=== PATIENT | male | born 1960 | race African-American/Black ===

== ENCOUNTER 2020-05-27 12:29 | Inpatient (IN) | payer MEDICAID, SELFPAY ==
[2020-05-27] VITALS (7 sets, daily range): BP systolic 193–208; BP diastolic 89–97; PULSE 86–112; RESP 16–18; TEMP 36.3–36.6; O2SAT 93–99; BMI 16.9
[2020-05-27 13:01] LABS: Glucose, Whole Blood 286 mg/dL (60-115)
--- NOTE | 2020-05-27 13:12 | PC.NURSE ---
PT OFE, ARRIVES VIA EMS AFTER C/O ABDOMINAL PAIN IN UMBILICAL REGION WITH VOMITING SINCE THIS AM. DENIES DETOXING. EXPERIENCING CHILLS, DIARRHEA. WITNESSED DRY HEAVING. A&OX3, ABLE TO SPEAK IN CLEAR FULL SENTENCES. SKIN COLOUR APPROPRIATE FOR ETHNICITY, WARM & DRY. PA TO BEDSIDE.
[2020-05-27] MEDS: Morphine Sulfate 4 MG/ML CARTRIDGE IM (13:40)
[2020-05-27] MEDS: 0.9 % Sodium Chloride 1,000 ML 999 ML IVCONT (13:40)
[2020-05-27] MEDS: ondansetron HCL 4 MG/2 ML VIAL IVPUSH (13:41)
[2020-05-27] MEDS: diphenhydrAMINE HCL 50 MG/ML VIAL 25 MG IVPUSH (13:41)
--- NOTE | 2020-05-27 14:18 | CT_ITS ---
EXAMINATION: CT ABDOMEN AND PELVIS WITH CONTRAST CLINICAL INFORMATION: Abdominal pain. Bilious emesis. COMPARISON: 11/17/2018 TECHNIQUE: Multidetector volumetric images were obtained from the superior aspect of the liver through the pubic symphysis following administration 85 mL of Omnipaque 350 intravenous contrast. Sagittal and coronal reformatted images were obtained on the technologist's workstation. Oral contrast: No This CT examination was performed using dose optimization techniques as appropriate, variously including the following: *Automated exposure control *Adjustment of mA and/or kV according to patient size (this includes techniques or standardized protocols for targeted exams where dose is matched to indication/reason for exam; i.e. extremities or head) *Use of iterative reconstruction technique DLP: 339 mGy-cm FINDINGS: LUNG BASES: The visualized lung bases are unremarkable. LIVER, GALLBLADDER, AND BILIARY TREE: The liver is normal in size, shape, and attenuation. No focal hepatic lesion or biliary ductal dilatation is present. The gallbladder appears to be absent. PANCREAS: Atrophic pancreas with calcifications along the course of the pancreas, suggestive of sequela of chronic pancreatitis. This is similar to prior. SPLEEN: Unremarkable. ADRENAL GLANDS: Unremarkable. KIDNEYS AND URETERS: The kidneys are normal in size, shape, and attenuation. Duplicated right collecting system with rotated appearance. No hydronephrosis, hydroureter, or calculi seen. No perinephric stranding. BLADDER: Unremarkable. GASTROINTESTINAL TRACT: The stomach is unremarkable. Normal caliber small bowel. There is no obstruction. No colonic wall thickening or inflammatory changes. The appendix is not definitively seen, but there are no inflammatory changes in the region of the cecum to suggest acute appendicitis. No free air or free fluid. ABDOMINAL WALL: No significant hernia is appreciated. LYMPH NODES: Normal. VASCULAR: Normal caliber aorta with mild atherosclerotic calcification. PELVIC VISCERA: The prostate and seminal vesicles are unremarkable. OSSEOUS STRUCTURES: No acute or suspicious osseous abnormality. Mild degenerative changes of the hips. CT/CT abdomen pelvis w con IMPRESSION: No acute findings in the abdomen or pelvis. Changes of chronic pancreatitis. No acute inflammation noted. No bowel obstruction.
--- NOTE | 2020-05-27 14:20 | ED.ABDPAIN ---
HPI - Abdominal Pain General Chief Complaint: Abdominal Pain Stated Complaint: ABD PAIN Time Seen by Provider: 05/27/20 13:03 Source: patient Mode of arrival: ambulatory Limitations: no limitations History of Present Illness HPI narrative: 59yoM c PMHx of diabetes and pancreatitis presenting to the ED with complaints of nausea/vomiting and stabbing umbilical abdominal pain that is now diffuse without any other associated symptoms. Denies fevers, chills, blood in his emesis, chest pain, shortness of breaths, pain radiating to the back or the chest, diarrhea or constipation. Denies any alcohol or drug usage. Denies recent travel or sick contacts. Denies bad food exposure. Denies exposure to COVID that he is aware about. Denies any additional complaints or concerns at this time. Related Data Allergies Allergy/AdvReac Type Severity Reaction Status Date / Time No Known Allergies Allergy Verified 05/27/20 12:49 [No Known Allergies*] Review of Systems Review of Systems Constitutional : No Fever, No Chills ENT/Mouth: No ear pain, No sore throat, No Difficulty swallowing Cardiovascular : No Chest Pain, No SOB Respiratory : No Cough, No Sputum Gastrointestinal : + Nausea, + Vomiting, + abdominal Pain, No Hematochezia, No Melena, No Diarrhea, No constipation Genitourinary : No irregular bleeding, No Dysuria, No Urinary Frequency, No Hematuria,No Urinary Incontinence, No Urgency, No Flank Pain Musculoskeletal : No joint pain, No Myalgias, No Joint Swelling Skin : No Skin Lesions, No rash Neuro : No Weakness, No Paresthesias, No Dizziness, No Headache Psych : No Social Issues, Heme/Lymph: No Bruising, No Bleeding,No Lymphadenopathy Endocrine : No Polyuria, No Polydipsia, No Temperature Intolerance Yes all other systems are reviewed and are negative Physical Exam Vital Signs: Vital Signs: Last Vital Signs Temp 97.3 F 05/27/20 12:49 Pulse 86 05/27/20 12:49 Resp 16 05/27/20 13:40 BP 208/96 H 05/27/20 12:49 Pulse Ox 93 05/27/20 12:49 Body Mass Index 16.9 vital signs have been reviewed as normal and appeared to be correct. Blood pressure normal. Heart rate normal. Respiration rate normal. Temperature normal. Oxygen saturation normal. Appearance: Alert. Oriented X3. Actively vomiting yellow/greenish colored emesis reporting that he is in pain otherwise no other acute distress. Head: Normal external exam. Normocephalic. Eyes: PERRLA. EOMI. Conjunctiva and sclera normal. Eyelids normal. ENT: EAC normal. Pharynx normal. Uvula midline. Moist mucous membranes. Neck: Normal inspection. Neck supple. FROM. No adenopathy. No meningeal signs. CVS: Normal heart rate and rhythm. Heart sound normal. No murmurs noted. Pulses normal throughout. Respiratory: No respiratory distress. Painless inspiration. Breath sounds normal. No wheezes/rales/rhonchi noted. Chest nontender. No accessory muscle usage noted or decreased air movement noted. Abdomen: Soft and TTP diffusely. Bowel sounds normal in all 4 quadrants. No distention noted. No organomegaly noted. No visible injury noted. Back: No CVA tenderness. Full range of motion noted. Skin: Skin warm and dry. Normal skin color. Normal skin turgor. No rashes/lesions/lacerations noted. Extremities: No lower extremity edema. Extremities exhibit normal range of motion. Extremities nontender. Neuro: Oriented X 3. No motor deficit. No sensory deficit. Reflexes normal. Course Course Course Narrative: 13PM - 59yoM c PMHx of diabetes and pancreatitis presenting to the ED with complaints of nausea/vomiting and stabbing umbilical abdominal pain that is now diffuse without any other associated symptoms. - Concern for appendicitis vs cholecystitis versus viral syndrome versus pancreatitis - Plan: Labs, CT scan of abd/pelvis c IV contrast. Provide symptomatic treatment with a L of IV fluids, 4 mg of Zofran, and 4 mg of morphine along with 25 mg of Benadryl then re-evaluate. Reevaluation(s) Reevaluation #1: [place] [address]. Blood glucose 286. AST and ALT at 64/132. Otherwise all other labs are within normal limits. Awaiting CT scan of abdomen and pelvis with IV contrast. Will re-evaluate. Time: 15:55 Reevaluation #2: CT scan of abdomen and pelvis revealed chronic pancreatitis otherwise no acute inflammation and no other acute processes. I went to the bedside and offered the patient some cynthia piecre he took 2 sips and reported that he felt nauseous and he still does not feel better therefore will give him Phenergan this will be his 3rd nausea medication and will re-attempt p.o. fluids and if he feels he would need to be admitted for intractable nausea/vomiting. Patient understands agrees with this plan. Will sign out to VICTOR HUGO Tomlinson Time: 16:52 MDM - Abdominal Pain Medical Records Attestation: I reviewed the patient's medical records. Lab Data Attestation: I reviewed the patient's lab results. Result diagrams: 05/27/20 14:31 05/27/20 14:31 Labs: Lab Results 05/27/20 05/27/20 05/27/20 Range/Units 12:45 14:31 14:31 WBC 21.9 H (4.8-10.8) X10*3/uL RBC 5.27 (4.60-5.80) X10*6/uL Hgb 15.0 (14.0-18.0) g/dl Hct 47.3 (42-52) % MCV 89.8 (80-98) fL MCH 28.5 (27.0-33.0) pg MCHC 31.7 (31.0-36.0) g/dl RDW 10.9 L (11.0-16.0) % Plt Count 210 (160-400) X10*3/uL MPV 10.8 (9.4-12.4) fL Immature Gran % (Auto) 0.4 (0.0-0.4) % Neut % (Auto) 90.2 H (45-73) % Lymph % (Auto) 4.9 L (20-40) % [place] % (Auto) 4.3 (2-11) % Eos % (Auto) 0.0 (0-4) % Baso % (Auto) 0.2 (0-2) % Lymph # (Auto) 1.1 L (1.2-4.9) X10*3/uL [place] # (Auto) 1.0 (0.1-1.2) X10*3/uL Eos # (Auto) 0.0 (0.0-0.4) X10*3/uL Baso # (Auto) 0.1 (0.0-0.2) X10*3/uL Abs Immat Gran (auto) 0.08 H (0.00-0.03) X10*3/uL Absolute Neuts (auto) 19.7 H (2.0-8.3) X10*3/uL Absolute Nucleated RBC 0.000 (0.0-0.012) X10*3/uL Nucleated RBC % (auto) 0.0 (0.0-0.2) /100WBC Smear Tech's Comments VERIFIED Hold Purple Top PT (10.8-13.0) SEC INR (0.9-1.1) Sodium 137 (135-145) mmol/L Potassium 4.5 (3.3-5.1) mmol/l Chloride 102 (96-108) mmol/L Carbon Dioxide 19 L (22-29) mmol/L Anion Gap 21 H (12-20) BUN 13 (9-16) mg/dL Creatinine 1.07 (0.5-1.4) mg/dL Estim Creat Clear Calc 50.6 Estimated GFR > 60 POC Glucose 286 H (60-115) mg/dL Random Glucose 298 H (60-115) mg/dL Calcium 9.0 (8.4-10.2) mg/dL Magnesium 1.8 (1.6-2.6) mg/dL Total Bilirubin 1.0 (0.0-1.0) mg/dL Direct Bilirubin 0.3 (0.0-0.5) mg/dL AST 64 H (5-37) U/L ALT 132 H (0-40) U/L Alkaline Phosphatase 99 (39-117) U/L Total Protein 7.6 (6.5-8.0) g/dL Albumin 4.8 (3.5-5.0) g/dL Lipase 6 L (8-78) U/L 05/27/20 05/27/20 Range/Units 15:06 15:06 WBC (4.8-10.8) X10*3/uL RBC (4.60-5.80) X10*6/uL Hgb (14.0-18.0) g/dl Hct (42-52) % MCV (80-98) fL MCH (27.0-33.0) pg MCHC (31.0-36.0) g/dl RDW (11.0-16.0) % Plt Count (160-400) X10*3/uL MPV (9.4-12.4) fL Immature Gran % (Auto) (0.0-0.4) % Neut % (Auto) (45-73) % Lymph % (Auto) (20-40) % [place] % (Auto) (2-11) % Eos % (Auto) (0-4) % Baso % (Auto) (0-2) % Lymph # (Auto) (1.2-4.9) X10*3/uL [place] # (Auto) (0.1-1.2) X10*3/uL Eos # (Auto) (0.0-0.4) X10*3/uL Baso # (Auto) (0.0-0.2) X10*3/uL Abs Immat Gran (auto) (0.00-0.03) X10*3/uL Absolute Neuts (auto) (2.0-8.3) X10*3/uL Absolute Nucleated RBC (0.0-0.012) X10*3/uL Nucleated RBC % (auto) (0.0-0.2) /100WBC Smear Tech's Comments Hold Purple Top SEE NOTE PT 12.3 (10.8-13.0) SEC INR 1.0 (0.9-1.1) Sodium (135-145) mmol/L Potassium (3.3-5.1) mmol/l Chloride (96-108) mmol/L Carbon Dioxide (22-29) mmol/L Anion Gap (12-20) BUN (9-16) mg/dL Creatinine (0.5-1.4) mg/dL Estim Creat Clear Calc Estimated GFR POC Glucose (60-115) mg/dL Random Glucose (60-115) mg/dL Calcium (8.4-10.2) mg/dL Magnesium (1.6-2.6) mg/dL Total Bilirubin (0.0-1.0) mg/dL Direct Bilirubin (0.0-0.5) mg/dL AST (5-37) U/L ALT (0-40) U/L Alkaline Phosphatase (39-117) U/L Total Protein (6.5-8.0) g/dL Albumin (3.5-5.0) g/dL Lipase (8-78) U/L Imaging Data CT scan - abdomen: Attestation: I personally reviewed and interpreted this imaging study as follows: Radiologist's impression: FINDINGS: LUNG BASES: The visualized lung bases are unremarkable. LIVER, GALLBLADDER, AND BILIARY TREE: The liver is normal in size, shape, and attenuation. No focal hepatic lesion or biliary ductal dilatation is present. The gallbladder appears to be absent. PANCREAS: Atrophic pancreas with calcifications along the course of the pancreas, suggestive of sequela of chronic pancreatitis. This is similar to prior. SPLEEN: Unremarkable. ADRENAL GLANDS: Unremarkable. KIDNEYS AND URETERS: The kidneys are normal in size, shape, and attenuation. Duplicated right collecting system with rotated appearance. No hydronephrosis, hydroureter, or calculi seen. No perinephric stranding. BLADDER: Unremarkable. GASTROINTESTINAL TRACT: The stomach is unremarkable. Normal caliber small bowel. There is no obstruction. No colonic wall thickening or inflammatory changes. The appendix is not definitively seen, but there are no inflammatory changes in the region of the cecum to suggest acute appendicitis. No free air or free fluid. ABDOMINAL WALL: No significant hernia is appreciated. LYMPH NODES: Normal. VASCULAR: Normal caliber aorta with mild atherosclerotic calcification. PELVIC VISCERA: The prostate and seminal vesicles are unremarkable. OSSEOUS STRUCTURES: No acute or suspicious osseous abnormality. Mild degenerative changes of the hips. CT/CT abdomen pelvis w con IMPRESSION: No acute findings in the abdomen or pelvis. Changes of chronic pancreatitis. No acute inflammation noted. No bowel obstruction. Critical Care Time Critical Care Time Critical Care Time: Yes Total Critical Care Time: 60 Attestation: I personally attest to this time spent taking care of the patient [facility]LY [facility] Past Medical History Attestation statement: The following information was validated with the patient. Medical History Diabetes History of pancreatitis Social History Social History Advance Directives: Yes Advance Directives Information Provided: Yes Advance Directives on File: No
--- NOTE | 2020-05-27 14:32 | PC.NURSE ---
PT DIFFICULT STICK. SEVERAL ATTEMPTS FOR IV PLACEMENT, UNABLE TO DRAW LABS. CALL MADE OUT TO PHLEBOTOMY FOR ASSISTANCE.
[2020-05-27 14:43] LABS: Basophils Absolute Auto 0.1 X10*3/uL (0.0-0.2); Basophils Percent Auto 0.2 % (0-2); Hematocrit 47.3 % (42-52); Imm Gran Abs Auto 0.08 X10*3/uL (0.00-0.03); Imm Gran Pct Auto 0.4 % (0.0-0.4); Lymphocytes Absolute Auto 1.1 X10*3/uL (1.2-4.9); Lymphocytes Percent Auto 4.9 % (20-40); MANUAL DIFF FLAG SCAN; Mean Corpuscular HGB Conc 31.7 g/dl (31.0-36.0); Mean Corpuscular Hemoglobin 28.5 pg (27.0-33.0); Mean Corpuscular Volume 89.8 fL (80-98); Mean Platelet Volume 10.8 fL (9.4-12.4); Monocytes Percent Auto 4.3 % (2-11); Neutrophils Absolute Auto 19.7 X10*3/uL (2.0-8.3); Neutrophils Percent Auto 90.2 % (45-73); Platelet Count 210 X10*3/uL (160-400); Red Blood Count 5.27 X10*6/uL (4.60-5.80); Red Cell Distribution Width 10.9 % (11.0-16.0); SCAN SMEAR FLAG 1; White Blood Count 21.9 X10*3/uL (4.8-10.8)
--- NOTE | 2020-05-27 14:58 | PC.NURSE ---
PHLEBOTOMY AT BEDSIDE, UNABLE TO OBTAIN MORE SPECIMENS
[2020-05-27 15:04] LABS: SLIDE REVIEW VERIFIED
[2020-05-27 15:09] LABS: Alanine Aminotransferase 132 U/L (0-40); Albumin Level 4.8 g/dL (3.5-5.0); Alkaline Phosphatase 99 U/L (39-117); Aspartate Amino Transferase 64 U/L (5-37); Bilirubin Direct 0.3 mg/dL (0.0-0.5); Blood Urea Nitrogen 13 mg/dL (9-16); Creatinine Clr Calc Pharmacy 50.6; Estimated Glomerular Filt Rate > 60; Glucose Random 298 mg/dL (60-115); Magnesium 1.8 mg/dL (1.6-2.6); Total Protein 7.6 g/dL (6.5-8.0)
[2020-05-27 15:20] LABS: Anion Gap 21 (12-20); Carbon Dioxide 19 mmol/L (22-29); Chloride 102 mmol/L (96-108); Potassium 4.5 mmol/l (3.3-5.1); Sodium 137 mmol/L (135-145)
[2020-05-27 15:21] LABS: Prothrombin Time 12.3 SEC (10.8-13.0)
[2020-05-27] MEDS: Morphine Sulfate 4 MG/ML CARTRIDGE IVPUSH ×2 (15:59→19:26)
[2020-05-27] MEDS: Metoclopramide HCl 10 MG/2 ML VIAL IVPUSH (16:00)
[2020-05-27] MEDS: iohexoL 350 MG/ML 100 ML INFUS..BTL IV (16:12)
[2020-05-27 16:21] LABS: Lipase 6 U/L (8-78)
--- NOTE | 2020-05-27 18:08 | PC.NURSE ---
pt asleep upon numerous entries into his room. upon awakening, pt continues to c/o abd pain. nausea resolved. pt continuously requesting more pain medication.
[2020-05-27 19:23] LABS: Glucose Urine UA >=1000 MG/DL (NEG); Leukocyte Esterase Urine NEG (NEG); Nitrite Urine NEG (NEG); Urine Blood TRACE (NEG); Urine Ketones 15 MG/DL (NEG); Urine Protein NEG (NEG-TRACE)
[2020-05-27 19:25] LABS: Appearance Urine CLEAR; Color Urine YELLOW
[2020-05-27 19:36] LABS: RBC Urine 0-2 /HPF (0); WBC Urine 0 /HPF (0-4)
--- NOTE | 2020-05-27 19:48 | PC.NURSE ---
LAB TO DRAW ACETONE OFF PREVIOUS BLOOD DRAW
[2020-05-27 19:52] LABS: Acetone, serum QL Negative (Negative)
[2020-05-27 20:50] LABS: Pt Ventilation O2% ROOM AIR
[2020-05-27 20:52] LABS: ABG PCO2 35 mmhg (32-45)
[2020-05-27 20:53] LABS: Base Excess ABG -2.9; HCO3 ABG 21 mmol/l (22-26); Oxygen Saturation ABG 97.7 %; PO2 ABG 94 mmhg (83-108)
[2020-05-27 22:09] LABS: Glucose, Whole Blood 340 mg/dL (60-115)
--- NOTE | 2020-05-27 22:27 | PC.NURSE ---
pt has no recollection of meds taken at home. meds from pharmacy unobtainable at this time. pt's POC to be covered, awaiting bed assignment.
[2020-05-27 22:40] LABS: COVID-19 Test Negative (Negative)
[2020-05-27] MEDS: Insulin Regular, Human 100 UNIT/ML 3 ML VIAL 10 UNIT SUBCUT (22:42)
[2020-05-27] MEDS: Magnesium Hydrox/Alum Hydrox 30 ML ORAL.SUSP PO (23:24)
[2020-05-27 23:48] LABS: Glucose, Whole Blood 382 mg/dL (60-115)
[2020-05-27] MEDS: HYDROmorphone HCl 1 MG/ML SYRINGE IVPUSH (23:55)
[2020-05-28] VITALS: BP 157/78; PULSE 101; RESP 19; TEMP 36.4; O2SAT 98
[2020-05-28] MEDS: 0.9 % Sodium Chloride 1,000 ML 999 ML IVCONT (00:05)
[2020-05-28] MEDS: QUEtiapine Fumarate 25 MG TABLET PO (01:00)
[2020-05-28] MEDS: Enoxaparin Sodium 40 MG/0.4 ML SYRINGE SUBCUT (01:00)
[2020-05-28 01:22] LABS: Alanine Aminotransferase 118 U/L (0-40); Alkaline Phosphatase 99 U/L (39-117); Aspartate Amino Transferase 37 U/L (5-37); Bilirubin Direct 0.4 mg/dL (0.0-0.5); Bilirubin Total 0.8 mg/dL (0.0-1.0); Total Protein 7.6 g/dL (6.5-8.0)
[2020-05-28 01:22] LABS: Glucose, Whole Blood 306 mg/dL (60-115)
[2020-05-28 03:26] VITALS: BP 133/58; PULSE 102; RESP 19; TEMP 36.8; O2SAT 99
--- NOTE | 2020-05-28 03:32 | PM.IMHP ---
History of Present Illness Date of Service: 05/27/20 Chief Complaint: abdominal pain this is a 59-year-old male with past medical history of chronic pancreatitis , diabetes, hypertension who presents to the hospital with epigastric abdominal pain nausea vomiting Patient reports symptoms started earlier in the day, 04/23, localized to the epigastric area with non radiation, ripping in sensation, associated with nausea and vomiting and low appetite. He denies any fever or chills, denies any diarrhea. No constipation. No urinary symptoms and no lower extremity edema. on arrival to the ED hemodynamically stable with no significant abnormal vitals except for BP of 2 in room 96 on arrival, and slightly elevated heart rate Lab significant for WBC count 20.9, AST of 64, and ALT of 132, S stone negative, COVID-[address] showing changes of chronic pancreatitis, with no acute inflammation noted. No other acute findings on the CT past medical history: Diabetes, hyperlipidemia, hypertension, pancreatitis Surgical history: Appendectomy, cholecystectomy Family history: Significant for diabetes Social history: Denies tobacco alcohol or illicit drugs Review of Systems Review of Systems: Yes all other systems are reviewed and are negative [facility] Medical History (Updated 05/28/20 @ 03:41 by Po Paul MD) Diabetes History of pancreatitis Hypertension Social History Household Members: Friend(s) Housing: Apartment Do you presently have visiting nurse or other home services: No Smoking Status: Never smoker Use of substances other than those prescribed or required for medical reasons: Yes Substance Use Type: Marijuana Substance Use Frequency: Daily Last Used Substance: Days (ago) Currently Displaying Signs/Symptoms of Drug Intoxication Withdrawal: No Any prior treatment program specific to substance use: No Have you been hit, kicked, punched, or otherwise hurt by someone within the past year? If so, by whom?: No Do you feel safe in your current relationship?: No Is there a partner from a previous relationship who is making you feel unsafe now?: No Are you made to feel afraid or neglected: No Advance Directives: Yes Advance Directives Information Provided: Yes Advance Directives on File: No Advance Directives Date on File: 05/28/20 Do you have thoughts of harming others: None Do you have a plan to hurt others: No Plan Recently lost weight without trying: Yes Meds Allergies Allergy/AdvReac Type Severity Reaction Status Date / Time No Known Allergies Allergy Verified 05/27/20 12:49 [No Known Allergies*] Home Medications Medication Instructions Recorded Confirmed Type Unobtainable 05/27/20 05/27/20 History Physical Exam Vital Signs and Narrative: Vital Signs: Last Vital Signs Temp 98.2 F 05/28/20 03:26 Pulse 102 H 05/28/20 03:26 Resp 19 05/28/20 03:26 BP 133/58 L 05/28/20 03:26 Pulse Ox 99 05/28/20 03:26 Body Mass Index 16.9 Const: General: cooperative and no acute distress Orientation/consciousness: patient oriented x3 Eyes: General: appearance normal, both eyes and all related structures Pupils: Equal, round and reactive pupils present Resp: Effort & Inspection: normal respiratory effort and able to speak in complete sentences Auscultation: clear to auscultation bilaterally Cardio: Rate: regular rate Rhythm: regular rhythm GI: Other: tenderness on deep palpation of the epigastric region, no rebound, no guarding Palpation (GI): Soft to palpation Auscultation: normal bowel sounds Skin: General skin exam: no rashes or lesions noted Neuro: General: patient oriented x3 Cranial nerves: Yes Equal, round and reactive pupils present Cognition (Neuro): normal cognition Extrem: General: Yes normal to inspection and Yes no pedal edema Results Labs CBC and Chem 7: 05/27/20 14:31 05/27/20 14:31 Labs: Laboratory Results - last 24 hr 05/27/20 05/27/20 05/27/20 12:45 14:31 14:31 MCV 89.8 MCH 28.5 MCHC 31.7 RDW 10.9 L Plt Count 210 MPV 10.8 Immature Gran % (Auto) 0.4 Neut % (Auto) 90.2 H Lymph % (Auto) 4.9 L [place] % (Auto) 4.3 Eos % (Auto) 0.0 Baso % (Auto) 0.2 Lymph # (Auto) 1.1 L [place] # (Auto) 1.0 Eos # (Auto) 0.0 Baso # (Auto) 0.1 Abs Immat Gran (auto) 0.08 H Absolute Neuts (auto) 19.7 H Absolute Nucleated RBC 0.000 Nucleated RBC % (auto) 0.0 Smear Tech's Comments VERIFIED Hold Purple Top PT INR ABG pH ABG pCO2 ABG pO2 ABG HCO3 ABG O2 Saturation ABG Base Excess Oxygen Given Anion Gap 21 H Estim Creat Clear Calc 50.6 Estimated GFR > 60 POC Glucose 286 H Random Glucose 298 H Calcium 9.0 Magnesium 1.8 Total Bilirubin 1.0 Direct Bilirubin 0.3 AST 64 H ALT 132 H Alkaline Phosphatase 99 Total Protein 7.6 Albumin 4.8 Lipase 6 L Urine Color Urine Appearance Urine pH Ur Specific [place] Urine Protein Urine Glucose (UA) Urine Ketones Urine Blood Urine Nitrite Ur Leukocyte Esterase Urine RBC Urine WBC Ur Squamous Epith Cells Urine Bacteria Acetone, Qual COVID-19 (NEPTALI) [employer] 05/27/20 05/27/20 05/27/20 14:31 15:06 15:06 MCV MCH MCHC RDW Plt Count MPV Immature Gran % (Auto) Neut % (Auto) Lymph % (Auto) [place] % (Auto) Eos % (Auto) Baso % (Auto) Lymph # (Auto) [place] # (Auto) Eos # (Auto) Baso # (Auto) Abs Immat Gran (auto) Absolute Neuts (auto) Absolute Nucleated RBC Nucleated RBC % (auto) Smear Tech's Comments Hold Purple Top SEE NOTE PT 12.3 INR 1.0 ABG pH ABG pCO2 ABG pO2 ABG HCO3 ABG O2 Saturation ABG Base Excess Oxygen Given Anion Gap Estim Creat Clear Calc Estimated GFR POC Glucose Random Glucose Calcium Magnesium Total Bilirubin Direct Bilirubin AST ALT Alkaline Phosphatase Total Protein Albumin Lipase Urine Color Urine Appearance Urine pH Ur Specific [place] Urine Protein Urine Glucose (UA) Urine Ketones Urine Blood Urine Nitrite Ur Leukocyte Esterase Urine RBC Urine WBC Ur Squamous Epith Cells Urine Bacteria Acetone, Qual Negative COVID-19 (NEPTALI) [employer] 05/27/20 05/27/20 05/27/20 19:11 20:40 22:05 MCV MCH MCHC RDW Plt Count MPV Immature Gran % (Auto) Neut % (Auto) Lymph % (Auto) [place] % (Auto) Eos % (Auto) Baso % (Auto) Lymph # (Auto) [place] # (Auto) Eos # (Auto) Baso # (Auto) Abs Immat Gran (auto) Absolute Neuts (auto) Absolute Nucleated RBC Nucleated RBC % (auto) Smear Tech's Comments Hold Purple Top PT INR ABG pH 7.40 ABG pCO2 35 ABG pO2 94 ABG HCO3 21 L ABG O2 Saturation 97.7 ABG Base Excess -2.9 Oxygen Given ROOM AIR Anion Gap Estim Creat Clear Calc Estimated GFR POC Glucose 340 H Random Glucose Calcium Magnesium Total Bilirubin Direct Bilirubin AST ALT Alkaline Phosphatase Total Protein Albumin Lipase Urine Color YELLOW Urine Appearance CLEAR Urine pH 6.0 Ur Specific [place] 1.010 Urine Protein NEG Urine Glucose (UA) >=1000 H Urine Ketones 15 Urine Blood TRACE Urine Nitrite NEG Ur Leukocyte Esterase NEG Urine RBC 0-2 Urine WBC 0 Ur Squamous Epith Cells NONE Urine Bacteria NONE Acetone, Qual COVID-19 (NEPTALI) COVID-19 [employer] 05/27/20 05/27/20 05/28/20 22:13 23:45 00:47 MCV MCH MCHC RDW Plt Count MPV Immature Gran % (Auto) Neut % (Auto) Lymph % (Auto) [place] % (Auto) Eos % (Auto) Baso % (Auto) Lymph # (Auto) [place] # (Auto) Eos # (Auto) Baso # (Auto) Abs Immat Gran (auto) Absolute Neuts (auto) Absolute Nucleated RBC Nucleated RBC % (auto) Smear Tech's Comments Hold Purple Top PT INR ABG pH ABG pCO2 ABG pO2 ABG HCO3 ABG O2 Saturation ABG Base Excess Oxygen Given Anion Gap Estim Creat Clear Calc Estimated GFR POC Glucose 382 H* Random Glucose Calcium Magnesium Total Bilirubin 0.8 Direct Bilirubin 0.4 AST 37 D ALT 118 H Alkaline Phosphatase 99 Total Protein 7.6 Albumin 5.0 Lipase Urine Color Urine Appearance Urine pH Ur Specific [place] Urine Protein Urine Glucose (UA) Urine Ketones Urine Blood Urine Nitrite Ur Leukocyte Esterase Urine RBC Urine WBC Ur Squamous Epith Cells Urine Bacteria Acetone, Qual COVID-19 (NEPTALI) Negative COVID-[employer] See Note 05/28/20 01:18 MCV MCH MCHC RDW Plt Count MPV Immature Gran % (Auto) Neut % (Auto) Lymph % (Auto) [place] % (Auto) Eos % (Auto) Baso % (Auto) Lymph # (Auto) [place] # (Auto) Eos # (Auto) Baso # (Auto) Abs Immat Gran (auto) Absolute Neuts (auto) Absolute Nucleated RBC Nucleated RBC % (auto) Smear Tech's Comments Hold Purple Top PT INR ABG pH ABG pCO2 ABG pO2 ABG HCO3 ABG O2 Saturation ABG Base Excess Oxygen Given Anion Gap Estim Creat Clear Calc Estimated GFR POC Glucose 306 H Random Glucose Calcium Magnesium Total Bilirubin Direct Bilirubin AST ALT Alkaline Phosphatase Total Protein Albumin Lipase Urine Color Urine Appearance Urine pH Ur Specific [place] Urine Protein Urine Glucose (UA) Urine Ketones Urine Blood Urine Nitrite Ur Leukocyte Esterase Urine RBC Urine WBC Ur Squamous Epith Cells Urine Bacteria Acetone, Qual COVID-19 (NEPTALI) COVID-19 Clin Com Imaging Radiologist's Impressions: Impressions Abdomen/Pelvis CT 05/27/20 14:18 IMPRESSION: No acute findings in the abdomen or pelvis. Changes of chronic pancreatitis. No acute inflammation noted. No bowel obstruction. Assessment and Plan (1) Nausea & vomiting: Qualifiers: Vomiting type: bilious vomiting Qualified Code(s): R11.14 - Bilious vomiting Status: Acute (2) Abdominal pain: Qualifiers: Abdominal location: generalized Qualified Code(s): R10.84 - Generalized abdominal pain Status: Acute (3) History of pancreatitis: Status: Acute (4) Diabetes: Status: Acute (5) Hypertension: Status: Acute (6) Leukocytosis: Status: Acute this is a 59-year-old male with past medical history of diabetes as well as pancreatitis who presents to the hospital with complaints of epigastric abdominal pain. # Abdominal pain, nausea vomiting - Possibly secondary to chronic pancreatitis versus gastritis versus gastroparesis in the setting of diabetes - lipase is negative, CT showing chronic pancreatitis with no evidence of acute pancreatitis Plan: - Supportive measures, antiemetics, pain medication - PPI 40 mg daily # leukocytosis - unclear etiology, patient afebrile, no evidence of infection - CT abdomen negative Plan: - Follow CBC # diabetes - will start on low-dose sliding scale insulin - diabetic diet # hypertension - stable - patient does not know his home meds, will confirm with pharmacy in a.m. - at this time continue to monitor and if necessary will administer p.r.n. antihypertensive DVT prophylaxis: Lovenox
[2020-05-28 05:31] LABS: MANUAL DIFF FLAG NO
[2020-05-28 05:36] LABS: Basophils Percent Auto 0.2 % (0-2); Hematocrit 38.5 % (42-52); Hemoglobin 12.6 g/dl (14.0-18.0); Imm Gran Abs Auto 0.05 X10*3/uL (0.00-0.03); Imm Gran Pct Auto 0.3 % (0.0-0.4); Lymphocytes Absolute Auto 1.8 X10*3/uL (1.2-4.9); Lymphocytes Percent Auto 11.7 % (20-40); Mean Corpuscular HGB Conc 32.7 g/dl (31.0-36.0); Mean Corpuscular Hemoglobin 28.6 pg (27.0-33.0); Mean Corpuscular Volume 87.3 fL (80-98); Mean Platelet Volume 11.1 fL (9.4-12.4); Monocytes Percent Auto 6.5 % (2-11); Neutrophils Absolute Auto 12.9 X10*3/uL (2.0-8.3); Neutrophils Percent Auto 81.3 % (45-73); Platelet Count 257 X10*3/uL (160-400); Red Blood Count 4.41 X10*6/uL (4.60-5.80); Red Cell Distribution Width 10.9 % (11.0-16.0); White Blood Count 15.8 X10*3/uL (4.8-10.8)
[2020-05-28 05:56] LABS: Anion Gap 14 (12-20); Blood Urea Nitrogen 15 mg/dL (9-16); Calcium 8.7 mg/dL (8.4-10.2); Carbon Dioxide 28 mmol/L (22-29); Chloride 100 mmol/L (96-108); Creatinine Clr Calc Pharmacy 52.1; Estimated Glomerular Filt Rate > 60; Glucose Random 218 mg/dL (60-115); Potassium 4.8 mmol/l (3.3-5.1); Sodium 137 mmol/L (135-145)
[2020-05-28] MEDS: Omeprazole 40 MG CAPSULE.DR PO (06:26)
[2020-05-28 07:20] VITALS: BP 140/66; PULSE 96; RESP 18; TEMP 36.4; O2SAT 99
[2020-05-28 07:42] LABS: Glucose, Whole Blood 358 mg/dL (60-115)
[2020-05-28] MEDS: Insulin Lispro 100 UNIT/ML 3 ML VIAL SUBCUT (08:29)
[2020-05-28] MEDS: 0.9 % Sodium Chloride Flush 3 ML SYRINGE IVFLUSH (08:30)
[2020-05-28] MEDS: Lipase/Prot/Amylase 24/76/120K 1 CAP CAPSULE.DR 3 CAP PO (08:30)
--- NOTE | 2020-05-28 09:07 | MHC.CM.PN ---
PATIENT LIVES ALONE. HE IS FULLY INDEPENDENT NO DME OR VNA SERVICES. PATIENT REPORTS THAT HIS PCP IS THROUGH [facility] (DR NICHOLAS) HE REPORTS HAVING ENOUGH DIABETIC SUPPLIES IN THE HOME CASE MANAGEMENT FOLLOWING FOR ANY DISCHARGE PLANS.
--- NOTE | 2020-05-28 09:44 | P.DS_ITS ---
DS: Providers Provider Date of admission: 05/27/20 22:15 Primary care physician: Unknown Physician DS: Diagnosis Discharge Diagnosis (1) Nausea & vomiting: Status: Acute (2) Abdominal pain: Status: Acute (3) History of pancreatitis: Status: Acute (4) Diabetes: Status: Acute (5) Hypertension: Status: Acute (6) Leukocytosis: Status: Acute DS: Medications Discharge Medications Home Medications: Previous Rx's Medication Instructions Recorded hmxrmq-iidehfbt-wdnewzu [Creon] 1 cap PO TIDWM #90 cap 05/28/20 DS: Summary Hospital Course Hospital Course: Patient was admitted for abdominal pain, nausea, vomiting due to his chronic pancreatitis. The next morning however patient's symptoms completely resolved and he is able to tolerate breakfast with no issues. Therefore, he will be discharged home, he will be encouraged to continue his Creon. Time Spent with Patient Time attestation: Total time spent providing and/or coordinating discharge services: Physical Exam Vital Signs: Vital Signs: Last Vital Signs Temp 97.6 F 05/28/20 07:20 Pulse 96 05/28/20 07:20 Resp 18 05/28/20 07:20 BP 140/66 H 05/28/20 07:20 Pulse Ox 99 05/28/20 07:20 Body Mass Index 16.9 General: AO X 3, no acute distress Resp: CTA bilateral CVS: S1,S2,RRR GI: soft, non tender, non distended Neuro: motor grossly intact Psych: appropriate affect DS: Data Data Completed and Pending Labs on day of discharge: 05/27/20 12:45 Glucose, Whole Blood Routine 05/27/20 13:03 0.9 % Sodium Chloride [Ns] 1,000 ml IVCONT 999 mls/hr 05/27/20 13:13 Morphine Sulfate 4 mg IM ONCE ONE diphenhydrAMINE HCL [Benadryl] 25 mg IVPUSH ONCE ONE ondansetron HCL [Zofran] 4 mg IVPUSH ONCE ONE 05/27/20 14:18 CT abdomen pelvis w con Stat 05/27/20 14:31 Acetone, serum QL Stat Basic Metabolic Panel Stat Complete Blood Count Auto Diff Stat Lipase Stat Liver Panel Stat Magnesium Stat SLIDE REVIEW Stat 05/27/20 15:06 Hold Lav - Possible Hematology Stat Prothrombin Time INR Stat 05/27/20 15:26 Metoclopramide HCl [Reglan] 10 mg IVPUSH ONCE ONE Morphine Sulfate 4 mg IVPUSH ONCE ONE 05/27/20 16:08 Add Laboratory Test Stat 05/27/20 16:12 iohexoL 350 MG/ML [Omnipaque 350 MG/ML] 100 ml IV ONCE ONE 05/27/20 16:49 Promethazine HCL [Phenergan] 12.5 mg 0.9 % Sodium Chloride [Ns] 50 ml IV ONCE 05/27/20 17:29 Promethazine HCL [Phenergan] 25 mg IV .STK-MED ONE 05/27/20 19:13 Morphine Sulfate 4 mg IVPUSH ONCE ONE 05/27/20 20:40 Arterial Blood Gas Stat 05/27/20 22:05 Glucose, Whole Blood Routine 05/27/20 22:11 Transfer Order Routine 05/27/20 22:13 COVID-19 ID NOW (K[place]patrick) Stat 05/27/20 22:17 Insulin Regular, Human [Humulin R] 10 unit SUBCUT ONCE ONE 05/27/20 23:18 Magnesium Hydrox/Alum Hydrox [Maalox] 30 ml PO ONCE ONE 05/27/20 23:45 Glucose, Whole Blood Routine 05/27/20 23:46 HYDROmorphone HCl [Dilaudid] 1 mg IVPUSH ONCE ONE 05/28/20 00:15 0.9 % Sodium Chloride [Ns] 1,000 ml IVCONT 999 mls/hr 05/28/20 00:30 0.9 % Sodium Chloride [Ns] 1,000 ml IVCONT 999 mls/hr Omeprazole [PriLOSEC] 20 mg PO BID@0630,1630 05/28/20 00:47 Liver Panel Routine 05/28/20 01:18 Glucose, Whole Blood Routine 05/28/20 04:41 Basic Metabolic Panel Routine Complete Blood Count Auto Diff Routine 05/28/20 06:30 Omeprazole [PriLOSEC] 20 mg PO BID@0630,1630 05/28/20 07:20 Glucose, Whole Blood Routine Laboratory Last Values WBC 15.8 X10*3/uL (4.8-10.8) H 05/28/20 04:41 RBC 4.41 X10*6/uL (4.60-5.80) L 05/28/20 04:41 Hgb 12.6 g/dl (14.0-18.0) L 05/28/20 04:41 Hct 38.5 % (42-52) L 05/28/20 04:41 MCV 87.3 fL (80-98) 05/28/20 04:41 MCH 28.6 pg (27.0-33.0) 05/28/20 04:41 MCHC 32.7 g/dl (31.0-36.0) 05/28/20 04:41 RDW 10.9 % (11.0-16.0) L 05/28/20 04:41 Plt Count 257 X10*3/uL (160-400) 05/28/20 04:41 MPV 11.1 fL (9.4-12.4) 05/28/20 04:41 Immature Gran % (Auto) 0.3 % (0.0-0.4) 05/28/20 04:41 Neut % (Auto) 81.3 % (45-73) H 05/28/20 04:41 Lymph % (Auto) 11.7 % (20-40) L 05/28/20 04:41 [place] % (Auto) 6.5 % (2-11) 05/28/20 04:41 Eos % (Auto) 0.0 % (0-4) 05/28/20 04:41 Baso % (Auto) 0.2 % (0-2) 05/28/20 04:41 Lymph # (Auto) 1.8 X10*3/uL (1.2-4.9) 05/28/20 04:41 [place] # (Auto) 1.0 X10*3/uL (0.1-1.2) 05/28/20 04:41 Eos # (Auto) 0.0 X10*3/uL (0.0-0.4) 05/28/20 04:41 Baso # (Auto) 0.0 X10*3/uL (0.0-0.2) 05/28/20 04:41 Abs Immat Gran (auto) 0.05 X10*3/uL (0.00-0.03) H 05/28/20 04:41 Absolute Neuts (auto) 12.9 X10*3/uL (2.0-8.3) H 05/28/20 04:41 Absolute Nucleated RBC 0.000 X10*3/uL (0.0-0.012) 05/28/20 04:41 Nucleated RBC % (auto) 0.0 /100WBC (0.0-0.2) 05/28/20 04:41 Smear Tech's Comments VERIFIED 05/27/20 14:31 Hold Purple Top SEE NOTE 05/27/20 15:06 PT 12.3 SEC (10.8-13.0) 05/27/20 15:06 INR 1.0 (0.9-1.1) 05/27/20 15:06 ABG pH 7.40 (7.35-7.45) 05/27/20 20:40 ABG pCO2 35 mmhg (32-45) 05/27/20 20:40 ABG pO2 94 mmhg (83-108) 05/27/20 20:40 ABG HCO3 21 mmol/l (22-26) L 05/27/20 20:40 ABG O2 Saturation 97.7 % 05/27/20 20:40 ABG Base Excess -2.9 05/27/20 20:40 Oxygen Given ROOM AIR 05/27/20 20:40 Sodium 137 mmol/L (135-145) 05/28/20 04:41 Potassium 4.8 mmol/l (3.3-5.1) 05/28/20 04:41 Chloride 100 mmol/L (96-108) 05/28/20 04:41 Carbon Dioxide 28 mmol/L (22-29) 05/28/20 04:41 Anion Gap 14 (12-20) 05/28/20 04:41 BUN 15 mg/dL (9-16) 05/28/20 04:41 Creatinine 1.04 mg/dL (0.5-1.4) 05/28/20 04:41 Estim Creat Clear Calc 52.1 05/28/20 04:41 Estimated GFR > 60 05/28/20 04:41 POC Glucose 358 mg/dL (60-115) H* 05/28/20 07:20 Random Glucose 218 mg/dL (60-115) H 05/28/20 04:41 Calcium 8.7 mg/dL (8.4-10.2) 05/28/20 04:41 Magnesium 1.8 mg/dL (1.6-2.6) 05/27/20 14:31 Total Bilirubin 0.8 mg/dL (0.0-1.0) 05/28/20 00:47 Direct Bilirubin 0.4 mg/dL (0.0-0.5) 05/28/20 00:47 AST 37 U/L (5-37) D 05/28/20 00:47 ALT 118 U/L (0-40) H 05/28/20 00:47 Alkaline Phosphatase 99 U/L (39-117) 05/28/20 00:47 Total Protein 7.6 g/dL (6.5-8.0) 05/28/20 00:47 Albumin 5.0 g/dL (3.5-5.0) 05/28/20 00:47 Lipase 6 U/L (8-78) L 05/27/20 14:31 Urine Color YELLOW 05/27/20 19:11 Urine Appearance CLEAR 05/27/20 19:11 Urine pH 6.0 (5.0-8.0) 05/27/20 19:11 Ur Specific [place] 1.010 (1.005-1.025) 05/27/20 19:11 Urine Protein NEG MG/DL (NEG-TRACE) 05/27/20 19:11 Urine Glucose (UA) >=1000 MG/DL (NEG) H 05/27/20 19:11 Urine Ketones 15 MG/DL (NEG) 05/27/20 19:11 Urine Blood TRACE (NEG) 05/27/20 19:11 Urine Nitrite NEG (NEG) 05/27/20 19:11 Ur Leukocyte Esterase NEG (NEG) 05/27/20 19:11 Urine RBC 0-2 /HPF (0) 05/27/20 19:11 Urine WBC 0 /HPF (0-4) 05/27/20 19:11 Ur Squamous Epith Cells NONE /LPF 05/27/20 19:11 Urine Bacteria NONE /LPF 05/27/20 19:11 Acetone, Qual Negative (Negative) 05/27/20 14:31 COVID-19 (NEPTALI) Negative (Negative) 05/27/20 22:13 COVID-19 Clin Com See Note 05/27/20 22:13 Discharge Plan Discharge Patient Disposition: Home, Self-Care Referrals: Physician,Unknown [Primary Care Provider] - Discharge Medications: New Creon 24,000-76,000 -120,000 unit Capsule,Delayed Release(Dr/Ec) 1 cap PO TIDWM Qty: 90 RF: 0 Discharge Orders: Discharge Order (Routine); Ordered 05/28/20 Ordered By: Sloan Dewey Activity on Discharge: As tolerated Visit Report Forms: Patient Portal Discharge page Care Plan Goals: recovery Health Concerns: chronic pancreatitis Plan of Treatment: letty
--- NOTE | 2020-05-28 10:50 | MHC.CM.PN ---
PATIENT IS DISCHARGED HOME TODAY - SELF CARE. RN AWARE OF PLAN.
[2020-05-28 11:29] VITALS: BP 132/65; PULSE 93; RESP 18; TEMP 36.7; O2SAT 99
[2020-05-28 12:37] LABS: Glucose, Whole Blood 253 mg/dL (60-115)
--- NOTE | 2020-05-28 14:04 | PC.NURSE ---
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 ADMITTED DURING NIGHT FROM ED, PER SHIFT REPORT PATIENT REPORTED MISSING PHONE EARLY IN THE MORNING AROUND 0500. THIS RN LEARNED FROM CONVERSATION WITH THE PATIENT THAT HE PUT HIS PHONE UNDER SHITS IN ED IN HIS BED, THAN HE WAS MEDICATED FOR PAIN FELL ASLEEP AND DOES NOT REMEMBER USING THE PHONE UNTIL HE WAS LOOKING FOR IT THIS MORNING AT 0500.ED CALLED,LOST AND FOUND,SECURITY LOOKING IN LAUNDRY ROOM USING METAL DETECTOR. PHONE NOT FOUND,PATIENT DISCHARGED HOME AT 12:21.
== END 2020-05-28 12:21 | disposition home or self-care (01) | DRG 282 ==
LOC: HO.ED 13:09 → HO.S3 23:18
PROVIDERS: Nurse Practitioner Family; Physician Assistant Medical; Admitting Provider Internal Medicine; Emergency Provider Emergency Medicine; Visit Provider Internal Medicine
DX: K86.1 Other chronic pancreatitis (principal); D72.829 Elevated white blood cell count, unspecified; E11.9 Type 2 diabetes mellitus without complications; Z20.828 Contact with and (suspected) exposure to other viral communicable diseases; Z79.899 Other long term (current) drug therapy
CPT/HCPCS: 36415; 74177; 80048; 80076; 81001; 82009; 82803; 82947; 83690; 83735; 85025; 85610; 87635; 96361; 96372; 96374; 96375; 96376; 99218; 99285; 99291; J1170; J1200; J1650; J2270; J2405; J2765; Q9967

== ENCOUNTER 2020-05-30 12:33 | Emergency (ER) | payer MEDICAID, SELFPAY ==
[2020-05-30] VITALS (7 sets, daily range): BP systolic 155–225; BP diastolic 75–116; PULSE 81–104; RESP 12–18; TEMP 36.6; O2SAT 96–100; BMI 20.1
--- NOTE | 2020-05-30 13:38 | ECG_ITS ---
Test Reason : HTN Blood Pressure : / mmHG Vent. Rate : 098 BPM Atrial Rate : 098 BPM P-R Int : 158 ms QRS Dur : 090 ms QT Int : 354 ms P-R-T Axes : 077 077 070 degrees QTc Int : 451 ms Normal sinus rhythm Possible Left atrial enlargement Borderline ECG When compared with ECG of 15-NOV-2018 09:09, No significant change was found Referred By: Dioni Warner Electronically Signed By:SHAR ESCALERA MD
--- NOTE | 2020-05-30 13:53 | ED.ABDPAIN ---
HPI - Abdominal Pain General Chief Complaint: Abdominal Pain Stated Complaint: ABD PAIN,VOMITING Time Seen by Provider: 05/30/20 13:35 Source: patient Mode of arrival: ambulatory Limitations: no limitations History of Present Illness HPI narrative: Patient presents to ED for epigastric abdominal pain. Patient states having epigastric pain on and off since Saturday. Patient states history of pancreatitis. patient was seen here and discharged with A CT scan reading of chronic pancreatitis. Patient denies any recent alcohol drinking or trauma to the abdomen. Patient states no chest pain or shortness of breath Related Data Previous Rx's Medication Instructions Recorded llunfk-jhociqgl-ozkknfe [Creon] 1 cap PO TIDWM #90 cap 05/28/20 oxycodone-acetaminophen [Percocet] 1 tab PO Q8H PRN #12 tab 05/30/20 Allergies Allergy/AdvReac Type Severity Reaction Status Date / Time No Known Allergies Allergy Verified 05/30/20 13:41 [No Known Allergies*] Review of Systems Review of Systems Yes all other systems are reviewed and are negative Constitutional: Reports as per HPI and Reports no additional constitutional complaints Eyes: Reports as per HPI and Reports no additional eye complaints Reports system reviewed and no additional complaints, except as documented, Reports as per HPI and Denies odynophagia Cardiovascular: Reports as per HPI and Reports no additional cardiovascular complaints Respiratory: Reports as per HPI and Reports no additional respiratory complaints Gastrointestinal: Reports as per HPI, Reports no additional gastrointestinal complaints, Reports abdominal pain, Denies belching, Denies melena, Denies bloating, Denies change in bowel habits, Denies tenesmus, Denies change in stool character, Denies coffee ground emesis, Denies constipation, Denies excessive flatus, Denies early satiety, Denies dyspepsia, Denies heartburn, Denies fecal incontinence, Denies diarrhea, Denies loose stools, Denies odynophagia and Denies hematemesis Genitourinary: Reports no additional male genitourinary complaints, Reports as per HPI, Denies hematuria, Denies oliguria, Denies erectile dysfunction, Denies genital lesions, Denies genital pain, Denies dysuria, Denies scrotal swelling, Denies testicular mass, Denies testicular pain, Denies urinary frequency and Denies urinary urgency Musculoskeletal: Reports no additional musculoskeletal complaints and Reports as per HPI Reports system reviewed and no additional complaints, except as documented and Reports as per HPI Psychiatric: Reports no additional psychiatric complaints and Reports as per HPI Physical Exam Vital Signs: Vital Signs: Last Vital Signs Temp 98 F 05/30/20 13:37 Pulse 103 H 05/30/20 18:27 Resp 15 05/30/20 16:06 BP 155/76 H 05/30/20 18:27 Pulse Ox 96 05/30/20 15:49 Body Mass Index 20.1 Const: General: cooperative, healthy appearing, comfortable, no acute distress, well developed, alert and awake Orientation/consciousness: patient oriented x3 HENMT: Head: Yes normal to inspection and Yes No palpable skull fracture present Eyes: General: appearance normal, both eyes and all related structures Neck: Neck: Yes normal visual inspection, Yes full ROM, Yes no lymphadenopathy, Yes no meningeal signs, Yes trachea midline and No tender Chest: Chest palpation & inspection: normal inspection of the chest and normal palpation of entire chest wall Resp: Effort & Inspection: normal respiratory effort and able to speak in complete sentences Cardio: Jugular venous distension: no JVD Heart sounds: S1 normal heart sound present and S2 normal heart sound present GI: Inspection: Yes normal to inspection, No Abdominal wall edema and No distended Palpation (GI): Soft to palpation, not firm, Tenderness to palpation present (GI) in the epigastrum, no guarding and not rigid : General: No CVA tenderness and Yes no CVA tenderness Back/Spine/Pelvis: Back: no CVA tenderness, No CVA tenderness and No back tenderness Skin: General skin exam: no rashes or lesions noted Neuro: General: patient oriented x3, gait normal, no meningeal signs and CN's II-XI intact bilaterally Cranial nerves: Yes CN's II-XII intact bilaterally Extrem: General: Yes normal to inspection and Yes full ROM Psych: Appearance: grossly normal, well kempt and not disheveled Course Course Course Narrative: history and physical exam indicates pancreatic exacerbation. Patient will have blood work done including EKG and troponin due to age and history of diabetes. Reevaluation(s) Reevaluation #1: patient blood pressure improved from 09/03 systolic to 175 after receiving morphine 8. Patient then states abdominal pain return severely and now blood pressure back to over 200. due to patient having severe abdominal pain and hypertensive. Patient will be sent to CT scan with the results of creatinine. Patient was presently here on the 27 of May with normal creatinine. Patient given IV fluid in the meantime. Time: 16:04 Reevaluation #2: CT scan came back negative for any abdominal CT scan acute emergency. patient states feels better after receiving many meds. Admission was discussed with patient due to improvement of pain only after mutliplel rounds of pain meds, but patient refused and will rather be discharged with oral pain medications. Will do second troponin to rule out ND and a UA. Case signed out to BENIGNO De La Vega. Blood pressure now on monitor 138/56. Time: 18:03 MDM - Abdominal Pain MDM Narrative Medical decision making narrative: CHronic Pancreatitis. Lab Data Result diagrams: 05/30/20 13:52 05/30/20 16:18 Labs: Lab Results 05/30/20 05/30/20 05/30/20 Range/Units 13:52 13:52 13:52 WBC 13.1 H (4.8-10.8) X10*3/uL RBC 5.18 (4.60-5.80) X10*6/uL Hgb 14.8 (14.0-18.0) g/dl Hct 44.4 (42-52) % MCV 85.7 (80-98) fL MCH 28.6 (27.0-33.0) pg MCHC 33.3 (31.0-36.0) g/dl RDW 10.9 L (11.0-16.0) % Plt Count 250 (160-400) X10*3/uL MPV 10.5 (9.4-12.4) fL Immature Gran % (Auto) 0.3 (0.0-0.4) % Neut % (Auto) 87.6 H (45-73) % Lymph % (Auto) 8.7 L (20-40) % [place] % (Auto) 3.0 (2-11) % Eos % (Auto) 0.2 (0-4) % Baso % (Auto) 0.2 (0-2) % Lymph # (Auto) 1.1 L (1.2-4.9) X10*3/uL [place] # (Auto) 0.4 (0.1-1.2) X10*3/uL Eos # (Auto) 0.0 (0.0-0.4) X10*3/uL Baso # (Auto) 0.0 (0.0-0.2) X10*3/uL Abs Immat Gran (auto) 0.04 H (0.00-0.03) X10*3/uL Absolute Neuts (auto) 11.4 H (2.0-8.3) X10*3/uL Absolute Nucleated RBC 0.000 (0.0-0.012) X10*3/uL Nucleated RBC % (auto) 0.0 (0.0-0.2) /100WBC PT 11.0 (10.8-13.0) SEC INR 0.9 (0.9-1.1) APTT 29.9 (24.1-38.0) SEC Sodium (135-145) mmol/L Potassium (3.3-5.1) mmol/l Chloride (96-108) mmol/L Carbon Dioxide (22-29) mmol/L Anion Gap (12-20) BUN (9-16) mg/dL Creatinine (0.5-1.4) mg/dL Estim Creat Clear Calc Estimated GFR Random Glucose (60-115) mg/dL Calcium (8.4-10.2) mg/dL Total Bilirubin Cancelled Direct Bilirubin Cancelled AST Cancelled ALT Cancelled Alkaline Phosphatase Cancelled Troponin I High Sens (<3.5-35.0) ng/L Total Protein Cancelled Albumin Cancelled Lipase Cancelled 05/30/20 05/30/20 Range/Units 13:52 16:18 WBC (4.8-10.8) X10*3/uL RBC (4.60-5.80) X10*6/uL Hgb (14.0-18.0) g/dl Hct (42-52) % MCV (80-98) fL MCH (27.0-33.0) pg MCHC (31.0-36.0) g/dl RDW (11.0-16.0) % Plt Count (160-400) X10*3/uL MPV (9.4-12.4) fL Immature Gran % (Auto) (0.0-0.4) % Neut % (Auto) (45-73) % Lymph % (Auto) (20-40) % [place] % (Auto) (2-11) % Eos % (Auto) (0-4) % Baso % (Auto) (0-2) % Lymph # (Auto) (1.2-4.9) X10*3/uL [place] # (Auto) (0.1-1.2) X10*3/uL Eos # (Auto) (0.0-0.4) X10*3/uL Baso # (Auto) (0.0-0.2) X10*3/uL Abs Immat Gran (auto) (0.00-0.03) X10*3/uL Absolute Neuts (auto) (2.0-8.3) X10*3/uL Absolute Nucleated RBC (0.0-0.012) X10*3/uL Nucleated RBC % (auto) (0.0-0.2) /100WBC PT (10.8-13.0) SEC INR (0.9-1.1) APTT (24.1-38.0) SEC Sodium 140 (135-145) mmol/L Potassium 4.2 (3.3-5.1) mmol/l Chloride 101 (96-108) mmol/L Carbon Dioxide 23 (22-29) mmol/L Anion Gap 20 (12-20) BUN 17 H (9-16) mg/dL Creatinine 1.09 (0.5-1.4) mg/dL Estim Creat Clear Calc 59.2 Estimated GFR > 60 Random Glucose 288 H (60-115) mg/dL Calcium 9.4 D (8.4-10.2) mg/dL Total Bilirubin 0.7 Direct Bilirubin 0.3 AST 49 H ALT 107 H Alkaline Phosphatase 94 Troponin I High Sens 4.1 (<3.5-35.0) ng/L Total Protein 8.2 H Albumin 5.0 Lipase 5 L ECG Data Interpretation: Normal sinus rhythm, Borderline ECG, Ventricular Rate 98, MI 158, QRS 90 Discharge Plan Discharge Clinical Impression: Chronic pancreatitis Patient Disposition: Home, Self-Care Instructions: Pancreatitis (ED) Additional Instructions: Return to the ED immediately for worsening abdominal pain, inability to tolerate Solids foods/liquid, dysuria, hematuria, nausea, vomitting, fever, chills, dysuria, chest pain, shortness of breath or any other concerning symptoms. Prescriptions: New oxycodone-acetaminophen [Percocet] 5-325 mg tablet 1 tab PO Q8H PRN (Reason: pain) Qty: 12 RF: 0 No Action Creon 24,000-76,000 -120,000 unit Capsule,Delayed Release(Dr/Ec) 1 cap PO TIDWM Qty: 90 RF: 0 Referrals: Ernesto Clayton [Physician] - 2 days (Chronic pancreatitis.) Stand Alone Forms: Work/School Release Print Language: Japanese [facility] Past Medical History Medical History (Updated 05/30/20 @ 18:25 by BENIGNO Morales) Diabetes History of pancreatitis Hypertension Social History Social History Household Members: Friend(s) Housing: Apartment Alcohol intake: never Smoking Status: Never smoker Use of substances other than those prescribed or required for medical reasons: Yes Substance Use Type: Marijuana Advance Directives: Yes Advance Directives on File: Yes Advance Directives Date on File: 05/28/20 service: No Current occupational status: employed
[2020-05-30] MEDS: ondansetron HCL 4 MG/2 ML VIAL IVPUSH (13:56)
[2020-05-30] MEDS: Morphine Sulfate 4 MG/ML CARTRIDGE IVPUSH ×2 (13:56→14:48)
[2020-05-30 13:58] LABS: MANUAL DIFF FLAG NO
[2020-05-30 14:03] LABS: Basophils Percent Auto 0.2 % (0-2); Eosinophils Percent Auto 0.2 % (0-4); Hematocrit 44.4 % (42-52); Hemoglobin 14.8 g/dl (14.0-18.0); Imm Gran Abs Auto 0.04 X10*3/uL (0.00-0.03); Imm Gran Pct Auto 0.3 % (0.0-0.4); Lymphocytes Absolute Auto 1.1 X10*3/uL (1.2-4.9); Lymphocytes Percent Auto 8.7 % (20-40); Mean Corpuscular HGB Conc 33.3 g/dl (31.0-36.0); Mean Corpuscular Hemoglobin 28.6 pg (27.0-33.0); Mean Corpuscular Volume 85.7 fL (80-98); Mean Platelet Volume 10.5 fL (9.4-12.4); Monocytes Absolute Auto 0.4 X10*3/uL (0.1-1.2); Neutrophils Absolute Auto 11.4 X10*3/uL (2.0-8.3); Neutrophils Percent Auto 87.6 % (45-73); Platelet Count 250 X10*3/uL (160-400); Red Blood Count 5.18 X10*6/uL (4.60-5.80); Red Cell Distribution Width 10.9 % (11.0-16.0); White Blood Count 13.1 X10*3/uL (4.8-10.8)
[2020-05-30 14:06] LABS: INTERNATIONAL NORM RATIO 0.9 (0.9-1.1)
[2020-05-30 14:09] LABS: Partial Thromboplastin Time 29.9 SEC (24.1-38.0)
[2020-05-30 14:41] LABS: Troponin-I High Sensitivity 4.1 ng/L (<3.5-35.0)
[2020-05-30] MEDS: PHENobarb/Hyoscy/Atropine/Scop 10 ML ELIXIR PO (14:48)
[2020-05-30] MEDS: Lidocaine HCl Viscous 2 % 15 ML SOLUTION MUCOUS MEM (14:48)
[2020-05-30] MEDS: Famotidine/PF 20 MG/2 ML VIAL IVPUSH (14:49)
--- NOTE | 2020-05-30 14:53 | PC.NURSE ---
Provider aware of elevated blood pressures. medicated w/ 2nd dose of morphine for 10/10 abdominal pain.
--- NOTE | 2020-05-30 16:02 | CT_ITS ---
EXAMINATION: CT ABDOMEN AND PELVIS WITH CONTRAST CLINICAL INFORMATION: Epigastric pain. COMPARISON: CT scan abdomen pelvis 05/27/2020 TECHNIQUE: Multidetector volumetric images were obtained from the superior aspect of the liver through the pubic symphysis following administration 85 mL of Omnipaque 350 intravenous contrast. Sagittal and coronal reformatted images were obtained on the technologist's workstation. Oral contrast: No This CT examination was performed using dose optimization techniques as appropriate, variously including the following: *Automated exposure control *Adjustment of mA and/or kV according to patient size (this includes techniques or standardized protocols for targeted exams where dose is matched to indication/reason for exam; i.e. extremities or head) *Use of iterative reconstruction technique DLP: 326 mGy-cm FINDINGS: LUNG BASES: The visualized lung bases are unremarkable. LIVER, GALLBLADDER, AND BILIARY TREE: The liver is normal in size, shape, and attenuation. No focal hepatic lesion or biliary ductal dilatation is present. The gallbladder is unremarkable with no evidence of radiopaque gallstones, gallbladder wall thickening, or obvious pericholecystic inflammatory changes. PANCREAS: The pancreas is atrophic. There are calcifications in the pancreas consistent with prior chronic pancreatitis. There is no inflammation the pancreas. No pseudocyst. No pancreatic duct dilatation. SPLEEN: Unremarkable. ADRENAL GLANDS: Unremarkable. 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 The kidneys are normal in size and attenuation. Normal enhancement of the cortex. No hydronephrosis, hydroureter, or calculi seen. No perinephric stranding. BLADDER: Unremarkable. GASTROINTESTINAL TRACT: The small and large bowel are unremarkable. The appendix is nonvisualized. ABDOMINAL WALL: No significant hernia is appreciated. LYMPH NODES: Normal. VASCULAR: Scattered vascular calcifications of the abdominal aorta. There is no aneurysm. PELVIC VISCERA: Prostate enlarged measuring 5.5 cm transverse. OSSEOUS STRUCTURES: Unremarkable. CT/CT abdomen pelvis w con IMPRESSION: No acute abnormality CT scan abdomen pelvis.
[2020-05-30] MEDS: HYDROmorphone HCl 0.5 MG/0.5 ML SYRINGE IVPUSH (16:06)
[2020-05-30] MEDS: 0.9 % Sodium Chloride 1,000 ML 999 ML IVCONT (16:07)
[2020-05-30 16:59] LABS: Alanine Aminotransferase 107 U/L (0-40); Alkaline Phosphatase 94 U/L (39-117); Anion Gap 20 (12-20); Aspartate Amino Transferase 49 U/L (5-37); Bilirubin Direct 0.3 mg/dL (0.0-0.5); Bilirubin Total 0.7 mg/dL (0.0-1.0); Blood Urea Nitrogen 17 mg/dL (9-16); Calcium 9.4 mg/dL (8.4-10.2); Carbon Dioxide 23 mmol/L (22-29); Chloride 101 mmol/L (96-108); Creatinine Clr Calc Pharmacy 59.2; Estimated Glomerular Filt Rate > 60; Glucose Random 288 mg/dL (60-115); Lipase 5 U/L (8-78); Potassium 4.2 mmol/l (3.3-5.1); Sodium 140 mmol/L (135-145); Total Protein 8.2 g/dL (6.5-8.0)
[2020-05-30] MEDS: iohexoL 350 MG/ML 100 ML INFUS..BTL 85 ML IV (17:40)
--- NOTE | 2020-05-30 19:42 | PC.NURSE ---
PT RESTING IN STRETCHER, PT EATING AND DRINKING PER PO CHALLANGE PER PA AND TOLERATING WELL. PT RATING ABD PAIN 5/10. UNABLE TO GET LABS AT THIS TIME. PT IS A DIFFICULT STICK PCT WILL ATTEMPT LABS. PT AWAKE AND ALERT, RESPIRATIONS EASY, N/L. SKIN W/D.
[2020-05-30 20:55] LABS: Troponin-I High Sensitivity 21.4 ng/L (<3.5-35.0)
--- NOTE | 2020-05-30 21:15 | PC.NURSE ---
UA obtained and sent. Pt requesting apple juice and gingerale. VSS.
[2020-05-30 21:27] LABS: Glucose Urine UA >=1000 MG/DL (NEG); Leukocyte Esterase Urine NEG (NEG); Nitrite Urine NEG (NEG); Urine Blood TRACE (NEG); Urine Ketones 5 MG/DL (NEG); Urine Protein TRACE MG/DL (NEG-TRACE)
[2020-05-30 21:29] LABS: Appearance Urine CLEAR; Color Urine YELLOW
[2020-05-30 21:45] LABS: Hyaline Casts Urine 0-2 /LPF; RBC Urine 0-2 /HPF (0); Squamous Epithelial Cell Urine TRACE /LPF; Uric Acid Crystals Urine TRACE /LPF; WBC Urine 0 /HPF (0-4)
== END 2020-05-30 23:54 | disposition home or self-care (01) ==
PROVIDERS: Physician Assistant; Emergency Provider Emergency Medicine
DX: K85.90 Acute pancreatitis without necrosis or infection, unspecified (principal); I10 Essential (primary) hypertension; R10.13 Epigastric pain; Z79.899 Other long term (current) drug therapy
CPT/HCPCS: 36415; 74177; 80053; 80076; 81001; 83690; 84484; 85025; 85610; 85730; 93005; 96361; 96374; 96375; 96376; 99284; J1170; J2270; J2405; Q9967

== ENCOUNTER 2021-10-12 09:53 | Outpatient (REF) | payer MEDICAID, SELFPAY ==
--- NOTE | ~2021-10-12 | US_ITS ---
EXAMINATION: US ABDOMEN LIMITED WITH LIVER ELASTOGRAPHY CLINICAL INFORMATION: Abnormal liver function tests. COMPARISON: CT abdomen and pelvis dated 05/30/2020. TECHNIQUE: Real-time imaging of the abdominal viscera. Noninvasive ultrasound liver fibrosis assessment is performed using Callie ElastPQ point quantification shear wave elastography (2D-SWE) with a C5-2 MHz transducer. Multiple elastography samples are obtained. FINDINGS: PANCREAS: Largely obscured by overlapping bowel gas. LIVER: The liver demonstrates normal size, contour and generally increased echogenicity. No focal lesion or intrahepatic biliary duct dilatation. The right lobe measures 10.3 cm in length. The left lobe measures 10.5 cm in length. Portal flow is towards the liver (hepatopetal). Shear wave liver elastography median stiffness is 1.38 m/s (reference: normal median stiffness is 1.3 m/s or less). IQR/median stiffness to assess sampling precision is 0.05 (reference: good quality data set is IQR/median stiffness of 0.15 or less). GALLBLADDER: Surgically absent. COMMON BILE DUCT: Normal in caliber measuring 0.5 cm in diameter. 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 No hydronephrosis. No renal calculi or focal parenchymal lesions. The kidney measures 11.4 cm in maximum dimension. FREE FLUID: None. US/US abdomen mireles w elastography IMPRESSION: 1. There is generalized increase in hepatic echotexture, consistent with fatty infiltration or hepatocellular disease. Please correlate clinically. No focal hepatic mass or intrahepatic biliary dilatation is seen. 2. Liver elastography: In the absence of other known clinical signs, measurements rule out compensated advanced chronic liver disease. If there are known clinical signs, further testing may be needed for confirmation. 3. The gallbladder surgically absent. 4. Technically limited ultrasound of the pancreas. REFERENCE: Society of Radiologists in Ultrasound Liver Stiffness Thresholds (2020): LIVER STIFFNESS THRESHOLDS: *Liver Stiffness equal or less than 1.3 m/s: High probability of being normal. *Liver Stiffness less than 1.7 m/s: In the absence of other known clinical signs, rules out compensated advanced chronic liver disease. *Liver Stiffness 1.7-2.1 m/s: Suggestive of compensated advanced chronic liver disease but need further test for confirmation. *Liver Stiffness over 2.1 m/s: Rules in compensated advanced chronic liver disease. *Liver Stiffness over 2.4 m/s: Suggestive of clinically significant portal hypertension. QUALITY OF DATA SET: *IQR/Median value equal or less than 0.15 implies a quality data set. *IQR/Median value over 0.15 implies a poor quality data set. SIGNIFICANT CHANGE FROM PRIOR EXAM: Significant change if liver stiffness measurement is 10% or greater from prior exam. OTHER CONSIDERATIONS: The stage of liver fibrosis may be overestimated in the setting of acute hepatitis, liver inflammation, elevated liver function tests, hepatic vascular congestion, obstructive cholestasis, non-fasting state, and infiltrative diseases such as amyloidosis and lymphoma. In some patients with NAFLD, the liver stiffness thresholds for compensated advanced chronic liver disease may be lower. In causes other than viral hepatitis and NAFLD, liver stiffness thresholds are not well established.
== END 2021-10-12 09:54 | disposition home or self-care (01) ==
LOC: HO.US 09:53
PROVIDERS: Visit Provider Internal Medicine
DX: R74.8 Abnormal levels of other serum enzymes (principal)
CPT/HCPCS: 76705; 76981

== ENCOUNTER → 2021-10-13 14:01 | Outpatient (BNVA) | payer MEDICAID, SELFPAY | PROVIDERS: PCP Internal Medicine; Visit Provider Nurse Practitioner Gerontology | DX: E13.42 Other specified diabetes mellitus with diabetic polyneuropathy (principal); S36.209D Unspecified injury of unspecified part of pancreas, subsequent encounter; I10 Essential (primary) hypertension; Z79.4 Long term (current) use of insulin | CPT/HCPCS: 82947; 96372; 99212; J1815 ==

== ENCOUNTER → 2021-11-17 09:58 | Outpatient (BNVA) | payer MEDICAID, SELFPAY | PROVIDERS: PCP Internal Medicine; Visit Provider Registered Nurse Diabetes Educator | DX: E13.9 Other specified diabetes mellitus without complications (principal); S36.209S Unspecified injury of unspecified part of pancreas, sequela | CPT/HCPCS: 99211 ==

== ENCOUNTER → 2021-12-22 09:26 | Outpatient (BNVA) | payer MEDICAID, SELFPAY | PROVIDERS: PCP Internal Medicine; Visit Provider Registered Nurse Diabetes Educator | DX: E13.9 Other specified diabetes mellitus without complications (principal); S36.209S Unspecified injury of unspecified part of pancreas, sequela | CPT/HCPCS: 99211 ==

== ENCOUNTER → 2021-12-28 11:10 | Outpatient (BNVA) | payer MEDICAID, SELFPAY | PROVIDERS: PCP Internal Medicine; Visit Provider Registered Nurse Diabetes Educator | DX: E13.9 Other specified diabetes mellitus without complications (principal); S36.209S Unspecified injury of unspecified part of pancreas, sequela | CPT/HCPCS: 99211 ==

== ENCOUNTER → 2022-01-08 09:40 | Outpatient (BNVA) | payer MEDICAID, SELFPAY | PROVIDERS: PCP Internal Medicine; Visit Provider Registered Nurse Diabetes Educator | DX: E13.9 Other specified diabetes mellitus without complications (principal); S36.209S Unspecified injury of unspecified part of pancreas, sequela | CPT/HCPCS: 99211 ==

== ENCOUNTER 2022-12-02 10:19 | Emergency (ER) | payer MEDICAID, SELFPAY ==
--- NOTE | ~2022-12-02 | CT_ITS ---
EXAMINATION: CT ABDOMEN AND PELVIS WITH CONTRAST CLINICAL INFORMATION: 62-year-old with left upper quadrant pain, history of pancreatitis COMPARISON: 05/30/2020 TECHNIQUE: Multidetector volumetric images were obtained from the superior aspect of the liver through the pubic symphysis following administration 85 mL of Omnipaque 350 intravenous contrast. Sagittal and coronal reformatted images were obtained on the technologist's workstation. Oral contrast: No This CT examination was performed using dose optimization techniques as appropriate, variously including the following: *Automated exposure control *Adjustment of mA and/or kV according to patient size (this includes techniques or standardized protocols for targeted exams where dose is matched to indication/reason for exam; i.e. extremities or head) *Use of iterative reconstruction technique DLP: 276 mGy-cm FINDINGS: LUNG BASES: The visualized lung bases are unremarkable. LIVER, GALLBLADDER, AND BILIARY TREE: The liver is normal in size, shape, and attenuation. No focal hepatic lesion or biliary ductal dilatation is present. Gallbladder is absent. CBD is nondilated. PANCREAS: Pancreas is atrophic, not visualized. Calcifications seen in the pancreatic tail consistent with chronic pancreatitis. SPLEEN: Unremarkable. ADRENAL GLANDS: Unremarkable. KIDNEYS AND URETERS: The kidneys are normal in size, shape, and attenuation. No hydronephrosis, hydroureter, or calculi seen. No perinephric stranding. BLADDER: Unremarkable. GASTROINTESTINAL TRACT: The small and large bowel are unremarkable. The appendix is not seen. ABDOMINAL WALL: There is status post inguinal hernia repair with residual fluid containing right inguinal hernia. There is status post left inguinal hernias. LYMPH NODES: Normal. VASCULAR: Unremarkable. PELVIC VISCERA: There is prostate hypertrophy. OSSEOUS STRUCTURES: Unremarkable. CT/CT abdomen pelvis w IV con IMPRESSION: 1. No explanation for left upper quadrant pain. 2. Status post cholecystectomy and appendectomy. 3. Chronic pancreatitis. 4. Status post inguinal hernia repair with residual fluid containing right inguinal hernia. Fleischner guidelines were followed.
[2022-12-02 10:23] VITALS: BP 190/92; PULSE 111; RESP 18; TEMP 36.8; O2SAT 100; BMI 24.2
--- NOTE | 2022-12-02 10:48 | ED_ITS ---
HPI - Abdominal Pain General Chief Complaint: Abdominal Pain Stated Complaint: Abd pain Time Seen by Provider: 12/02/22 10:36 Source: patient and family Mode of arrival: wheelchair Limitations: no limitations History of Present Illness HPI narrative: 62-year-old male with a history of insulin-dependent diabetes, pancreatitis, formal alcohol use, hypertension, anxiety, depression, high cholesterol who presents the ER with complaints of left upper abdominal pain since 01:00 with nausea and vomiting. No fevers, chills, constipation, diarrhea, urinary symptoms. Patient has history of pancreatitis and feels this is similar Related Data Home Medications Medication Instructions Recorded Confirmed alcohol swabs (BD Alcohol Swabs) 1 pad topical TID-QID 10/13/21 10/13/21 atorvastatin 40 mg tablet 40 mg PO DAILY 10/13/21 10/13/21 blood sugar diagnostic (FreeStyle 10/13/21 10/13/21 Lite Strips) blood-glucose meter (FreeStyle 10/13/21 10/13/21 Lite Meter kit) gabapentin 300 mg capsule 300 mg PO BEDTIME 10/13/21 10/13/21 lancets 33 gauge (TRUEplus Lancets) 10/13/21 10/13/21 quetiapine 200 mg tablet (Seroquel) See Rx Instructions PO BEDTIME 10/13/21 10/13/21 sertraline 50 mg tablet 50 mg PO DAILY 10/13/21 10/13/21 Previous Rx's Medication Instructions Recorded [id number] 1 cap PO TIDWM #90 caps 05/28/20 24,000-76,000-120,000 unit capsule,delayed rel (Creon) oxycodone-acetaminophen 5 mg-325 1 tab PO Q8H PRN pain #12 tabs 16/20 mg tablet (Percocet) glucose 4 gram chewable tablet 12 g PO Q15M PRN hypoglycemia #60 10/13/21 (Dex4 Glucose) tabs insulin glargine 100 unit/mL (3 13 unit (0.13 mL) subcut DAILY #15 10/13/21 mL) subcutaneous pen (Lantus mL Solostar U-100 Insulin) Humalog KwikPen Insulin 100 See Rx Instructions subcut TID #15 04/20/22 unit/mL subcutaneous (insulin mL lispro) ondansetron 4 mg disintegrating 4 mg PO Q6H PRN nausea and 12/02/22 tablet vomiting #10 tabs oxycodone 5 mg tablet 5 mg PO Q6H PRN pain #5 tabs 12/02/22 Allergies Allergy/AdvReac Type Severity Reaction Status Date / Time No Known Allergies Allergy Verified 12/02/22 10:22 [No Known Allergies*] Review of Systems Review of Systems Yes all other systems are reviewed and are negative Constitutional: Reports no additional constitutional complaints, Denies body ache(s), Denies chills, Denies fever(s), Denies headache(s) and Denies weakness Eyes: Reports no additional eye complaints and Denies change in vision Reports system reviewed and no additional complaints, except as documented, Denies dizziness, Denies headache(s), Denies nasal congestion, Denies nasal discharge and Denies neck pain Cardiovascular: Reports no additional cardiovascular complaints, Denies chest pain, Denies leg edema and Denies dyspnea Respiratory: Reports no additional respiratory complaints, Denies cough and Denies dyspnea Gastrointestinal: Reports no additional gastrointestinal complaints, Reports abdominal pain, Denies diarrhea, Reports nausea and Reports vomiting Genitourinary: Denies urinary incontinence Musculoskeletal: Reports no additional musculoskeletal complaints, Denies back pain, Denies arthralgias, Denies joint swelling, Denies neck pain, Denies numbness and Denies tingling Skin/Breast: Reports system reviewed and no additional complaints, except as docu and Denies rash Reports system reviewed and no additional complaints, except as documented, Denies dizziness, Denies headache(s), Denies numbness, Denies tingling and Denies weakness PMF Past Medical History Attestation statement: The following information was validated with the patient. Source: old records reviewed and nursing notes reviewed Medical History Diabetes Diabetes mellitus with polyneuropathy History of pancreatitis Hypertension Surgical History Hx of cataract extraction Family History Family History Mother Diabetes Father Medical history unknown Social History Social History Household Members: Friend(s) Housing: Apartment Do you presently have visiting nurse or other home services: No Alcohol intake: never Substance Use Type: Marijuana Advance Directives: No Advance Directives Information Provided: No Advance Directives Date on File: 05/28/20 service: No Current occupational status: employed Physical Exam ED Vital Signs: Vital Signs - 24 hr 12/02/22 10:23 12/02/22 12:00 12/02/22 13:56 Temperature 98.2 F 99.0 F Pulse Rate 111 H 101 H 115 H Respiratory Rate 18 16 20 Blood Pressure 190/92 H 154/64 H 114/77 Pulse Oximetry 100 99 97 Oxygen Delivery Method Room Air Room Air Room Air BMI result Body Mass Index 24.2 Const General: cooperative, healthy appearing and no acute distress Orientation/consciousness: patient oriented x3 Limitations: no limitations HENMT Head: Yes normal to inspection Ears: hearing grossly normal bilaterally Eyes Other: IOP right eye 8 IOP left eye 11 To the left eye there is a raised wedge-shaped growth of the medial aspect of the conjunctiva which extends to the cornea General: appearance normal, both eyes and all related structures Alignment and Position: alignment normal Periorbital: periorbital findings normal Eyelids: Yes eyelids normal Conjunctivae: conjunctival abnormal (To the left eye there is a raised wedge- shaped growth of the medial aspect ) Sclerae: sclerae normal Corneas: corneas normal and fluorescein used (NO CORNEAL FOREIGN BODY OR ABRASION) Pupils: Equal, round and reactive pupils present Neck Neck: Yes normal visual inspection and Yes full ROM Chest Chest palpation & inspection: normal inspection of the chest Resp Effort & Inspection: normal respiratory effort Auscultation: clear to auscultation bilaterally Cardio Rate: regular rate Rhythm: regular rhythm Peripheral pulses: Peripheral pulses 2+ throughout GI Inspection: Yes normal to inspection Palpation (GI): Soft to palpation, Tenderness to palpation present (GI) (LUQ) and Guarding due to palpation present (GI) Auscultation: normal bowel sounds General: Yes no CVA tenderness Back/Spine/Pelvis Back: no CVA tenderness Skin General skin exam: no rashes or lesions noted Neuro General: patient oriented x3 and moves all extremities Cranial nerves: Yes Equal, round and reactive pupils present Cognition (Neuro): normal cognition Gait exam (Neuro): Normal gait present Extrem General: Yes normal to inspection, Yes no pedal edema and Yes no calf tenderness Course Course Course Narrative: 1445-CT shows chronic pancreatitis. Labs are unremarkable. Pain is well controlled. Nausea is well controlled. Plan for discharge home with pain control and antiemetic. I do not feel the patient warrants admission. Patient called me into the room because he tells me that in the left eye he feels that there is a film over the eye that is partially obstructing his vision. He reports several years ago he had cataract surgery in the left eye and since then he has had visual loss in which she can only see shadows. He tells me there is no pain in the eye, no drainage, no itching, no irritation, no fevers. No pain with eye movement. On exam the patient has what appears to be a pterygium. He has normal pressures. No evidence of corneal abrasion or foreign body. Recommend he follow-up with Ophthalmology outpatient. Reviewed worrisome signs and symptoms of when to return to the emergency room. Comfortable plan for dis charge home. Medical Decision Making Medical Decision Making [facility] [place] Narrative: 62-year-old male with a history of pancreatitis who presents to the ER with left upper quadrant abdominal pain since 01:00 with vomiting. On exam patient tenderness to the left upper quadrant with guarding Will obtain labs, UA, CT Patient will be given analgesia, antiemetic, IV fluid Differential Diagnosis Differential Diagnoses: The differential diagnosis associated with the presentation includes Pancreatitis, gastritis, GERD, gastric ulcer, renal colic, pyelonephritis Lab Data 12/02/22 11:13 12/02/22 11:13 Labs: Lab Results 12/02/22 12/02/22 12/02/22 Range/Units 11:13 11:13 11:20 WBC 11.9 H (4.8-10.8) X10*3/uL RBC 4.79 (4.60-5.80) X10*6/uL Hgb 13.5 L (14.0-18.0) g/dl Hct 41.1 L (42.0-52.0) % MCV 85.8 (80.0-98.0) fL MCH 28.2 (27.0-33.0) pg MCHC 32.8 (31.0-36.0) g/dl RDW 10.9 L (11.0-16.0) % Plt Count 183 (160-400) X10*3/uL MPV 10.6 (9.4-12.4) fL Immature Gran % (Auto) 0.3 (0.0-0.4) % Neut % (Auto) 90.8 H (45-73) % Lymph % (Auto) 6.6 L (20-40) % [place]as[place] % (Auto) 1.7 L (2-11) % Eos % (Auto) 0.4 (0-4) % Baso % (Auto) 0.2 (0-2) % Lymph # (Auto) 0.8 L (1.2-4.9) X10*3/uL [place] # (Auto) 0.2 (0.1-1.2) X10*3/uL Eos # (Auto) 0.1 (0.0-0.4) X10*3/uL Baso # (Auto) 0.0 (0.0-0.2) X10*3/uL Abs Immat Gran (auto) 0.04 H (0.00-0.03) X10*3/uL Absolute Neuts (auto) 10.8 H (2.0-8.3) x10*3/uL Absolute Nucleated RBC 0.000 (0.0-0.012) X10*3/uL Nucleated RBC % (auto) 0.0 (0.0-0.2) /100WBC Smear Tech's Comments VERIFIED Sodium 137 (135-145) mmol/L Potassium 4.2 (3.3-5.1) mmol/L Chloride 98 (96-108) mmol/L Carbon Dioxide 26 (22-29) mmol/L Anion Gap 17 (12-20) BUN 9 (9-16) mg/dL Creatinine 0.87 (0.5-1.4) mg/dL Estim Creat Clear Calc 80.4 Estimated GFR > 60 Random Glucose 252 H (60-115) mg/dL Calcium 9.6 (8.4-10.2) mg/dL Total Bilirubin 1.2 H (0.0-1.0) mg/dL Direct Bilirubin 0.4 (0.0-0.5) mg/dL AST 50 H (5-37) U/L ALT 96 H (0-40) U/L Alkaline Phosphatase 111 (39-117) U/L Total Protein 7.9 (6.5-8.0) g/dL Albumin 4.9 (3.5-5.0) g/dL Lipase 6 L (8-78) U/L Urine Color Yellow Urine Appearance Clear Urine pH 7.5 (5.0-9.0) Ur Specific Floweree 1.025 (1.005-1.025) Urine Protein 100 (2+) H (Neg-Trace) mg/dL Urine Glucose (UA) 500 H (Negative) mg/dL Urine Ketones 80 (Negative) mg/dL Urine Blood Trace H (Negative) Urine Nitrite Negative (Negative) Ur Leukocyte Esterase Negative (Negative) Urine RBC 6-10 H (0-2) /HPF Urine WBC 0-5 (0-5) /HPF Ur Squamous Epith Cells 0-2 (0-2) /HPF Urine Bacteria None Seen (None Seen) Hyaline Casts 0-2 (0-2) /LPF Independent Interpretation I performed an independent interpretation of an: CT Scan Interpretation: I independently reviewed the CT scan agree with radiologist's report Radiology Impression Discussion of test interpretation with radiology: I have reviewed the radiologist's reading. Radiologist Impression: [place] [id number] [address] Scan Report Signed Patient: Harjinder Delcid MR#: [id number] : 1960 Acct:[id number] Age/Sex: 62 / M ADM Date: 12/02/22 Loc: .ED Attending Dr: Ordering Physician: Vanessa Lu NP Date of Service: 12/02/22 Procedure(s): CT abdomen pelvis w IV con Accession Number(s): [id number] cc: Vanessa Lu NP~ EXAMINATION: CT ABDOMEN AND PELVIS WITH CONTRAST? CLINICAL INFORMATION: 62-year-old with left upper quadrant pain, history of pancreatitis? COMPARISON: 05/30/2020 TECHNIQUE: Multidetector volumetric images were obtained from the superior aspect of the liver through the pubic symphysis following administration 85 mL of Omnipaque 350 intravenous contrast. Sagittal and coronal reformatted images were obtained on the technologist's workstation.? Oral contrast: No This CT examination was performed using dose optimization techniques as appropriate, variously including the following: *Automated exposure control *Adjustment of mA and/or kV according to patient size (this includes techniques or standardized protocols for targeted exams where dose is matched to indication/reason for exam; i.e. extremities or head) *Use of iterative reconstruction technique DLP: 276 mGy-cm FINDINGS: LUNG BASES: The visualized lung bases are unremarkable.? LIVER, GALLBLADDER, AND BILIARY TREE: The liver is normal in size, shape, and attenuation. No focal hepatic lesion or biliary ductal dilatation is present. Gallbladder is absent. CBD is nondilated.? PANCREAS: Pancreas is atrophic, not visualized. Calcifications seen in the pancreatic tail consistent with chronic pancreatitis.? SPLEEN: Unremarkable.? ADRENAL GLANDS: Unremarkable.? KIDNEYS AND URETERS: The kidneys are normal in size, shape, and attenuation. No hydronephrosis, hydroureter, or calculi seen. No perinephric stranding. ? BLADDER: Unremarkable.? GASTROINTESTINAL TRACT: The small and large bowel are unremarkable. The appendix is not seen. ABDOMINAL WALL: There is status post inguinal hernia repair with residual fluid containing right inguinal hernia. There is status post left inguinal hernias. LYMPH NODES: Normal. VASCULAR: Unremarkable. PELVIC VISCERA: There is prostate hypertrophy.? OSSEOUS STRUCTURES: Unremarkable.? CT/CT abdomen pelvis w IV con IMPRESSION: 1.? No explanation for left upper quadrant pain. 2.? Status post cholecystectomy and appendectomy. 3.? Chronic pancreatitis. 4.? Status post inguinal hernia repair with residual fluid containing right inguinal hernia. ? Fleischner guidelines were followed. Medications Administered Discontinued Medications Generic Name Dose Route Start Last Admin Trade Name Freq PRN Reason Stop Dose Admin Fluorescein Sodium 1 strip 12/02/22 14:19 12/02/22 14:30 Fluorescein Sodium Strip EYE-LEFT 12/02/22 14:20 1 strip ONCE ONE Administration Sodium Chloride 1,000 mls @ 999 mls/hr 12/02/22 10:45 12/02/22 12:24 Ns IV 12/02/22 11:45 Infused .Q1H1M STA Infusion Iohexol 100 ml 12/02/22 12:42 12/02/22 12:43 Iohexol 350 Mg/Ml 100 Ml Infus..Btl IV 12/02/22 12:43 85 ml ONCE ONE Administration Morphine Sulfate 4 mg 12/02/22 10:44 12/02/22 11:09 Morphine Sulfate 4 Mg/Ml Cartridge IVPUSH 12/02/22 10:45 4 mg ONCE ONE Administration Protocol Morphine Sulfate 4 mg 12/02/22 13:09 12/02/22 13:15 Morphine Sulfate 4 Mg/Ml Cartridge IVPUSH 12/02/22 13:10 4 mg ONCE ONE Administration Protocol Ondansetron HCl 4 mg 12/02/22 10:44 12/02/22 11:09 Ondansetron Hcl 4 Mg/2 Ml Vial IVPUSH 12/02/22 10:45 4 mg ONCE ONE Administration Tetracaine HCl 1 drop 12/02/22 14:19 12/02/22 14:30 Tetracaine Hcl/Pf 0.5% Oph Kalani 4 Ml Drops EYE-LEFT 12/02/22 14:20 1 drop ONCE ONE Administration Discharge Plan Discharge Clinical Impression: Pancreatitis, Vision changes Patient Disposition: Home, Self-Care Instructions: Pancreatitis (ED), Blurred Vision (ED) Additional Instructions: Your CT shows chronic pancreatitis Take the medications as prescribed You have a cataract in your left eye. Please follow-up with the eye doctor outpatient Prescriptions: New oxycodone 5 mg tablet 5 mg PO Q6H PRN (Reason: pain) Qty: 5 0RF Rx Instructions: Partial Fill upon patient request. ondansetron 4 mg tablet,disintegrating 4 mg PO Q6H PRN (Reason: nausea and vomiting) Qty: 10 0RF No Action insulin lispro [Humalog KwikPen Insulin] 100 unit/mL insulin pen See Rx Instructions subcut TID Qty: 15 4RF Rx Instructions: 2 u breakfast, 4 u lunch & dinner subcut 3 times a day; Creon 24,000-76,000 -120,000 unit Capsule,Delayed Release(Dr/Ec) 1 cap PO TIDWM Qty: 90 0RF oxycodone-acetaminophen [Percocet] 5-325 mg tablet 1 tab PO Q8H PRN (Reason: pain) Qty: 12 0RF atorvastatin 40 mg tablet 40 mg PO DAILY sertraline 50 mg tablet 50 mg PO DAILY quetiapine [Seroquel] 200 mg tablet See Rx Instructions PO BEDTIME Rx Instructions: 1/2 tab in the morning, 2 tabs at bedtime PO bedtime; gabapentin 300 mg capsule 300 mg PO BEDTIME (DME) FreeStyle Lite Strips Strip See Rx Instructions .Route Rx Instructions: As directed 3 times daily (DME) blood-glucose meter [FreeStyle Lite Meter] Kit See Rx Instructions .Route Rx Instructions: As directed 3 times a day (DME) lancets [TRUEplus Lancets] 33 gauge misc See Rx Instructions .Route Rx Instructions: As directed 3 times daily alcohol swabs [BD Alcohol Swabs] Pads, Medicated 1 pad topical TID-QID Lantus Solostar U-100 Insulin 100 unit/mL (3 mL) insulin pen 13 unit subcut DAILY Qty: 15 3RF glucose [Dex4 Glucose] 4 gram tablet,chewable 12 g PO Q15M PRN (Reason: hypoglycemia) Qty: 60 2RF Rx Instructions: until symptoms of low blood sugar are controlled Referrals: Edwardo Holguin [Physician] - 1 week Shanta Lopez MD [Primary Care Provider] - 1 week Interventions: ED Discharge Assessment Last Done: 12/02/22 14:49 Discharge Date/Time: 12/02/22 14:53
--- NOTE | 2022-12-02 11:00 | PC.NURSE ---
22g iv inserted r forearm, meds and fluids administered per order.
[2022-12-02] MEDS: Morphine Sulfate 4 MG/ML CARTRIDGE IVPUSH ×2 (11:09→13:15)
[2022-12-02] MEDS: ondansetron HCL 4 MG/2 ML VIAL IVPUSH (11:09)
[2022-12-02] MEDS: 0.9 % Sodium Chloride 1,000 ML 999 ML IV (11:10)
[2022-12-02 11:30] LABS: Basophils Percent Auto 0.2 % (0-2); Eosinophils Absolute Auto 0.1 X10*3/uL (0.0-0.4); Eosinophils Percent Auto 0.4 % (0-4); Hematocrit 41.1 % (42.0-52.0); Hemoglobin 13.5 g/dl (14.0-18.0); Imm Gran Abs Auto 0.04 X10*3/uL (0.00-0.03); Imm Gran Pct Auto 0.3 % (0.0-0.4); Lymphocytes Absolute Auto 0.8 X10*3/uL (1.2-4.9); Lymphocytes Percent Auto 6.6 % (20-40); MANUAL DIFF FLAG SCAN; Mean Corpuscular HGB Conc 32.8 g/dl (31.0-36.0); Mean Corpuscular Hemoglobin 28.2 pg (27.0-33.0); Mean Corpuscular Volume 85.8 fL (80.0-98.0); Mean Platelet Volume 10.6 fL (9.4-12.4); Monocytes Absolute Auto 0.2 X10*3/uL (0.1-1.2); Monocytes Percent Auto 1.7 % (2-11); Neutrophils Absolute Auto 10.8 x10*3/uL (2.0-8.3); Neutrophils Percent Auto 90.8 % (45-73); Platelet Count 183 X10*3/uL (160-400); Red Blood Count 4.79 X10*6/uL (4.60-5.80); Red Cell Distribution Width 10.9 % (11.0-16.0); SCAN SMEAR FLAG 1; White Blood Count 11.9 X10*3/uL (4.8-10.8)
[2022-12-02 11:38] LABS: Appearance Urine Clear; Color Urine Yellow; Glucose Urine UA 500 mg/dL (Negative); Leukocyte Esterase Urine Negative (Negative); Nitrite Urine Negative (Negative); PH 7.5 (5.0-9.0); Specific Gravity - Urine 1.025 (1.005-1.025); UMIC TRIGGER UACC YES; Urine Blood Trace (Negative); Urine Ketones 80 mg/dL (Negative); Urine Protein 100 (2+) mg/dL (Neg-Trace)
[2022-12-02 11:43] LABS: Bacteria Urine None Seen (None Seen); Hyaline Casts Urine 0-2 /LPF (0-2); Squamous Epithelial Cell Urine 0-2 /HPF (0-2); WBC Urine 0-5 /HPF (0-5)
[2022-12-02 11:49] LABS: SLIDE REVIEW VERIFIED
[2022-12-02 11:52] LABS: Alanine Aminotransferase 96 U/L (0-40); Albumin Level 4.9 g/dL (3.5-5.0); Alkaline Phosphatase 111 U/L (39-117); Anion Gap 17 (12-20); Aspartate Amino Transferase 50 U/L (5-37); Bilirubin Direct 0.4 mg/dL (0.0-0.5); Bilirubin Total 1.2 mg/dL (0.0-1.0); Blood Urea Nitrogen 9 mg/dL (9-16); Calcium 9.6 mg/dL (8.4-10.2); Carbon Dioxide 26 mmol/L (22-29); Chloride 98 mmol/L (96-108); Creatinine Clr Calc Pharmacy 80.4; Estimated Glomerular Filt Rate > 60; Glucose Random 252 mg/dL (60-115); Lipase 6 U/L (8-78); Potassium 4.2 mmol/L (3.3-5.1); Sodium 137 mmol/L (135-145); Total Protein 7.9 g/dL (6.5-8.0)
[2022-12-02 12:00] VITALS: BP 154/64; PULSE 101; RESP 16; TEMP 37.2; O2SAT 99
[2022-12-02] MEDS: iohexoL 350 MG/ML 100 ML INFUS..BTL IV (12:43)
[2022-12-02 13:56] VITALS: BP 114/77; PULSE 115; RESP 20; O2SAT 97
[2022-12-02] MEDS: Tetracaine HCl/PF 0.5% Oph Sol 4 ML DROPS 1 DROP EYE-LEFT (14:30)
[2022-12-02] MEDS: Fluorescein Sodium STRIP 1 STRIP EYE-LEFT (14:30)
== END 2022-12-02 14:53 | disposition home or self-care (01) ==
PROVIDERS: Nurse Practitioner Family; Emergency Provider Emergency Medicine Emergency Medical Services; PCP Internal Medicine
DX: K85.90 Acute pancreatitis without necrosis or infection, unspecified (principal); H54.3 Unqualified visual loss, both eyes; R10.2 Pelvic and perineal pain; Z79.899 Other long term (current) drug therapy
CPT/HCPCS: 36415; 74177; 80048; 80076; 81001; 83690; 85025; 96361; 96374; 96375; 96376; 99284; J2270; J2405; Q9967

== ENCOUNTER 2023-03-20 08:38 | Outpatient (REF) | payer MEDICAID, SELFPAY ==
[2023-03-20 11:34] LABS: MANUAL DIFF FLAG NO
[2023-03-20 11:42] LABS: Basophils Percent Auto 0.3 % (0-2); Eosinophils Absolute Auto 0.1 X10*3/uL (0.0-0.4); Eosinophils Percent Auto 1.8 % (0-4); Hematocrit 41.8 % (42.0-52.0); Hemoglobin 13.2 g/dl (14.0-18.0); Imm Gran Abs Auto 0.01 X10*3/uL (0.00-0.03); Imm Gran Pct Auto 0.2 % (0.0-0.4); Lymphocytes Absolute Auto 1.9 X10*3/uL (1.2-4.9); Lymphocytes Percent Auto 29.5 % (20-40); Mean Corpuscular HGB Conc 31.6 g/dl (31.0-36.0); Mean Corpuscular Hemoglobin 28.6 pg (27.0-33.0); Mean Corpuscular Volume 90.7 fL (80.0-98.0); Mean Platelet Volume 12.7 fL (9.4-12.4); Monocytes Absolute Auto 0.4 X10*3/uL (0.1-1.2); Monocytes Percent Auto 5.9 % (2-11); Neutrophils Absolute Auto 4.1 x10*3/uL (2.0-8.3); Neutrophils Percent Auto 62.3 % (45-73); Platelet Count 143 X10*3/uL (160-400); Red Blood Count 4.61 X10*6/uL (4.60-5.80); Red Cell Distribution Width 10.8 % (11.0-16.0); White Blood Count 6.6 X10*3/uL (4.8-10.8)
[2023-03-20 12:12] LABS: Estimated Average Glucose 154 mg/dL
[2023-03-20 12:34] LABS: Prostate Specific Antigen 0.48 ng/mL (<0.05-4.0)
[2023-03-20 12:35] LABS: Creatinine Urine 83.54 mg/dL; Microalbum/Creatinine Ratio Ur 7.1 ug/mg cr (<30)
[2023-03-20 12:50] LABS: Folate 16.4 ng/mL (> or = 4.0); Vitamin B12 1649 pg/mL (200-900)
[2023-03-20 13:07] LABS: Alanine Aminotransferase 147 U/L (0-40); Albumin Level 4.2 g/dL (3.5-5.0); Alkaline Phosphatase 94 U/L (39-117); Anion Gap 11 (12-20); Aspartate Amino Transferase 83 U/L (5-37); Bilirubin Total 0.7 mg/dL (0.0-1.0); Blood Urea Nitrogen 10 mg/dL (9-16); Calcium 9.2 mg/dL (8.4-10.2); Carbon Dioxide 28 mmol/L (22-29); Chloride 106 mmol/L (96-108); Cholesterol 136 mg/dL (<200); Estimated Glomerular Filt Rate > 60; Ferritin 114 ng/mL (20-250); Glucose Random 271 mg/dL (60-115); HDL Cholesterol 41 mg/dL (>40); Iron 106 mcg/dL (45-160); LDL Cholesterol Calculated 67 mg/dL (<100); Lipase 5 U/L (8-78); Percent Iron Saturation 37 % (15-50); Potassium 4.2 mmol/L (3.3-5.1); Sodium 141 mmol/L (135-145); TSH reflex Free T4 2.23 uIU/mL (0.32-4.0); Total Iron Binding Capacity 283 mcg/dL (228-428); Total Protein 6.9 g/dL (6.5-8.0); Triglycerides 141 mg/dL (<150); Unsaturated Iron Binding 177 ug/dL; Vitamin D 25-OH Total 35.3 ng/mL (>30)
[2023-03-20 13:08] LABS: CT PCR NOT DETECTED (Not Detect.); NG PCR NOT DETECTED (Not Detect.)
[2023-03-21 08:56] LABS: HBS Num1 0.16 mIU/mL (0-7.99); HBc Num1 0.12 S/CO (0.00-0.79); HBsAGNum1 0.49 S/CO (0.00-0.99); HIV AB/AG Nonreactive (Nonreactive); HIV Num 1 0.05 S/CO (0.00-0.99); Hepatitis B Core Antibody Nonreactive (Nonreactive); Hepatitis B Surface Antigen Negative (Negative); ~HepC Num1 0.07 S/CO (0.00-0.79); ~Hepatitis B Surface Antibody NONREACTIVE (Nonreactive); ~Hepatitis C Antibody Nonreactive (Nonreactive)
[2023-03-22 04:36] LABS: Syphilis Screen Nonreactive (Nonreactive)
== END 2023-03-20 08:39 | disposition home or self-care (01) ==
LOC: HO.HHCL 08:38
PROVIDERS: Visit Provider Student in an Organized Health Care Education/Training Program
DX: Z00.00 Encounter for general adult medical examination without abnormal findings (principal); Z11.4 Encounter for screening for human immunodeficiency virus [HIV]; Z12.5 Encounter for screening for malignant neoplasm of prostate; Z11.3 Encounter for screening for infections with a predominantly sexual mode of transmission; J02.9 Acute pharyngitis, unspecified
CPT/HCPCS: 0353U; 80053; 80061; 82043; 82274; 82306; 82570; 82607; 82728; 82746; 83036; 83540; 83690; 84153; 84443; 85025; 86704; 86706; 86780; 86803; 87340; 87389

== ENCOUNTER 2023-03-22 12:50 | Outpatient (REF) | payer MEDICAID, SELFPAY ==
[2023-03-22 16:24] LABS: Platelet Count 174 X10*3/uL (160-400)
[2023-03-22 16:28] LABS: INTERNATIONAL NORM RATIO 0.9 (0.9-1.1); Prothrombin Time 11.5 SEC (11.1-13.3)
[2023-03-22 16:29] LABS: Alanine Aminotransferase 149 U/L (0-40); Albumin Level 4.2 g/dL (3.5-5.0); Alkaline Phosphatase 107 U/L (39-117); Anion Gap 11 (12-20); Aspartate Amino Transferase 95 U/L (5-37); Bilirubin Total 0.8 mg/dL (0.0-1.0); Blood Urea Nitrogen 8 mg/dL (9-16); Calcium 9.5 mg/dL (8.4-10.2); Carbon Dioxide 28 mmol/L (22-29); Chloride 105 mmol/L (96-108); Estimated Glomerular Filt Rate > 60; Glucose Random 172 mg/dL (60-115); Potassium 4.5 mmol/L (3.3-5.1); Sodium 139 mmol/L (135-145); Total Protein 6.8 g/dL (6.5-8.0)
[2023-03-25 11:54] LABS: Alpha 1 Anti-trypsin 137 mg/dL (83-199); Ceruloplasmin 20 mg/dL (18-36)
[2023-03-25 23:58] LABS: IgA 373 mg/dL (70-320); IgG 941 mg/dL (600-1540); IgM 75 mg/dL (50-300)
[2023-03-26 14:43] LABS: Mitochondrial Antibodies NEGATIVE (NEGATIVE)
[2023-03-26 21:39] LABS: Liver Kidney Microsomal Ab <=20.0 U (<=20.0)
[2023-03-27 11:48] LABS: Smooth Muscle Antibody <20 U (<20)
[2023-03-27 15:34] LABS: Anti Nuclear Antibody Screen NEGATIVE (NEGATIVE)
== END 2023-03-22 12:51 | disposition home or self-care (01) ==
LOC: HO.HHCL 12:50
PROVIDERS: Visit Provider Student in an Organized Health Care Education/Training Program
DX: K75.81 Nonalcoholic steatohepatitis (NASH) (principal)
CPT/HCPCS: 36415; 80053; 82103; 82390; 82784; 85049; 85610; 86015; 86038; 86376; 86381

== ENCOUNTER 2023-05-14 10:14 | Outpatient (REF) | payer MEDICAID, SELFPAY ==
--- NOTE | ~2023-05-14 | US_ITS ---
EXAMINATION: US COMPLETE ABDOMEN WITH LIVER ELASTOGRAPHY CLINICAL INFORMATION: Nonalcoholic steatohepatitis. COMPARISON: Abdominal ultrasound dated 10/12/2021. TECHNIQUE: Real-time imaging of the abdominal viscera. Noninvasive ultrasound liver fibrosis assessment is performed using Callie ElastPQ point quantification shear wave elastography (2D-SWE) with a C5-2 MHz transducer. Multiple elastography samples are obtained. FINDINGS: PANCREAS: Limited. The visualized pancreatic head and proximal body are normal in appearance. The remainder of the pancreas is obscured from visualization by the overlying bowel gas. ABDOMINAL AORTA: The proximal, middle, and distal aortic segments are normal in caliber. INFERIOR VENA CAVA: Visualized portions are normal. LIVER: Normal. The liver demonstrates normal size, contour and echogenicity. No focal lesion or intrahepatic biliary duct dilatation. The right lobe measures 14.6 cm in length. The left lobe measures 9.6 cm in length. Portal flow is towards the liver (hepatopetal). Shear wave liver elastography median stiffness is 1.57 m/s (reference: normal median stiffness is 1.3 m/s or less). IQR/median stiffness to assess sampling precision is 0.08 (reference: good quality data set is IQR/median stiffness of 0.15 or less). GALLBLADDER: Surgically absent. COMMON BILE DUCT: Normal in caliber measuring 0.5 cm in diameter. RIGHT KIDNEY: Normal. No hydronephrosis. No renal calculi or focal parenchymal lesions. There are upper pole linear atherosclerotic calcifications. The kidney measures 9.6 cm in maximum dimension. LEFT KIDNEY: Normal. No hydronephrosis. No renal calculi or focal parenchymal lesions. The kidney measures 11.1 cm in maximum dimension. SPLEEN: Normal. The spleen measures 8.5 cm in maximum dimension. FREE FLUID: None. US/US abdomen comp w elastography IMPRESSION: 1. Liver elastography: In the absence of other known clinical signs, measurements rule out compensated advanced chronic liver disease. If there are known clinical signs, further testing may be needed for confirmation. 2. The gallbladder is surgically absent. 3. Technically limited ultrasound examination of the pancreas. REFERENCE: Society of Radiologists in Ultrasound Liver Stiffness Thresholds (2020): LIVER STIFFNESS THRESHOLDS: *Liver Stiffness equal or less than 1.3 m/s: High probability of being normal. *Liver Stiffness less than 1.7 m/s: In the absence of other known clinical signs, rules out compensated advanced chronic liver disease. *Liver Stiffness 1.7-2.1 m/s: Suggestive of compensated advanced chronic liver disease but need further test for confirmation. *Liver Stiffness over 2.1 m/s: Rules in compensated advanced chronic liver disease. *Liver Stiffness over 2.4 m/s: Suggestive of clinically significant portal hypertension. QUALITY OF DATA SET: *IQR/Median value equal or less than 0.15 implies a quality data set. *IQR/Median value over 0.15 implies a poor quality data set. SIGNIFICANT CHANGE FROM PRIOR EXAM: Significant change if liver stiffness measurement is 10% or greater from prior exam. OTHER CONSIDERATIONS: The stage of liver fibrosis may be overestimated in the setting of acute hepatitis, liver inflammation, elevated liver function tests, hepatic vascular congestion, obstructive cholestasis, non-fasting state, and infiltrative diseases such as amyloidosis and lymphoma. In some patients with NAFLD, the liver stiffness thresholds for compensated advanced chronic liver disease may be lower. In causes other than viral hepatitis and NAFLD, liver stiffness thresholds are not well established.
== END 2023-05-14 10:15 | disposition home or self-care (01) ==
LOC: HO.US 10:14
PROVIDERS: PCP Student in an Organized Health Care Education/Training Program; Visit Provider Student in an Organized Health Care Education/Training Program
DX: K75.81 Nonalcoholic steatohepatitis (NASH) (principal)
CPT/HCPCS: 76705; 76981

== ENCOUNTER 2024-01-02 19:03 | Emergency (ER) | payer MEDICAID, SELFPAY ==
--- NOTE | ~2024-01-02 | CT_ITS ---
EXAMINATION: CT HEAD WITHOUT CONTRAST CLINICAL INFORMATION: Post dental extraction headache. COMPARISON: None available. TECHNIQUE: Contiguous axial imaging was performed from the skull base to vertex without intravenous administration of contrast. This CT examination was performed using dose optimization techniques as appropriate, variously including the following: *Automated exposure control *Adjustment of mA and/or kV according to patient size (this includes techniques or standardized protocols for targeted exams where dose is matched to indication/reason for exam; i.e. extremities or head) *Use of iterative reconstruction technique DLP: 687 mGy-cm FINDINGS: There is no acute intra-axial, extra-axial bleed, masses or midline shift. There is subtle hypodensity in the right postcentral gyrus on axial image 12/3 likely chronic small vessel ischemic changes. A small lacunar infarct is hard to exclude. There is normal symmetrical cortical sulci. The lateral ventricles are symmetrical but moderately enlarged and so are the cortical sulci. No abnormality seen posterior fossa. Bone windows reveal no calvarial abnormality. Bilateral paranasal sinuses and mastoid air cells are well-aerated. No scalp soft tissue abnormality seen. CT/CT head/brain wo IV con IMPRESSION: No acute intracranial process seen.
--- NOTE | 2024-01-02 19:05 | ED.HA ---
HPI - Headache General Chief Complaint: Headache Stated Complaint: severe head pain Time Seen by Provider: 01/02/24 21:15 Source: patient Mode of arrival: ambulatory Limitations: no limitations History of Present Illness ED Provider: beverly CULVER Narrative: Patient with no history of significant headaches in the past apparently had tooth number 2 extraction 2 days ago was apparently behaving normal for 24 hours today in the morning pain started shooting all the way to the top of the right no fever no chills Related Data Home Medications ?Medication ?Instructions ?Recorded ?Confirmed alcohol swabs (BD Alcohol Swabs) 1 pad topical TID-QID 10/13/21 10/13/21 atorvastatin 40 mg tablet 40 mg PO DAILY 10/13/21 10/13/21 blood sugar diagnostic (FreeStyle 10/13/21 10/13/21 Lite Strips) blood-glucose meter (FreeStyle 10/13/21 10/13/21 Lite Meter kit) gabapentin 300 mg capsule 300 mg PO BEDTIME 10/13/21 10/13/21 lancets 33 gauge (TRUEplus Lancets) 10/13/21 10/13/21 quetiapine 200 mg tablet (Seroquel) See Rx Instructions PO BEDTIME 10/13/21 10/13/21 sertraline 50 mg tablet 50 mg PO DAILY 10/13/21 10/13/21 Previous Rx's ?Medication ?Instructions ?Recorded [id number] 1 cap PO TIDWM #90 caps 05/28/20 24,000-76,000-120,000 unit capsule,delayed rel (Creon) oxycodone-acetaminophen 5 mg-325 1 tab PO Q8H PRN pain #12 tabs 16/20 mg tablet (Percocet) glucose 4 gram chewable tablet 12 g (3 x 4 gram) PO Q15M PRN 10/13/21 (Dex4 Glucose) hypoglycemia #60 tabs insulin glargine 100 unit/mL (3 13 unit (0.13 mL) subcut DAILY #15 10/13/21 mL) subcutaneous pen (Lantus mL Solostar U-100 Insulin) Humalog KwikPen Insulin 100 See Rx Instructions subcut TID #15 04/20/22 unit/mL subcutaneous (insulin mL lispro) ondansetron 4 mg disintegrating 4 mg PO Q6H PRN nausea and 12/02/22 tablet vomiting #10 tabs oxycodone 5 mg tablet 5 mg PO Q6H PRN pain #5 tabs 12/02/22 oxycodone 5 mg tablet 5 mg PO Q6H PRN pain #20 tabs 01/02/24 Allergies Allergy/AdvReac Type Severity Reaction Status Date / Time No Known Allergies Allergy Verified 01/02/24 19:11 [No Known Allergies*] Review of Systems Review of Systems: Yes all other systems are reviewed and are negative [facility] Past Medical History Medical History Diabetes mellitus with polyneuropathy Hypertension Diabetes History of pancreatitis Surgical History Hx of cataract extraction Family History Family History Mother Diabetes Father Medical history unknown Social History Social History Household Members: Friend(s) Housing: Apartment Do you presently have visiting nurse or other home services: No Alcohol intake: former Smoked in Last 30 Days: No Use of substances other than those prescribed or required for medical reasons: Yes Substance Use Type: Marijuana Advance Directives: No Advance Directives Information Provided: No Advance Directives Date on File: 05/28/20 Do you have a plan to hurt others: No Plan service: No Current occupational status: employed Physical Exam Vital Signs: Vital Signs: Last Vital Signs Temp 98.3 F 01/03/24 00:20 Pulse 69 01/03/24 00:20 Resp 16 01/03/24 00:20 BP 159/69 H 01/03/24 00:20 Pulse Ox 97 01/03/24 00:20 O2 Del Method Room Air 01/03/24 00:20 BMI result Body Mass Index 24.2 Appearance: Alert. Oriented X3. No acute distress. Eyes: PERRLA, No Nystagmus ENT: Pharynx normal. Oral Mucosa moist no sinus tenderness tympanic membrane intact bilaterally Neck: Normal inspection. Neck supple. CVS: Normal heart rate and rhythm. Pulses normal. Respiratory: No respiratory distress. Equal air entry bilateral, no wheezing/rales/rhonchi Abdomen: Soft and nontender. Bowel sounds are present, no mass palpable, no CVA tenderness Skin: Skin warm and dry. Normal skin color. Normal skin turgor. Extremities: No lower extremity edema. No calf tenderness Neuro: Oriented X 3. No motor deficit. No sensory deficit.No cerebellar signs , cranial nerves II-XII intact Course Course Course Narrative: This is a Rapid Medical Exam performed in triage by Sangeeta Pinedo PA-C. Full HPI, ROS and PE to be performed by primary ED provider. 63 year-old M w/ PMHx DM, dental extraction yesterday currently on antibiotics presenting to the ED c/o VIGIL x this morning 8AM. States sugar was high this morning 372. VIGIL not maximal at onset. denies visual changes, N/V. Denies taking anticoagulation Has been taking Tylenol w/o relief PE: ambulating steady gait, eyes closed during eval. appears uncomfortable Plan: Labs, pain control Medications Administered Discontinued Medications Generic Name Dose Route Start Last Admin Trade Name Freq PRN Reason Stop Dose Admin Acetaminophen/Butalbital/Caffeine 1 tab 01/02/24 19:07 01/02/24 20:45 Butalb/Acetamin/Caff 50/325/40 Tablet PO 01/02/24 19:08 1 tab ONCE ONE Administration Oxycodone HCl 10 mg 01/02/24 21:30 01/02/24 22:39 Oxycodone Hcl Immed Release 5 Mg Tablet PO 01/02/24 21:31 10 mg ONCE ONE Administration Medical Decision Making Medical Decision Making [facility] Narrative: Patient's scalp tenderness with shooting pain likely neuropathy no rash noticed no subcutaneous emphysema no sinus tenderness CT scan of the head is negative Differential Diagnosis Differential Diagnoses: The differential diagnosis associated with the presentation includes Sinusitis/neuralgia/tension headache/injury from drilling of the tooth Lab Data [facility] Lab Attestation statement: I reviewed the patient's lab results. 01/02/24 19:43 01/02/24 19:43 Labs: Lab Results 01/02/24 Range/Units 19:43 WBC 7.6 (4.8-10.8) X10*3/uL RBC 4.28 L (4.60-5.80) X10*6/uL Hgb 12.6 L (14.0-18.0) g/dl Hct 37.7 L (42.0-52.0) % MCV 88.1 (80.0-98.0) fL MCH 29.4 (27.0-33.0) pg MCHC 33.4 (31.0-36.0) g/dl RDW 11.0 (11.0-16.0) % Plt Count 186 (160-400) X10*3/uL MPV 10.6 (9.4-12.4) fL Immature Gran % (Auto) 0.3 (0.0-0.4) % Neut % (Auto) 55.1 (45-73) % Lymph % (Auto) 36.1 (20-40) % [place] % (Auto) 6.5 (2-11) % Eos % (Auto) 1.5 (0-4) % Baso % (Auto) 0.5 (0-2) % Lymph # (Auto) 2.7 (1.2-4.9) X10*3/uL [place] # (Auto) 0.5 (0.1-1.2) X10*3/uL Eos # (Auto) 0.1 (0.0-0.4) X10*3/uL Baso # (Auto) 0.0 (0.0-0.2) X10*3/uL Abs Immat Gran (auto) 0.02 (0.00-0.03) X10*3/uL Absolute Neuts (auto) 4.2 (2.0-8.3) x10*3/uL Absolute Nucleated RBC 0.000 (0.0-0.012) X10*3/uL Nucleated RBC % (auto) 0.0 (0.0-0.2) /100WBC Sodium 142 (135-145) mmol/L Potassium 4.0 (3.3-5.1) mmol/L Chloride 106 (96-108) mmol/L Carbon Dioxide 25 (22-29) mmol/L Anion Gap 15 (12-20) BUN 14 (9-16) mg/dL Creatinine 0.91 (0.5-1.4) mg/dL Estim Creat Clear Calc 75.9 Estimated GFR > 60 Random Glucose 120 H (60-115) mg/dL Calcium 9.4 (8.4-10.2) mg/dL Magnesium 1.9 (1.6-2.6) mg/dL Total Bilirubin 0.9 (0.0-1.0) mg/dL Direct Bilirubin 0.3 (0.0-0.5) mg/dL AST 62 H (5-37) U/L ALT 99 H (0-40) U/L Alkaline Phosphatase 90 (39-117) U/L Total Protein 7.1 (6.5-8.0) g/dL Albumin 4.4 (3.5-5.0) g/dL Beta-Hydroxybutyrate 0.44 H (0.02-0.27) mmol/L Independent Interpretation I performed an independent interpretation of an: CT Scan Radiology Impression Discussion of test interpretation with radiology: I have reviewed the radiologist's reading. Discharge Plan Discharge Clinical Impression: Muscle tension headache Patient Disposition: Home, Self-Care Instructions: Tension Headache (ED) Additional Instructions: Rest at home Oxycodone for severe pain Follow with your PCP Prescriptions: New oxycodone 5 mg tablet 5 mg PO Q6H PRN (Reason: pain) Qty: 20 0RF Rx Instructions: Partial Fill upon patient request. No Action insulin lispro [Humalog KwikPen Insulin] 100 unit/mL insulin pen See Rx Instructions subcut TID Qty: 15 4RF Rx Instructions: 2 u breakfast, 4 u lunch & dinner subcut 3 times a day; Creon 24,000-76,000 -120,000 unit Capsule,Delayed Release(Dr/Ec) 1 cap PO TIDWM Qty: 90 0RF oxycodone-acetaminophen [Percocet] 5-325 mg tablet 1 tab PO Q8H PRN (Reason: pain) Qty: 12 0RF oxycodone 5 mg tablet 5 mg PO Q6H PRN (Reason: pain) Qty: 5 0RF Rx Instructions: Partial Fill upon patient request. ondansetron 4 mg tablet,disintegrating 4 mg PO Q6H PRN (Reason: nausea and vomiting) Qty: 10 0RF atorvastatin 40 mg tablet 40 mg PO DAILY sertraline 50 mg tablet 50 mg PO DAILY quetiapine [Seroquel] 200 mg tablet See Rx Instructions PO BEDTIME Rx Instructions: 1/2 tab in the morning, 2 tabs at bedtime PO bedtime; gabapentin 300 mg capsule 300 mg PO BEDTIME (DME) FreeStyle Lite Strips Strip See Rx Instructions .Route Rx Instructions: As directed 3 times daily (DME) blood-glucose meter [FreeStyle Lite Meter] Kit See Rx Instructions .Route Rx Instructions: As directed 3 times a day (DME) lancets [TRUEplus Lancets] 33 gauge misc See Rx Instructions .Route Rx Instructions: As directed 3 times daily alcohol swabs [BD Alcohol Swabs] Pads, Medicated 1 pad topical TID-QID Lantus Solostar U-100 Insulin 100 unit/mL (3 mL) insulin pen 13 unit subcut DAILY Qty: 15 3RF glucose [Dex4 Glucose] 4 gram tablet,chewable 12 g PO Q15M PRN (Reason: hypoglycemia) Qty: 60 2RF Rx Instructions: until symptoms of low blood sugar are controlled Interventions: ED Discharge Assessment Last Done: 01/03/24 00:20 Discharge Date/Time: 01/03/24 00:21 Print Language: [place]
[2024-01-02 19:09] VITALS: BP 149/73; PULSE 98; RESP 18; TEMP 36.6; O2SAT 98; BMI 24.2
[2024-01-02 19:53] LABS: MANUAL DIFF FLAG NO
[2024-01-02 19:54] LABS: Basophils Percent Auto 0.5 % (0-2); Eosinophils Absolute Auto 0.1 X10*3/uL (0.0-0.4); Eosinophils Percent Auto 1.5 % (0-4); Hematocrit 37.7 % (42.0-52.0); Hemoglobin 12.6 g/dl (14.0-18.0); Imm Gran Abs Auto 0.02 X10*3/uL (0.00-0.03); Imm Gran Pct Auto 0.3 % (0.0-0.4); Lymphocytes Absolute Auto 2.7 X10*3/uL (1.2-4.9); Lymphocytes Percent Auto 36.1 % (20-40); Mean Corpuscular HGB Conc 33.4 g/dl (31.0-36.0); Mean Corpuscular Hemoglobin 29.4 pg (27.0-33.0); Mean Corpuscular Volume 88.1 fL (80.0-98.0); Mean Platelet Volume 10.6 fL (9.4-12.4); Monocytes Absolute Auto 0.5 X10*3/uL (0.1-1.2); Monocytes Percent Auto 6.5 % (2-11); Neutrophils Absolute Auto 4.2 x10*3/uL (2.0-8.3); Neutrophils Percent Auto 55.1 % (45-73); Platelet Count 186 X10*3/uL (160-400); Red Blood Count 4.28 X10*6/uL (4.60-5.80); White Blood Count 7.6 X10*3/uL (4.8-10.8)
[2024-01-02 20:08] LABS: Alanine Aminotransferase 99 U/L (0-40); Albumin Level 4.4 g/dL (3.5-5.0); Alkaline Phosphatase 90 U/L (39-117); Anion Gap 15 (12-20); Aspartate Amino Transferase 62 U/L (5-37); Bilirubin Direct 0.3 mg/dL (0.0-0.5); Bilirubin Total 0.9 mg/dL (0.0-1.0); Blood Urea Nitrogen 14 mg/dL (9-16); Calcium 9.4 mg/dL (8.4-10.2); Carbon Dioxide 25 mmol/L (22-29); Chloride 106 mmol/L (96-108); Creatinine Clr Calc Pharmacy 75.9; Estimated Glomerular Filt Rate > 60; Glucose Random 120 mg/dL (60-115); Magnesium 1.9 mg/dL (1.6-2.6); Sodium 142 mmol/L (135-145); Total Protein 7.1 g/dL (6.5-8.0)
[2024-01-02 20:15] LABS: Beta-Hydroxybutyrate 0.44 mmol/L (0.02-0.27)
[2024-01-02 20:37] VITALS: BP 146/75; PULSE 75; RESP 14; TEMP 36.8; O2SAT 97
[2024-01-02] MEDS: Butalb/Acetamin/Caff 50/325/40 TABLET 1 TAB PO (20:45)
[2024-01-02] MEDS: oxyCODONE HCl Immed Release 5 MG TABLET 10 MG PO (22:39)
[2024-01-02 22:46] VITALS: BP 153/78; PULSE 71; RESP 16; O2SAT 99
--- NOTE | 2024-01-02 23:39 | PC.NURSE ---
pt was medicated with oxycodone and pt states it has not relieved the pain.
--- NOTE | 2024-01-02 23:47 | PC.NURSE ---
ice pack given for head pain. provider is aware that the medication for pain has not worked per pt.
[2024-01-03 00:20] VITALS: BP 159/69; PULSE 69; RESP 16; TEMP 36.8; O2SAT 97
== END 2024-01-03 00:21 | disposition home or self-care (01) ==
PROVIDERS: Physician Assistant; Emergency Provider Internal Medicine; PCP Student in an Organized Health Care Education/Training Program
DX: G44.209 Tension-type headache, unspecified, not intractable (principal); E11.9 Type 2 diabetes mellitus without complications; I10 Essential (primary) hypertension
CPT/HCPCS: 36415; 70450; 80048; 80076; 82010; 83735; 85025; 99284

== ENCOUNTER 2024-10-19 07:22 | Emergency (ER) | payer MEDICAID, SELFPAY ==
--- NOTE | ~2024-10-19 | XR_ITS ---
EXAMINATION: XR TIBIA AND FIBULA, LEFT CLINICAL INFORMATION: Pain COMPARISON: None available. TECHNIQUE: AP and lateral views of the left tibia and fibula were obtained. FINDINGS: No fracture, dislocation, or suspicious bone lesion. There is normal alignment. Imaged joints appear normal. Soft tissues appear normal aside from diffuse vascular calcification. XR/XR tibia fibula LT 2V IMPRESSION: No acute bony abnormalities. Electronically signed by: Maikol Tovar MD 10/19/2024 08:20 AM EDT
--- NOTE | ~2024-10-19 | XR_ITS ---
EXAMINATION: XR ANKLE, LEFT CLINICAL INFORMATION: pain COMPARISON: None available. TECHNIQUE: AP, lateral, and mortise views of the left ankle. FINDINGS: No fracture, dislocation, or suspicious bone lesion. Normal bone mineralization. Normal alignment. Mortise is intact. Talar dome is normal. Joint spaces are preserved. No significant arthropathy. Subtalar joints and calcaneus appear normal. Soft tissues demonstrate diffuse vascular calcifications. XR/XR ankle LT min 3V IMPRESSION: 1. No acute findings left ankle. Electronically signed by: Maikol Tovar MD 10/19/2024 08:19 AM EDT
--- NOTE | ~2024-10-19 | US_ITS ---
EXAMINATION: COLOR-FLOW DUPLEX IMAGING OF THE BILATERAL LOWER EXTREMITY ARTERIAL SYSTEM. VELOCITY MEASUREMENTS THROUGHOUT THE FEMORAL ARTERIES. CLINICAL INFORMATION: 64-year-old male, severe pain left lower leg, cool with decreased pulses. Comparison: None. FINDINGS: Atheromatous Plaque: Extensive calcific atheromatous plaque present, limiting ability to see arterial flow. RIGHT FEMORAL RUNOFF VELOCITIES: The right common femoral artery measures 163 cm/s and biphasic. The right profunda femoral artery is 76.3 cm/s and is biphasic. The right proximal superficial femoral artery measures 121 cm/s and biphasic. The right mid superficial femoral artery is 116 cm/s and biphasic. The right distal right superficial femoral artery measures 224 cm/s and is biphasic. The right popliteal velocity measures 92 cm/s and is biphasic. LEFT FEMORAL RUNOFF VELOCITIES: The left common femoral artery measures 184 cm/s and triphasic. The left profunda femoral artery is 92 cm/s and is biphasic. The left proximal superficial femoral artery measures 89 cm/s and biphasic. The left mid superficial femoral artery is 54 cm/s and biphasic. The left distal right superficial femoral artery measures 24 cm/s and is monophasic. The left popliteal velocity measures 33 cm/s and is monophasic. The left posterior tibial artery velocity measures 40 cm/s and is monophasic. The left GROUNDSKEEPING MAINTENANCE is not well seen. The left peroneal artery velocity measures 13.8 cm/s and is monophasic. The left anterior tibial artery velocity measures 23 cm/s and is monophasic. The left dorsalis pedis artery is not well seen. US/US arterial duplex LE BI IMPRESSION: 1. Biphasic waveforms bilaterally, with monophasic waveforms in the lower left lower extremity. Significant atheromatous arterial plaque throughout. Scattered moderate to severe calcified atherosclerotic disease is present, limiting the ability to visualize flow in several regions. 2. Overall findings suggest significant peripheral vascular disease, worse in the left lower extremity. Electronically signed by: Maikol Tovar MD 10/19/2024 10:21 AM EDT
--- NOTE | ~2024-10-19 | CT_ITS ---
EXAMINATION: CT ABDOMINAL AORTA ANGIO BILATERAL RUNOFF WITH IV CONTRAST HISTORY: severe L leg pain with cool foot and decreased pulses COMPARISON: There are no prior studies for comparison. TECHNIQUE: CT angiogram of the abdomen and pelvis with bilateral lower extremity runoff was performed following administration of 100 mL Omnipaque 350 using standard departmental protocol. Coronal and sagittal reformatted images were generated and reviewed. The contrast bolus was timed to optimally opacify the vascular system. This CT exam was performed with one or more of the following dose reduction techniques: automated exposure control, adjustment of the mA and/or kV according to patient size, use of iterative reconstruction technique. DLP: 294 mGy-cm FINDINGS: LOWER CHEST: The visualized lung bases are clear. There is no pleural effusion. CARDIOVASCULATURE: The heart is normal in size. There is no pericardial effusion. LIVER: The liver is normal in size and contour. There is a 1.9 cm arterial enhancing lesion in the left lobe of the liver. This cannot be optimally characterized on this single phase examination. GALLBLADDER / BILE DUCTS: The gallbladder is surgically absent. There is no intra or extrahepatic biliary ductal dilatation. SPLEEN: The spleen is normal in size. No focal splenic lesion is identified. PANCREAS: The pancreas is unremarkable in appearance. ADRENAL GLANDS: Within normal limits. KIDNEYS/RETROPERITONEUM: No renal calculi are identified. There is no hydronephrosis. No renal masses are identified. LYMPH NODES: No abdominal or pelvic lymphadenopathy. VASCULATURE: The abdominal aorta is normal in caliber. There is diffuse moderate atherosclerotic calcification. On the right, there are mild focal stenoses of the common iliac artery. The right external iliac artery is patent. The right superficial femoral artery demonstrates diffuse atherosclerotic calcification. Evaluation for stenoses is limited by marked calcification. There is a probable severe focal stenosis of the popliteal artery above the knee joint. There is diffuse calcification of the calf vessels, limiting evaluation. On the left, there is a probable moderate stenosis of the common iliac artery. The external iliac artery is patent. There is diffuse moderate irregularity and calcification of the left superficial femoral artery. Evaluation for stenoses is limited. There is occlusion of the left popliteal artery just above the knee joint with reconstitution several centimeters distally. There is diffuse atherosclerotic calcification of the calf vessels. Evaluation for stenoses is limited. MESENTERY/PERITONEUM: No free fluid. No masses. There is no free intraperitoneal gas. STOMACH: The stomach is collapsed, limiting evaluation. SMALL BOWEL: The small bowel is normal in caliber. COLON: There is a large amount of stool throughout the colon. APPENDIX: The appendix is not seen, however no inflammatory changes are seen adjacent to the cecum. URINARY BLADDER/PELVIC ORGANS: The urinary bladder is unremarkable. The prostate is enlarged. BONES / SOFT TISSUES: No suspicious bony or soft tissue abnormalities. CT/CT angio abd aorta runoff IMPRESSION: 1. Diffuse atherosclerotic calcification and irregularity of the vascular system, limiting evaluation. There appears to be occlusion of the left popliteal artery with reconstitution several centimeters distally. Additional moderate to severe focal stenoses of the bilateral superficial femoral arteries is noted. Probable severe focal stenosis of the right popliteal artery. Evaluation of the calf vessels is limited by calcification and their small size. 2. 1.9 cm enhancing lesion in the left lobe of the liver. Further evaluation with MRI of the liver without and with contrast is recommended. This can be performed as an outpatient. Electronically signed by: Ernesto Dennison MD 10/19/2024 11:11 AM EDT
[2024-10-19 07:25] VITALS: BP 148/82; PULSE 93; RESP 16; TEMP 36.7; O2SAT 97; BMI 24.2
--- NOTE | 2024-10-19 07:56 | ECG_ITS ---
Test Reason : leg pain Blood Pressure : */* mmHG Vent. Rate : 94 BPM Atrial Rate : 94 BPM P-R Int : 168 ms QRS Dur : 82 ms QT Int : 336 ms P-R-T Axes : 70 70 65 degrees QTcB Int : 420 ms Normal sinus rhythm Normal ECG When compared with ECG of 30-May-2020 15:00, No significant change was found Referred By: Aditi Maher Electronically Signed By: Oral Membreno
--- NOTE | 2024-10-19 08:04 | ED_ITS ---
HPI - Extremity Problem General Chief complaint: Extremity Injury, Lower Stated complaint: ankle pain Time Seen by Provider: 10/19/24 07:39 Source: patient and old records reviewed Mode of arrival: ambulatory Limitations: no limitations History of Present Illness ED Provider: TARYN CULVER Narrative: 64 yo male with PMH of DM and neuropathy, pancreatitis, HTN here with c/o 2 days of severe left lower leg pain that he denies injury or trauma. 2 days ago he woke up had no pain then stepped down and noted severe pain now he has pain down posterior ankle and achilles. NO recent activity or abx use other than something he got from DR after it started hurting. He has taken OTC meds with no relief. He is not a smoker and denies recent claudication. NO IVDA and no rash/fever reported. He states he cannot take the severe pain any longer. No recent travel or procedures. MD Complaint: extremity pain Onset (ago): day(s) (2) Pain Consistency: constant Location: right and lower extremity Quality: aching Radiation: distal Relieving factors: nothing Exacerbating factors: walking and palpation Associated symptoms: denies other symptoms Context: other Related Data Home Medications ?Medication ?Instructions ?Recorded ?Confirmed alcohol swabs (BD Alcohol Swabs) 1 pad topical TID-QID 10/13/21 10/13/21 atorvastatin 40 mg tablet 40 mg PO DAILY 10/13/21 10/13/21 blood sugar diagnostic (FreeStyle 10/13/21 10/13/21 Lite Strips) blood-glucose meter (FreeStyle 10/13/21 10/13/21 Lite Meter kit) gabapentin 300 mg capsule 300 mg PO BEDTIME 10/13/21 10/13/21 lancets 33 gauge (TRUEplus Lancets) 10/13/21 10/13/21 quetiapine 200 mg tablet (Seroquel) See Rx Instructions PO BEDTIME 10/13/21 10/13/21 sertraline 50 mg tablet 50 mg PO DAILY 10/13/21 10/13/21 Previous Rx's ?Medication ?Instructions ?Recorded [id number]-foghaibt-vrbeddh 1 cap PO TIDWM #90 caps 05/28/20 24,000-76,000-120,000 unit capsule,delayed rel (Creon) oxycodone-acetaminophen 5 mg-325 1 tab PO Q8H PRN pain #12 tabs 11/16/20 mg tablet (Percocet) glucose 4 gram chewable tablet 12 g (3 x 4 gram) PO Q15M PRN 10/13/21 (Dex4 Glucose) hypoglycemia #60 tabs insulin glargine 100 unit/mL (3 13 unit (0.13 mL) subcut DAILY #15 10/13/21 mL) subcutaneous pen (Lantus mL Solostar U-100 Insulin) Humalog KwikPen Insulin 100 See Rx Instructions subcut TID #15 04/20/22 unit/mL subcutaneous (insulin mL lispro) ondansetron 4 mg disintegrating 4 mg PO Q6H PRN nausea and 12/02/22 tablet vomiting #10 tabs oxycodone 5 mg tablet 5 mg PO Q6H PRN pain #5 tabs 12/02/22 oxycodone 5 mg tablet 5 mg PO Q6H PRN pain #20 tabs 01/02/24 aspirin 81 mg tablet,delayed 81 mg PO DAILY #30 tabs 10/19/24 release clopidogrel 75 mg tablet (Plavix) 75 mg PO DAILY #30 tabs 10/19/24 morphine 15 mg immediate release 15 mg PO Q4H PRN pain #18 tabs 10/19/24 tablet Allergies Allergy/AdvReac Type Severity Reaction Status Date / Time No Known Allergies Allergy Verified 10/19/24 07:26 [No Known Allergies*] Review of Systems 2 Review of Systems: Constitutional : No Fever, No Chills ENT/Mouth : No Ear Pain, No Hoarseness, No sore throat Eyes: No Eye Pain, No Swelling, No Redness, No Foreign Body Cardiovascular : No Chest Pain, No SOB Respiratory : No Cough, No Dyspnea Gastrointestinal : No Nausea, No Vomiting, No Diarrhea, No abdominal Pain Genitourinary : No Dysuria, No Hematuria Musculoskeletal : positive joint pain, No Myalgias, No Joint Swelling Skin : No Skin lacerations, No rash Neuro : No Weakness, No Numbness, No Loss of Consciousness, No Dizziness, No Headache All other systems reviewed and are negative [facility] Past Medical History Attestation statement: The following information was validated with the patient. Source: old records reviewed Medical History Diabetes mellitus with polyneuropathy Hypertension Diabetes History of pancreatitis Surgical History Hx of cataract extraction Family History Family History Mother Diabetes Father Medical history unknown Social History Social History Household Members: Friend(s) Housing: Apartment Do you presently have visiting nurse or other home services: No Alcohol intake: former Substance Use Type: Marijuana Advance Directives: No Advance Directives Information Provided: Yes Advance Directives Date on File: 05/28/20 Do you have a plan to hurt others: No Plan service: No Current occupational status: employed Physical Exam 2 Vital Signs: Vital Signs: Last Vital Signs Temp 97.7 F 10/19/24 10:19 Pulse 105 H 10/19/24 10:19 Resp 14 10/19/24 10:19 BP 161/70 H 10/19/24 10:19 Pulse Ox 95 10/19/24 10:19 O2 Del Method Room Air 10/19/24 10:19 BMI result Body Mass Index 24.2 Appearance: Alert. Oriented X3. No acute distress. Eyes: Pupils equal, round and reactive to light. ENT: Pharynx normal. Neck: Normal inspection. Neck supple. CVS: Normal heart rate and rhythm. Pulses normal. Respiratory: No respiratory distress. Breath sounds normal. Abdomen: Soft and non-tender. Skin: Skin warm and dry. Normal skin color. Normal skin turgor. Extremities: R ankle posterior pain but no effusion, redness, or warmth it is slightly cooler to the touch he has decreased pulses on both feet which are symmetric but L foot is cooler than R. No open wounds. He has pain when touching his achilles but there is no obvious defect to the achilles. able to doppler pulses Neuro: Oriented X 3. No motor deficit. No sensory deficit. CN2-12 intact Course Course Course Narrative: CPK up and severe pain at this time IV dilaudid and aorta runoff ordered Medications Administered Discontinued Medications Generic Name Dose Route Start Last Admin Trade Name Freq PRN Reason Stop Dose Admin Hydromorphone HCl 1 mg 10/19/24 09:32 10/19/24 09:45 Hydromorphone Hcl 1 Mg/Ml Syringe IVPUSH 10/19/24 09:33 1 mg ONCE ONE Administration Protocol Iohexol 100 ml 10/19/24 09:57 10/19/24 09:58 Iohexol 350 Mg/Ml 100 Ml Infus..Btl IV 10/19/24 09:58 100 ml ONCE ONE Administration Oxycodone HCl 10 mg 10/19/24 07:56 10/19/24 08:14 Oxycodone Hcl Immed Release 5 Mg Tablet PO 10/19/24 07:57 10 mg ONCE ONE Administration Medical Decision Making Medical Decision Making MDM Narrative: 64 yo male with PMH of DM and neuropathy, pancreatitis, HTN here with c/o atraumatic uninfected appearing L ankle area at this time xrays, arterial duplex, PO pain control, labs ordered. His thompsons test is intact but most of his pain is on the achilles - he denies trauma, risk factors, levofloxacin use. He has no upper calf pain there is no crepitus and no signs of infection. At this time labs, PO pain control and duplex study Differential Diagnosis Differential Diagnoses: The differential diagnosis associated with the presentation includes PAD, arthralgia, chronic neuropathy doubt infection given lack of findings achilles injury is also possible but not a full tear clinically Admission/Observation Consideration of admission/observation: Escalation of care including admission/observation considered discussed case with vascular appears chronic will DC on aspirin/plavix and pain control he is to follow up in office tomorrow mild bump in CPK compartments are soft and compressible Consult Healthcare Provider Management of the patient was discussed with: Customer Support Assistant Lab Data [facility] Lab Attestation statement: I reviewed the patient's lab results. 10/19/24 08:22 10/19/24 08:22 Labs: Lab Results 10/19/24 Range/Units 08:22 WBC 10.4 (4.8-10.8) X10*3/uL RBC 4.47 L (4.60-5.80) X10*6/uL Hgb 12.8 L (14.0-18.0) g/dl Hct 39.0 L (42.0-52.0) % MCV 87.2 (80.0-98.0) fL MCH 28.6 (27.0-33.0) pg MCHC 32.8 (31.0-36.0) g/dl RDW 11.0 (11.0-16.0) % Plt Count 178 (160-400) X10*3/uL MPV 10.9 (9.4-12.4) fL Immature Gran % (Auto) 0.3 (0.0-0.4) % Neut % (Auto) 77.0 H (45-73) % Lymph % (Auto) 14.9 L (20-40) % [place] % (Auto) 6.9 (2-11) % Eos % (Auto) 0.6 (0-4) % Baso % (Auto) 0.3 (0-2) % Lymph # (Auto) 1.6 (1.2-4.9) X10*3/uL [place] # (Auto) 0.7 (0.1-1.2) X10*3/uL Eos # (Auto) 0.1 (0.0-0.4) X10*3/uL Baso # (Auto) 0.0 (0.0-0.2) X10*3/uL Abs Immat Gran (auto) 0.03 (0.00-0.03) X10*3/uL Absolute Neuts (auto) 8.0 (2.0-8.3) x10*3/uL Absolute Nucleated RBC 0.000 (0.0-0.012) X10*3/uL Nucleated RBC % (auto) 0.0 (0.0-0.2) /100WBC PT 11.3 (10.9-12.4) SEC INR 1.0 (0.9-1.1) APTT 28.5 (26.0-36.8) SEC Hold Blue Top SEE NOTE Sodium 139 (135-145) mmol/L Potassium 3.9 (3.3-5.1) mmol/L Chloride 107 (96-108) mmol/L Carbon Dioxide 24 (22-29) mmol/L Anion Gap 12 (12-20) BUN 12 (9-16) mg/dL Creatinine 1.05 (0.5-1.4) mg/dL Estim Creat Clear Calc 64.9 Estimated GFR > 60 Random Glucose 221 H (60-115) mg/dL Calcium 9.0 (8.4-10.2) mg/dL Magnesium 2.0 (1.6-2.6) mg/dL Total Bilirubin 0.8 (0.0-1.0) mg/dL Direct Bilirubin 0.2 (0.0-0.5) mg/dL AST 45 H (5-37) U/L ALT 53 H (0-40) U/L Alkaline Phosphatase 94 (39-117) U/L Total Creatine Kinase 615 H (38-174) U/L Total Protein 7.1 (6.5-8.0) g/dL Albumin 4.3 (3.5-5.0) g/dL Independent Interpretation I performed an independent interpretation of an: EKG, Ultrasound (PAD) and CT Scan (PAD) Interpretation: Rate: 94 Rhythm: NSR [place]: normal Normal P waves. Normal [place]. Normal QRS complex. ST T wave : t waves are peaked, no ANCA, flat t wave aVL qTC: 420 prior studies: no acute ischemia The study has been interpreted contemporaneously by me. . Radiology Impression Discussion of test interpretation with radiology: I have reviewed the radiologist's reading. External Record Review External record reviewed: Outpatient record Prescription Management I considered prescription management with: Pain Medication and Other Critical Care Time Critical Care Time Critical Care Time: Yes Total Critical Care Time: 45 Attestation: Time is exclusive of separately billable procedures. Time includes: direct patient care, patient reassessment, coordination of patient care, interpretation of data (laboratory data, pulse oximetry and radiology imaging), review of patient's medical records, medical consultation and documentation of patient care. Procedures excluded from critical care time: central intravenous line placement and electrocardiography. repeat IV pain medications with improvement in pain. Discharge Plan Discharge Clinical Impression: Peripheral arterial disease Patient Disposition: Home, Self-Care Instructions: Peripheral Artery Disease (ED) Additional Instructions: suspect arterial disease in leg return for worsening pain, cold blue foot, increased pain or any other concerns follow up with Dr. Logan tomorrow please call office today to schedule you have incidental finding of liver lesion this needs an outpatient MRI - please ask your doctor to order it DO NOT TAKE MOTRIN, IBUPROFEN, NAPROSYN, ALEVE WHILE ON PLAVIX AND ASPIRIN Prescriptions: New clopidogrel [Plavix] 75 mg tablet 75 mg PO DAILY Qty: 30 1RF aspirin 81 mg tablet,delayed release (DR/EC) 81 mg PO DAILY Qty: 30 1RF morphine 15 mg tablet 15 mg PO Q4H PRN (Reason: pain) Qty: 18 0RF Rx Instructions: partial fill okay; Partial Fill upon patient request. No Action insulin lispro [Humalog KwikPen Insulin] 100 unit/mL insulin pen See Rx Instructions subcut TID Qty: 15 4RF Rx Instructions: 2 u breakfast, 4 u lunch & dinner subcut 3 times a day; Creon 24,000-76,000 -120,000 unit Capsule,Delayed Release(Dr/Ec) 1 cap PO TIDWM Qty: 90 0RF oxycodone-acetaminophen [Percocet] 5-325 mg tablet 1 tab PO Q8H PRN (Reason: pain) Qty: 12 0RF oxycodone 5 mg tablet 5 mg PO Q6H PRN (Reason: pain) Qty: 20 0RF Rx Instructions: Partial Fill upon patient request. oxycodone 5 mg tablet 5 mg PO Q6H PRN (Reason: pain) Qty: 5 0RF Rx Instructions: Partial Fill upon patient request. ondansetron 4 mg tablet,disintegrating 4 mg PO Q6H PRN (Reason: nausea and vomiting) Qty: 10 0RF atorvastatin 40 mg tablet 40 mg PO DAILY sertraline 50 mg tablet 50 mg PO DAILY quetiapine [Seroquel] 200 mg tablet See Rx Instructions PO BEDTIME Rx Instructions: 1/2 tab in the morning, 2 tabs at bedtime PO bedtime; gabapentin 300 mg capsule 300 mg PO BEDTIME (DME) FreeStyle Lite Strips Strip See Rx Instructions .Route Rx Instructions: As directed 3 times daily (DME) blood-glucose meter [FreeStyle Lite Meter] Kit See Rx Instructions .Route Rx Instructions: As directed 3 times a day (DME) lancets [TRUEplus Lancets] [facility] See Rx Instructions .Route Rx Instructions: As directed 3 times daily alcohol swabs [BD Alcohol Swabs] Pads, Medicated 1 pad topical TID-QID Lantus Solostar U-100 Insulin 100 unit/mL (3 mL) insulin pen 13 unit subcut DAILY Qty: 15 3RF glucose [Dex4 Glucose] 4 gram tablet,chewable 12 g PO Q15M PRN (Reason: hypoglycemia) Qty: 60 2RF Rx Instructions: until symptoms of low blood sugar are controlled Referrals: [facility] [place] [facility] [Provider Group] (call today to schedule tomorrow notify seen in ED and Dr. Logan aware) Print Language: Unable To Collect
[2024-10-19] MEDS: oxyCODONE HCl Immed Release 5 MG TABLET 10 MG PO (08:14)
[2024-10-19 08:26] LABS: MANUAL DIFF FLAG NO
--- NOTE | 2024-10-19 08:28 | PC.NURSE ---
IV established, labs obtained and sent. bilateral pedal pulses obtained via doppler. patient reports swelling and intermittent pain worse in left foot. medicated per the MAR for pain, pending US. call liu within reach
--- OUTSIDE RECORDS SUMMARY | 2024-10-19 08:32 | XMS_ITS | Encounter Summary ---
Author Organization [employer] Address [address] [place] [address] Care Team Providers Care Aeroplane Pilot Name Role Phone Ashley Nugent MD Primary Care Pro vider Encounter Details Date Type Department Care Team ([facility] st Contact Info) Description 10/19/2024 Orders Only [facility] External Provider, [facility] Social History Tobacco Use Types Packs/Day Years Used Date Smoking Tobacco: Never Passive Smoke Exposure: Never Smokeless Tobacco: Never Alcohol Use Standard Drinks/Week Comments Not Currently 0 (1 standard drink = 0.6 oz pure alcohol) hx of heavy alcohol use 20 y ago Depression Answer Date Recorded Patient Health Questionnaire-9 Score 5 11/14/2023 Patient Health Questionnaire-9 Score 5 11/14/2023 Last PHQ-9: Questionnaire Data Not on file 0 11/14/2023 Housing Stability Answer Date Recorded What is your housing situation today? I have ravi hale 04/24/[address] you li ve. Do you have problems with any of the following? None of the above 04/24/2024 Food Insecurity Answer Date Recorded Within the past 12 months, y ou worried that your food would run out before you got money to buy more: Often true 04/24/2024 Within the past 12 months,th e food you bought just didn't last and you didn't have enough money to get more: Often true 05/2024 Transportation Answer Date Recorded In the past 12 months, has l ack of transportation kept you from medical appts, meetings, work or from getting things needed for daily living? No 04/24/2024 Utilities Answer Date Recorded In the past 12 months, has t he electric, gas, oil or water company threatened to shut off services in your home? No 04/24/2024 Depression Answer Date Recorded Patient Health Questionnaire-2 Score 2 11/14/2023 Internet Access Answer Date Recorded Internet Access Q1 Yes 04/24/2024 Internet Access Q2 Not on file 04/24/2024 Sex and Gender Information Value Date Recorded Sex Assigned at Male 05/14/2022 10:36 AM EDT Legal Sex Male 10:36 AM EDT Gender Identity Male 05/14/2022 10:36 AM EDT Sexual Orientation Don't know 02/14/2023 3: 04 PM EDT documented as of this encounter Plan of Treatment Not on file documented as of this encounter Procedures Procedure Name Priority Date/Time Associated Diagnosis Comments HOLD LT BLUE - POSSIBLE COAG Routine 10/19/2024 8:22 AM EDT XR ANKLE 3+ VIEWS LEFT Routine 10/19/2024 7:50 AM EDT XR TIBIA FIBULA 2 VIEWS LEFT Routine 10/19/2024 7:50 AM EDT documented in this encounter Results * HOLD LT BLUE - POSSIBLE COAG (10/19/2024 8:22 AM EDT) Hold Lt Blue - Possible Coag SEE NOTE [facility] Comment:Specimen will be hel d untested for 4 hours. Call Hematologyif testing is desired. 10/19/2024 8:22 AM EDT 10/19/2024 8:29 AM EDT us Generic External Data Provider LAB BLOOD ORDERAB LES Final Result [facility] [address] [place] [phone] * XR Tibia Fibula 2 Views Left (10/19/2024 7:50 AM EDT) Anatomical Region Laterality Modality Lower Extremities, Lower Leg Left Rad iographic Imaging 10/19/2024 7:50 AM EDT Narrative 10/19/2024 8:23 AM EDT ? [facility] ?[address] ?[place] [address] ?XRay Report ? Signed ? Patient: Browne Stuart,Larry ?MR#: M ?? [id number] ? : 1960 ?Acct:[id number] ? Age/Sex: 64 / M ?ADM Date: 10/19/24 ? Loc: HO.ED ? Attending Dr: ? Ordering Physician: Aditi Maher DO ?? Date of Service: 10/19/24 ?? Procedure(s): XR tibia fibula LT 2V ?? Accession Number(s): [id number] ? cc: Aditi Maher DO; Ashley Nugent MD ? EXAMINATION: ?? XR TIBIA AND FIBULA, LEFT ? CLINICAL INFORMATION: ?? Pain ? COMPARISON: ?? None available. ? TECHNIQUE: ?? AP and lateral views of the left tibia and fibula were obtained. ? FINDINGS: ?? No fracture, dislocation, or suspicious bone lesion. There is normal ?? alignment. ?? Imaged joints appear normal. ? Soft tissues appear normal aside from diffuse vascular calcification. ? XR/XR tibia fibula LT 2V ?? IMPRESSION: ?? No acute bony abnormalities. ? Electronically signed by: ??Maikol Tovar MD ??10/19/2024 08:20 AM EDT RP ? Dictated By: ?Maikol Tovar MD ? Signed By: ?<Electronically signed by Maikol Tovar MD in OV> ?10/19/24 0820 ? DD/ 0750 ? TD/TT: 10/19/24 0810 ? Garment Sewer Hand: ? Procedure Note Concepcion, Sharad - 10/19/[address] [address] XRay Report Signed Patient: Harjinder Delcid FMR#: M [id number] : 2Acct:[id number] Age/Sex: 64 / MADM Date: 10/19/24 Loc: HO.ED Attending Dr: Ordering Physician: Aditi Maher DO Date of Service: 10/19/24 Procedure(s): XR tibia fibula LT 2V Accession Number(s): [id number] cc: Aditi Maher DO; Ashley Nugent MD EXAMINATION: XR TIBIA AND FIBULA, LEFT CLINICAL INFORMATION: Pain COMPARISON: None available. TECHNIQUE: AP and lateral views of the left tibia and fibula were obtained. FINDINGS: No fracture, dislocation, or suspicious bone lesion. There is normal alignment. Imaged joints appear normal. Soft tissues appear normal aside from diffuse vascular calcification. XR/XR tibia fibula LT 2V IMPRESSION: No acute bony abnormalities. Electronically signed by: Maikol Tovar MD 10/19/2024 08:20 AM EDT Dictated By: Maikol Tovar MD Signed By: <Electronically signed by Maikol Tovar MD in OV> 10/19/24 0820 DD/ 0750 TD/TT: 10/19/24 0810 Garment Sewer Hand: [facility] External Provider IMG XR PROCEDURES Final Result * XR Ankle 3+ Views Left (10/19/2024 7:50 AM EDT) Anatomical Region Laterality Modality Lower Extremities, Ankle Left Radiogr aphic Imaging 10/19/2024 7:50 AM EDT Narrative 10/19/2024 8:22 AM EDT ? [facility] ?[address] ?[place] [address] ?XRay Report ? Signed ? Patient: Harjinder Delcid F ?MR#: M ?? [id number] ? : 1960 ?Acct:[id number] ? Age/Sex: 64 / M ?ADM Date: 10/19/ ? Loc: HO.ED ? Attending Dr: ? Ordering Physician: Aditi Maher DO ?? Date of Service: 10/19/24 ?? Procedure(s): XR ankle LT min 3V ?? Accession Number(s): [id number] ? cc: Aditi Maher DO; Ashley Nugent MD ? EXAMINATION: ?? XR ANKLE, LEFT ? CLINICAL INFORMATION: ?? pain ? COMPARISON: ?? None available. ? TECHNIQUE: ?? AP, lateral, and mortise views of the left ankle. ? FINDINGS: ?? No fracture, dislocation, or suspicious bone lesion. Normal bone ?? mineralization. ?? Normal alignment. Mortise is intact. Talar dome is normal. ?? Joint spaces are preserved. No significant arthropathy. ?? Subtalar joints and calcaneus appear normal. ? Soft tissues demonstrate diffuse vascular calcifications. ? XR/XR ankle LT min 3V ?? IMPRESSION: ?? 1. No acute findings left ankle. ? Electronically signed by: ??Maikol Tovar MD ??10/19/2024 08:19 AM EDT RP ? Dictated By: ?Maikol Tovar MD ? Signed By: ?<Electronically signed by Maikol Tovar MD in OV> ?10/19/24 0819 ? DD/ 0750 ? TD/TT: 10/19/24 0810 ? Garment Sewer Hand: ? Procedure Note Donambrosioter, Image - 10/19/2024 [place] [address] XRay Report Signed Patient: Harjinder Delcid FMR#: M [id number] : 1960cct:[id number] Age/Sex: 64 / MADM Date: 10/19/24 Loc: HO.ED Attending Dr: Ordering Physician: Aditi Maher DO Date of Service: 10/19/24 Procedure(s): XR ankle LT min 3V Accession Number(s): [id number] cc: Aditi Maher DO; Ashley Nugent MD EXAMINATION: XR ANKLE, LEFT CLINICAL INFORMATION: pain COMPARISON: None available. TECHNIQUE: AP, lateral, and mortise views of the left ankle. FINDINGS: No fracture, dislocation, or suspicious bone lesion. Normal bone mineralization. Normal alignment. Mortise is intact. Talar dome is normal. Joint spaces are preserved. No significant arthropathy. Subtalar joints and calcaneus appear normal. Soft tissues demonstrate diffuse vascular calcifications. XR/XR ankle LT min 3V IMPRESSION: 1. No acute findings left ankle. Electronically signed by: Maikol Tovar MD 10/19/2024 08:19 AM EDT RP Dictated By: Maikol Tovar MD Signed By: <Electronically signed by Maikol Tovar MD in OV> 10/19/24818 DD/ TD/TT: 10/19/24 0810 Garment Sewer Hand: [facility] External Provider IMG XR PROCEDURES Final Result documented in this encounter Visit Diagnoses Not on filedocumented in this encounter Additional Health Concerns Assessment Noted Time PHQ-9 Depression Total Score: 5 11/14/19 24 1:58 PM EDT documented as of this encounter Care Teams Aeroplane Pilot Relationship Specialty Start Date End Date Ashley Nugent MD [address] [place] [phone] PCP - General Internal Medicine 12/31/22 documented as of this encounter
--- OUTSIDE RECORDS SUMMARY | 2024-10-19 08:32 | XMS_ITS | Encounter Summary ---
Author Organization [employer] Address [address] [place] [address] Care Team Providers Care Sales Lead Name Role Phone Ashley Nugent MD Primary Care Pro vider Reason for Visit * Reason Comments Med Refill Encounter Details Date Type Department Care Team ([facility] st Contact Info) Description 02/07/2024 Refill [facility] [address] [place] [address] Zhen Hammer DDS [address] [place] [address] Social History Tobacco Use Types Packs/Day Years [...] housing situation today? I have ravi hale 05/06/[address] you li ve. Do you have problems with any of the following? None of the above 05/06/2023 Food Insecurity Answer Date Recorded Within the past 12 months, y ou worried that your food would run out before you got money to buy more: Never True 05/06/2023 Within the past 12 months,th e food you bought just didn't last and you didn't have enough money to get more: Never True Transportation Answer Date Recorded In the past 12 months, has l ack of transportation kept you from medical appts, meetings, work or from getting things needed for daily living? No 05/06/2023 Utilities Answer Date Recorded In the past 12 months, has t he electric, gas, oil or water company threatened to shut off services in your home? No 05/06/2023 Depression Answer Date Recorded Patient Health Questionnaire-2 Score 2 11/14/2023 Sex and Gender Information Value Date Recorded Sex Assigned at Male 05/14/2022 10:36 AM EDT Legal Sex Male 10:36 AM EDT Gender Identity Male 05/14/2022 10:36 AM EDT Sexual Orientation Don't know 02/14/2023 3: 04 PM EDT documented as of this encounter Miscellaneous Notes * Telephone Encounter - Zhen Hammer DDS - 02/07/2024 11:37 AM EDT Approving, but needs appt for additional refills. documented in this encounter Plan of Treatment Not on file documented as of this encounter Visit Diagnoses Not on filedocumented in this encounter Additional Health Concerns Assessment Noted Time PHQ-9 Depression Total Score: 5 11/14/19 24 1:58 PM EDT documented as of this encounter Care Teams Sales Lead Relationship Specialty Start Date End Date Ashley Nugent MD [address] [place] [phone] PCP - General Internal Medicine 12/31/22 documented as of this encounter
--- OUTSIDE RECORDS SUMMARY | 2024-10-19 08:32 | XMS_ITS | Encounter Summary ---
Author Organization [employer] Address [address] [place] [address] Care Team Providers Care Retail Supervisor Name Role Phone Sally Fagan Primary Care Provider [phone] Ashley Nugent MD Primary Care Pro vider Encounter Details Date Type Department Care Team (Late st Contact Info) Description 12/03/2022 Abstract [facility] [address] [place] [address] Sally Fagan FNP [address] [place] [address] Social History Tobacco Use Types Packs/Day Years Used Date Smoking Tobacco: Never Assessed Sex and Gender Information Value Date Recorded [...] Assessment Noted Time PHQ-9 Depression Total Score: 4 10/24/19 23 1:12 PM EDT documented as of this encounter Care Teams Retail Supervisor Relationship Specialty Start Date End Date Sally Fagan FNP [address] [place] [address] PCP - General Family Medicine 09/12/22 12/30/22 Ashley Nugent MD [address] [place] [phone] PCP - General Internal Medicine 12/31/22 documented as of this encounter
--- OUTSIDE RECORDS SUMMARY | 2024-10-19 08:32 | XMS_ITS | Encounter Summary ---
Author Organization [employer] Address [address] [place] [address] Care Team Providers Care Picture Booker Name Role Phone Ashley Nugent MD Primary Care Pro vider Reason for Visit * Reason Comments Med Refill Encounter Details Date Type Department Care Team ([facility] st Contact Info) Description 10/19/2024 Refill [facility] [address] [place], [place] [phone] Latosha Lott MD [address] [place] [address] Posttraumatic stress disorder Social History Tobacco Use Types Packs/Day Years [...] documented as of this encounter Visit Diagnoses Diagnosis Posttraumatic stress disorder documented in this encounter Additional Health Concerns Assessment Noted Time PHQ-9 Depression Total Score: 5 11/14/19 24 1:58 PM EDT documented as of this encounter Care Teams Picture Booker Relationship Specialty Start Date End Date Ashley Nugent MD [address] [place] [phone] PCP - General Internal Medicine 12/31/22 documented as of this encounter
--- OUTSIDE RECORDS SUMMARY | 2024-10-19 08:32 | XMS_ITS | Clinical Summary ---
Author Organization [facility] Address [address] [facility] [address] [place] [address] Care Team Providers Care Custom Leather Products Maker Name Role Phone Ashley Nugent MD Primary Care Pro vider Allergies No known active allergies Medications * This document contains information received from the source organization and may not represent a complete record from that organization. Dextrose, Diabetic Use, (glucose) 1 g chewable tablet Chew 1 g. In case of low blood sugars 021 Active insulin lispro (HumaLOG KWIKPEN) 100 UNIT/ML injection 3 times a day 022 Active Continuous Blood Gluc Sensor (FreeStyle Diamante 2 Sensor) misc 2 Units every 14 (fourteen) days. Per pt has device at home -please prior giving sensors check w pt if device match with this sensor thanks 2 each 023 Active ondansetron ODT (Zofran-ODT) 4 MG disintegrating tablet DISSOLVE 1 TABLET ON TONGUE EVERY 6 HOURS NEEDED FOR NAUSEA AND VOMITING 023 Active glucose blood (FREESTYLE LITE) test strip TEST BLOOD SUGAR 3 TIMES A DAY 100 each 024 Active Pentips 32G X 4 MM misc USE FOUR TIMES DAILY DIRECTED 100 each 024 Active acetaminophen (Tylenol) 500 MG tablet Take 1 tablet (500 mg) by mouth every 6 (six) hours if needed for mild pain for up to 20 doses. 20 tablet 024 Active chlorhexidine (Peridex) 0.12 % solution Swish 15 mL morning and night for 1 minute. Spit, do not swallow. Do not eat or drink for 30 minutes following use. 473 mL 024 Active lidocaine (Lidoderm) 5 % patchIndications: Rib pain on left side APPLY 1 PATCH TOPICALLY TO SKIN, LEAVE ON FOR 12 HOURS AND OFF FOR 12 HOURS DIRECTED 30 patch 024 Active vitamin E 180 MG (400 UNIT) capsule TAKE 1 CAPSULE BY MOUTH EVERY MORNING 90 capsule 1 024 Active Lantus SoloStar 100 UNIT/ML pen INJECT 17 UNITS SUBCUTANEOUSLY EVERY MORNING AND INJECT 15 UNITS SUBCUTANEOUSLY EVERY EVENING 15 mL 5 024 Active gabapentin (Neurontin) 300 MG capsuleIndication s:Neuropathic pain TAKE 1 CAPSULE BY MOUTH AT BEDTIME 30 capsule 2 025 Active QUEtiapine (SEROquel) 300 MG tablet TAKE 2 TABLETS BY MOUTH EVERY DAY AT BEDTIME WITH 100mg 180 tablet 025 Active QUEtiapine (SEROquel) 100 MG tabletIndications :Posttraumatic stress disorder TAKE 1 TABLET BY MOUTH TWICE DAILY IN THE MORNING AND AT BEDTIME 180 tablet 025 Active Multiple Vitamins-Minerals (CertaVite Senior/Antioxidan t) tabletIndications :Routine health maintenance TAKE 1 TABLET BY MOUTH TWICE DAILY IN THE MORNING AND IN THE EVENING 180 tablet 1 025 Active sertraline (Zoloft) 100 MG tabletIndications :Posttraumatic stress disorder TAKE 1 TABLET BY MOUTH EVERY MORNING 90 tablet 1 025 Active atorvastatin (Lipitor) 40 MG tablet Take 1 tablet (40 mg) by mouth at bedtime. 90 tablet 1 025 Active Alcohol Swabs (Alcohol Prep) 70 % pads USE ONCE DAILY DIRECTED 100 each 2 025 Active TRUEplus Lancets 33G miscIndications:T ype 2 diabetes mellitus treated with insulin ([facility]) TEST BLOOD SUGAR THREE TIMES DAILY 100 each 11 025 Active TRUEplus Lancets 33G miscIndications:T ype 2 diabetes mellitus treated with insulin ([facility]) TEST BLOOD SUGAR THREE TIMES DAILY 100 each 11 024 2024 Discontinued Active Problems Problem Noted Date Diagnosed Date Pre-op evaluation 04/13/2024 Assessment & Plan (04/13/2024 7:55 PM EDT): Risks and benefits were discussed with pt who wishes to proceed as scheduled, EKG wnl, dm well controlled. No contraindications to procedure History of tooth extraction 02/07/2024 Severe dental caries 12/30/2023 Dental abscess 12/30/2023 Retinopathy 04/09/2023 Vitreous hemorrhage 04/09/2023 Health care maintenance 04/09/2023 Marijuana use 02/13/2023 Assessment & Plan (02/13/2023 9:19 AM EDT): uses marijuana 5-6 a day PÉREZ (nonalcoholic steatohepatitis) 02/13/2023 Acquired deformity of toe 02/13/2023 History of pancreatitis 12/14/2022 Hypertension 12/14/2022 Assessment & Plan (04/13/2024 7:54 PM EDT): At goal , no meds currently Type 2 diabetes mellitus wit h complication, with long-term current use of insulin 10/09/2019 Assessment & Plan (04/13/2024 7:55 PM EDT): At goal, continue current regimen Posttraumatic stress disorder 10/09/2019 Assessment & Plan (11/14/2023 2:41 PM EDT): Plus hx traumatic brain injury. Presented with nightmares, hallucinations vs. Flashbacks. Did not do well with Prazosin which caused SI. Sleep is adequate, auditory hallucinations improved and not bothersome (although not totally eradicated). Will continue Seroquel 700 mg at bedtime, Seroquel 100 mg in am. Watch for worsened DM. Continue Sertraline 100 mg daily. Prefers to wait on counseling at this time. On 07/18/2023 provider informed the patient that I would be retiring. We will have one final appointment in approx 6 weeks, and will discuss plan for continuity of care. He agrees with the plan. Assessment & Plan (09/12/2023 2:15 PM EST): Plus hx traumatic brain injury. Presented with nightmares, hallucinations vs. Flashbacks. Did not do well with Prazosin which cause SI. Sleeping better and nighttime auditory hallucinations improved and not bothersome (although not totally eradicated). Will continue Seroquel 700 mg at bedtime, Seroquel 100 mg in am. Watch for worsened DM. Continue Sertraline 100 mg daily. Has been referred for counseling, and we will give him the agency phone number so he can call to check status. On 07/18/2023 provider informed the patient that I would be retiring but we would plan for continuity of care. F/u with me in 2 months. He agrees with the plan. Assessment & Plan (07/18/2023 3:10 PM EST): Plus hx traumatic brain injury. Presented with nightmares, hallucinations vs. Flashbacks. Did not do well with Prazosin which cause SI. Sleeping is still not optimal, and auditory hallucinations persist particularly at night. Will increase to Seroquel 700 mg at bedtime. Continue Seroquel 100 mg in am. Watch for worsened DM. Continue Sertraline 100 mg daily. Referring for counseling. Today 07/18/2023 provider informed the patient that I would be retiring but we would plan for continuity of care. F/u with me in 6-8 weeks He agrees with the plan. F/U 2 months. He agrees with the plan. Assessment & Plan (05/14/2023 10:01 AM EDT): Plus hx traumatic brain injury. Presented with nightmares, hallucinations vs. Flashbacks. Mild cognitive impairment. Did not do well with Prazosin which cause SI. Sleeping better, but auditory hallucinations persist. Prefer not to increase Seroquel r/t metabolic effects in pt with poorly controlled DM. Will increase to Sertraline 100 mg daily. Continue Seroquel (Quetiapine) 100 mg in am, Quetiapine 600 mg at bedtime. Continue with therapist. F/U 2 months. He agrees with the plan. Assessment & Plan (02/26/2023 2:34 PM EDT): Plus hx traumatic brain injury. Presented with nightmares, hallucinations vs. Flashbacks. Mild cognitive impairment. Did not do well with Prazosin which cause SI. Sleeping better, but auditory hallucinations persist. He does not wish to make med changes at this time. Will continue Seroquel (Quetiapine) 100 mg in am, Quetiapine 600 mg at bedtime. Will continue Sertraline 50 mg daily. Continue with therapist. F/U 2 months. He agrees with the plan. Assessment & Plan (12/27/2022 10:47 AM EDT): Plus hx traumatic brain injury. Presented with nightmares, hallucinations vs. Flashbacks. Mild cognitive impairment. Did not do well with Prazosin which cause SI. Although significantly improved from baseline, he is again troubled by auditory hallucinations especially at night. Will continue Seroquel (Quetiapine) 100 mg in am, but increase to Quetiapine 600 mg at bedtime. Will continue Sertraline 50 mg daily. Continue with therapist. F/U 2 months. He agrees with the plan. Assessment & Plan (10/23/2022 1:44 PM EDT): Plus hx traumatic brain injury. Presented with nightmares, hallucinations vs. Flashbacks. Mild cognitive impairment. Did not do well with Prazosin which cause SI. He is significantly improved from baseline and satisfied with current regimen (although auditory hallucinations are not completely eradicated). Will continue Sertraline 50 mg daily, Seroquel (Quetiapine) 100 mg in am and 400 mg at bedtime. Continue with therapist. F/U 2 months. He agrees with the plan. Assessment & Plan (08/20/2022 2:18 PM EST): Plus hx traumatic brain injury. Presented with nightmares, hallucinations vs. Flashbacks. Mild cognitive impairment. Did not do well with Prazosin which cause SI. He is significantly improved from baseline and satisfied with current regimen. Will continue Sertraline 50 mg daily, Seroquel (Quetiapine) 100 mg in am and 400 mg at bedtime. Continue with therapist. F/U 2 months. He agrees with the plan. Assessment & Plan (06/14/2022 10:25 AM EST): Plus hx traumatic brain injury. Presented with nightmares, hallucinations vs. Flashbacks. Mild cognitive impairment. Did not do well with Prazosin which cause SI. He is significantly improved from baseline and satisfied with current regimen. Will continue Sertraline 50 mg daily, Seroquel (Quetiapine) 100 mg in am and 400 mg at bedtime. Continue with therapist. F/U 2 months. He agrees with the plan. Resolved Problems Problem Noted Date Diagnosed Date Resolved Date Left eye pain 02/13/2023 04/09/2023 Encounters Date Type Department Care Team Description 10/19/2024 Orders Only [facility] External Provider, [facility] 10/19/2024 Refill [facility] [address] [place] [address] Latosha Lott MD Posttraumatic stress disorder 09/25/2024 Population Health Risk Score Community [facility] () Department [address] [phone] Provider, Population Health Generic 09/19/2024 Refill [facility] [address] [place] [address] Ashley Nugent MD Type 2 diabetes mellitus treated with insulin ([facility]) 09/17/2024 Refill [facility] [address] [place] [address] Ashley Nugent MD Routine health maintenance; Posttraumatic stress disorder 08/27/2024 Refill [facility] [address] [place] [address] Ashley Nugent MD 08/24/2024 Refill [facility] [address] [place] [address] Ashley Nugent MD Routine health maintenance; Posttraumatic stress disorder 08/18/2024 Telephone [facility] [address] [place] [address] Ashley Nugent MD Faxed referral 07/27/2024 Refill [facility] [address] [place] [address] Ashley Nugent MD Posttraumatic stress disorder from Last 3 Months Immunizations Name Administration Dates Next Due Hep B, adult 04/08/2023 Pneumococcal Conjugate PCV 20 02/13/2023 Tdap 02/13/2023 Family History Medical History Relation Name Comments DM2 Brother DM2,HTN Mother Relation Name Status Comments Brother Mother Social History Tobacco Use Types Packs/Day Years Used Date Smoking Tobacco: Never Passive Smoke Exposure: Never Smokeless Tobacco: Never Tobacco Cessation:Counseling Given: Not Answered Alcohol Use Standard Drinks/Week Comments Not Currently 0 (1 standard drink = 0.6 oz pure alcohol) hx of heavy alcohol use 20 y ago Depression Answer Date Recorded Patient Health Questionnaire-9 Score 5 11/14/2023 Patient Health Questionnaire-9 Score 5 11/14/2023 Last PHQ-9: Questionnaire Data Not on file 0 11/14/2023 Housing Stability Answer Date Recorded What is your housing situation today? I have raiv hale 04/24/[address] you [...] Don't know 02/14/2023 3: 04 PM EDT Last Filed Vital Signs Vital Sign Reading Time Taken Comments Blood Pressure 123/73 04/13/2024 1:07 PM EDT Pulse 81 04/13/2024 1:07 PM EDT Temperature 36.2 ??C (97.1 ??F) 04/13/2024 1:07 PM ED T Respiratory Rate 20 04/13/2024 1:07 PM EDT Oxygen Saturation 99% 04/13/2024 1:07 PM EDT Inhaled Oxygen Concentration - - Weight 62 kg (136 lb 9.6 oz) 04/13/2024 1:07 PM EDT Height 167.6 cm (5' 6 ) 04/13/2024 1:07 PM EDT Body Mass Index 22.05 04/13/2024 1:07 PM EDT Plan of Treatment Health Maintenance Due Date Last Done Comments CT Colonography 1960 Colonoscopy 1961 Dental Oral Exam 1961 Dental Prophylaxis 1961 Dental X-Ray: Bitewings 1961 FIT DNA/Cologuard 1961 Sigmoidoscopy 1961 Diabetes: Foot Exam 09/25/1971 Alcohol/Substance Use Screening 1973 Hepatitis A Vaccines (1 of 2 - Risk 2-dose series) 1980 Zoster Vaccines (1 of 2) 09/25/2011 RSV Patients and Patients Aged 60 years or older (1 - Risk 60-74 years 1-dose series) 2021 Hepatitis B Vaccines (2 of 3 - Risk 3-dose series) 05/06/2023 04/08/2023 Eye Exam 02/15/2024 02/14/2023, 08/0 09/2022, 02/14/2023, Additional history exists COVID-19 Vaccine () 03/15/2024 Influenza Vaccine (#1) 2024 Colorectal Cancer Screening 03/20/2024 Diabetes: Urine Protein Screening 03/20/2024 03/20/2023, 09/11/2021, 05/30/2020 FIT 03/20/2024 03/20/2023 FOBT 03/20/2024 03/20/2023 Lipid Panel 03/20/2024 03/20/2023, 08/16, 05/30/2020 Diabetes: Hemoglobin A1C 07/13/2024 024, 03/20/2023, 12/14/2022, Additional history exists Depression Screening 11/13/2024 11/14/2023, 11/14/19 24 Tobacco Screening 04/13/2025 04/13/2024 SDOH Screening 04/24/2025 04/24/2024 Dental X-Ray: Full Mouth 12/30/2026 12/30/2023 DTaP/Tdap/Td Vaccines (2 - Td or Tdap) 02/13/2033 02/13/2023 Pneumococcal Vaccine: 50+ Years Completed 02/13/2023 HIV Screening Completed 03/20/2023, 05/30/2020 Hepatitis C Screening Completed 03/20/2023, 020 HIB Vaccines Aged Out No longer eligi ble based on patient's age to complete this topic HPV Vaccines Aged Out No longer eligi ble based on patient's age to complete this topic IPV Vaccines Aged Out No longer eligi ble based on patient's age to complete this topic Meningococcal Vaccine Aged Out No kandy willard eligible based on patient's age to complete this topic RSV under 20 months Aged Out No longe r eligible based on patient's age to complete this topic Rotavirus Vaccines Aged Out No longer eligible based on patient's age to complete this topic Procedures Procedure Name Priority Date/Time Associated Diagnosis Comments HOLD LT BLUE - POSSIBLE COAG Routine 10/19/2024 8:22 AM EDT XR TIBIA FIBULA 2 VIEWS LEFT Routine 10/19/2024 7:50 AM EDT XR ANKLE 3+ VIEWS LEFT Routine 7:50 AM EDT POCT GLYCATED HEMOGLOBIN, TOTAL Routine 04/13/2024 2:03 PM EDT Type 2 diabetes mellitus with complication, with long-term current use of insulin ([facility]) PANORAMIC RADIOGRAPHIC IMAGE Routine 12/30/2023 10:00 AM EDT ALBUMIN, RANDOM URINE W/CREATININE Routine 03/20/2023 9:05 AM EDT Health care maintenance HEPATITIS C AB W/REFL TO HCV RNA, QN, PCR Routine 03/20/2023 8:46 AM EDT Health care maintenance HIV ANTIBODY/ANTIGEN ([place] [facility]) Routine 03/20/2023 8:46 AM EDT Retinal detachment, left LIPID PANEL, STANDARD Routine 03/20/2023 8:46 AM EDT Health care maintenance FECAL GLOBIN BY IMMUNOCHEMISTRY Routine 03/20/2023 12:00 AM EDT Health care maintenance from Last 3 Months or Most Recently Relevant to Health Maintenance Results * HOLD LT BLUE - POSSIBLE COAG (10/19/2024 8:22 AM EDT) Hold Lt Blue - Possible Coag SEE NOTE [facility] Comment:Specimen will be hel d untested for 4 hours. Call Hematologyif testing is desired. 10/19/2024 8:22 AM EDT 10/19/2024 8:29 AM EDT us Generic External Data Provider LAB BLOOD ORDERAB LES Final Result [facility] [address] [place] [address] [phone] * XR Ankle 3+ Views Left (10/19/2024 7:50 AM EDT) Anatomical Region Laterality Modality Lower Extremities, Ankle Left Radiogr aphic Imaging 10/19/2024 7:50 AM EDT Narrative 10/19/2024 8:22 AM EDT ? [facility] ?[address] ?[place] [address] ?XRay Report ? Signed ? Patient: Harjinder Delcid ?MR#: M ?? [id number] ? : 1960 ?Acct:[id number] ? Age/Sex: 64 / M ?ADM Date: 04/07/25 ? Loc: HO.ED ? Attending Dr: ? Ordering Physician: Aditi Maher DO ?? Date of Service: 10/19/24 ?? Procedure(s): XR ankle LT min 3V ?? Accession Number(s): [id number] ? cc: Aditi Maher DO; Ashley Nugent [...] DD/ 0750 ? TD/TT: 10/19/24 0810 ? Gold Burnisher: ? Procedure Note Concepcion, Image - 10/19/2024 [place] [address] XRay Report Signed Patient: Harjinder Delcid FMR#: M [id number] : 2Acct:[id number] Age/Sex: 64 / MADM Date: 10/19/24 Loc: HO.ED Attending Dr: Ordering Physician: Aditi Maher DO Date of Service: 10/19/24 Procedure(s): XR ankle LT min 3V Accession Number(s): [id number] cc: Aditi Maher DO; Ashley Nugent MD [...] Maikol Tovar MD 10/19/2024 08:19 AM EDT Dictated By: Maikol Tovar MD Signed By: <Electronically signed by Maikol Tovar MD in OV> 10/19/24 0819 DD/ 9 TD/TT: 10/19/24 0810 Gold Burnisher: us [facility] External Provider IMG XR PROCEDURES Final Result * XR Tibia Fibula 2 Views Left (10/19/2024 7:50 AM EDT) Anatomical Region Laterality Modality Lower Extremities, Lower Leg Left Rad iographic Imaging 10/19/2024 7:50 AM EDT Narrative 10/19/2024 8:23 AM EDT ? [facility] ?[address] ?[place] [address] ?XRay Report ? Signed ? Patient: BrowneHarjinder Rose ?MR#: M ?? [id number] ? : 1960 ?Acct:[id number] ? Age/Sex: 64 / M ?ADM Date: 10/19/24 ? Loc: HO.ED ? Attending Dr: ? Ordering Physician: Aditi Maher DO ?? Date of Service: 10/19/24 ?? Procedure(s): XR tibia fibula LT 2V ?? Accession Number(s): [id number] ? cc: Aditi Maher DO; Ashley Nugent [...] DD/ 0750 ? TD/TT: 10/19/24 0810 ? Gold Burnisher: ? Procedure Note Concepcion, Sharad - 10/19/[address] [address] XRay Report Signed Patient: Harjinder Delcid FMR#: M [id number] : 1960cct:[id number] Age/Sex: 64 / MADM Date: 10/19/24 Loc: .ED Attending Dr: Ordering Physician: Aditi Maher DO Date of Service: 10/19/24 Procedure(s): XR tibia fibula LT 2V Accession Number(s): [id number] cc: Aditi Maher DO; Ashley Nugent MD [...] 10/19/24 0820 DD/ 0750 TD/TT: 10/19/24 0810 Gold Burnisher: [facility] External Provider IMG XR PROCEDURES Final Result * (ABNORMAL) POCT HGB A1C (04/13/2024 2:03 PM EDT) Hemoglobin A1C 7.4(A) 4.0 - 6.0 % QC Media Lot # [id number] Lot# Expiration Date [id number] Blood 04/13/2024 2:03 PM EDT us Tonie Aragon NP POINT OF CARE TEST ENTER/EDIT OR DERABLES Final Result * Albumin, Random Urine W/Creatinine (03/20/2023 9:05 AM EDT) Creatinine, Urine 83.54 mg/dL [facility] Microalbumin Urine 6.0 mg/L [facility] Microalbum Creatinine Ratio Ur 7.1 <30 ug/mg cr [facility] Comment:Albumin/Creatinine R atio Reference Ranges: Normal: < 30 ug/mg creatinine Microalbuminuria: 30 - 300 ug/mg creatinineClinical Albuminuria: > 300 ug/mg creatinine Urine 03/20/2023 9:05 AM EDT 03/20/2023 11:20 AM EDT us Ashley Holder MD LAB URINE ORDERAB LES Final Result [facility] [address] [place] [phone] * HIV Ab/Ag ([facility]) (03/20/2023 8:46 AM EDT) HIV AB/AG Nonreactive Nonreactive [facility] Comment:HIV-1 p24 Ag and/or HIV-1/HIV-2 Ab not detected.A test result that is nonreactive does not exclude thepossibility of exposure to or infection with HIV-1 and/orHIV-2. Nonreactive results in this assay for individualswith prior exposure to HIV-1 and/or HIV-2 may be due toantigen and antibody levels that are below the limit ofdetection of this assay.The Melon HIV Ag/Ab Combo assay result andsupplemental assay results should be interpreted inconjunction with the patient's clinical presentation,history and other laboratory results. If the results areinconsistent with clinical evidence, additional testing issuggested to confirm the result. 03/20/2023 8:46 AM EDT 03/20/2023 11:16 AM EDT us Ashley Holder MD LAB BLOOD ORDERAB LES Final Result [facility] [address] [place] [address] [phone] * Hepatitis C Antibody with Reflex to HCV, RNA, Quantitative, Real-Time PCR (03/20/2023 8:46 AM EDT) Hepatitis C Antibody Nonreactive Nonreactive [facility] Comment:Antibodies to HCV no t detected; does not exclude early acuteHCV infection. Blood Venous blood specimen / Unknown 03/20/2023 8:46 AM EDT 03/20/2023 11:16 AM EDT us Ashley Holder MD LAB BLOOD ORDERAB LES Final Result Performing Organization Address City/[facility]/ZIP Co de Phone Number [facility] [address] [place] [phone] * Lipid Panel, Standard (03/20/2023 8:46 AM EDT) Triglycerides 141 <150 mg/dL [facility] Comment:Desirable Triglyceri de: less than 150 mg/dLBorderline High Triglyceride 150-199 mg/dLHigh Triglyceride: 200-499 mg/dLVery High Triglyceride: greater than or equal to 5OO mg/dL Cholesterol 136 <200 mg/dL [facility] Comment:Desirable Cholestero l: less than 200 mg/dLBorderline High Cholesterol: 200-239 mg/dLHigh Cholesterol: greater than 239 mg/dL LDL Cholesterol Calculated 67 <100 mg/dL [facility] Comment:Desirable LDL: less than 100 mg/dLNear Optimal/Above Optimal LDL: 110- 129 mg/dLBorderline High LDL: 130-159 mg/dLHigh LDL: 160-189 mg/dLVery High LDL: greater than or equal to 190 mg/dL HDL Cholesterol 41 >40 mg/dL [facility] Comment:Desirable HDL: great er than 40 mg/dL Note: This HDL assay may give artificially low results in patients with liver disease. Blood Venous blood specimen / Unknown 03/20/2023 8:46 AM EDT 03/20/2023 11:16 AM EDT us Ashley Holder MD LAB BLOOD ORDERAB LES Final Result Performing Organization Address [facility] Co de Phone Number [facility] [address] [place] [address] [phone] * Fecal Globin by Immunochemistry (03/20/2023 12:00 AM EDT) Fecal Globin By Immunochemistry SEE NOTE [facility] Comment:FECAL GLOBIN BY IMMU NOCHEMISTRY Micro Number: [id number] Test Status: Final Specimen Source: Insure (tm) fobt test card Specimen Quality: Adequate Fecal Globin: Not DetectedTHIS TEST WAS PERFORMED AT:[facility] [address] [phone] GOVEA MD Stool Rectal contents / Unknown 03/20/2023 03/20/2023 us Ashley Holder MD LAB BODY FLUIDS A ND STOOLS ORDERABLES Final Result Performing Organization Address [facility] Co de Phone Number [facility] [address] [place] [phone] from Last 3 Months or Most Recently Relevant to Health Maintenance Insurance [facility] ADULT Care Teams Custom Leather Products Maker Relationship Specialty Start Date End Date Ashley Nugent MD [address] [place] [phone] PCP - General Internal Medicine 12/31/22
--- OUTSIDE RECORDS SUMMARY | 2024-10-19 08:32 | XMS_ITS | Encounter Summary ---
Author Organization [employer] Address [address] [facility] [place] [address] [place] [address] Care Team Providers Care Hose Turner Name Role Phone Sally Fagan Primary Care Provider [phone] Ashley Nugent MD Primary Care Pro vider Encounter Details Date Type Department Care Team (Late st Contact Info) Description 12/03/2022 Abstract [facility] [address] [place] [address] Sally Fagan FNP [address] [place] [address] Social History Tobacco Use Types Packs/Day Years [...] documented as of this encounter Care Teams Hose Turner Relationship Specialty Start Date End Date Sally Fagan FNP [address] [place] [address] PCP - General Family Medicine 09/12/22 12/30/22 Ashley Nugent MD [address] [place] [phone] PCP - General Internal Medicine 12/31/22 documented as of this encounter
[2024-10-19 08:35] LABS: Basophils Percent Auto 0.3 % (0-2); Eosinophils Absolute Auto 0.1 X10*3/uL (0.0-0.4); Eosinophils Percent Auto 0.6 % (0-4); Hemoglobin 12.8 g/dl (14.0-18.0); Imm Gran Abs Auto 0.03 X10*3/uL (0.00-0.03); Imm Gran Pct Auto 0.3 % (0.0-0.4); Lymphocytes Absolute Auto 1.6 X10*3/uL (1.2-4.9); Lymphocytes Percent Auto 14.9 % (20-40); Mean Corpuscular HGB Conc 32.8 g/dl (31.0-36.0); Mean Corpuscular Hemoglobin 28.6 pg (27.0-33.0); Mean Corpuscular Volume 87.2 fL (80.0-98.0); Mean Platelet Volume 10.9 fL (9.4-12.4); Monocytes Absolute Auto 0.7 X10*3/uL (0.1-1.2); Monocytes Percent Auto 6.9 % (2-11); Platelet Count 178 X10*3/uL (160-400); Red Blood Count 4.47 X10*6/uL (4.60-5.80); White Blood Count 10.4 X10*3/uL (4.8-10.8)
[2024-10-19 08:53] LABS: Alanine Aminotransferase 53 U/L (0-40); Albumin Level 4.3 g/dL (3.5-5.0); Alkaline Phosphatase 94 U/L (39-117); Anion Gap 12 (12-20); Aspartate Amino Transferase 45 U/L (5-37); Bilirubin Direct 0.2 mg/dL (0.0-0.5); Bilirubin Total 0.8 mg/dL (0.0-1.0); Blood Urea Nitrogen 12 mg/dL (9-16); Carbon Dioxide 24 mmol/L (22-29); Chloride 107 mmol/L (96-108); Creatinine Clr Calc Pharmacy 64.9; Estimated Glomerular Filt Rate > 60; Glucose Random 221 mg/dL (60-115); Potassium 3.9 mmol/L (3.3-5.1); Sodium 139 mmol/L (135-145); Total Protein 7.1 g/dL (6.5-8.0)
[2024-10-19] MEDS: HYDROmorphone HCl 1 MG/ML SYRINGE IVPUSH (09:45)
[2024-10-19] MEDS: iohexoL 350 MG/ML 100 ML INFUS..BTL IV (09:58)
[2024-10-19 10:19] VITALS: BP 161/70; PULSE 105; RESP 14; TEMP 36.5; O2SAT 95
[2024-10-19 10:46] LABS: Prothrombin Time 11.3 SEC (10.9-12.4)
[2024-10-19 10:48] LABS: Partial Thromboplastin Time 28.5 SEC (26.0-36.8)
[2024-10-19 17:34] VITALS: BP 161/70; PULSE 105; RESP 14; TEMP 36.5; O2SAT 95
== END 2024-10-19 11:45 | disposition home or self-care (01) ==
PROVIDERS: Emergency Provider Emergency Medicine; PCP Student in an Organized Health Care Education/Training Program
DX: I73.9 Peripheral vascular disease, unspecified (principal); M79.662 Pain in left lower leg; M79.605 Pain in left leg; R60.0 Localized edema; M25.572 Pain in left ankle and joints of left foot; Z79.899 Other long term (current) drug therapy
CPT/HCPCS: 36415; 73590; 73610; 75635; 80048; 80076; 82550; 83735; 85025; 85610; 85730; 93005; 93925; 96374; 99284; 99285; J1171; Q9967

== ENCOUNTER → 2024-10-19 07:50 | Outpatient (BNV) | payer MEDICAID, SELFPAY | PROVIDERS: Emergency Provider Emergency Medicine; PCP Student in an Organized Health Care Education/Training Program; Visit Provider Radiology Diagnostic Radiology | DX: I25.84 Coronary atherosclerosis due to calcified coronary lesion (principal); I70.203 Unspecified atherosclerosis of native arteries of extremities, bilateral legs; K76.89 Other specified diseases of liver; M25.572 Pain in left ankle and joints of left foot; M79.662 Pain in left lower leg | CPT/HCPCS: 73590; 73610; 75635; 93925 ==

== ENCOUNTER → 2024-10-19 07:56 | Outpatient (BNV) | payer MEDICAID, SELFPAY | PROVIDERS: Emergency Provider Emergency Medicine; PCP Student in an Organized Health Care Education/Training Program; Visit Provider Internal Medicine Cardiovascular Disease | DX: M79.606 Pain in leg, unspecified (principal) | CPT/HCPCS: 93010 ==

== ENCOUNTER 2024-10-20 09:02 | Outpatient (AMB) | payer MEDICAID, SELFPAY ==
--- NOTE | 2024-10-20 09:20 | A.OFFVIS_ITS ---
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 Pt states it started 3 days ago and became very severe very quickly in the Left LE. 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 The issue started three days ago with swelling and severe pain described as similar to a cramp. The patient notes a significant decrease in mobility, able to manage only half a step at a time. He presented to the emergency room yesterday. He had undergone CT angiogram. He now presents for follow-up. The patient has been diagnosed with diabetes mellitus for 25 years, managed with insulin. The patient reports no trauma or injury to the affected area. The right leg remains asymptomatic. He now presents for vascular evaluation [facility] Medical History Diabetes mellitus with polyneuropathy Hypertension Diabetes History of pancreatitis Surgical History Hx of cataract extraction Family History Mother Diabetes Father Medical history unknown Social History Household Members: Friend(s) Housing: Apartment Do you presently have visiting nurse or other home services: No Alcohol intake: former Substance Use Type: Marijuana Advance Directives Date on File: 05/28/20 service: No Current occupational status: employed Review of Systems Const All systems reviewed & are unremarkable except as noted in HPI and below Reports no additional complaints ENT Reports Normal hearing present Card Denies chest pain, Denies chest pain at rest, Denies chest pain with activity and Denies pedal edema Resp Denies cough GI Denies abdominal pain Musc Denies abnormal gait, Denies muscle cramps and Denies radiating pain into limb Skin/Breast Denies skin ulcer and Denies wounds Neuro Reports Normal hearing present and Denies abnormal gait Psych Reports no additional complaints Physical Exam Vital Signs: BMI result Body Mass Index 24.2 Const General: cooperative, healthy appearing and comfortable Orientation/consciousness: oriented to person, oriented to place and oriented to time HEENT Head: Yes normal to inspection Neck Neck: Yes normal visual inspection Carotids: no bruits Chest Chest palpation & inspection: normal inspection of the chest Resp Effort & Inspection: normal respiratory effort and able to speak in complete sentences Auscultation: clear to auscultation bilaterally, no crackles, no rales, no rhonchi and no wheezes Cardio Other: Bilateral DP signals, both legs motor and sensation intact. Left leg does have pain on palpation Rate: regular rate Rhythm: regular rhythm Heart sounds: S1 normal heart sound present and S2 normal heart sound present Bruits: no carotid bruits Peripheral pulses: Peripheral pulses 2+ throughout GI Inspection: Yes normal to inspection Skin Wounds: no wounds Hair: normal Neuro General: oriented to person, oriented to place and oriented to time Cranial nerves: Yes CN's II-XII intact bilaterally and Yes Normal hearing present Cognition (Neuro): normal cognition Motor exam (neuro): 5/5 motor strength present throughout Extrem Other: venous exam: No significant superficial varicosities or spider telangiectasias, minimal edema General: No clubbing, No cyanosis and No edema Psych Appearance: grossly normal Mental Status: mental status grossly normal Speech and movement: Normal speech and movement present Results Reviewed Results Reviewed: CT angiogram dated 10/19/2024 demonstrates left SFA disease with concern of occlusion of left popliteal. Extremely calcified vessels. Assessment & Plan Assessment & Plan (1) Peripheral arterial disease: Code(s): I73.9 - Peripheral vascular disease, unspecified Category: Medical Plan: Patient notes leg pain when walking distances. I have discussed the pathophysiology of peripheral vascular disease with the patient. I have also discussed risk factor modification. I have reviewed the patient's arterial testing which reveals left SFA and popliteal. the patient would benefit from a left leg endovascular peripheral angiogram with possible angioplasty, stent, and/or atherectomy. This has been discussed in detail with the patient along with risks, benefits, and complications. This includes but is not limited to bleeding, infection, heart attack, need for emergent surgical repair, limb ischemia, blood vessel damage, bleeding, puncture, kidney injury, bruising, allergic reaction, and skin reaction. The patient demonstrates a clear understanding. We will schedule for the next appropriate time. Thank you for allowing us to assist in this patient's care. Coding Level of Care Code New Pt Level 4 (21923) Complex EM visit Add On G2211 Diagnoses Peripheral arterial disease I73.9
[2024-10-20 09:22] VITALS: BMI 24.2
--- OUTSIDE RECORDS SUMMARY | 2024-10-20 09:53 | XMS_ITS | Encounter Summary ---
Author Organization [employer] Address [address] [place] [address] Care Team Providers Care Preschool Aide Name Role Phone Ashley Nugent MD Primary Care Pro vider Reason for Visit * Reason Comments Med Refill Encounter Details Date Type Department Care Team ([facility] st Contact Info) Description 10/19/2024 Refill [facility] [address] [place], [place] [phone] Latosha Lott MD [address] [place] [address] Posttraumatic stress disorder Social History Tobacco Use [...] documented as of this encounter Care Teams Preschool Aide Relationship Specialty Start Date End Date Ashley Nugent MD [address] [place] [id number] PCP - General Internal Medicine 12/31/22 documented as of this encounter
--- OUTSIDE RECORDS SUMMARY | 2024-10-20 09:53 | XMS_ITS | Encounter Summary ---
Author Organization [employer] Address [address] [facility] [address] [place] [address] Care Team Providers Care Pot Room Supervisor Name Role Phone Ashley Nugent MD Primary Care Pro vider Encounter Details Date Type Department Care Team ([facility] st Contact Info) Description 10/19/2024 Orders Only [facility] External Provider, [facility] Social History Tobacco Use Types Packs/Day [...] as of this encounter Miscellaneous Notes * Result Encounter Note - Ashley Holder MD - 10/19/2024 8:23 AM EDT Labs done by outside provider * Result Encounter Note - Ashley Holder MD - 10/19/2024 8:23 AM EDT Image done by outside provider * Result Encounter Note - Ashley Holder MD - 10/19/2024 8:23 AM EDT Image done by outside provider * Result Encounter Note - Ashley Holder MD - 10/19/2024 8:23 AM EDT Please can you call pt and schedule an apt with me to resume care and hospital follow up -if no spot available please help w HFU apt w any available provider until can see me Thanks * Result Encounter Note - Ashley Holder MD - 10/19/2024 8:23 AM EDT As message before please help w HFU apt Thanks documented in this encounter Plan of Treatment Not on file documented as of this encounter Procedures Procedure Name Priority Date/Time Associated Diagnosis Comments CTA ABDOMEN AORTA RUNOFF Routine 10/19/2024 9:49 AM EDT VASC US LOWER EXTREMITY ARTERIAL DUPLEX BILATERAL Routine 10/19/2024 9:01 AM EDT HOLD LT BLUE - POSSIBLE COAG Routine 10/19/2024 8:22 AM EDT CBC WITH AUTO DIFFERENTIAL Routine 10/19/2024 8:22 AM EDT APTT Routine 10/19/2024 8:22 AM EDT PROTHROMBIN TIME-INR Routine 10/19/2024 8:22 AM EDT MAGNESIUM Routine 10/19/2024 8:22 AM EDT CREATINE KINASE, TOTAL Routine 10/19/2024 8:22 AM EDT HEPATIC FUNCTION PANEL Routine 10/19/2024 8:22 AM EDT BASIC METABOLIC PANEL Routine 10/19/2024 8:22 AM EDT XR ANKLE 3+ VIEWS LEFT Routine 10/19/2024 7:50 AM EDT XR TIBIA FIBULA 2 VIEWS LEFT Routine 10/19/2024 7:50 AM EDT documented in this encounter Results * CTA Abdomen aorta runoff (10/19/2024 9:49 AM EDT) Anatomical Region Laterality Modality Body, Pelvis, Abdomen Computed T omography 10/19/2024 9:49 AM EDT Narrative 10/19/2024 11:13 AM EDT ? [facility] ?[address] ?[place] [address] ? CT Scan Report ? Signed ? Patient: Pavan Stuart,Larry ?MR#: M ?? [id number] ? : 1960 ?Acct:[id number] ? Age/Sex: 64 / M ?ADM Date: 10/19/24 ? Loc: HO.ED ? Attending Dr: ? Ordering Physician: Aditi Maher DO ?? Date of Service: 10/19/24 ?? Procedure(s): CT angio abd aorta runoff ?? Accession Number(s): [id number] ? cc: Aditi Maher DO; Ashley Nugent MD ? Report Number: ?? [id number]: Total DLP = ??294.00 mGy-cm ?? EXAMINATION: ??CT ABDOMINAL AORTA ANGIO BILATERAL RUNOFF WITH IV CONTRAST ? HISTORY: severe L leg pain with cool foot and decreased pulses ? COMPARISON: There are no prior studies for comparison. ? TECHNIQUE: CT angiogram of the abdomen and pelvis with bilateral lower ?? extremity runoff was performed following administration of 100 mL ?? Omnipaque 350 using standard departmental protocol. ?? Coronal and ?? sagittal reformatted images were generated and reviewed. The contrast ?? bolus was timed to optimally opacify the vascular system. ? This CT exam was performed with one or more of the following dose ?? reduction techniques: automated exposure control, adjustment of the mA ?? and/or kV according to patient size, use of iterative reconstruction ?? technique. ? DLP: 294 mGy-cm ? FINDINGS: ? LOWER CHEST: The visualized lung bases are clear. There is no pleural ?? effusion. ? CARDIOVASCULATURE: The heart is normal in size. ??There is no ?? pericardial effusion. ? LIVER: ??The liver is normal in size and contour. ??There is a 1.9 cm ?? arterial enhancing lesion in the left lobe of the liver. This cannot be ?? optimally characterized on this single phase examination. ? GALLBLADDER / BILE DUCTS: ??The gallbladder is surgically absent. There ?? is no intra or extrahepatic biliary ductal dilatation. ? SPLEEN: The spleen is normal in size. No focal splenic lesion is ?? identified. ? PANCREAS: The pancreas is unremarkable in appearance. ? ADRENAL GLANDS: Within normal limits. ? KIDNEYS/RETROPERITONEUM: No renal calculi are identified. There is no ?? hydronephrosis. ??No renal masses are identified. ? LYMPH NODES: ??No abdominal or pelvic lymphadenopathy. ? VASCULATURE: ??The abdominal aorta is normal in caliber. There is ?? diffuse moderate atherosclerotic calcification. On the right, there are ?? mild focal stenoses of the common iliac artery. The right external ?? iliac artery is patent. The right superficial femoral artery ?? demonstrates diffuse atherosclerotic calcification. Evaluation for ?? stenoses is limited by marked calcification. There is a probable severe ?? focal stenosis of the popliteal artery above the knee joint. There is ?? diffuse calcification of the calf vessels, limiting evaluation. On the ?? left, there is a probable moderate stenosis of the common iliac artery. ?? The external iliac artery is patent. There is diffuse moderate ?? irregularity and calcification of the left superficial femoral artery. ?? Evaluation for stenoses is limited. There is occlusion of the left ?? popliteal artery just above the knee joint with reconstitution several ?? centimeters distally. There is diffuse atherosclerotic calcification of ?? the calf vessels. Evaluation for stenoses is limited. ? MESENTERY/PERITONEUM: No free fluid. No masses. ??There is no free ?? intraperitoneal gas. ? STOMACH: ??The stomach is collapsed, limiting evaluation. ? SMALL BOWEL: ?? The small bowel is normal in caliber. ? COLON: ??There is a large amount of stool throughout the colon. ? APPENDIX: ??The appendix is not seen, however no inflammatory changes ?? are seen adjacent to the cecum. ? URINARY BLADDER/PELVIC ORGANS: The urinary bladder is unremarkable. ? The prostate is enlarged. ? BONES / SOFT TISSUES: ??No suspicious bony or soft tissue abnormalities. ? CT/CT angio abd aorta runoff ?? IMPRESSION: ? 1. Diffuse atherosclerotic calcification and irregularity of the ?? vascular system, limiting evaluation. There appears to be occlusion of ?? the left popliteal artery with reconstitution several centimeters ?? distally. Additional moderate to severe focal stenoses of the bilateral ?? superficial femoral arteries is noted. Probable severe focal stenosis ?? of the right popliteal artery. Evaluation of the calf vessels is ?? limited by calcification and their small size. ? 2. 1.9 cm enhancing lesion in the left lobe of the liver. Further ?? evaluation with MRI of the liver without and with contrast is ?? recommended. This can be performed as an outpatient. ? Electronically signed by: ??Ernesto Dennison MD ??10/19/2024 11:11 AM EDT ?? RP ? Dictated By: ?Ernesto Dennison MD ? Signed By: ?<Electronically signed by Ernesto Dennison MD in OV> ?10/19/24 1111 ? DD/ 0949 ? TD/TT: 10/19/24 1007 ? Recreation Establishment Manager: ? Procedure Note Concepcion, Image - 10/19/[address] [place] [address] [address] Scan Report Signed Patient: Harjinder Delcid FMR#: M [id number] : 1960cct:[id number] Age/Sex: 64 / MADM Date: 10/19/24 Loc: HO.ED Attending Dr: Ordering Physician: Aditi Maher DO Date of Service: 10/19/24 Procedure(s): CT angio abd aorta runoff Accession Number(s): [id number] cc: Aditi Maher DO; Ashley Nugent MD Report Number: [id number]: Total DLP = 294.00 mGy-cm EXAMINATION: CT ABDOMINAL AORTA ANGIO BILATERAL RUNOFF WITH IV CONTRAST HISTORY: severe L leg pain with cool foot and decreased pulses COMPARISON: There are no prior studies for comparison. TECHNIQUE: CT angiogram of the abdomen and pelvis with bilateral lower extremity runoff was performed following administration of 100 mL Omnipaque 350 using standard departmental protocol. Coronal and sagittal reformatted images were generated and reviewed. The contrast bolus was timed to optimally opacify the vascular system. This CT exam was performed with one or more of the following dose reduction techniques: automated exposure control, adjustment of the mA and/or kV according to patient size, use of iterative reconstruction technique. DLP: 294 mGy-cm FINDINGS: LOWER CHEST: The visualized lung bases are clear. There is no pleural effusion. CARDIOVASCULATURE: The heart is normal in size. There is no pericardial effusion. LIVER: The liver is normal in size and contour. There is a 1.9 cm arterial enhancing lesion in the left lobe of the liver. This cannot be optimally characterized on this single phase examination. GALLBLADDER / BILE DUCTS: The gallbladder is surgically absent. There is no intra or extrahepatic biliary ductal dilatation. SPLEEN: The spleen is normal in size. No focal splenic lesion is identified. PANCREAS: The pancreas is unremarkable in appearance. ADRENAL GLANDS: Within normal limits. KIDNEYS/RETROPERITONEUM: No renal calculi are identified. There is no hydronephrosis. No renal masses are identified. LYMPH NODES: No abdominal or pelvic lymphadenopathy. VASCULATURE: The abdominal aorta is normal in caliber. There is diffuse moderate atherosclerotic calcification. On the right, there are mild focal stenoses of the common iliac artery. The right external iliac artery is patent. The right superficial femoral artery demonstrates diffuse atherosclerotic calcification. Evaluation for stenoses is limited by marked calcification. There is a probable severe focal stenosis of the popliteal artery above the knee joint. There is diffuse calcification of the calf vessels, limiting evaluation. On the left, there is a probable moderate stenosis of the common iliac artery. The external iliac artery is patent. There is diffuse moderate irregularity and calcification of the left superficial femoral artery. Evaluation for stenoses is limited. There is occlusion of the left popliteal artery just above the knee joint with reconstitution several centimeters distally. There is diffuse atherosclerotic calcification of the calf vessels. Evaluation for stenoses is limited. MESENTERY/PERITONEUM: No free fluid. No masses. There is no free intraperitoneal gas. STOMACH: The stomach is collapsed, limiting evaluation. SMALL BOWEL: The small bowel is normal in caliber. COLON: There is a large amount of stool throughout the colon. APPENDIX: The appendix is not seen, however no inflammatory changes are seen adjacent to the cecum. URINARY BLADDER/PELVIC ORGANS: The urinary bladder is unremarkable. The prostate is enlarged. BONES / SOFT TISSUES: No suspicious bony or soft tissue abnormalities. CT/CT angio abd aorta runoff IMPRESSION: 1. Diffuse atherosclerotic calcification and irregularity of the vascular system, limiting evaluation. There appears to be occlusion of the left popliteal artery with reconstitution several centimeters distally. Additional moderate to severe focal stenoses of the bilateral superficial femoral arteries is noted. Probable severe focal stenosis of the right popliteal artery. Evaluation of the calf vessels is limited by calcification and their small size. 2. 1.9 cm enhancing lesion in the left lobe of the liver. Further evaluation with MRI of the liver without and with contrast is recommended. This can be performed as an outpatient. Electronically signed by: Ernesto Dennison MD 10/19/2024 11:11 AM EDT RP Dictated By: Ernesto Dennison MD Signed By: <Electronically signed by Ernesto Dennison MD in OV> 10/19/24 1111 DD/ 0949 TD/TT: 10/19/24 1007 Recreation Establishment Manager: [facility] External Provider IMG CT PROCEDURES Final Result * VASC Lower Extremity Arterial Duplex Bilateral (10/19/2024 9:01 AM EDT) 10/19/2024 9:01 AM EDT Narrative [facility] - 10/19/2024 10:23 AM EDT ? [facility] ?[address] ?[place] [address] ? Ultrasound Report ? Signed ? Patient: Harjinder Delcid ?MR#: M ?? [id number] ? : 1960 ?Acct:[id number] ? Age/Sex: 64 / M ?ADM Date: 10/19/24 ? Loc: HO.ED ? Attending Dr: ? Ordering Physician: Aditi Maher DO ?? Date of Service: 10/19/24 ?? Procedure(s): US arterial duplex LE BI ?? Accession Number(s): [id number] ? cc: Aditi Maher DO; Ashley Nugent MD ? EXAMINATION: ?? COLOR-FLOW DUPLEX IMAGING OF THE BILATERAL LOWER EXTREMITY ARTERIAL ?? SYSTEM. VELOCITY MEASUREMENTS THROUGHOUT THE FEMORAL ARTERIES. ? CLINICAL INFORMATION: ?? 64-year-old male, severe pain left lower leg, cool with decreased ?? pulses. ? Comparison: None. ? FINDINGS: ?? Atheromatous Plaque: Extensive calcific atheromatous plaque present, ?? limiting ability to see arterial flow. ? RIGHT FEMORAL RUNOFF VELOCITIES: ? The right common femoral artery measures 163 cm/s and biphasic. ?? The right profunda femoral artery is 76.3 cm/s and is biphasic. ?? The right proximal superficial femoral artery measures 121 cm/s and ?? biphasic. ?? The right mid superficial femoral artery is 116 cm/s and biphasic. ?? The right distal right superficial femoral artery measures 224 cm/s and ?? is biphasic. ?? The right popliteal velocity measures 92 cm/s and is biphasic. ? LEFT FEMORAL RUNOFF VELOCITIES: ? The left common femoral artery measures 184 cm/s and triphasic. ?? The left profunda femoral artery is 92 cm/s and is biphasic. ?? The left proximal superficial femoral artery measures 89 cm/s and ?? biphasic. ?? The left mid superficial femoral artery is 54 cm/s and biphasic. ?? The left distal right superficial femoral artery measures 24 cm/s and ?? is monophasic. ?? The left popliteal velocity measures 33 cm/s and is monophasic. ?? The left posterior tibial artery velocity measures 40 cm/s and is ?? monophasic. ?? The left GEOLOGY SCIENTIST is not well seen. ?? The left peroneal artery velocity measures 13.8 cm/s and is monophasic. ?? The left anterior tibial artery velocity measures 23 cm/s and is ?? monophasic. ?? The left dorsalis pedis artery is not well seen. ? US/ arterial duplex LE BI ?? IMPRESSION: ?? 1. ??Biphasic waveforms bilaterally, with monophasic waveforms in the ?? lower left lower extremity. Significant atheromatous arterial plaque ?? throughout. Scattered moderate to severe calcified atherosclerotic ?? disease is present, limiting the ability to visualize flow in several ?? regions. ?? 2. Overall findings suggest significant peripheral vascular disease, ?? worse in the left lower extremity. ? Electronically signed by: ??Maikol Tovar MD ??10/19/2024 10:21 AM EDT RP ? Dictated By: ?Maikol Tovar MD ? Signed By: ?<Electronically signed by Maikol Tovar MD in OV> ?10/19/24 1021 ? DD/ 0901 ? TD/TT: 10/19/24 09 ? Recreation Establishment Manager: ? Procedure Note Donotuseinterpreter, Image - 10/19/2024 [place] [address] Ultrasound Report Signed Patient: Harjinder Delcid FMR#: M [id number] : 2Acct:[id number] Age/Sex: 64 / MADM Date: 10/19/24 Loc: HO.ED Attending Dr: Ordering Physician: Aditi Maher DO Date of Service: 10/19/24 Procedure(s): US arterial duplex LE BI Accession Number(s): [id number] cc: Aditi Maher DO; Ashley Nugent MD EXAMINATION: COLOR-FLOW DUPLEX IMAGING OF THE BILATERAL LOWER EXTREMITY ARTERIAL SYSTEM. VELOCITY MEASUREMENTS THROUGHOUT THE FEMORAL ARTERIES. CLINICAL INFORMATION: 64-year-old male, severe pain left lower leg, cool with decreased pulses. Comparison: None. FINDINGS: Atheromatous Plaque: Extensive calcific atheromatous plaque present, limiting ability to see arterial flow. RIGHT FEMORAL RUNOFF VELOCITIES: The right common femoral artery measures 163 cm/s and biphasic. The right profunda femoral artery is 76.3 cm/s and is biphasic. The right proximal superficial femoral artery measures 121 cm/s and biphasic. The right mid superficial femoral artery is 116 cm/s and biphasic. The right distal right superficial femoral artery measures 224 cm/s and is biphasic. The right popliteal velocity measures 92 cm/s and is biphasic. LEFT FEMORAL RUNOFF VELOCITIES: The left common femoral artery measures 184 cm/s and triphasic. The left profunda femoral artery is 92 cm/s and is biphasic. The left proximal superficial femoral artery measures 89 cm/s and biphasic. The left mid superficial femoral artery is 54 cm/s and biphasic. The left distal right superficial femoral artery measures 24 cm/s and is monophasic. The left popliteal velocity measures 33 cm/s and is monophasic. The left posterior tibial artery velocity measures 40 cm/s and is monophasic. The left GEOLOGY SCIENTIST is not well seen. The left peroneal artery velocity measures 13.8 cm/s and is monophasic. The left anterior tibial artery velocity measures 23 cm/s and is monophasic. The left dorsalis pedis artery is not well seen. US/US arterial duplex LE BI IMPRESSION: 1. Biphasic waveforms bilaterally, with monophasic waveforms in the lower left lower extremity. Significant atheromatous arterial plaque throughout. Scattered moderate to severe calcified atherosclerotic disease is present, limiting the ability to visualize flow in several regions. 2. Overall findings suggest significant peripheral vascular disease, worse in the left lower extremity. Electronically signed by: Maikol Tovar MD 10/19/2024 10:21 AM EDT RP Dictated By: Maikol Tovar MD Signed By: <Electronically signed by Maikol Tovar MD in OV> 10/19/24 1021 DD/ 0901 TD/TT: 10/19/24 0929 Recreation Establishment Manager: [facility] External Provider CV VASC ULAR PROCEDURES Final Result Performing Organization Address [facility] Co de Phone Number [facility] [address] [place] [phone] * Partial Thromboplastin Time, Activated (APTT) (10/19/2024 8:22 AM EDT) Partial Thromboplastin Time 28.5 26.0 - 36.8 SEC [facility] Comment:For information rega rding the monitoring of direct thrombininhibitors, please refer to Pharmacy. 10/19/2024 8:22 AM EDT 10/19/2024 10:41 AM EDT Generic External Data Provider LAB BLOOD ORDERAB LES Final Result Performing Organization Address [facility] Co de Phone Number [facility] [address] [place] [phone] * Prothrombin Time-INR (10/19/2024 8:22 AM EDT) Prothrombin Time 11.3 10.9 - 12.4 SEC [facility] INTERNATIONAL NORM RATIO 1.0 0.9 - 1.1 [facility] Comment:INTERNATIONAL NORMAL IZED RATIO (INR) REFERENCE RANGES Reference RangeFor patients not on anticoagulant therapy: 0.9 - 1.1INR ranges for oral anticoagulanttherapy:For prevention and treatment of venous thrombosis and pulmonary embolism: 2.0 - 3.0For acute myocardial infarction with aspirin therapy: 2.0 - 3.0For acute myocardial infarction without aspirin therapy: 3.0 - 4.0For patients with mechanical prosthetic heart valves: 2.5 - 3.5 10/19/2024 8:22 AM EDT 10/19/2024 10:41 AM EDT us Generic External Data Provider LAB BLOOD ORDERAB LES Final Result Performing Organization Address [facility] Co de Phone Number [facility] [address] [place] [phone] * (ABNORMAL) Creatine Kinase, Total (10/19/2024 8:22 AM EDT) Creatine Kinase Total 615(H) 38 - 174 U/L [facility] 10/19/2024 8:22 AM EDT 10/19/2024 8:25 AM EDT us Generic External Data Provider LAB BLOOD ORDERAB LES Final Result Performing Organization Address [facility] Co de Phone Number [facility] [address] [place] [phone] * Magnesium (10/19/2024 8:22 AM EDT) Magnesium 2.0 1.6 - 2.6 mg/dL [facility] 10/19/2024 8:22 AM EDT 10/19/2024 8:25 AM EDT us Generic External Data Provider LAB BLOOD ORDERAB LES Final Result Performing Organization Address [facility] Co de Phone Number [facility] [address] [place] [phone] * (ABNORMAL) Basic Metabolic Panel (10/19/2024 8:22 AM EDT) Sodium 139 135 - 145 mmol/L [facility] Potassium 3.9 3.3 - 5.1 mmol/L [facility] Chloride 107 96 - 108 mmol/L [facility] Carbon Dioxide 24 22 - 29 mmol/L [facility] Anion Gap 12 12 - 20 [facility] Urea Nitrogen (BUN) 12 9 - 16 mg/dL [facility] Creatinine, Serum 1.05 0.5 - 1.4 mg/dL [facility] Creatinine Clr Calc Pharmacy 64.9 [facility] Comment:eGFR (calculated fro m the MDRD study equation) and eCrCl(calculated from the Cockcroft-Gault equation) are based ondifferent parameters and may not yield comparable results.If eCrCl result is absurd, please check patient'sheight/weight. Estimated Glomerular Filt Rate >60 [facility] Comment:Chronic Kidney Disea se: Estimated GFR < 60 mL/min/[id number] Kidney Disease: Estimated GFR < 15 mL/min/1.73m2 Glucose 221(H) 60 - 115 mg/dL [facility] Calcium 9.0 8.4 - 10.2 mg/dL [facility] 10/19/2024 8:22 AM EDT 10/19/2024 8:25 AM EDT us Generic External Data Provider LAB BLOOD ORDERAB LES Final Result [facility] [address] [place] [phone] * (ABNORMAL) Hepatic Function Panel (10/19/2024 8:22 AM EDT) Bilirubin, Total 0.8 0.0 - 1.0 mg/dL [facility] Bilirubin, Direct 0.2 0.0 - 0.5 mg/dL [facility] Aspartate Amino Transferase 45(H) 5 - 37 U/L [facility] Alanine Aminotransferase 53(H) 0 - 40 U/L [facility] Total Protein 7.1 6.5 - 8.0 g/dL [facility] Albumin Level 4.3 3.5 - 5.0 g/dL [facility] Alkaline Phosphatase 94 39 - 117 U/L [facility] 10/19/2024 8:22 AM EDT 10/19/2024 8:25 AM EDT us Generic External Data Provider LAB BLOOD ORDERAB LES Final Result [facility] [address] [place] [phone] [phone] * (ABNORMAL) CBC auto differential (10/19/2024 8:22 AM EDT) White Blood Count 10.4 4.8 - 10.8 X10*3/uL [facility] Red Blood Count 4.47(L) 4.60 - 5.80 X10*6/uL [facility] Hemoglobin 12.8(L) 14.0 - 18.0 g/dl [facility] Hematocrit 39.0(L) 42.0 - 52.0 % [facility] Mean Corpuscular Volume 87.2 80.0 - 98.0 fL [facility] Mean Corpuscular Hemoglobin 28.6 27.0 - 33.0 pg [facility] Mean Corpuscular HGB Conc 32.8 31.0 - 36.0 g/dl [facility] Red Cell Distribution Width 11.0 11.0 - 16.0 % [facility] Platelet Count 178 160 - 400 X10*3/uL [facility] Mean Platelet Volume 10.9 9.4 - 12.4 fL [facility] Neutrophils Percent Auto 77.0(H) 45 - 73 % [facility] Imm Gran Pct Auto 0.3 0.0 - 0.4 % [facility] Lymphocytes Percent Auto 14.9(L) 20 - 40 % [facility] Monocytes Percent Auto 6.9 2 - 11 % [facility] Eosinophils Percent Auto 0.6 0 - 4 % [facility] Basophils Percent Auto 0.3 0 - 2 % [facility] NRBC Pct Auto 0.0 0.0 - 0.2 /100WBC [facility] Neutrophils Absolute Auto 8.0 2.0 - 8.3 x10*3/uL [facility] Imm Gran Abs Auto 0.03 0.00 - 0.03 X10*3/uL [facility] Lymphocytes Absolute Auto 1.6 1.2 - 4.9 X10*3/uL [facility] Monocytes Absolute Auto 0.7 0.1 - 1.2 X10*3/uL [facility] Eosinophils Absolute Auto 0.1 0.0 - 0.4 X10*3/uL [facility] Basophils Absolute Auto 0.0 0.0 - 0.2 X10*3/uL [facility] NRBC Abs Auto 0.000 0.0 - 0.012 X10*3/uL [facility] 10/19/2024 8:22 AM EDT 10/19/2024 8:25 AM EDT us Generic External Data Provider LAB BLOOD ORDERAB LES Final Result Performing Organization Address [facility] Co de Phone Number [facility] [address] [place] [phone] * HOLD LT BLUE - POSSIBLE COAG (10/19/2024 8:22 AM EDT) Hold Lt Blue - Possible Coag SEE NOTE [facility] Comment:Specimen will be hel d untested for 4 hours. Call Hematologyif testing is desired. 10/19/2024 8:22 AM EDT 10/19/2024 8:29 AM EDT us Generic External Data Provider LAB BLOOD ORDERAB LES Final Result Performing Organization Address [facility] Co de Phone Number [facility] [address] [address] [place] [phone] [phone] * XR Tibia Fibula 2 Views Left (10/19/2024 7:50 AM EDT) Anatomical Region Laterality Modality Lower Extremities, Lower Leg Left Rad iographic Imaging 10/19/2024 7:50 AM EDT Narrative 10/19/2024 8:23 AM EDT ? [facility] ?[address] ?[place] [address] ?XRay Report ? Signed ? Patient: Harjinder Delcid ?MR#: M ?? [id number] ? : 1960 ?Acct:[id number] ? Age/Sex: 64 / M ?ADM Date: 10/19/24 ? Loc: HO.ED ? Attending Dr: ? Ordering Physician: Aditi Maher DO ?? Date of Service: 10/19/24 ?? Procedure(s): XR tibia fibula LT 2V ?? Accession Number(s): [id number] ? cc: Aditi Maher DO; Ashley Nugent [...] DD/ 0750 ? TD/TT: 10/19/24 0810 ? Recreation Establishment Manager: ? Procedure Note Sharad Javier - 10/19/[address] [place] [address] XRay Report Signed Patient: Harjinder Delcid FMR#: M [id number] : 1960cct:[id number] Age/Sex: 64 / MADM Date: 10/19/24 Loc: .ED Attending Dr: Ordering Physician: Aditi Maher DO Date of Service: 10/19/24 Procedure(s): XR tibia fibula LT 2V Accession Number(s): [id number] cc: Aditi Maher DO; Ashley Nugent MD [...] 10/19/24 0820 DD/ 0750 TD/TT: 10/19/24 0810 Recreation Establishment Manager: [facility] External Provider IMG XR PROCEDURES Final Result * XR Ankle 3+ Views Left (10/19/2024 7:50 AM EDT) Anatomical Region Laterality Modality Lower Extremities, Ankle Left Radiogr aphic Imaging 10/19/2024 7:50 AM EDT Narrative 10/19/2024 8:22 AM EDT ? [facility] ?[address] ?[place] [address] ?XRay Report ? Signed ? Patient: Pavan Stuart,Larry ?MR#: M ?? [id number] ? : 1960 ?Acct:[id number] ? Age/Sex: 64 / M ?ADM Date: 04/07/25 ? Loc: HO.ED ? Attending Dr: ? Ordering Physician: Aditi Maher DO ?? Date of Service: 10/19/24 ?? Procedure(s): XR ankle LT min 3V ?? Accession Number(s): [id number] ? cc: Aditi Maher DO; Ashley Nugent [...] DD/ 0750 ? TD/TT: 10/19/24 0810 ? Recreation Establishment Manager: ? Procedure Note Teofiloaylatrishastacey, Image - 10/19/2024 [place] [address] XRay Report Signed Patient: Harjinder Delcid FMR#: M [id number] : 2Acct:[id number] Age/Sex: 64 / MADM Date: 10/19/24 Loc: HO.ED Attending Dr: Ordering Physician: Aditi Maher DO Date of Service: 10/19/24 Procedure(s): XR ankle LT min 3V Accession Number(s): [id number] cc: Aditi Maher DO; Ashley Nugent MD [...] Tovar MD in OV> 10/19/24 0819 DD/ 0750 TD/TT: 10/19/2410 Recreation Establishment Manager: [facility] External Provider IMG XR PROCEDURES Final Result documented in this encounter Visit Diagnoses Not on filedocumented in this encounter Additional Health Concerns Assessment Noted Time PHQ-9 Depression Total Score: 5 11/14/19 24 1:58 PM EDT documented as of this encounter Care Teams Pot Room Supervisor Relationship Specialty Start Date End Date Ashley Nugent MD [address] [place] [id number] PCP - General Internal Medicine 12/31/22 documented as of this encounter
--- OUTSIDE RECORDS SUMMARY | 2024-10-20 09:53 | XMS_ITS | Encounter Summary ---
Author Organization [facility] Address [address] [place] [address] Care Team Providers Care Fruit Packer Name Role Phone Bernarda Tinajero APRN Primary Care Provider [phone] Reason for Visit * Reason Comments Medication Refill Encounter Details Date Type Department Care Team (Late st Contact Info) Description 09/10/2018 Refill [facility] [address] [place] [address] [address] [place] [address] Azra Jaramillo APRN [address] [place] [address] Nausea and vomiting, intractability of vomiting not specified, unspecified vomiting type; Uncontrolled type 2 diabetes mellitus with hyperglycemia, with long-term current use of insulin (HCC) Social History Tobacco Use Types Packs/Day Years Used Date Smoking Tobacco: Never Smokeless Tobacco: Never Alcohol Use Standard Drinks/Week Comments Yes 0 (1 standard drink = 0.6 oz pur e alcohol) Sex and Gender Information Value Date Recorded Sex Assigned at Not on file Gender Identity Not on file Sexual Orientation Not on file documented as of this encounter Plan of Treatment Not on file documented as of this encounter Visit Diagnoses Diagnosis Nausea and vomiting, intractability of vomiting not specified, unspecified vomiting type Uncontrolled type 2 diabetes mellitus with hyperglycemia, with long-term current use of insulin (HCC) documented in this encounter Care Teams Fruit Packer Relationship Specialty Start Date End Date Bernarda Tinajero APRN PCP - General Internal Medicine 12/15/17 documented as of this encounter
--- OUTSIDE RECORDS SUMMARY | 2024-10-20 09:53 | XMS_ITS | Clinical Summary ---
Author Organization [employer] Address [address] [place] [address] Care Team Providers Care Air Quality Chemist Name Role Phone Ashley Nugent MD Primary [...] ype 2 diabetes mellitus treated with insulin ([facility]) TEST BLOOD SUGAR THREE TIMES DAILY 100 each 11 025 Active TRUEplus Lancets 33G miscIndications:T ype 2 diabetes mellitus treated with insulin ([facility]) TEST BLOOD SUGAR THREE TIMES DAILY 100 [...] Department Care Team Description 10/19/2024 Orders Only [facility] External Provider, [facility] [place] 10/19/2024 Refill [facility] [address] [place] [address] Latosha Lott MD Posttraumatic stress disorder 09/25/2024 Population Health Risk Score [facility] () Department [address] [phone] Provider, Population Health Generic 09/19/2024 Refill [facility] [address] [place] [address] Ashley Nugent MD Type 2 diabetes mellitus treated with insulin ([facility]) 09/17/2024 Refill [facility] [address] [place] [address] Ashley Nugent MD Routine health maintenance; Posttraumatic stress disorder 08/27/2024 Refill [facility] [address] [place] [address] Ashley Nugent MD 08/24/2024 Refill [facility] [address] [place] [address] Ashley Nugent MD Routine health maintenance; Posttraumatic stress disorder 08/18/2024 Telephone [facility] [address] [place] [address] Ashley Nugent MD Faxed referral 07/27/2024 Refill [facility] [address] [place] [address] Ahsley Nugent MD Posttraumatic stress disorder from Last [...] DUPLEX BILATERAL Routine 10/19/2024 9:01 AM EDT APTT Routine 10/19/2024 8:22 AM EDT PROTHROMBIN TIME-INR Routine 10/19/2024 8:22 AM EDT CREATINE KINASE, TOTAL Routine 8:22 AM EDT MAGNESIUM Routine 10/19/2024 8:22 AM EDT BASIC METABOLIC PANEL Routine 10/19/2024 8:22 AM EDT HEPATIC FUNCTION PANEL Routine 8:22 AM EDT CBC WITH AUTO DIFFERENTIAL Routine 10/19/2024 8:22 AM EDT HOLD LT BLUE - POSSIBLE COAG Routine 10/19/2024 8:22 AM EDT XR TIBIA FIBULA 2 VIEWS LEFT Routine 10/19/2024 7:50 AM EDT XR ANKLE 3+ VIEWS LEFT Routine 7:50 AM EDT POCT GLYCATED HEMOGLOBIN, TOTAL Routine 04/13/2024 2:03 PM EDT Type 2 diabetes mellitus with complication, with long-term current use of insulin (CMS/HCC) PANORAMIC RADIOGRAPHIC IMAGE Routine 12/30/2023 10:00 AM [...] Recently Relevant to Health Maintenance Results * CTA Abdomen aorta runoff (10/19/2024 9:49 AM EDT) Anatomical Region Laterality Modality Body, Pelvis, Abdomen Computed T omography 10/19/2024 9:49 AM EDT Narrative 10/19/2024 11:13 AM EDT ? [facility] [place] ?[address] ?[place] [address] ? CT Scan Report ? Signed ? Patient: Browne Stuart,Larry ?MR#: M ?? [id number] ? : 1960 ?Acct:[id number] ? Age/Sex: 64 / M ?ADM Date: 10/19/24 ? Loc: HO.ED ? Attending Dr: ? Ordering Physician: Aditi Maher DO ?? Date of Service: 10/19/24 ?? Procedure(s): CT angio abd aorta runoff ?? Accession Number(s): [id number] ? cc: Aditi Maher DO; Ashley Nugent MD ? Report Number: ?? [id number]: Total DLP = ??294.00 mGy-cm ?? EXAMINATION: [...] ??Ernesto Dennison MD ??10/19/2024 11:11 AM EDT ? Dictated By: ?Ernesto Dennison MD ? Signed By: ?<Electronically signed by Ernesto Dennison MD in OV> ?10/19/24 1111 ? DD/ 0949 ? TD/TT: 10/19/24 1007 ? Pamphlet Distributor: ? Procedure Note Concepcion, Image - 10/19/[address] [place] [address] [address] Scan Report Signed Patient: Harjinder Delcid FMR#: M [id number] : 1960cct:[id number] Age/Sex: 64 / MADM Date: 10/19/24 Loc: HO.ED Attending Dr: Ordering Physician: Aditi Maher DO Date of Service: 10/19/24 Procedure(s): CT angio abd aorta runoff Accession Number(s): [id number] cc: Aditi Maher DO; Ashley Nugent MD Report Number: [id number]: Total DLP = 294.00 mGy-cm EXAMINATION: CT [...] Ernesto Dennison MD 10/19/2024 11:11 AM EDT Dictated By: Ernesto Dennison MD Signed By: <Electronically signed by Ernesto Dennison MD in OV> 10/19/24 1111 DD/ 0949 TD/TT: 10/19/24 1007 Pamphlet Distributor: [facility] External Provider IMG CT PROCEDURES Final Result * VASC Lower Extremity Arterial Duplex Bilateral (10/19/2024 9:01 AM EDT) 10/19/2024 9:01 AM EDT [facility] IM[facility] - 10/19/2024 10:23 AM EDT ? [facility] ?[address] ?[place] [address] ? Ultrasound Report ? Signed ? Patient: Harjinder Delcid ?MR#: M ?? [id number] ? : 1960 ?Acct:[id number] ? Age/Sex: 64 / M ?ADM Date: 10/19/24 ? Loc: HO.ED ? Attending Dr: ? Ordering Physician: Aditi Maher DO ?? Date of Service: 10/19/24 ?? Procedure(s): US arterial duplex LE BI ?? Accession Number(s): [id number] ? cc: Aditi Maher DO; Ashley Nugent [...] and is ?? monophasic. ?? The left DIESEL LOCOMOTIVE FIRER/FIREMAN is not well seen. ?? The left [...] 1021 ? DD/ 0901 ? TD/TT: 10/19/24 0929 ? Pamphlet Distributor: ? Procedure Note Donotuseinterpreter, Image - 10/19/[address] [address] Ultrasound Report Signed Patient: Harjinder Delcid FMR#: M [id number] : 2Acct:[id number] Age/Sex: 64 / MADM Date: 10/19/24 Loc: HO.ED Attending Dr: Ordering Physician: Aditi Maher DO Date of Service: 10/19/24 Procedure(s): US arterial duplex LE BI Accession Number(s): [id number] cc: Aditi Maher DO; Ashley Nugent MD [...] 40 cm/s and is monophasic. The left DIESEL LOCOMOTIVE FIRER/FIREMAN is not well seen. The left peroneal [...] Maikol Tovar MD 10/19/2024 10:21 AM EDT Dictated By: Maikol Tovar MD Signed By: <Electronically signed by Maikol Tovar MD in OV> 10/19/24 1021 DD/ 0901 TD/TT: 10/19/24 0929 Pamphlet Distributor: [facility] External Provider CV VASC ULAR PROCEDURES Final Result Performing Organization Address [facility] Co de Phone Number [facility] [address] [place] [phone] * HOLD LT BLUE - POSSIBLE COAG (10/19/2024 8:22 AM EDT) Hold Lt Blue - Possible Coag SEE NOTE [facility] Comment:Specimen will be hel d untested for 4 hours. Call Hematologyif testing is desired. 10/19/2024 8:22 AM EDT 10/19/2024 8:29 AM EDT Generic External Data Provider LAB BLOOD ORDERAB LES Final Result Performing Organization Address [facility]/ZIP Co de Phone Number [facility] [address] [place] [address] [phone] * (ABNORMAL) CBC auto differential (10/19/2024 8:22 AM EDT) White Blood Count 10.4 4.8 - 10.8 X10*3/uL [facility] Red Blood Count 4.47(L) 4.60 - 5.80 X10*6/uL [facility] Hemoglobin 12.8(L) 14.0 - 18.0 g/dl [facility] Hematocrit 39.0(L) 42.0 - 52.0 % [facility] Mean Corpuscular Volume 87.2 80.0 - 98.0 fL [facility] Mean Corpuscular Hemoglobin 28.6 27.0 - 33.0 pg [facility] Mean Corpuscular HGB Conc 32.8 31.0 - 36.0 g/dl [facility] Red Cell Distribution Width 11.0 11.0 - 16.0 % [facility] Platelet Count 178 160 - 400 X10*3/uL [facility] Mean Platelet Volume 10.9 9.4 - 12.4 fL [facility] Neutrophils Percent Auto 77.0(H) 45 - 73 % [facility] Imm Gran Pct Auto 0.3 0.0 - 0.4 % [facility] Lymphocytes Percent Auto 14.9(L) 20 - 40 % [facility] Monocytes Percent Auto 6.9 2 - 11 % [facility] Eosinophils Percent Auto 0.6 0 - 4 % [facility] Basophils Percent Auto 0.3 0 - 2 % [facility] NRBC Pct Auto 0.0 0.0 - 0.2 /100WBC [facility] Neutrophils Absolute Auto 8.0 2.0 - 8.3 x10*3/uL [facility] Imm Gran Abs Auto 0.03 0.00 - 0.03 X10*3/uL [facility] Lymphocytes Absolute Auto 1.6 1.2 - 4.9 X10*3/uL [facility] Monocytes Absolute Auto 0.7 0.1 - 1.2 X10*3/uL [facility] Eosinophils Absolute Auto 0.1 0.0 - 0.4 X10*3/uL [facility] Basophils Absolute Auto 0.0 0.0 - 0.2 X10*3/uL [facility] NRBC Abs Auto 0.000 0.0 - 0.012 X10*3/uL [facility] 10/19/2024 8:22 AM EDT 10/19/2024 8:25 AM EDT Generic External Data Provider LAB BLOOD ORDERAB LES Final Result Performing Organization Address [facility] Co de Phone Number [facility] [address] [place] [phone] * Partial Thromboplastin Time, Activated (APTT) (10/19/2024 8:22 AM EDT) Partial Thromboplastin Time 28.5 26.0 - 36.8 SEC [facility] Comment:For information rega rding the monitoring of direct thrombininhibitors, please refer to Pharmacy. 10/19/2024 8:22 AM EDT 10/19/2024 10:41 AM EDT Generic External Data Provider LAB BLOOD ORDERAB LES Final Result Performing Organization Address [facility] de Phone Number [facility] [address] [place] [phone] * Prothrombin Time-INR (10/19/2024 8:22 AM EDT) Prothrombin Time 11.3 10.9 - 12.4 SEC [facility] INTERNATIONAL NORM RATIO 1.0 0.9 - 1.1 [facility] Comment:INTERNATIONAL NORMAL IZED RATIO (INR) [...] ORDERAB LES Final Result Performing Organization Address [facility] Co de Phone Number [facility] [address] [place] [phone] * Magnesium (10/19/2024 8:22 AM EDT) Magnesium 2.0 1.6 - 2.6 mg/dL [facility] 10/19/2024 8:22 AM EDT 10/19/2024 8:25 AM EDT Generic External Data Provider LAB BLOOD ORDERAB LES Final Result Performing Organization Address City/[facility] Co de Phone Number [facility] [address] [place] [phone] * (ABNORMAL) Creatine Kinase, Total (10/19/2024 8:22 AM EDT) Pathologist [facility] Creatine Kinase Total 615(H) 38 - 174 U/L [facility] 10/19/2024 8:22 AM EDT 10/19/2024 8:25 AM EDT Generic External Data Provider LAB BLOOD ORDERAB LES Final Result Performing Organization Address [facility] de Phone Number [facility] [address] [place] [phone] * (ABNORMAL) Hepatic Function Panel (10/19/2024 8:22 AM EDT) Bilirubin, Total 0.8 0.0 - 1.0 mg/dL [facility] Bilirubin, Direct 0.2 0.0 - 0.5 mg/dL [facility] Aspartate Amino Transferase 45(H) 5 - 37 U/L [facility] Alanine Aminotransferase 53(H) 0 - 40 U/L [facility] Total Protein 7.1 6.5 - 8.0 g/dL [facility] Albumin Level 4.3 3.5 - 5.0 g/dL [facility] Alkaline Phosphatase 94 39 - 117 U/L [facility] 10/19/2024 8:22 AM EDT 10/19/2024 8:25 AM EDT us Generic External Data Provider LAB BLOOD ORDERAB LES Final Result Performing Organization Address [facility]/ZIP Co de Phone Number [facility] [address] [place] [phone] [phone] * (ABNORMAL) Basic Metabolic Panel (10/19/2024 8:22 AM EDT) Sodium 139 135 - 145 mmol/L [facility] Potassium 3.9 3.3 - 5.1 mmol/L [facility] Chloride 107 96 - 108 mmol/L [facility] Carbon Dioxide 24 22 - 29 mmol/L [facility] Anion Gap 12 12 - 20 [facility] Urea Nitrogen (BUN) 12 9 - 16 mg/dL [facility] Creatinine, Serum 1.05 0.5 - 1.4 mg/dL [facility] Creatinine Clr Calc Pharmacy 64.9 [facility] Comment:eGFR (calculated fro m the MDRD study equation) and eCrCl(calculated from the Cockcroft-Gault equation) are based ondifferent parameters and may not yield comparable results.If eCrCl result is absurd, please check patient'sheight/weight. Estimated Glomerular Filt Rate >60 [facility] Comment:Chronic Kidney Disea se: Estimated GFR < 60 mL/min/1.87i9Upbwvp Kidney Disease: Estimated GFR < 15 mL/min/1.73m2 Glucose 221(H) 60 - 115 mg/dL [facility] Calcium 9.0 8.4 - 10.2 mg/dL [facility] 10/19/2024 8:22 AM EDT 10/19/2024 8:25 AM EDT us Generic External Data Provider LAB BLOOD ORDERAB LES Final Result Performing Organization Address [facility]/ZIP Co de Phone Number [facility] [address] [place] [phone] * XR Ankle 3+ Views Left (10/19/2024 7:50 AM EDT) Anatomical Region Laterality Modality Lower Extremities, Ankle Left Radiogr aphic Imaging 10/19/2024 7:50 AM EDT Narrative 10/19/2024 8:22 AM EDT ? [facility] ?[address] ?[place] [address] ?XRay Report ? Signed ? Patient: Pavan Stuart,Larry ?MR#: M ?? [id number] ? : 1960 ?Acct:[id number] ? Age/Sex: 64 / M ?ADM Date: 10/19/24 ? Loc: HO.ED ? Attending Dr: ? Ordering Physician: Aditi Maher DO ?? Date of Service: 10/19/24 ?? Procedure(s): XR ankle LT min 3V ?? Accession Number(s): [id number] ? cc: Aditi Maher DO; Ashley Nugent [...] DD/ 0750 ? TD/TT: 10/19/24 0810 ? Pamphlet Distributor: ? Procedure Note Sharad Javier - 10/19/[address] [place] [address] XRay Report Signed Patient: Harjinder Delcid FMR#: M [id number] : 2Acct:[id number] Age/Sex: 64 / MADM Date: 10/19/24 Loc: HO.ED Attending Dr: Ordering Physician: Aditi Maher DO Date of Service: 10/19/24 Procedure(s): XR ankle LT min 3V Accession Number(s): [id number] cc: Aditi Maher DO; Ashley Nugent MD [...] in OV> 10/19/24 0819 DD/ 0750 TD/TT: 10/19/24 0810 Pamphlet Distributor: [facility] External Provider IMG XR PROCEDURES Final Result * XR Tibia Fibula 2 Views Left (10/19/2024 7:50 AM EDT) Anatomical Region Laterality Modality Lower Extremities, Lower Leg Left Rad iographic Imaging 10/19/2024 7:50 AM EDT Narrative 10/19/2024 8:23 AM EDT ? [facility] [place] ?[address] ?[place] [address] ?XRay Report ? Signed ? Patient: Pavan Stuart,Larry ?MR#: M ?? [id number] ? : 1960 ?Acct:[id number] ? Age/Sex: 64 / M ?ADM Date: 10/19/ ? Loc: HO.ED ? Attending Dr: ? Ordering Physician: Aditi Maher DO ?? Date of Service: 10/19/24 ?? Procedure(s): XR tibia fibula LT 2V ?? Accession Number(s): [id number] ? cc: Aditi Maher DO; Ashley Nugent [...] DD/ 0750 ? TD/TT: 10/19/24 0810 ? Pamphlet Distributor: ? Procedure Note Sharad Javier - 10/19/2024 [place] [address] XRay Report Signed Patient: Harjinder Delcid FMR#: M [id number] : 2Acct:[id number] Age/Sex: 64 / MADM Date: 10/19/24 Loc: HO.ED Attending Dr: Ordering Physician: Aditi Maher DO Date of Service: 10/19/24 Procedure(s): XR tibia fibula LT 2V Accession Number(s): [id number] cc: Aditi Maher DO; Ashley Nugent MD [...] Maikol Tovar MD 10/19/2024 08:20 AM EDT RP Dictated By: Maikol Tovar MD Signed By: <Electronically signed by Maikol Tovar MD in OV> 10/19/24819 DD/ 9 TD/TT: 10/19/24809 Pamphlet Distributor: us [facility] External Provider IMG XR PROCEDURES Final Result * (ABNORMAL) POCT HGB A1C (04/13/2024 2:03 PM EDT) Hemoglobin A1C 7.4(A) 4.0 - 6.0 % QC Media Lot # [id number] Lot# Expiration Date Blood 04/13/2024 2:03 PM EDT Tonie Aragon NP POINT OF CARE TEST ENTER/EDIT OR DERABLES Final Result * Albumin, Random Urine W/Creatinine (03/20/2023 9:05 AM EDT) Creatinine, Urine 83.54 mg/dL [facility] Microalbumin Urine 6.0 mg/L [facility] Microalbum Creatinine Ratio Ur 7.1 <30 ug/mg cr [facility] Comment:Albumin/Creatinine R atio Reference Ranges: Normal: < 30 ug/mg creatinine Microalbuminuria: 30 - 300 ug/mg creatinineClinical Albuminuria: > 300 ug/mg creatinine Urine 03/20/2023 9:05 AM EDT 03/20/2023 11:20 AM EDT Ashley Holder MD LAB URINE ORDERAB LES Final Result [facility] [address] [place] [phone] * HIV Ab/Ag ([facility]) (03/20/2023 8:46 AM EDT) [facility] HIV AB/AG Nonreactive Nonreactive [facility] Comment:HIV-1 p24 Ag and/or HIV-1/HIV-2 Ab not detected.A test result that is nonreactive does not exclude thepossibility of exposure to or infection with HIV-1 and/orHIV-2. Nonreactive results in this assay for individualswith prior exposure to HIV-1 and/or HIV-2 may be due toantigen and antibody levels that are below the limit ofdetection of this assay.The [employer] HIV Ag/Ab Combo assay result andsupplemental assay results should be interpreted inconjunction with the patient's clinical presentation,history and other laboratory results. If the results areinconsistent with clinical evidence, additional testing issuggested to confirm the result. 03/20/2023 8:46 AM EDT 03/20/2023 11:16 AM EDT us Ashley Holder MD LAB BLOOD ORDERAB LES Final Result Performing Organization Address City/[facility]/ZIP Co de Phone Number [facility] [address] [place] [phone] * Hepatitis C Antibody with Reflex to HCV, RNA, Quantitative, Real-Time PCR (03/20/2023 8:46 AM EDT) [facility] Hepatitis C Antibody Nonreactive Nonreactive [facility] Comment:Antibodies to HCV no t detected; does not exclude early acuteHCV infection. Blood Venous blood specimen / Unknown 03/20/2023 8:46 AM EDT 03/20/2023 11:16 AM EDT us Ashley Holder MD LAB BLOOD ORDERAB LES Final Result Performing Organization Address [facility]/ZIP Co de Phone Number [facility] [address] [place] [phone] * Lipid Panel, Standard (03/20/2023 8:46 AM EDT) Triglycerides 141 <150 mg/dL [facility] Comment:Desirable Triglyceri de: less than 150 mg/dLBorderline High Triglyceride 150-199 mg/dLHigh Triglyceride: 200-499 mg/dLVery High Triglyceride: greater than or equal to 5OO mg/dL Cholesterol 136 <200 mg/dL [facility] Comment:Desirable Cholestero l: less than 200 mg/dLBorderline High Cholesterol: 200-239 mg/dLHigh Cholesterol: greater than 239 mg/dL LDL Cholesterol Calculated 67 <100 mg/dL [facility] Comment:Desirable LDL: less than 100 mg/dLNear Optimal/Above Optimal LDL: 110- 129 mg/dLBorderline High LDL: 130-159 mg/dLHigh LDL: 160-189 mg/dLVery High LDL: greater than or equal to 190 mg/dL HDL Cholesterol 41 >40 mg/dL [facility] Comment:Desirable HDL: great er than 40 mg/dL Note: This HDL assay may give artificially low results in patients with liver disease. Blood Venous blood specimen / Unknown 03/20/2023 8:46 AM EDT 03/20/2023 11:16 AM EDT us Ashley Holder MD LAB BLOOD ORDERAB LES Final Result [facility] [address] [place] [phone] * Fecal Globin by Immunochemistry (03/20/2023 12:00 AM EDT) Fecal Globin By Immunochemistry SEE NOTE [facility] Comment:FECAL GLOBIN BY IMMU NOCHEMISTRY Micro Number: [id number] Test Status: Final Specimen Source: Insure (tm) fobt test card Specimen Quality: Adequate Fecal Globin: Not DetectedTHIS TEST WAS PERFORMED AT:[facility] [address] [id number] GOVEA MD Stool Rectal contents / Unknown 03/20/2023 03/20/2023 Ashley Holder MD LAB BODY FLUIDS A ND STOOLS ORDERABLES Final Result [facility] [address] [place] [phone] from Last 3 Months or Most Recently Relevant to Health Maintenance Insurance [facility] C3 Care Teams Air Quality Chemist Relationship Specialty Start Date End Date Ashley Nugent MD [address] [place] [phone] PCP - General Internal Medicine 12/31/22
--- OUTSIDE RECORDS SUMMARY | 2024-10-20 09:53 | XMS_ITS | Clinical Summary ---
Author Organization [facility] Address [address] [place] [address] Care Team Providers Care Real Estate Appraiser Name Role Phone Lior Bernarda MCLAUGHLIN Primary Care Provider [phone] Allergies No known active allergies Medications Medication Sig Dispensed Refills Start Date End Date Status isosorbide mononitrate (IMDUR) 30 MG 24 hr tabletIndications:Nause a and vomiting, intractability of vomiting not specified, unspecified vomiting type Take 1 tablet (30 mg total) by mouth daily. 30 tablet 0 11/02/2016 Active traZODone (DESYREL) 50 MG tabletIndications:Nause a and vomiting, intractability of vomiting not specified, unspecified vomiting type Take 0.5 tablets (25 mg total) by mouth nightly as needed for sleep. 30 tablet 0 11/02/2016 Active simvastatin (ZOCOR) 5 MG tabletIndications:Nause a and vomiting, intractability of vomiting not specified, unspecified vomiting type Take 1 tablet (5 mg total) by mouth nightly. 30 tablet 0 11/02/2016 Active lisinopril (PRINIVIL,ZeSTRIL) 2.5 MG tabletIndications:Nause a and vomiting, intractability of vomiting not specified, unspecified vomiting type Take 1 tablet (2.5 mg total) by mouth daily. 30 tablet 0 11/02/2016 Active metoPROLOL SUCCINATE (TOPROL-XL) 25 MG 24 hr tabletIndications:Nause a and vomiting, intractability of vomiting not specified, unspecified vomiting type Take 1 tablet (25 mg total) by mouth daily. 30 tablet 5 11/02/2016 Active clopidogrel (PLAVIX) 75 MG tabletIndications:Nause a and vomiting, intractability of vomiting not specified, unspecified vomiting type Take 1 tablet (75 mg total) by mouth daily. 30 tablet 5 11/02/2016 Active hydrOXYzine HCl (ATARAX) 25 MG tablet Take 1 tablet (25 mg total) by mouth 3 (three) times a day as needed for anxiety. 15 tablet 04/30/2017 Active insulin degludec (TRESIBA FLEXTOUCH) 100 UNIT/ML pen injectionIndications:Un controlled type 2 diabetes mellitus with hyperglycemia, with long-term current use of insulin ([facility]) Inject 18 Units under the skin nightly. Active sertraline (ZOLOFT) 100 MG tabletIndications:Uncon trolled type 2 diabetes mellitus with hyperglycemia, with long-term current use of insulin (HCC) Take 100 mg by mouth daily. Active metFORMIN (GLUCOPHAGE) 1000 MG tabletIndications:Uncon trolled type 2 diabetes mellitus with hyperglycemia, with long-term current use of insulin ([facility]) Take 1,000 mg by mouth every morning with breakfast. Active Continuous Blood Gluc Air Compressor Engineer (FREESTYLE MARIANNA READER) DeviceIndications:Uncon trolled type 2 diabetes mellitus with hyperglycemia, with long-term current use of insulin ([facility]) 1 Device by Does not apply route daily. 1 Device 1 05/12/2018 Active Continuous Blood Gluc Sensor (FREESTYLE MARIANNA SENSOR SYSTEM) MiscIndications:Uncontr olled type 2 diabetes mellitus with hyperglycemia, with long-term current use of insulin ([facility]) 1 Device by Does not apply route every 14 days (2 weeks). 2 each 11 05/12/2018 Active HUMALOG KWIKPEN 100 UNIT/ML injectionIndications:Na usea and vomiting, intractability of vomiting not specified, unspecified vomiting type,Uncontrolled type 2 diabetes mellitus with hyperglycemia, with long-term current use of insulin ([facility]) INJECT 0.04 ML (4 UNITS TOTAL) UNDER THE SKIN EVERY DAY WITH LUNCH. 5 pen 09/11/2018 Active Active Problems Problem Noted Date Diagnosed Date Tremor 11/26/2018 PTSD (post-traumatic stress disorder) 11/26/2018 Chronic pancreatitis 10/28/2016 Uncontrolled diabetes mellitus 10/28/2016 HTN (hypertension) 10/28/2016 HLD (hyperlipidemia) 10/28/2016 CAD (coronary artery disease) 10/28/2016 GERD (gastroesophageal reflux disease) Resolved Problems Problem Noted Date Diagnosed Date Resolved Date High anion gap metabolic acidosis 10/28/2016 11/26/2018 Lactic acidosis 10/28/2016 11/26/2018 Nausea vomiting and diarrhea 10/28/2016 11/26/2018 Pancreatitis 03/27/2016 11/26/2018 Family History Medical History Relation Name Comments Diabetes Brother Diabetes Father Diabetes Mother Relation Name Status Comments Brother Father Mother Social History Tobacco Use Types Packs/Day Years Used Date Smoking Tobacco: Never Smokeless Tobacco: Never Alcohol Use Standard Drinks/Week Comments Yes 0 (1 standard drink = 0.6 oz pur e alcohol) Sex and Gender Information Value Date Recorded Sex Assigned at Not on file Gender Identity Not on file Sexual Orientation Not on file Last Filed Vital Signs Vital Sign Reading Time Taken Comments Blood Pressure 162/95 11/26/2018 2:22 PM EDT Pulse 92 11/26/2018 2:22 PM EDT Temperature 36.2 ??C (97.1 ??F) 05/12/2018 1:41 PM ED T Respiratory Rate 17 11/26/2018 2:22 PM EDT Oxygen Saturation 98% 11/22/2017 8:51 AM EDT Inhaled Oxygen Concentration - - Weight 56.4 kg (124 lb 6.4 oz) 11/26/2018 2:22 P M EDT Height 167.6 cm (5' 6 ) 11/26/2018 2:22 PM EDT Body Mass Index 20.08 11/26/2018 2:22 PM EDT Plan of Treatment Health Maintenance Due Date Last Done Comments HIV Screening 1974 DTaP/Tdap/Td Vaccines (1 - Tdap) 1980 Pneumococcal Vaccines 50+ (1 of 1 - PCV) 09/25/2011 Zoster (Shingles) Vaccine (1 of 2) 09/25/2011 COVID-19 Vaccine (1 - 2023-25 season) 2024 RSV Vaccine 60 years and older and Patients (1 - 1-dose 75+ series) 2036 Hepatitis C Virus Screening Completed 10/31/2016, 10/30/2016 Hemoglobin A1C Discontinued 02/19/2018, 11/13, 09/09/2017, Additional history exists Hepatitis B Vaccines Aged Out No long er eligible based on patient's age to complete this topic Pneumococcal Vaccine: Pediatric (0-5 Years) and At-Risk Patients (6 to 49 Years) Aged Out No longer eligible based on patient's age to complete this topic Procedures Procedure Name Priority Date/Time Associated Diagnosis Comments POCT GLYCOSYLATED HEMOGLOBIN (HGB A1C) Routine 02/19/2018 3:41 PM EDT Uncontrolled type 2 diabetes mellitus with hyperglycemia, with long-term current use of insulin (HCC) HEPATITIS PANEL, ACUTE Routine 10/31/2016 1:28 PM EDT from Last 3 Months or Most Recently Relevant to Health Maintenance Results * (ABNORMAL) POCT Glycosylated Hemoglobin (Hb A1C) (02/19/2018 3:41 PM EDT) Hemoglobin A1C 7.9(A) 4.0 - 6.0 % Lot Number [id number] Freezer Laboratory Technician [place] Blood specimen (specimen) 02/19/2018 3:41 PM EDT Azra Jaramillo APRN POINT OF CARE ALEJANDRA T ORDERABLES * Hepatitis Panel, Acute (10/31/2016 1:28 PM EDT) Hepatitis A Antibody IgM 0.16 <0.80 [facility] Comment:Nonreactive Hepatitis B Core Antibody IgM Negative Negative [facility] Hepatitis B Surface Ag Screen Negative Negative [facility] Hepatitis C Antibody 0.05 0.00 - 0.79 [facility] Comment:Nonreactive Hepatitis Interpretatio n: Results inconsistent with acute Hepatitis A, B or C Virus infection. HOSPITAL [facility] Comment:Performed at [facility] [place], [place] License 0385 CLIA [id number] Blood specimen (specimen) Blood specimen / Unknown 10/31/2016 1:28 PM EDT 10/31/2016 3:27 PM EDT Janice Smith MD LAB BLOOD ORDERABLES [facility] from Last 3 Months or Most Recently Relevant to Health Maintenance Advance Directives * Full Code (Latest Code Status on File) Date Activated Date Inactivated Comments 10/29/2016 7:47 AM 11/02/2016 5:59 PM Question Answer Comments Decision Thoroughly Discussed with: Patient * Full Code Date Activated Date Inactivated Comments 03/27/2016 2:50 PM 03/30/2016 12:38 PM Care Teams Real Estate Appraiser Relationship Specialty Start Date End Date Bernarda Tinajero APRN PCP - General Internal Medicine 06/28/17
--- OUTSIDE RECORDS SUMMARY | 2024-10-20 09:53 | XMS_ITS | Encounter Summary ---
Author Organization [employer] Address [address] [facility] 7[address] [place] [address] Care Team Providers Care Coal Cutter Name Role Phone Sally Fagan Primary Care Provider [phone] Ashley Nugent MD Primary Care Pro vider Encounter Details Date Type Department Care Team (Late st Contact Info) Description 12/03/2022 Abstract [facility] [address] [place] [address] Sally Fagan FNP [address] [place] [address] Social History Tobacco Use Types Packs/Day Years [...] documented as of this encounter Care Teams Coal Cutter Relationship Specialty Start Date End Date Sally Fagan FNP [address] [place] [address] PCP - General Family Medicine 09/12/22 12/30/22 Ashley Nugent MD [address] [place] [id number] PCP - General Internal Medicine 12/31/22 documented as of this encounter
--- OUTSIDE RECORDS SUMMARY | 2024-10-20 09:53 | XMS_ITS | Encounter Summary ---
Author Organization [employer] Address [address] [place] [address] Care Team Providers Care Survey Research Associate Name Role Phone Ashley Nugent MD Primary Care Pro vider Reason for Visit * Reason Comments Med Refill Encounter Details Date Type Department Care Team ([facility] st Contact Info) Description 02/07/2024 Refill [facility] [address] [place] [address] Zhen Hammer DDS [address] [place] [address] Social History Tobacco Use Types Packs/Day Years [...] documented as of this encounter Care Teams Survey Research Associate Relationship Specialty Start Date End Date Ashley Nugent MD [address] [place] [id number] PCP - General Internal Medicine 12/31/22 documented as of this encounter
--- OUTSIDE RECORDS SUMMARY | 2024-10-20 09:53 | XMS_ITS | Encounter Summary ---
Author Organization [employer] Address [address] [facility] [address] [place] [address] Care Team Providers Care Blender Operator Name Role Phone Sally Fagan Primary Care Provider [phone] Ashley Nugent MD Primary Care Pro vider Encounter Details Date Type Department Care Team (Late st Contact Info) Description 12/03/2022 Abstract [facility] [address] [place] [address] Sally Fagan FNP [address] [place] [address] Social History Tobacco Use Types Packs/Day Years [...] documented as of this encounter Care Teams Blender Operator Relationship Specialty Start Date End Date Sally Fagan FNP [address] [place] [address] PCP - General Family Medicine 09/12/22 12/30/22 Ashley Nugent MD [address] [place] [id number] PCP - General Internal Medicine 12/31/22 documented as of this encounter
== END 2024-10-20 09:59 | disposition home or self-care (01) ==
LOC: HO.HVS 09:02
PROVIDERS: PCP Student in an Organized Health Care Education/Training Program; Visit Provider Surgery Vascular Surgery
DX: I73.9 Peripheral vascular disease, unspecified (principal)
CPT/HCPCS: 99204

== ENCOUNTER → 2024-10-20 09:02 | Outpatient (BNVA) | payer MEDICAID, SELFPAY | PROVIDERS: PCP Student in an Organized Health Care Education/Training Program; Visit Provider Surgery Vascular Surgery | DX: I73.9 Peripheral vascular disease, unspecified (principal) | CPT/HCPCS: 99202 ==

== ENCOUNTER 2024-10-21 11:04 | Outpatient (BNV) | payer MEDICAID, SELFPAY | END 2024-10-22 04:09 | PROVIDERS: Admitting Provider Physician Assistant Surgical; PCP Student in an Organized Health Care Education/Training Program; Visit Provider Internal Medicine Cardiovascular Disease | DX: R00.0 Tachycardia, unspecified (principal) | CPT/HCPCS: 93010 ==

== ENCOUNTER 2024-10-21 11:04 | Outpatient (BNV) | payer MEDICAID, SELFPAY | END 2024-10-21 15:45 | PROVIDERS: Admitting Provider Physician Assistant Surgical; PCP Student in an Organized Health Care Education/Training Program; Visit Provider Radiology Diagnostic Radiology | DX: M25.572 Pain in left ankle and joints of left foot (principal); R22.42 Localized swelling, mass and lump, left lower limb | CPT/HCPCS: 73600; 73620 ==

== ENCOUNTER 2024-10-21 11:04 | Inpatient (IN) | payer MEDICAID, SELFPAY ==
--- OUTSIDE RECORDS SUMMARY | 2024-10-20 13:38 | XMS_ITS | Encounter Summary ---
Author Organization [facility] Address [address] [place] [address] Care Team Providers Care Neurology Physician Name Role Phone Bernarda Tinajero APRN Primary Care Provider [phone] Reason for Visit * Reason Comments Medication Refill Encounter Details Date Type Department Care Team (Late st Contact Info) Description 09/10/2018 Refill [facility] [address] [place] [address] [address] [place] [address] Azra Jaramillo APRN [address] [place] [address] Nausea and vomiting, intractability of vomiting not [...] (HCC) documented in this encounter Care Teams Neurology Physician Relationship Specialty Start Date End Date Bernarda Tinajero APRN PCP - General Internal Medicine 12/15/17 documented as of this encounter
--- OUTSIDE RECORDS SUMMARY | 2024-10-20 13:38 | XMS_ITS | Clinical Summary ---
Author Organization [facility] Address [address] [place] [address] Care Team Providers Care Drier Unloader Name Role Phone Lior Bernarda MCLUAGHLIN Primary Care Provider [phone] Allergies No known active allergies Medications Medication [...] hyperglycemia, with long-term current use of insulin ([facility]) Inject 18 Units under the skin nightly. Active sertraline (ZOLOFT) 100 MG tabletIndications:Uncon trolled type 2 diabetes mellitus with hyperglycemia, with long-term current use of insulin (HCC) Take 100 mg by mouth daily. Active metFORMIN (GLUCOPHAGE) 1000 MG tabletIndications:Uncon trolled type 2 diabetes mellitus with hyperglycemia, with long-term current use of insulin ([facility]) Take 1,000 mg by mouth every morning with breakfast. Active Continuous Blood Gluc Senior Software Qa Analyst (FREESTYLE MARIANNA READER) DeviceIndications:Uncon trolled type 2 diabetes mellitus with hyperglycemia, with long-term current use of insulin ([facility]) 1 Device by Does not apply route daily. 1 Device 1 05/12/2018 Active Continuous Blood Gluc Sensor (FREESTYLE MARIANNA SENSOR SYSTEM) MiscIndications:Uncontr olled type 2 diabetes mellitus with hyperglycemia, with long-term current use of insulin ([facility]) 1 Device by Does not apply route every 14 days (2 weeks). 2 each 11 05/12/2018 Active HUMALOG KWIKPEN 100 UNIT/ML injectionIndications:Na usea and vomiting, intractability of vomiting not specified, unspecified vomiting type,Uncontrolled type 2 diabetes mellitus with hyperglycemia, with long-term current use of insulin ([facility]) INJECT 0.04 ML (4 UNITS TOTAL) UNDER [...] 4.0 - 6.0 % Lot Number [id number] Restrike Hammer Operator Pass [place] Blood specimen (specimen) 02/19/2018 3:41 [...] C Virus infection. [facility]ITAL [facility] Comment:Performed [place] [facility] [place] License 0385 CLIA [id number] Blood specimen (specimen) Blood specimen / Unknown [...] 2:50 PM 03/30/2016 12:38 PM Care Teams Drier Unloader Relationship Specialty Start Date End Date Bernarda Tinajero APRN PCP - General Internal Medicine 06/28/17
--- OUTSIDE RECORDS SUMMARY | 2024-10-20 13:38 | XMS_ITS | Patient Health Record ---
Author Organization [facility] Address [address] [place] [address] Care Team Providers Care Manager Supply Name Role Phone Isabel Mehta Primary Care Provider [phone] Reason For Referral No Information Medications Medication SIG (Take, Route, Frequency, Duration) Notes Start Date End Date Status Colace 100 mg 1 capsule as needed Orally Once a day for 30 Not-Taking NovoLOG 100 UNIT/ML as directed Subcutaneous to fill V-go vial and to rip 56 units /24 hrs for 90 days 06/26/2018 Active Clopidogrel Bisulfate 75 MG TK 1 T PO QD Oral for 30 Not-Taking Tresiba FlexTouch 100 UNIT/ML INJECT 15 UNITS UNDER THE SKIN EVERY NIGHT AT BEDTIME for 100 Active Easy Touch HealthPro Test - as directed In Vitro bid for 30 days 12/11/2018 Active SEROquel 100 mg 1 tablet at bedtime (along with 400 mg tab for 500 mg total bedtime dose) Orally Once a day for 30 day(s) directions in haitian 06/26/2018 Active SEROquel 400 MG Take on etab at bedtime Orally Once a day for 30 days directions in haitian 09/10/2017 Active Blood Glucose Test - as directed In Vitro bid for 90 days Isidra Contour Next TovjquR34.9Lengt h of need 999 days 10/17/2018 Active hydrOXYzine Pamoate 50 MG take 1 capsules up to three times daily as needed for anxiety Orally for 30 days directions in haitian 02/04/2018 Active OneTouch Delica Lancets 33G 1 use to check BS TID for dx e11.9 intradermally tid for 30 days 11/07/2016 Active Isidra Microlet Lancets - as directed intradermally bid for 90 days Dx E11.9Length of need 999 days 10/17/2018 Active Prazosin HCl 2 MG 2 capsule at bedtime (for nightmares) Orally Once a day for 30 days directions in haitian 12/12/2017 Active BD Pen Needle Ultrafine 29G X 12.7MM U UTD QID for 50 Active Easy Touch HealthPro Test Active Mirtazapine 15 MG 1 tablet on the tongue and allow to dissolve at bedtime Orally Once a day for 30 day(s) directions in haitian 08/14/2018 Active Pen [place] 32G X 4 MM as directed subcutaneously qd for 90 days 03/16/2016 Active Metoprolol Succinate ER 25 MG 1 tablet Orally Once a day for 30 days Not-Taking Sertraline HCl 100 MG Take two tabs at bedtime Orally Once a day for 30 days directions in haitian 09/10/2017 Active NovoLOG FlexPen 100 UNIT/ML INJECT THREE TIMES A DAY. INJECT 6 UNITS IF BLOOD SUGAR >100 AND EIGHT UNITS IF > 250 Subcutaneous 8 units before each meal for 60 days Active Lisinopril 2.5 MG TAKE 1 TABLET BY MOUTH DAILY for 90 Not-Taking metFORMIN HCl 1000 mg TAKE 1/2 TABLET BY MOUTH TWICE A DAY p.o. bid for 90 Active Simvastatin 5 MG TAKE 1 TABLET BY MOUTH DAILY for 90 Not-Taking ProAir HFA 108 (90 Base) MCG/ACT 2 puffs as needed Inhalation every 6 hrs for 10 days 07/01/2017 Not-Taking V-Go 20 1 as directed SQ qday for 90 days 06/26/2018 Active Immunizations Vaccine Route Administration Date Status Comme [facility] Influenza, seasonal, injectable, preservative free, 3 yrs and above IM Intramuscular 05/21/2018 Administered tolerated injection well Social History Tobacco Use: Social History Observation Description Date Details (start date - stop date) Former Smoker NA - NA Sex Assigned At : Social History Observation Description Sex Assigned At Male * Tobacco Use/Smoking assessment Question Answer Notes Are you a former smoker How long has it been since you last smoked? 3-6 months Alcohol Screen (Audit-C) Question Answer Notes Did you have a drink containing alcohol in the p ast year? No Points 0 Interpretation Negative Sexual History Question Answer Notes Had sex in the past 12 months (vaginal, oral, or anal)? No Have you ever had a Sexually transmitted disease ? No DAST - Drug and Alcohol Question Answer Notes Total Score: 0 Interpretation: No problems reported SBIRT Question Answer Notes Patient refused/declined SBIRT screening at this time? No In the past 3 months, how of ten do you have a drink containing alcohol? Never In the past 3 months, how of ten do you have 4 or more drinks on one occasion? Females (and Males 65 and older). In the past 3 months, how often do you have 5 or more drinks on one occasion? Males (younger than 65) Never In the past 12 months, did y ou smoke pot, use another street drug, or use a prescription painkiller, stimulant, or sedative for a non-medical reason? No The cumulative score is 0 A referral is not needed PRAPARE Question Answer Notes Date Completed/Updated: 05/21/2018 What is your current housing situation? I have housing Are you worried about losing your housing? No What is the highest level of school that you have finished? Less than a high school degree What is your current work situation? Otherwise unemployed but not seeking work (ex. student, retired, disabled, unpaid primary manager intensive care unit) In the past year, have you or any family members you live with been unable to get any of the following when it was really needed? Check all that apply Food,Clothing,Utilities,Phone Has lack of transportation kept you from medical appointments, meetings, work or from getting things needed for daily living? Yes, it has kept me from medical appointments or from getting my medications,Yes, it has kept me from non-medical meetings, appointments, work, or getting things needed for daily living How often do you see or talk to people that you care about and feel close to? (For example: talking to friends on the phone, visiting friends or family, going to druze or club meetings) 1 or 2 times a week How stressed are you? Stress is when someone feels tense, nervous, anxious, or cant sleep at night because their mind is troubled Quite a bit In the past year have you spent more than 2 nights in a row in a prison, senior care, long-term center, or juvenile correctional facility? No Are you a refugee? No What country are you from? [place] Do you feel physically and emotionally safe where you currently live? Unsure In the past year, have you been afraid of your partner or ex- partner? No PRAPARE Score: 15 Section Notes: Marihuana Marihuana Marihuana Marihuana Marihuana Marihuana Marihuana Marihuana Marihuana Marihuana Marihuana Marihuana Marihuana Marihuana Marihuana Marihuana Marihuana Marihuana Marihuana Marihuana Marihuana Marihuana Marihuana Marihuana Marihuana Marihuana Problems Problem Type SNOMED Code ICD Code Onset Dates Problem Status W/U Status Risk Notes Problem 922445323657303 Type 2 diabetes mellitus with other specified complication (E11.69) Active confirmed Problem 34186565 Hyperlipidemia , unspecified (E78.5) Active confirmed Problem 34063592 PTSD (post-traumati c stress disorder) (F43.10) Active confirmed Problem 29487989 Essential hypertension (I10) Active confirmed Problem 73330877 Cannabis use disorder, mild, abuse (F12.10) Active confirmed Problem Long-term current use of insulin (343969621) retirement current use of insulin (Z79.4) Active confirmed Problem 01536120 Severe episode of recurrent major depressive disorder, 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 Agrees to PT 05/30/2018-re ferral done. ---- X-ray LS spine 05/30/2018 : 1. Evidence of chronic calcific pancreatitis involving the distal part of the body and tail of the pancreas. 2. No radiographic evidence of any degenerative spondylosis or any acute lumbosacral spine abnormality identified. Problem 606463233 Chronic pancreatitis, unspecified pancreatitis type (K86.1) Active confirmed Problem 76124870 Tremors of nervous system (R25.1) Active confirmed Problem 64795094 Homeless (Z59.0) Active confirmed refused correction Problem Mixed hyperlipidemia (135931779) Hyperlipidemia , mixed (E78.2) Active confirmed Problem 487115672 Illiterate (Z55.0) Active confirmed Problem 564595503 Diabetic retinopathy associated with controlled type 2 diabetes mellitus (E11.319) Active confirmed Problem 65992322 TOYA (generalized anxiety disorder) (F41.1) Active confirmed High Plan Of Treatment Pending Test Test Name Order Date X ray : Foot, left 3 views 02/13/2016 X ray : Foot, left 3 views 04/16/2016 X ray : Foot, left 3 views 08/08/2016 X ray : Foot, right, 3 views 08/08/2016 X ray : Foot, right, 3 views 04/16/2016 X ray : Foot, right, 3 views 02/13/2016 MICROALBUMIN, RANDOM URINE (W/CREATININE ) 06/26/2018 LIPID PANEL 04/06/2016 GAD65, IA-2, AND INSULIN AUTOANTIBODY LIPID PANEL WITH REFLEX TO DIRECT LDL COMPREHENSIVE METABOLIC PANEL 04/06/2016 HEMOGLOBIN A1c 04/06/2016 HEMOGLOBIN A1c 06/26/2018 LIPASE 04/06/2016 AMYLASE 04/06/2016 C-PEPTIDE 06/26/2018 Medical (General) History Medical History History ICD Code Diabetes Type II Hypertension pancreatitis ruptured appendix Surgical History Surgery Date(Month/Year) Apendix Apendix gallbladder gallbladder
[2024-10-21] VITALS (41 sets, daily range): BP systolic 124–223; BP diastolic 61–103; PULSE 100–110; RESP 11–22; TEMP 36.9–37.7; O2SAT 95–100; BMI 22.0; BMI 23.4
--- NOTE | ~2024-10-21 | XR_ITS ---
EXAMINATION: XR ANKLE, LEFT CLINICAL INFORMATION: pain, swelling COMPARISON: None available. TECHNIQUE: Two views of the left ankle. FINDINGS: AP view somewhat limited due to obliquity. No fracture, dislocation, or suspicious bone lesion. Grossly normal alignment. Subtalar joints and calcaneus appear normal. Soft tissues demonstrate mild diffuse soft tissue swelling most prominent laterally. No ankle joint effusion. There are diffuse vascular calcifications. XR/XR ankle LT 2V IMPRESSION: No acute bony abnormalities. Electronically signed by: Maikol Tovar MD 10/21/2024 04:02 PM EDT
--- NOTE | ~2024-10-21 | XR_ITS ---
EXAMINATION: XR FOOT, LEFT CLINICAL INFORMATION: pain, swelling COMPARISON: None available. TECHNIQUE: AP and lateral views of the left foot. FINDINGS: Only 2 views obtained due to patient pain tolerance. There are possibly postoperative changes to the fourth digit, proximal phalanx, with resorptive changes, chronic appearance. Otherwise, no fracture, dislocation, or suspicious bone lesion. Mild hallux valgus with mild degenerative changes of the first MTP joint. Normal plantar arch. Diffuse soft tissue vascular calcifications. XR/XR foot LT 2V IMPRESSION: 1. Chronic, possibly postoperative abnormality of the fourth digit proximal phalanx. No acute bony abnormality identified. 2. Mild hallux valgus with mild degenerative changes at the first MTP joint. 3. Extensive diffuse vascular calcifications. Electronically signed by: Maikol Tovar MD 10/21/2024 04:05 PM EDT
--- NOTE | ~2024-10-21 | XR_ITS ---
EXAMINATION: XR CHEST 1 VIEW HISTORY: fever COMPARISON: There are no prior studies for comparison. FINDINGS: A single AP portable view of the chest performed at 7:08 AM is submitted. The lungs are expanded and clear. There is no pleural effusion, pneumothorax, or pulmonary vascular congestion. The heart is normal in size. There is an old healed fracture of the right clavicle. XR/XR chest 1V IMPRESSION: Clear lungs. Electronically signed by: Ernesto Dennison MD 10/22/2024 07:34 AM EDT
[2024-10-21] MEDS: 0.9 % Sodium Chloride 1,000 ML 100 ML IVCONT ×2 (08:51→18:04)
[2024-10-21 08:57] LABS: Glucose, Whole Blood 339 mg/dL (60-115)
--- NOTE | 2024-10-21 09:03 | PC.NURSE ---
ms haddad aware of hyperglycemia and ?t wave elevated on ekg. asymptomatic.
[2024-10-21] MEDS: fentaNYL citrate/PF 100 MCG/2 ML VIAL 25 MCG IVPUSH ×3 (09:26→10:25)
[2024-10-21] MEDS: Midazolam HCl 2 MG/2 ML VIAL 0.5 MG IVPUSH ×3 (09:28→10:24)
[2024-10-21] MEDS: Heparin Sodium,Porcine 10,000 UNIT/10 ML VIAL 5000 UNIT IVPUSH (09:44)
[2024-10-21] MEDS: Heparin Sodium,Porcine 10,000 UNIT/10 ML VIAL 2000 UNIT IVPUSH (09:55)
[2024-10-21] MEDS: Aspirin 325 MG TABLET 650 MG PO (11:16)
[2024-10-21] MEDS: Morphine Sulfate 2 MG/ML CARTRIDGE 4 MG IVPUSH (11:24)
--- NOTE | 2024-10-21 11:46 | P.OP_ITS ---
Operative Note Operative Note Date of Service: 10/21/24 Narrative: Angiogram report from [facility] Preoperative diagnosis: Atherosclerosis of left lower extremity with rest pain equivalent Postoperative diagnosis: Same Procedure: 1. Ultrasound-guided right common femoral access 2. Aortogram with bilateral lower extremity runoff 3. Left popliteal atherectomy and plasty 4. Left peroneal plasty Surgeon:Lemuel Logan M.D., FACS, RPVI Supervisor Assembling:None Anesthesia: Local with moderate conscious sedation. Total intraservice moderate sedation time was 72 minutes. I monitored the patient's level of consciousness and physiologic status continuously throughout the procedure. Specimens:none Drains:none Estimated blood loss: Less than 10 ml Radiation Dose: 141.8 mGy Implant: [employer] Impact DCB 6 x 40 Indications: 64-year-old diabetic gentleman who presented to the emergency room this past Saturday with pain and discomfort of the left lower extremity. Upon workup he had a CT angiogram and was discovered to popliteal occlusion. He was subsequently discharged and presents for outpatient treatment of this popliteal occlusion. He is now for endovascular intervention The patient has signed the informed consent after reviewing risks, complications, benefits, and alternatives previously discussed with the patient. The patient was given the opportunity to ask any additional questions or voice any concerns. All questions were answered to the patient's satisfaction. Procedure in detail: Patient was brought to the angiography suite prior to which a time-out was called for patient identification and site verification. Bilateral groins were prepped and draped in the standard surgical fashion. Under ultrasound guidance right common femoral was punctured with micro puncture needle and wire. Subsequently a precision 4 [place] sheath was then placed. Bentson wire was advanced to the level of the aorta. 5 [place] Flush catheter was brought up and parked at the level of the renal arteries. Aortogram was then undertaken. Catheter was brought down to the level of the iliac bifurcation. Iliacs were subsequently imaged. Through the iliac bifurcation a power injection was performed and runoff study of bilateral lower extremities was then undertaken. Catheter was then brought in up and over to the left side SFA. Runoff study was then undertaken. We took multiple orthogonal views we were able to identify this popliteal lesion. We were able to easily traverse this with an 035 glidewire Advantage. The concern here was that this was more thrombotic in nature. At this time we administered 5000 units of systemic heparin an additional 2000 units had to be given. Once this was done up and over 6 [place] sheath was then placed. We then exchanged out the Glidewire advantage for a spider 5 wire. Through this we used a Hawk-1 atherectomy device. Multiple unidirectional passes were then undertaken. We did a residual luminal stenosis. At this time we brought in a [employer] drug coated balloon. This was a 6 x 40 balloon. This was brought into position in under 3 minutes and insufflated for a total of 3 minutes in duration. Completion angio demonstrated good result. We then turned our attention to the below-knee vessels. Anterior tibial did have a short segment occlusion. We were unable to traverse this. Peroneal did have some moderate stenosis throughout its length. We then advanced a 014 glidewire advantage through this lesion. We then plasty this area with a 2.5 x 80 balloon. This required 2 subsequent insufflations. Completion angiogram demonstrated good result with good flow all the way down to the level of the foot. StarClose closure device was then placed. Patient tolerated the procedure well. Returned to recovery with stable vitals. Interpretation of films: 1. Ultrasound demonstrates appropriate femoral access site. Vessel was patent with minimal stenosis. Needle entry was visualized. Image of ultrasound was saved. 2. Aortogram demonstrates appropriate caliber aorta. Minimal disease. Appropriate take-off of the renals. 3. Iliac images demonstrate no significant disease 4. Left Leg Common femoral artery: No significant disease Profundus Femoris: No significant disease Superficial femoral artery: No significant disease Popliteal artery (p1,p2,p3): Occluded P1 segment with immediate reconstitution. There was note of some collaterals. Anterior tibial artery: Present with short segment occlusion in the proximal 3rd reconstitution via collaterals and goes down to the ankle Peroneal artery: Flow down to ankle Posterior tibial artery: Occluded Dorsalis pedis/plantar arch: Incomplete 5. Right Leg Common femoral artery: No significant disease Profundus Femoris: No significant disease Superficial femoral artery: No significant disease Popliteal artery (p1,p2,p3): No significant disease Anterior tibial artery: Not visualized Peroneal artery: Not visual Posterior tibial artery: Not visualized Dorsalis pedis/plantar arch: Not visualized Conclusion: 1. Successful atherectomy and plasty of left popliteal and peroneal arteries. 2. Anticoagulation status: Concern is that this may be more embolic in nature may require formal anticoagulation. This note is constructed using voice recognition software. While every effort has been made to ensure accuracy, hereditary cancer program coordinator errors may have been included. Thank you for allowing me to participate in the care of your patient. Yours sincerely, Lemuel Logan MD, FACS, R.P.V.I.
[2024-10-21] MEDS: HYDROmorphone HCl 1 MG/ML SYRINGE IVPUSH (12:00)
[2024-10-21 12:18] LABS: Hematocrit 36.7 % (42.0-52.0); Hemoglobin 12.2 g/dl (14.0-18.0); Mean Corpuscular HGB Conc 33.2 g/dl (31.0-36.0); Mean Corpuscular Hemoglobin 28.9 pg (27.0-33.0); Platelet Count 182 X10*3/uL (160-400); Red Blood Count 4.22 X10*6/uL (4.60-5.80); Red Cell Distribution Width 10.9 % (11.0-16.0); White Blood Count 12.5 X10*3/uL (4.8-10.8)
[2024-10-21 12:25] LABS: INTERNATIONAL NORM RATIO 1.1 (0.9-1.1); Prothrombin Time 12.7 SEC (10.9-12.4)
[2024-10-21 12:46] LABS: PTT Heparin Drip 117.7 SEC (53-77.9)
--- NOTE | 2024-10-21 14:02 | P.CONHOSP_ITS ---
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 Consult placed to hospitalist service for medical management. The patient is lying in bed on arrival, uncomfortable appearing. Complaining of severe 10/10 pain LLE, primarily the left ankle and foot. He states the pain occurs both at rest and worsens with ambulation. No reported injury. No fevers, chills. No sob, lightheadedness, palpitations, chest pain. Does report calf tenderness but states radiates from ankle/foot. He has never been a smoker. No history of IVDA. Diabetes is uncontrolled with most recent A1c 12.2%. Review of Systems 2 Review of Systems: Yes all other systems are reviewed and are negative [facility] Medical History Seizure Diabetes mellitus with polyneuropathy Hypertension Diabetes History of pancreatitis Family History Mother Diabetes Father Medical history unknown Surgical History Hx of appendectomy Hx of cataract extraction Social History Household Members: Friend(s) Housing: Apartment Do you presently have visiting nurse or other home services: No Alcohol intake: former Patient Tobacco Use Status: Never used Tobacco Smoked in Last 30 Days: No Patient Interested in Nicotine Replacement: No Use of substances other than those prescribed or required for medical reasons: Yes Substance Use Type: Marijuana Substance Use Frequency: Occasionally Currently Displaying Signs/Symptoms of Drug Intoxication Withdrawal: No Any prior treatment program specific to substance use: No Have you been hit, kicked, punched, or otherwise hurt by someone within the past year? If so, by whom?: No Do you feel safe in your current relationship?: No Current Relationship Is there a partner from a previous relationship who is making you feel unsafe now?: No Are you made to feel afraid or neglected: No Advance Directives: No Advance Directives Information Provided: Yes Advance Directives Date on File: 05/28/20 Do you have a plan to hurt others: No Plan Recently lost weight without trying: Unsure Eating poorly because of decreased appetite: No Poor oral hygiene: No service: No Current occupational status: employed Meds Allergies Allergy/AdvReac Type Severity Reaction Status Date / Time No Known Allergies Allergy Verified 10/20/24 09:25 [No Known Allergies*] Active Medications: Current Medications Acetaminophen (Acetaminophen 325 Mg Tablet) 650 mg PO Q6H PRN PRN Reason: Pain, Mild (Pain Scale 1-3) Acetaminophen (Acetaminophen 325 Mg Tablet) 650 mg PO Q6H PRN PRN Reason: Pain, Mild 1-3,fever,headache Calcium Carbonate (Calcium Carbonate 750 Mg Tab.Chew) 750 mg PO Q4H PRN PRN Reason: Heartburn Dextrose (Dextrose 50 % 25 Gm/50 Ml Syringe) 25 gm IVPUSH Q15M PRN; Protocol PRN Reason: per Hypoglycemia Standing Ord. Glucose (Glucose Gel 15 Gm Gel..Gram.) 15 gm PO Q15M PRN; Protocol PRN Reason: per Hypoglycemia Standing Ord. Heparin Sodium (Porcine) (Heparin Sodium,Porcine 5,000 Unit/Ml Vial) 2,600 unit 40 unit/kg (2600 unit) IVPUSH PROTOCOL BOLUS PRN; Protocol PRN Reason: 40 unit/kg - Heparin Protocol Heparin Sodium (Porcine) (Heparin Sodium,Porcine 5,000 Unit/Ml Vial) 5,300 unit 80 unit/kg (5300 unit) IVPUSH PROTOCOL BOLUS PRN; Protocol PRN Reason: 80 unit/kg - Heparin Protocol Sodium Chloride (Ns) 1,000 mls @ 100 mls/hr IVCONT .Q10H [facility] Last Admin: 10/21/24 08:51 Dose: 100 mls/hr Heparin Sodium/Sodium Chloride (Heparin Sodium,Porcine/1/2ns) 25,000 unit in 250 mls @ 0 mls/hr IVCONT .Q0M [facility]; Protocol Insulin Human Lispro (Insulin Lispro 100 Unit/Ml 3 Ml Vial) 0 unit SUBCUT QIDACHS [facility]; Protocol Magnesium Hydroxide (Milk Of Magnesia 30 Ml Oral.Susp) 30 ml PO DAILY PRN PRN Reason: Constipation Melatonin (Melatonin 3 Mg Tablet) 6 mg PO BEDTIME PRN PRN Reason: Insomnia Morphine Sulfate (Morphine Sulfate 4 Mg/Ml Cartridge) 4 mg IVPUSH Q2H PRN; Protocol PRN Reason: Pain, Severe (Pain Scale 7-10) Oxycodone HCl (Oxycodone Hcl Immed Release 5 Mg Tablet) 5 mg PO Q4H PRN PRN Reason: Pain, Moderate(Pain Scale 4-6) Sodium Chloride (0.9 % Sodium Chloride Flush 3 Ml Syringe) 3 ml IVFLUSH QSHIFT [facility] Medications ?Medication ?Instructions ?Recorded ?Confirmed ?Last Taken ?Type alcohol swabs (BD Alcohol Swabs) 1 pad topical TID-QID 10/13/21 10/13/21 Unknown History atorvastatin 40 mg tablet 40 mg PO DAILY 10/13/21 10/13/21 Unknown History blood sugar diagnostic (FreeStyle 10/13/21 10/13/21 Unknown History Lite Strips) blood-glucose meter (FreeStyle 10/13/21 10/13/21 Unknown History Lite Meter kit) gabapentin 300 mg capsule 300 mg PO BEDTIME 10/13/21 10/13/21 Unknown History lancets 33 gauge (TRUEplus Lancets) 10/13/21 10/13/21 Unknown History quetiapine 200 mg tablet (Seroquel) See Rx Instructions PO BEDTIME 10/13/21 10/13/21 Unknown History sertraline 50 mg tablet 50 mg PO DAILY 10/13/21 10/13/21 Unknown History Physical Exam 2 Vital Signs and Narrative: Vital Signs: Last Vital Signs Temp 98.5 F 10/21/24 13:30 Pulse 103 H 10/21/24 13:30 Resp 16 10/21/24 13:30 BP 194/95 H 10/21/24 13:30 Pulse Ox 97 10/21/24 13:30 O2 Del Method Room Air 10/21/24 13:30 O2 Flow Rate 2 10/21/24 10:30 BMI result Body Mass Index 23.4 Constitutional - Awake and Alert, moderate distress Extremities - Erythema and slight warmth over the distal aspect of the left lower leg without any significant swelling. +calf tenderness. Distal aspect of L foot dusky and cool. Unable to palpate L pedal pulse. Significant ttp over the left ankle- out of proportion to other exam findings. 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 Consult placed to hospitalist service for medical management. PAD with left popliteal occlusion s/p left popliteal atherectomy and plasty and left peroneal plasty POD0 Pain management/plan per vascular surgery Continue heparin gtt Acute pain LLE suspect etiology r/t above given pain out of proportion to exam findings Doubt cellulitis but has mild leukocytosis 12.5. No sepsis (tachycardia/tachypnea r/t pain). No fevers Check pct, esr/crp (though likely to be elevated post procedure) No abx at this time given low suspicion for cellulitis XR L ankle and foot Uncontrolled htn in setting of uncontrolled pain - pain management per vascular surgery IV labetalol 10mg x1. Initiate amlodipine 5mg daily Diabetic polyneuropathy consider resuming gabapentin- defer to vascular surgery pain management as above Uncontrolled insulin dependent type 2 diabetes Lantus 25 units daily POC glucose, diabetic diet SSI Thank you for allowing me to participate in this consult. We will continue following along with you
[2024-10-21] MEDS: Morphine Sulfate 4 MG/ML CARTRIDGE IVPUSH ×3 (14:20→20:46)
[2024-10-21] MEDS: 0.9 % Sodium Chloride Flush 3 ML SYRINGE IVFLUSH (14:22)
[2024-10-21 14:28] LABS: PTT Heparin Drip 39.3 SEC (53-77.9)
[2024-10-21] MEDS: oxyCODONE HCl Immed Release 5 MG TABLET PO (14:39)
[2024-10-21] MEDS: Heparin Sodium,Porcine/1/2NS 25,000 UNIT/250 ML IV.SOLN 7.91 UNIT IVCONT (15:04)
[2024-10-21] MEDS: amLODIPine Besylate 5 MG TABLET PO ×2 (15:16→19:17)
[2024-10-21] MEDS: HYDROmorphone HCl 2 MG/ML VIAL IVPUSH (16:03)
[2024-10-21] MEDS: Labetalol HCL 100 MG/20 ML VIAL 10 MG IVPUSH (16:03)
[2024-10-21 16:20] LABS: Glucose, Whole Blood 264 mg/dL (60-115)
[2024-10-21] MEDS: Insulin Lispro 100 UNIT/ML 3 ML VIAL SUBCUT (16:52)
[2024-10-21] MEDS: Insulin Glargine,Hum.rec.anlog 100 UNIT/ML 10 ML VIAL 15 UNIT SUBCUT ×2 (16:52→21:03)
[2024-10-21] MEDS: Labetalol HCL 100 MG/20 ML VIAL 20 MG IVPUSH (17:15)
[2024-10-21 18:18] LABS: C Reactive Protein 7.37 mg/dL (< or = 0.50)
--- NOTE | 2024-10-21 18:21 | PHA.MEDREC ---
Addendum entered by [address] [facility] 10/21/24 18:39: Notified Kary Prince about patient being a poor historian and med rec was done by pharmacy claims only. Original Note: Pharmacy Consult ? Medication Reconciliation Pharmacy has completed the medication reconciliation. Spoke to patient about his home medication list. Patient was a poor historian and non-compliant. He was not able to recall name, strength or direction when probed. He knows he's supposed to take medications but kept forgetting to. When asked if there's anyone at home that helps with his medications, he said he only has a friend (that he stays with) that has a hard time with his own medications. There's a brother listed in contact but no phone number associated. Med rec was done using only pharmacy claims. He also didn't remember when he last took his medications.
[2024-10-21 18:34] LABS: Procalcitonin 0.07 ng/mL
[2024-10-21 20:36] LABS: Glucose, Whole Blood 118 mg/dL (60-115)
[2024-10-21] MEDS: QUEtiapine Fumarate 100 MG TABLET PO (20:41)
[2024-10-21] MEDS: QUEtiapine Fumarate 300 MG TABLET 600 MG PO (20:41)
[2024-10-21] MEDS: Gabapentin 100 MG CAPSULE 200 MG PO (20:41)
[2024-10-21] MEDS: Multivitamin TABLET 1 TAB PO (20:41)
[2024-10-21 22:17] LABS: PTT Heparin Drip 32.6 SEC (53-77.9)
[2024-10-21] MEDS: Heparin Sodium,Porcine 5,000 UNIT/ML VIAL 5300 UNIT IVPUSH (22:29)
[2024-10-21 22:57] LABS: Erythrocyte Sedimentation Rate 23 MM/HR (0-15)
[2024-10-22] VITALS (7 sets, daily range): BP systolic 135–164; BP diastolic 63–81; PULSE 104–139; RESP 16–20; TEMP 37.2–38.7; O2SAT 97–100
--- NOTE | 2024-10-22 | ECG_ITS ---
Test Reason : TACHYCARDIA Blood Pressure : */* mmHG Vent. Rate : 124 BPM Atrial Rate : 124 BPM P-R Int : 144 ms QRS Dur : 84 ms QT Int : 318 ms P-R-T Axes : 51 73 77 degrees QTcB Int : 456 ms Sinus tachycardia Otherwise normal ECG When compared with ECG of 19-Oct-2024 08:45, No significant change was found Referred By: Lemuel Logan Electronically Signed By: Oral Membreno
[2024-10-22] MEDS: Dextrose 50 % 25 GM/50 ML SYRINGE IVPUSH ×2 (04:00→07:53)
[2024-10-22] MEDS: 0.9 % Sodium Chloride 1,000 ML 100 ML IVCONT ×2 (04:20→17:19)
[2024-10-22] MEDS: vancomycin HCL 1,000 MG in 0.9 % Sodium Chloride 250 ML 270 MG IV (05:00)
[2024-10-22] MEDS: cefEPime HCl 1 GM in 0.9 % Sodium Chloride 50 ML IV ×3 (05:00→21:56)
[2024-10-22 05:32] LABS: Anion Gap 14 (12-20); Blood Urea Nitrogen 11 mg/dL (9-16); Calcium 8.4 mg/dL (8.4-10.2); Carbon Dioxide 23 mmol/L (22-29); Chloride 103 mmol/L (96-108); Creatinine Clr Calc Pharmacy 83.2; Estimated Glomerular Filt Rate > 60; Glucose Random 181 mg/dL (60-115); Potassium 3.4 mmol/L (3.3-5.1); Sodium 137 mmol/L (135-145)
[2024-10-22 05:33] LABS: Lactic Acid 1.6 mmol/L (0.5-2.0)
[2024-10-22 05:33] LABS: PTT Heparin Drip 74.8 SEC (53-77.9)
[2024-10-22 05:36] LABS: INTERNATIONAL NORM RATIO 1.1 (0.9-1.1); Prothrombin Time 12.9 SEC (10.9-12.4)
[2024-10-22 05:38] LABS: Hematocrit 29.8 % (42.0-52.0); Hemoglobin 9.9 g/dl (14.0-18.0); Mean Corpuscular HGB Conc 33.2 g/dl (31.0-36.0); Mean Corpuscular Hemoglobin 28.8 pg (27.0-33.0); Mean Corpuscular Volume 86.6 fL (80.0-98.0); Mean Platelet Volume 11.1 fL (9.4-12.4); Platelet Count 159 X10*3/uL (160-400); Red Blood Count 3.44 X10*6/uL (4.60-5.80); Red Cell Distribution Width 10.9 % (11.0-16.0)
--- NOTE | 2024-10-22 05:52 | PM.EVENT ---
Event Note Date of Service: 10/22/24 Event Note: Fever: Patient developed fever up to 101 F. Patient is status post vascular procedure. Unclear source Will obtain UA, chest x-ray, blood cultures Empirically started on vanc and cefepime Follow-up cultures ID consult Tachycardia: Likely in the setting of dehydration / fever. Given IV fluids. EKG showed QTC of 446. Sinus tachycardia. Drowsiness: RN reported that patient was drowsy. Patient received 700 mg of Seroquel reportedly his home dose. Patient responds to verbal commands. Follows simple commands like squeezing hands. Patient drowsy in the setting of Seroquel. Protecting airways. Supportive care. Time Spent With Patient Time: Total time managing care of this patient today ____ minutes.
[2024-10-22] MEDS: Lactated Ringers 500 ML 999 ML IV (06:02)
[2024-10-22 06:21] LABS: Glucose, Whole Blood 187 mg/dL (60-115)
[2024-10-22 06:21] LABS: Glucose, Whole Blood 65 mg/dL (60-115)
[2024-10-22 06:21] LABS: Glucose, Whole Blood 180 mg/dL (60-115)
[2024-10-22] MEDS: vancomycin HCL 750 MG in 0.9 % Sodium Chloride 250 ML 265 MG IV ×2 (06:31→19:49)
[2024-10-22 07:09] LABS: Appearance Urine Clear; Color Urine Yellow; Glucose Urine UA >=1000 mg/dL (Negative); Leukocyte Esterase Urine Negative (Negative); Nitrite Urine Negative (Negative); PH 5.5 (5.0-9.0); UMIC TRIGGER UACC YES; Urine Blood Negative (Negative); Urine Ketones 40 mg/dL (Negative); Urine Protein Trace mg/dL (Neg-Trace)
[2024-10-22 07:11] LABS: Bacteria Urine None Seen (None Seen); Hyaline Casts Urine 0-2 /LPF (0-2); RBC Urine 0-2 /HPF (0-2); Squamous Epithelial Cell Urine 0-2 /HPF (0-2); WBC Urine 0-5 /HPF (0-5)
--- NOTE | 2024-10-22 07:17 | PC.NURSE ---
Patient at beginning of shift at 1900 was alert and oriented x4, makes needs known, [place], medicated per SEP. Patient approximately at 04:00 was noted to be obtunded, tremulous and only arousable and followed simple commands to repeated noxious stimuli. Vitals taken rectal temp 101.7, HR 139, BP 138/81, and SpO2 97% on RA. POC rechecked and was 65. D50 IVP given. MD notifed of pt status and came to bedside. New orders for EKG, labs, blood cultures, lactic acid, U/A, and pCXR. LR 500 mL bolus x1, IV vanco and cefepime ordered and given per SEP. At 0600, pt now arousable to tactile stimuli. Report given to oncoming RN at 0700.
[2024-10-22 07:24] LABS: Glucose, Whole Blood 86 mg/dL (60-115)
[2024-10-22] MEDS: 0.9 % Sodium Chloride Flush 3 ML SYRINGE IVFLUSH ×3 (07:39→19:49)
--- NOTE | 2024-10-22 07:40 | PHA.PROG ---
Admission Date/Time: October 21, 2024 11:04 Indication: SKIN Weight in k.9 kg Serum Creatinine - Last 168 Hours 10/22/24 04:45 Creatinine 0.82 Estimated CrCl and GFR - Last 168 Hours 10/22/24 04:45 Estim Creat Clear Calc 83.2 Estimated GFR > 60 Vancomycin Loading Dose: 1750 Current Vancomycin Dosing Regimen: 750 Q 12H Vancomycin Monitoring using AUC goal of 400 - 600 range with trough as surrogate marker: 435 Date and Time for next Vancomycin Level to be drawn: 10/23 1800 Pharmacist Comments on Vancomycin Plan: Vancomycin dosing will take advantage of [employer] as a clinical decision support tool that uses Bayesian modeling to calculate individual patient's pharmacokinetic parameters and forecast the patient's drug concentration time course with the target goal AUC 24 range of 400 - 600 mg/L/hr.
--- NOTE | 2024-10-22 08:58 | HO.VASCPN ---
Subjective Subjective Date of Service: 10/22/24 Interval history: Harjinder is doing ok this morning. He is extremely lethargic and hard to keep awake. He continues to endorse pain in the left lower leg. He states it only feels a little better after yesterday's procedure. He was found to have a fever earlier this morning of 101 and was started on Vanco and Cefepime, with orders for UA, CXR, and BCs. Physical Exam Vital Signs: Vital Signs: Last Vital Signs Temp 99.1 F 10/22/24 07:50 Pulse 126 H 10/22/24 07:50 Resp 18 10/22/24 07:50 BP 135/74 10/22/24 07:50 Pulse Ox 97 10/22/24 07:50 O2 Del Method Room Air 10/22/24 07:50 O2 Flow Rate 2 10/21/24 10:30 BMI result Body Mass Index 23.4 Const: General: comfortable, no acute distress and lethargic Orientation/consciousness: patient oriented x3 and lethargic HEENT: Ears: hearing grossly normal bilaterally Resp: Effort & Inspection: normal respiratory effort and able to speak in complete sentences Auscultation: clear to auscultation bilaterally Cardio: Rate: regular rate Rhythm: regular rhythm Heart sounds: S1 normal heart sound present and S2 normal heart sound present Bruits: no abdominal aortic bruits, no carotid bruits, no femoral bruits and no renal bruits GI: Other: Groin incision: C/D/I. No bleeding or drainage noted. Palpation (GI): No Abdominal aortic bruit present Neuro: General: patient oriented x3 Cranial nerves: Yes CN's II-XII intact bilaterally Extrem: Other: Left lower extremity: painful to palpation. Palpable DP pulse. Foot/leg warm to the touch. Progress Note: A&P Assessment and plan (1) Left popliteal artery occlusion: Status: Acute Assessment and Plan: Harjinder is s/p left arthrectomy of the popliteal and peroneal arteries on 10/21. He had significant amounts of pain post-procedure yesterday afternoon/evening despite Oxy, Morphine, and Tylenol. He was given 2 doses of Dilaudid. Due to the ongoing and persistent pain, the hospitalist ordered a foot and ankle XR, both negative for any acute processes; on foot XR there was a chronic, possibly postop abnormality of the proximal phalanx of the 4th digit and extensive diffuse vascular calcifications. He also was given his night dose of Seroquel, 700mg. He is very lethargic this morning. He was found to have a fever of 101 this morning around 0400 including being obtunded and tremulous and with tachycardia and a POC of 65. He was given D50, LR 500mL bolus, and started on IV Vanco and Cefepime. He did respond slightly to the D50 and GA Tylenol, which decreased the fever. Repeat POCs this morning were 180 then 86. He had an EKG (QTC 456, sinus tach) , labwork (no leukocytosis, slight drop in H/H, BUN/Cr stable), UA (negative), CXR (negative), and blood cultures. He has been unable to take PO meds due to the lethargy. We added on GA Tylenol. We have discontinued the IV Morphine and added Oxy ER as well as Narcan prn. We will continue to monitor. If there are any questions or concerns, please do not hesitate to reach out to us. Time Spent With Patient Time: Total time managing care of this patient today ____ minutes. Procedures Date of Service Date of Service: 10/22/24 Quality Stroke Does the patient have a stroke diagnosis?: No VTE Prior VTE?: No VTE Risk Level:: Medical - moderate - high VTE Device Contraindication: Treatment Not Indicated VTE Drug Contraindication: N/A - Med Ordered
[2024-10-22] MEDS: oxyCODONE HCl ER 10 MG TAB.ER.12H PO ×2 (09:53→21:54)
[2024-10-22] MEDS: Acetaminophen 325 MG TABLET 650 MG PO (09:56)
[2024-10-22 11:03] LABS: PTT Heparin Drip 76.8 SEC (53-77.9)
[2024-10-22 11:28] LABS: Adenovirus PCR Not Detected (Not Detect.); Bordetella parapertussis PCR Not Detected (Not Detect.); Bordetella pertussis PCR Not Detected (Not Detect.); Chlamydia pneumoniae PCR Not Detected (Not Detect.); Coronavirus 229E PCR Not Detected (Not Detect.); Coronavirus HKU1 PCR Not Detected (Not Detect.); Coronavirus NL63 PCR Not Detected (Not Detect.); Coronavirus OC43 PCR Not Detected (Not Detect.); Human metapneumovirus PCR Not Detected (Not Detect.); Influenza A PCR Not Detected (Not Detect.); Influenza B PCR Not Detected (Not Detect.); Mycoplasma pneumoniae PCR Not Detected (Not Detect.); Parainfluenza 1 PCR Not Detected (Not Detect.); Parainfluenza 2 PCR Not Detected (Not Detect.); Parainfluenza 3 PCR Not Detected (Not Detect.); Parainfluenza 4 PCR Not Detected (Not Detect.); RSV PCR Not Detected (Not Detect.); Rhino/Enterovirus PCR Not Detected (Not Detect.); SARS-CoV-2 PCR Not Detected (Not Detect.)
[2024-10-22 11:30] LABS: Glucose, Whole Blood 169 mg/dL (60-115)
--- NOTE | 2024-10-22 11:44 | P.PNIM_ITS ---
Subjective Subjective Date of Service: 10/22/24 Interval History: RLE pain Physical Exam 2 Vital Signs: Vital Signs: Last Vital Signs Temp 99.9 F 10/22/24 11:36 Pulse 115 H 10/22/24 11:36 Resp 18 10/22/24 11:36 BP 139/63 10/22/24 11:36 Pulse Ox 99 10/22/24 11:36 O2 Del Method Room Air 10/22/24 11:36 O2 Flow Rate 2 10/21/24 10:30 BMI result Body Mass Index 23.4 poor pulses lethargic, ill appearing, oriented times 3 Objective Data Active Medications Acetaminophen (Acetaminophen 325 Mg Tablet) 650 mg PO Q6H PRN PRN Reason: Pain, Mild (Pain Scale 1-3) Last Admin: 10/22/24 09:56 Dose: 650 mg Documented By: [facility] Acetaminophen (Acetaminophen 325 Mg Tablet) 650 mg PO Q6H PRN PRN Reason: Pain, Mild 1-3,fever,headache Acetaminophen (Acetaminophen Supp 325 Mg Supp.Rect) 325 mg [place] Q6H PRN PRN Reason: Pain, Mild (Pain Scale 1-3) Amlodipine Besylate (Amlodipine Besylate 5 Mg Tablet) 5 mg PO DAILY [facility]; Protocol Last Admin: 10/22/24 07:57 Dose: Not Given Documented By: [facility] Non-Admin Reason: lethargic Apixaban (Apixaban 5 Mg Tablet) 10 mg PO BID [facility] Stop: 10/29/24 09:01 Atorvastatin Calcium (Atorvastatin Calcium 40 Mg Tablet) 40 mg PO DAILY [facility] Last Admin: 10/22/24 07:57 Dose: Not Given Documented By: [facility] Non-Admin Reason: lethargic Calcium Carbonate (Calcium Carbonate 750 Mg Tab.Chew) 750 mg PO Q4H PRN PRN Reason: Heartburn Dextrose (Dextrose 50 % 25 Gm/50 Ml Syringe) 25 gm IVPUSH Q15M PRN; Protocol PRN Reason: per Hypoglycemia Standing Ord. Last Admin: 10/22/24 07:53 Dose: 25 gm Documented By: [facility] Gabapentin (Gabapentin 100 Mg Capsule) 100 mg PO TID [facility] Glucose (Glucose Gel 15 Gm Gel..Gram.) 15 gm PO Q15M PRN; Protocol PRN Reason: per Hypoglycemia Standing Ord. Sodium Chloride (Ns) 1,000 mls @ 100 mls/hr IVCONT .Q10H [facility] Last Admin: 10/22/24 04:20 Dose: 100 mls/hr Documented By: DAMI Cefepime HCl 1 gm/ Sodium (Chloride) 50 mls @ 100 mls/hr IV Q8H [facility] Last Infusion: 10/22/24 06:08 Dose: Infused Documented By: DAMI Vancomycin HCl 750 mg/ Sodium (Chloride) 265 mls @ 265 mls/hr IV Q12H [facility] Insulin Glargine (Insulin Glargine,Hum.Rec.Anlog 100 Unit/Ml 10 Ml Vial) 15 unit SUBCUT DAILY [facility] Last Admin: 10/22/24 07:28 Dose: Not Given Documented By: [facility] Non-Admin Reason: No Insulin Coverage Insulin Glargine (Insulin Glargine,Hum.Rec.Anlog 100 Unit/Ml 10 Ml Vial) 15 unit SUBCUT BEDTIME [facility] Last Admin: 10/21/24 21:03 Dose: 15 unit Documented By: DAMI Insulin Human Lispro (Insulin Lispro 100 Unit/Ml 3 Ml Vial) 0 unit SUBCUT QIDACHS [facility]; Protocol Last Admin: 10/22/24 11:34 Dose: Not Given Documented By: [facility] Non-Admin Reason: pt continues not eating well Magnesium Hydroxide (Milk Of Magnesia 30 Ml Oral.Susp) 30 ml PO DAILY PRN PRN Reason: Constipation Melatonin (Melatonin 3 Mg Tablet) 6 mg PO BEDTIME PRN PRN Reason: Insomnia Multivitamins/Vitamin C (Multivitamin Tablet) 1 tab PO BID [facility] Last Admin: 10/22/24 07:57 Dose: Not Given Documented By: [facility] Non-Admin Reason: lethargic Naloxone HCl (Naloxone Hcl 0.4 Mg/Ml Vial) 0.04 mg IVPUSH Q5M PRN PRN Reason: Respiratory Rate < 10 Oxycodone HCl (Oxycodone Hcl Er 10 Mg Tab.Er.12h) 10 mg PO BID [facility] Last Admin: 10/22/24 09:53 Dose: 10 mg Documented By: [facility] Oxycodone HCl (Oxycodone Hcl Immed Release 5 Mg Tablet) 5 mg PO Q4H PRN PRN Reason: Pain, Moderate(Pain Scale 4-6) Pharmacy Consult (Consult Rx Vancomycin Dosing) 1 each MISCELLANE DAILY PRN PRN Reason: Consult order Quetiapine Fumarate (Quetiapine Fumarate 100 Mg Tablet) 100 mg PO BID [facility] Last Admin: 10/22/24 07:30 Dose: Not Given Documented By: [facility] Non-Admin Reason: lethargic Quetiapine Fumarate (Quetiapine Fumarate 200 Mg Tablet) 200 mg PO BEDTIME [facility] Sodium Chloride (0.9 % Sodium Chloride Flush 3 Ml Syringe) 3 ml IVFLUSH QSHIFT [facility] Last Admin: 10/22/24 07:39 Dose: 3 ml Documented By: [facility] Vitamin E (Vitamin E (Dl,Tocopheryl Acet) 180 Mg (400 Unit) Capsule) 180 mg PO DAILY [facility] Last Admin: 10/22/24 07:57 Dose: Not Given Documented By: [facility] Non-Admin Reason: lethargic Labs 10/22/24 04:50 10/22/24 04:45 Labs: Laboratory Results - last 24 hr 10/21/24 10/21/24 10/21/24 12:06 13:52 16:13 MCV 87.0 MCH 28.9 MCHC 33.2 RDW 10.9 L Plt Count 182 MPV 11.0 Absolute Nucleated RBC 0.000 Nucleated RBC % (auto) 0.0 ESR PT 12.7 H INR 1.1 aPTT Heparin Protocol 117.7 H* 39.3 L D Anion Gap Estim Creat Clear Calc Estimated GFR POC Glucose 264 H Random Glucose Lactic Acid Calcium Total Creatine Kinase C-Reactive Protein Procalcitonin Urine Color Urine Appearance Urine pH Ur Specific [place] Urine Protein Urine Glucose (UA) Urine Ketones Urine Blood Urine Nitrite Ur Leukocyte Esterase Urine RBC Urine WBC Ur Squamous Epith Cells Urine Bacteria Hyaline Casts 10/21/24 10/21/24 10/21/24 17:36 20:32 21:59 MCV MCH MCHC RDW Plt Count MPV Absolute Nucleated RBC Nucleated RBC % (auto) ESR 23 H PT INR aPTT Heparin Protocol 32.6 L Anion Gap Estim Creat Clear Calc Estimated GFR POC Glucose 118 H Random Glucose Lactic Acid Calcium Total Creatine Kinase C-Reactive Protein 7.37 H Procalcitonin 0.07 Urine Color Urine Appearance Urine pH Ur Specific [place] Urine Protein Urine Glucose (UA) Urine Ketones Urine Blood Urine Nitrite Ur Leukocyte Esterase Urine RBC Urine WBC Ur Squamous Epith Cells Urine Bacteria Hyaline Casts 10/22/24 10/22/24 10/22/24 03:40 04:28 04:36 MCV MCH MCHC RDW Plt Count MPV Absolute Nucleated RBC Nucleated RBC % (auto) ESR PT 12.9 H INR 1.1 aPTT Heparin Protocol 74.8 D Anion Gap Estim Creat Clear Calc Estimated GFR POC Glucose 65 187 H Random Glucose Lactic Acid Calcium Total Creatine Kinase C-Reactive Protein Procalcitonin Urine Color Urine Appearance Urine pH Ur Specific [place] Urine Protein Urine Glucose (UA) Urine Ketones Urine Blood Urine Nitrite Ur Leukocyte Esterase Urine RBC Urine WBC Ur Squamous Epith Cells Urine Bacteria Hyaline Casts 10/22/24 10/22/24 10/22/24 04:45 04:49 04:50 MCV 86.6 MCH 28.8 MCHC 33.2 RDW 10.9 L Plt Count 159 L MPV 11.1 Absolute Nucleated RBC 0.000 Nucleated RBC % (auto) 0.0 ESR PT INR aPTT Heparin Protocol Anion Gap 14 Estim Creat Clear Calc 83.2 Estimated GFR > 60 POC Glucose 180 H Random Glucose 181 H Lactic Acid 1.6 Calcium 8.4 D Total Creatine Kinase 478 H C-Reactive Protein Procalcitonin Urine Color Urine Appearance Urine pH Ur Specific [place] Urine Protein Urine Glucose (UA) Urine Ketones Urine Blood Urine Nitrite Ur Leukocyte Esterase Urine RBC Urine WBC Ur Squamous Epith Cells Urine Bacteria Hyaline Casts 10/22/24 10/22/24 10/22/24 06:45 07:20 10:30 MCV MCH MCHC RDW Plt Count MPV Absolute Nucleated RBC Nucleated RBC % (auto) ESR PT INR aPTT Heparin Protocol 76.8 Anion Gap Estim Creat Clear Calc Estimated GFR POC Glucose 86 Random Glucose Lactic Acid Calcium Total Creatine Kinase C-Reactive Protein Procalcitonin Urine Color Yellow Urine Appearance Clear Urine pH 5.5 Ur Specific [place] 1.020 Urine Protein Trace Urine Glucose (UA) >=1000 H Urine Ketones 40 Urine Blood Negative Urine Nitrite Negative Ur Leukocyte Esterase Negative Urine RBC 0-2 Urine WBC 0-5 Ur Squamous Epith Cells 0-2 Urine Bacteria None Seen Hyaline Casts 0-2 10/22/24 11:26 MCV MCH MCHC RDW Plt Count MPV Absolute Nucleated RBC Nucleated RBC % (auto) ESR PT INR aPTT Heparin Protocol Anion Gap Estim Creat Clear Calc Estimated GFR POC Glucose 169 H Random Glucose Lactic Acid Calcium Total Creatine Kinase C-Reactive Protein Procalcitonin Urine Color Urine Appearance Urine pH Ur Specific [place] Urine Protein Urine Glucose (UA) Urine Ketones Urine Blood Urine Nitrite Ur Leukocyte Esterase Urine RBC Urine WBC Ur Squamous Epith Cells Urine Bacteria Hyaline Casts 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
--- NOTE | 2024-10-22 12:04 | MHC.CM.PN ---
CM met with Patient and 2 Visitors (one is an Ex-)at bedside. Patient lives in an apartment with a disabled Roommate and Patient uses mostly a w/c himself to assist with mobility. Patient has no prior services and returning to home is his goal; CM has initiated and will follow for dc planning. PCP is Dr. Horan and per Patient, he will require BLS transport to home at time of dc.
[2024-10-22 12:22] LABS: Influenza A H1 PCR Not Detected (Not Detect.); Influenza A H1-2009 PCR Not Detected (Not Detect.); Influenza A H3 PCR Not Detected (Not Detect.)
--- NOTE | 2024-10-22 13:07 | HO.PM.IMPN ---
Subjective Subjective Date of Service: 10/22/24 Interval History: Seen and evaluated this morning Physical Exam Vital Signs: Vital Signs: Last Vital Signs Temp 99.9 F 10/22/24 11:36 Pulse 115 H 10/22/24 11:36 Resp 18 10/22/24 11:36 BP 139/63 10/22/24 11:36 Pulse Ox 99 10/22/24 11:36 O2 Del Method Room Air 10/22/24 11:36 O2 Flow Rate 2 10/21/24 10:30 BMI result Body Mass Index 23.4 Objective Data Active Medications Acetaminophen (Acetaminophen 325 Mg Tablet) 650 mg PO Q6H PRN PRN Reason: Pain, Mild (Pain Scale 1-3) Last Admin: 10/22/24 09:56 Dose: 650 mg Documented By: [facility]CO Acetaminophen (Acetaminophen 325 Mg Tablet) 650 mg PO Q6H PRN PRN Reason: Pain, Mild 1-3,fever,headache Acetaminophen (Acetaminophen Supp 325 Mg Supp.Rect) 325 mg [place] Q6H PRN PRN Reason: Pain, Mild (Pain Scale 1-3) Amlodipine Besylate (Amlodipine Besylate 5 Mg Tablet) 5 mg PO DAILY [facility]; Protocol Last Admin: 10/22/24 07:57 Dose: Not Given Documented By: [facility]CO Non-Admin Reason: lethargic Apixaban (Apixaban 5 Mg Tablet) 5 mg PO BID [facility] Atorvastatin Calcium (Atorvastatin Calcium 40 Mg Tablet) 40 mg PO DAILY [facility] Last Admin: 10/22/24 07:57 Dose: Not Given Documented By: [facility]CO Non-Admin Reason: lethargic Calcium Carbonate (Calcium Carbonate 750 Mg Tab.Chew) 750 mg PO Q4H PRN PRN Reason: Heartburn Dextrose (Dextrose 50 % 25 Gm/50 Ml Syringe) 25 gm IVPUSH Q15M PRN; Protocol PRN Reason: per Hypoglycemia Standing Ord. Last Admin: 10/22/24 07:53 Dose: 25 gm Documented By: [facility]CO Gabapentin (Gabapentin 100 Mg Capsule) 100 mg PO TID [facility] Glucose (Glucose Gel 15 Gm Gel..Gram.) 15 gm PO Q15M PRN; Protocol PRN Reason: per Hypoglycemia Standing Ord. Sodium Chloride (Ns) 1,000 mls @ 100 mls/hr IVCONT .Q10H [facility] Last Infusion: 10/22/24 12:16 Dose: Infused Documented By: [facility]CO Cefepime HCl 1 gm/ Sodium (Chloride) 50 mls @ 100 mls/hr IV Q8H [facility] Last Infusion: 10/22/24 06:08 Dose: Infused Documented By: DAMI Vancomycin HCl 750 mg/ Sodium (Chloride) 265 mls @ 265 mls/hr IV Q12H [facility] Insulin Glargine (Insulin Glargine,Hum.Rec.Anlog 100 Unit/Ml 10 Ml Vial) 15 unit SUBCUT DAILY [facility] Last Admin: 10/22/24 07:28 Dose: Not Given Documented By: [facility] Non-Admin Reason: No Insulin Coverage Insulin Glargine (Insulin Glargine,Hum.Rec.Anlog 100 Unit/Ml 10 Ml Vial) 15 unit SUBCUT BEDTIME [facility] Last Admin: 10/21/24 21:03 Dose: 15 unit Documented By: DAMI Insulin Human Lispro (Insulin Lispro 100 Unit/Ml 3 Ml Vial) 0 unit SUBCUT QIDACHS [facility]; Protocol Last Admin: 10/22/24 11:34 Dose: Not Given Documented By: [facility]CO Non-Admin Reason: pt continues not eating well Magnesium Hydroxide (Milk Of Magnesia 30 Ml Oral.Susp) 30 ml PO DAILY PRN PRN Reason: Constipation Melatonin (Melatonin 3 Mg Tablet) 6 mg PO BEDTIME PRN PRN Reason: Insomnia Multivitamins/Vitamin C (Multivitamin Tablet) 1 tab PO BID [facility] Last Admin: 10/22/24 07:57 Dose: Not Given Documented By: [facility]CO Non-Admin Reason: lethargic Naloxone HCl (Naloxone Hcl 0.4 Mg/Ml Vial) 0.04 mg IVPUSH Q5M PRN PRN Reason: Respiratory Rate < 10 Oxycodone HCl (Oxycodone Hcl Er 10 Mg Tab.Er.12h) 10 mg PO BID [facility] Last Admin: 10/22/24 09:53 Dose: 10 mg Documented By: [facility]CO Oxycodone HCl (Oxycodone Hcl Immed Release 5 Mg Tablet) 5 mg PO Q4H PRN PRN Reason: Pain, Moderate(Pain Scale 4-6) Pharmacy Consult (Consult Rx Vancomycin Dosing) 1 each MISCELLANE DAILY PRN PRN Reason: Consult order Quetiapine Fumarate (Quetiapine Fumarate 100 Mg Tablet) 100 mg PO BID [facility] Last Admin: 10/22/24 07:30 Dose: Not Given Documented By: [facility]CO Non-Admin Reason: lethargic Quetiapine Fumarate (Quetiapine Fumarate 200 Mg Tablet) 200 mg PO BEDTIME [facility] Sodium Chloride (0.9 % Sodium Chloride Flush 3 Ml Syringe) 3 ml IVFLUSH QSHIFT [facility] Last Admin: 10/22/24 07:39 Dose: 3 ml Documented By: [facility]CO Vitamin E (Vitamin E (Dl,Tocopheryl Acet) 180 Mg (400 Unit) Capsule) 180 mg PO DAILY [facility] Last Admin: 10/22/24 07:57 Dose: Not Given Documented By: [facility]CO Non-Admin Reason: lethargic Labs 10/22/24 04:50 10/22/24 04:45 Labs: Laboratory Results - last 24 hr 10/21/24 10/21/24 10/21/24 13:52 16:13 17:36 MCV MCH MCHC RDW Plt Count MPV Absolute Nucleated RBC Nucleated RBC % (auto) ESR PT INR aPTT Heparin Protocol 39.3 L D Anion Gap Estim Creat Clear Calc Estimated GFR POC Glucose 264 H Random Glucose Lactic Acid Calcium Total Creatine Kinase C-Reactive Protein 7.37 H Procalcitonin 0.07 Urine Color Urine Appearance Urine pH Ur Specific [place] Urine Protein Urine Glucose (UA) Urine Ketones Urine Blood Urine Nitrite Ur Leukocyte Esterase Urine RBC Urine WBC Ur Squamous Epith Cells Urine Bacteria Hyaline Casts Respiratory Panel [place] Adenovirus (Rapid PCR) B.pert (TEM-PCR) B.parapertussis DNA PCR C. pneumoniae DNA (PCR) Coronavirus OC43 (PCR) Coronavirus HKU1 (PCR) Coronavirus 229E (PCR) Coronavirus NL63 (PCR) Human Metapneumovir PCR Influenza A (RT-PCR) Influenza A (H1) PCR Influ A () PCR Influenza A (H3) PCR Influenza B (RT-PCR) M. pneumoniae (PCR) Parainfluenza 1 (PCR) Parainfluenza 2 (PCR) Parainfluenza 3 (PCR) Parainfluenza 4 (PCR) RSV (PCR) Entero/Rhino (PCR) SARS-CoV-2 RNA (RT-PCR) 10/21/24 10/21/24 10/22/24 20:32 21:59 03:40 MCV MCH MCHC RDW Plt Count MPV Absolute Nucleated RBC Nucleated RBC % (auto) ESR 23 H PT INR aPTT Heparin Protocol 32.6 L Anion Gap Estim Creat Clear Calc Estimated GFR POC Glucose 118 H 65 Random Glucose Lactic Acid Calcium Total Creatine Kinase C-Reactive Protein Procalcitonin Urine Color Urine Appearance Urine pH Ur Specific [place] Urine Protein Urine Glucose (UA) Urine Ketones Urine Blood Urine Nitrite Ur Leukocyte Esterase Urine RBC Urine WBC Ur Squamous Epith Cells Urine Bacteria Hyaline Casts Respiratory Panel [place] Adenovirus (Rapid PCR) B.pert (TEM-PCR) B.parapertussis DNA PCR C. pneumoniae DNA (PCR) Coronavirus OC43 (PCR) Coronavirus HKU1 (PCR) Coronavirus 229E (PCR) Coronavirus NL63 (PCR) Human Metapneumovir PCR Influenza A (RT-PCR) Influenza A (H1) PCR Influ A (H1/09) PCR Influenza A (H3) PCR Influenza B (RT-PCR) M. pneumoniae (PCR) Parainfluenza 1 (PCR) Parainfluenza 2 (PCR) Parainfluenza 3 (PCR) Parainfluenza 4 (PCR) RSV (PCR) Entero/Rhino (PCR) SARS-CoV-2 RNA (RT-PCR) 10/22/24 10/22/24 10/22/24 04:28 04:36 04:45 MCV MCH MCHC RDW Plt Count MPV Absolute Nucleated RBC Nucleated RBC % (auto) ESR PT 12.9 H INR 1.1 aPTT Heparin Protocol 74.8 D Anion Gap 14 Estim Creat Clear Calc 83.2 Estimated GFR > 60 POC Glucose 187 H Random Glucose 181 H Lactic Acid 1.6 Calcium 8.4 D Total Creatine Kinase 478 H C-Reactive Protein Procalcitonin Urine Color Urine Appearance Urine pH Ur Specific [place] Urine Protein Urine Glucose (UA) Urine Ketones Urine Blood Urine Nitrite Ur Leukocyte Esterase Urine RBC Urine WBC Ur Squamous Epith Cells Urine Bacteria Hyaline Casts Respiratory Panel [place] Adenovirus (Rapid PCR) B.pert (TEM-PCR) B.parapertussis DNA PCR C. pneumoniae DNA (PCR) Coronavirus OC43 (PCR) Coronavirus HKU1 (PCR) Coronavirus 229E (PCR) Coronavirus NL63 (PCR) Human Metapneumovir PCR Influenza A (RT-PCR) Influenza A (H1) PCR Influ A (H1/) PCR Influenza A (H3) PCR Influenza B (RT-PCR) M. pneumoniae (PCR) Parainfluenza 1 (PCR) Parainfluenza 2 (PCR) Parainfluenza 3 (PCR) Parainfluenza 4 (PCR) RSV (PCR) Entero/Rhino (PCR) SARS-CoV-2 RNA (RT-PCR) 10/22/24 10/22/24 10/22/24 04:49 04:50 06:45 MCV 86.6 MCH 28.8 MCHC 33.2 RDW 10.9 L Plt Count 159 L MPV 11.1 Absolute Nucleated RBC 0.000 Nucleated RBC % (auto) 0.0 ESR PT INR aPTT Heparin Protocol Anion Gap Estim Creat Clear Calc Estimated GFR POC Glucose 180 H Random Glucose Lactic Acid Calcium Total Creatine Kinase C-Reactive Protein Procalcitonin Urine Color Yellow Urine Appearance Clear Urine pH 5.5 Ur Specific [place] 1.020 Urine Protein Trace Urine Glucose (UA) >=1000 H Urine Ketones 40 Urine Blood Negative Urine Nitrite Negative Ur Leukocyte Esterase Negative Urine RBC 0-2 Urine WBC 0-5 Ur Squamous Epith Cells 0-2 Urine Bacteria None Seen Hyaline Casts 0-2 Respiratory Panel [place] Adenovirus (Rapid PCR) B.pert (TEM-PCR) B.parapertussis DNA PCR C. pneumoniae DNA (PCR) Coronavirus OC43 (PCR) Coronavirus HKU1 (PCR) Coronavirus 229E (PCR) Coronavirus NL63 (PCR) Human Metapneumovir PCR Influenza A (RT-PCR) Influenza A (H1) PCR Influ A (H1/) PCR Influenza A (H3) PCR Influenza B (RT-PCR) M. pneumoniae (PCR) Parainfluenza 1 (PCR) Parainfluenza 2 (PCR) Parainfluenza 3 (PCR) Parainfluenza 4 (PCR) RSV (PCR) Entero/Rhino (PCR) SARS-CoV-2 RNA (RT-PCR) 10/22/24 10/22/24 10/22/24 07:20 10:23 10:30 MCV MCH MCHC RDW Plt Count MPV Absolute Nucleated RBC Nucleated RBC % (auto) ESR PT INR aPTT Heparin Protocol 76.8 Anion Gap Estim Creat Clear Calc Estimated GFR POC Glucose 86 Random Glucose Lactic Acid Calcium Total Creatine Kinase C-Reactive Protein Procalcitonin Urine Color Urine Appearance Urine pH Ur Specific [place] Urine Protein Urine Glucose (UA) Urine Ketones Urine Blood Urine Nitrite Ur Leukocyte Esterase Urine RBC Urine WBC Ur Squamous Epith Cells Urine Bacteria Hyaline Casts Respiratory Panel [place] See Note Adenovirus (Rapid PCR) Not Detected B.pert (TEM-PCR) Not Detected B.parapertussis DNA PCR Not Detected C. pneumoniae DNA (PCR) Not Detected Coronavirus OC43 (PCR) Not Detected Coronavirus HKU1 (PCR) Not Detected Coronavirus 229E (PCR) Not Detected Coronavirus NL63 (PCR) Not Detected Human Metapneumovir PCR Not Detected Influenza A (RT-PCR) Not Detected Influenza A (H1) PCR Not Detected Influ A () PCR Not Detected Influenza A (H3) PCR Not Detected Influenza B (RT-PCR) Not Detected M. pneumoniae (PCR) Not Detected Parainfluenza 1 (PCR) Not Detected Parainfluenza 2 (PCR) Not Detected Parainfluenza 3 (PCR) Not Detected Parainfluenza 4 (PCR) Not Detected RSV (PCR) Not Detected Entero/Rhino (PCR) Not Detected SARS-CoV-2 RNA (RT-PCR) Not Detected 10/22/24 11:26 MCV MCH MCHC RDW Plt Count MPV Absolute Nucleated RBC Nucleated RBC % (auto) ESR PT INR aPTT Heparin Protocol Anion Gap Estim Creat Clear Calc Estimated GFR POC Glucose 169 H Random Glucose Lactic Acid Calcium Total Creatine Kinase C-Reactive Protein Procalcitonin Urine Color Urine Appearance Urine pH Ur Specific [place] Urine Protein Urine Glucose (UA) Urine Ketones Urine Blood Urine Nitrite Ur Leukocyte Esterase Urine RBC Urine WBC Ur Squamous Epith Cells Urine Bacteria Hyaline Casts Respiratory Panel [place] Adenovirus (Rapid PCR) B.pert (TEM-PCR) B.parapertussis DNA PCR C. pneumoniae DNA (PCR) Coronavirus OC43 (PCR) Coronavirus HKU1 (PCR) Coronavirus 229E (PCR) Coronavirus NL63 (PCR) Human Metapneumovir PCR Influenza A (RT-PCR) Influenza A (H1) PCR Influ A () PCR Influenza A (H3) PCR Influenza B (RT-PCR) M. 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
[2024-10-22] MEDS: Gabapentin 100 MG CAPSULE PO ×2 (13:32→19:47)
[2024-10-22 13:54] LABS: ACT 195 Celite s (79-173)
[2024-10-22 13:54] LABS: ACT 211 Celite s (79-173)
[2024-10-22 15:44] LABS: Glucose, Whole Blood 162 mg/dL (60-115)
[2024-10-22] MEDS: Insulin Lispro 100 UNIT/ML 3 ML VIAL SUBCUT ×2 (17:23→20:10)
[2024-10-22] MEDS: oxyCODONE HCl Immed Release 5 MG TABLET PO (19:46)
[2024-10-22] MEDS: Apixaban 5 MG TABLET PO (19:47)
[2024-10-22] MEDS: Insulin Glargine,Hum.rec.anlog 100 UNIT/ML 10 ML VIAL 15 UNIT SUBCUT ×2 (20:08→21:00)
[2024-10-22 20:16] LABS: Glucose, Whole Blood 218 mg/dL (60-115)
[2024-10-22] MEDS: Multivitamin TABLET 1 TAB PO (21:55)
[2024-10-22] MEDS: QUEtiapine Fumarate 100 MG TABLET PO (21:55)
[2024-10-23] VITALS (8 sets, daily range): BP systolic 139–171; BP diastolic 58–82; PULSE 100–131; RESP 16–20; TEMP 36.9–37.2; O2SAT 95–97
[2024-10-23] MEDS: oxyCODONE HCl Immed Release 5 MG TABLET PO ×4 (00:45→15:32)
[2024-10-23] MEDS: 0.9 % Sodium Chloride 1,000 ML 100 ML IVCONT ×2 (00:48→11:00)
[2024-10-23] MEDS: cefEPime HCl 1 GM in 0.9 % Sodium Chloride 50 ML IV (04:54)
[2024-10-23 06:15] LABS: Hematocrit 30.9 % (42.0-52.0); Hemoglobin 10.3 g/dl (14.0-18.0); Mean Corpuscular HGB Conc 33.3 g/dl (31.0-36.0); Mean Corpuscular Hemoglobin 28.8 pg (27.0-33.0); Mean Corpuscular Volume 86.3 fL (80.0-98.0); Mean Platelet Volume 10.8 fL (9.4-12.4); Platelet Count 166 X10*3/uL (160-400); Red Blood Count 3.58 X10*6/uL (4.60-5.80); Red Cell Distribution Width 10.8 % (11.0-16.0); White Blood Count 8.4 X10*3/uL (4.8-10.8)
[2024-10-23 06:20] LABS: Anion Gap 11 (12-20); Blood Urea Nitrogen 8 mg/dL (9-16); Carbon Dioxide 26 mmol/L (22-29); Chloride 105 mmol/L (96-108); Creatinine Clr Calc Pharmacy 86.3; Estimated Glomerular Filt Rate > 60; Glucose Random 199 mg/dL (60-115); Potassium 3.7 mmol/L (3.3-5.1); Sodium 138 mmol/L (135-145)
[2024-10-23 06:34] LABS: PTT Heparin Drip 31.4 SEC (53-77.9)
[2024-10-23 07:39] LABS: Glucose, Whole Blood 169 mg/dL (60-115)
[2024-10-23] MEDS: vancomycin HCL 750 MG in 0.9 % Sodium Chloride 250 ML 265 MG IV (08:39)
[2024-10-23] MEDS: amLODIPine Besylate 5 MG TABLET PO (08:39)
[2024-10-23] MEDS: Vitamin E (Dl,Tocopheryl Acet) 180 MG (400 UNIT) CAPSULE PO (08:40)
[2024-10-23] MEDS: QUEtiapine Fumarate 100 MG TABLET PO (08:40)
[2024-10-23] MEDS: Insulin Lispro 100 UNIT/ML 3 ML VIAL SUBCUT ×2 (08:40→10:58)
[2024-10-23] MEDS: 0.9 % Sodium Chloride Flush 3 ML SYRINGE IVFLUSH ×2 (08:40→13:58)
[2024-10-23] MEDS: Gabapentin 100 MG CAPSULE PO ×2 (08:40→13:57)
[2024-10-23] MEDS: Atorvastatin Calcium 40 MG TABLET PO (08:40)
[2024-10-23] MEDS: Multivitamin TABLET 1 TAB PO (08:40)
[2024-10-23] MEDS: Apixaban 5 MG TABLET PO (08:40)
[2024-10-23] MEDS: oxyCODONE HCl ER 10 MG TAB.ER.12H PO (08:40)
[2024-10-23] MEDS: Insulin Glargine,Hum.rec.anlog 100 UNIT/ML 10 ML VIAL 15 UNIT SUBCUT (08:42)
--- NOTE | 2024-10-23 09:40 | HO.PM.IMPN ---
Subjective Subjective Date of Service: 10/23/24 Interval History: 100.3 temp overnight Physical Exam Vital Signs: Vital Signs: Last Vital Signs Temp 98.5 F 10/23/24 07:28 Pulse 102 H 10/23/24 07:28 Resp 16 10/23/24 07:28 BP 158/82 H 10/23/24 07:28 Pulse Ox 97 10/23/24 07:28 O2 Del Method Room Air 10/23/24 07:28 O2 Flow Rate 2 10/21/24 10:30 BMI result Body Mass Index 23.4 General: AO X 3, in acute distress Resp: CTA bilateral, no accessory muscles used CVS: S1,S2,RRR GI: soft, non tender, non distended Neuro: motor grossly intact, alert Psych: appropriate affect, appropriate insight Objective Data Active Medications Acetaminophen (Acetaminophen 325 Mg Tablet) 650 mg PO Q6H PRN PRN Reason: Pain, Mild (Pain Scale 1-3) Last Admin: 10/22/24 09:56 Dose: 650 mg Documented By: [facility] Acetaminophen (Acetaminophen 325 Mg Tablet) 650 mg PO Q6H PRN PRN Reason: Pain, Mild 1-3,fever,headache Acetaminophen (Acetaminophen Supp 325 Mg Supp.Rect) 325 mg WA Q6H PRN PRN Reason: Pain, Mild (Pain Scale 1-3) Amlodipine Besylate (Amlodipine Besylate 5 Mg Tablet) 5 mg PO DAILY [facility]; Protocol Last Admin: 10/23/24 08:39 Dose: 5 mg Documented By: BONG Apixaban (Apixaban 5 Mg Tablet) 5 mg PO BID [facility] Last Admin: 10/23/24 08:40 Dose: 5 mg Documented By: BONG Atorvastatin Calcium (Atorvastatin Calcium 40 Mg Tablet) 40 mg PO DAILY [facility] Last Admin: 10/23/24 08:40 Dose: 40 mg Documented By: BONG Calcium Carbonate (Calcium Carbonate 750 Mg Tab.Chew) 750 mg PO Q4H PRN PRN Reason: Heartburn Dextrose (Dextrose 50 % 25 Gm/50 Ml Syringe) 25 gm IVPUSH Q15M PRN; Protocol PRN Reason: per Hypoglycemia Standing Ord. Last Admin: 10/22/24 07:53 Dose: 25 gm Documented By: [facility] Gabapentin (Gabapentin 100 Mg Capsule) 100 mg PO TID [facility] Last Admin: 10/23/24 08:40 Dose: 100 mg Documented By: BONG Glucose (Glucose Gel 15 Gm Gel..Gram.) 15 gm PO Q15M PRN; Protocol PRN Reason: per Hypoglycemia Standing Ord. Sodium Chloride (Ns) 1,000 mls @ 100 mls/hr IVCONT .Q10H [facility] Last Admin: 10/23/24 00:48 Dose: 100 mls/hr Documented By: GIO Cefepime HCl 1 gm/ Sodium (Chloride) 50 mls @ 100 mls/hr IV Q8H [facility] Last Infusion: 10/23/24 05:42 Dose: Infused Documented By: GIO Vancomycin HCl 750 mg/ Sodium (Chloride) 265 mls @ 265 mls/hr IV Q12H [facility] Last Admin: 10/23/24 08:39 Dose: 265 mls/hr Documented By: BONG Insulin Glargine (Insulin Glargine,Hum.Rec.Anlog 100 Unit/Ml 10 Ml Vial) 15 unit SUBCUT DAILY [facility] Last Admin: 10/22/24 20:08 Dose: 15 unit Documented By: GIO Insulin Glargine (Insulin Glargine,Hum.Rec.Anlog 100 Unit/Ml 10 Ml Vial) 15 unit SUBCUT BEDTIME [facility] Last Admin: 10/22/24 21:00 Dose: 15 unit Documented By: GIO Insulin Human Lispro (Insulin Lispro 100 Unit/Ml 3 Ml Vial) 0 unit SUBCUT QIDACHS [facility]; Protocol Last Admin: 10/23/24 08:40 Dose: 2 unit Documented By: BONG Magnesium Hydroxide (Milk Of Magnesia 30 Ml Oral.Susp) 30 ml PO DAILY PRN PRN Reason: Constipation Melatonin (Melatonin 3 Mg Tablet) 6 mg PO BEDTIME PRN PRN Reason: Insomnia Multivitamins/Vitamin C (Multivitamin Tablet) 1 tab PO BID [facility] Last Admin: 10/23/24 08:40 Dose: 1 tab Documented By: BONG Naloxone HCl (Naloxone Hcl 0.4 Mg/Ml Vial) 0.04 mg IVPUSH Q5M PRN PRN Reason: Respiratory Rate < 10 Oxycodone HCl (Oxycodone Hcl Er 10 Mg Tab.Er.12h) 10 mg PO BID [facility] Last Admin: 10/23/24 08:40 Dose: 10 mg Documented By: BONG Oxycodone HCl (Oxycodone Hcl Immed Release 5 Mg Tablet) 5 mg PO Q4H PRN PRN Reason: Pain, Moderate(Pain Scale 4-6) Last Admin: 10/23/24 04:56 Dose: 5 mg Documented By: GIO Pharmacy Consult (Consult Rx Vancomycin Dosing) 1 each MISCELLANE DAILY PRN PRN Reason: Consult order Quetiapine Fumarate (Quetiapine Fumarate 100 Mg Tablet) 100 mg PO BID [facility] Last Admin: 10/23/24 08:40 Dose: 100 mg Documented By: BONG Quetiapine Fumarate (Quetiapine Fumarate 200 Mg Tablet) 200 mg PO BEDTIME [facility] Last Admin: 10/23/24 00:36 Dose: Not Given Documented By: GIO Non-Admin Reason: Patient Asleep Sodium Chloride (0.9 % Sodium Chloride Flush 3 Ml Syringe) 3 ml IVFLUSH QSHIFT [facility] Last Admin: 10/23/24 08:40 Dose: 3 ml Documented By: BONG Vitamin E (Vitamin E (Dl,Tocopheryl Acet) 180 Mg (400 Unit) Capsule) 180 mg PO DAILY [facility] Last Admin: 10/23/24 08:40 Dose: 180 mg Documented By: BONG Labs 10/23/24 05:55 10/23/24 05:55 Labs: Laboratory Results - last 24 hr 10/21/24 10/21/24 10/22/24 09:51 10:01 04:45 MCV MCH MCHC RDW Plt Count MPV Absolute Nucleated RBC Nucleated RBC % (auto) aPTT Heparin Protocol Activated Clotting Time 195 H 211 H Anion Gap Estim Creat Clear Calc Estimated GFR POC Glucose Random Glucose Calcium Total Creatine Kinase 478 H Respiratory Panel Berry Adenovirus (Rapid PCR) B.pert (TEM-PCR) B.parapertussis DNA PCR C. pneumoniae DNA (PCR) Coronavirus OC43 (PCR) Coronavirus HKU1 (PCR) Coronavirus 229E (PCR) Coronavirus NL63 (PCR) Human Metapneumovir PCR Influenza A (RT-PCR) Influenza A (H1) PCR Influ A (H1/09) PCR Influenza A (H3) PCR Influenza B (RT-PCR) M. pneumoniae (PCR) Parainfluenza 1 (PCR) Parainfluenza 2 (PCR) Parainfluenza 3 (PCR) Parainfluenza 4 (PCR) RSV (PCR) Entero/Rhino (PCR) SARS-CoV-2 RNA (RT-PCR) 10/22/24 10/22/24 10/22/24 10:23 10:30 11:26 MCV MCH MCHC RDW Plt Count MPV Absolute Nucleated RBC Nucleated RBC % (auto) aPTT Heparin Protocol 76.8 Activated Clotting Time Anion Gap Estim Creat Clear Calc Estimated GFR POC Glucose 169 H Random Glucose Calcium Total Creatine Kinase Respiratory Panel Berry See Note Adenovirus (Rapid PCR) Not Detected B.pert (TEM-PCR) Not Detected B.parapertussis DNA PCR Not Detected C. pneumoniae DNA (PCR) Not Detected Coronavirus OC43 (PCR) Not Detected Coronavirus HKU1 (PCR) Not Detected Coronavirus 229E (PCR) Not Detected Coronavirus NL63 (PCR) Not Detected Human Metapneumovir PCR Not Detected Influenza A (RT-PCR) Not Detected Influenza A (H1) PCR Not Detected Influ A (H1/09) PCR Not Detected Influenza A (H3) PCR Not Detected Influenza B (RT-PCR) Not Detected M. pneumoniae (PCR) Not Detected Parainfluenza 1 (PCR) Not Detected Parainfluenza 2 (PCR) Not Detected Parainfluenza 3 (PCR) Not Detected Parainfluenza 4 (PCR) Not Detected RSV (PCR) Not Detected Entero/Rhino (PCR) Not Detected SARS-CoV-2 RNA (RT-PCR) Not Detected 10/22/24 10/22/24 10/23/24 15:41 19:57 05:55 MCV 86.3 MCH 28.8 MCHC 33.3 RDW 10.8 L Plt Count 166 MPV 10.8 Absolute Nucleated RBC 0.000 Nucleated RBC % (auto) 0.0 aPTT Heparin Protocol 31.4 L D Activated Clotting Time Anion Gap 11 L Estim Creat Clear Calc 86.3 Estimated GFR > 60 POC Glucose 162 H 218 H Random Glucose 199 H Calcium 8.0 L Total Creatine Kinase Respiratory Panel Berry Adenovirus (Rapid PCR) B.pert (TEM-PCR) B.parapertussis DNA PCR C. pneumoniae DNA (PCR) Coronavirus OC43 (PCR) Coronavirus HKU1 (PCR) Coronavirus 229E (PCR) Coronavirus NL63 (PCR) Human Metapneumovir PCR Influenza A (RT-PCR) Influenza A (H1) PCR Influ A (H1/) PCR Influenza A (H3) PCR Influenza B (RT-PCR) M. pneumoniae (PCR) Parainfluenza 1 (PCR) Parainfluenza 2 (PCR) Parainfluenza 3 (PCR) Parainfluenza 4 (PCR) RSV (PCR) Entero/Rhino (PCR) SARS-CoV-2 RNA (RT-PCR) 10/23/24 07:31 MCV MCH MCHC RDW Plt Count MPV Absolute Nucleated RBC Nucleated RBC % (auto) aPTT Heparin Protocol Activated Clotting Time Anion Gap Estim Creat Clear Calc Estimated GFR POC Glucose 169 H Random Glucose Calcium Total Creatine Kinase Respiratory Panel Berry Adenovirus (Rapid PCR) B.pert (TEM-PCR) B.parapertussis DNA PCR C. pneumoniae DNA (PCR) Coronavirus OC43 (PCR) Coronavirus HKU1 (PCR) Coronavirus 229E (PCR) Coronavirus NL63 (PCR) Human Metapneumovir PCR Influenza A (RT-PCR) Influenza A (H1) PCR Influ A (H1/) PCR Influenza A (H3) PCR Influenza B (RT-PCR) M. pneumoniae (PCR) Parainfluenza 1 (PCR) Parainfluenza 2 (PCR) Parainfluenza 3 (PCR) Parainfluenza 4 (PCR) RSV (PCR) Entero/Rhino (PCR) SARS-CoV-2 RNA (RT-PCR) Microbiology Microbiology Results: Microbiology 10/22/24 04:45 Blood Culture - Preliminary Blood - Venous No growth after 24 hours. 10/22/24 04:45 Blood Culture - Preliminary Blood - Venous No growth after 24 hours. 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, diabetic neuropathy, pvd, htn, admitted to vascular team for left pop atherectomy and plasty pvd with left pop occlusion s/p atherectomy and plasty apixaban, statin Acute toxic metabolic encephalopathy Due to medications, Seroquel decreased and resolved sirs at 4am 10/22/24 empiric vanc, zosyn follow up cultures - no growth to date viral swab negative DM insulin mood disorder seroquel, sertraline Quality Stroke Does the patient have a stroke diagnosis?: No VTE Prior VTE?: No VTE Risk Level:: Medical - moderate - high VTE Device Contraindication: Treatment Not Indicated VTE Drug Contraindication: N/A - Med Ordered
--- NOTE | 2024-10-23 10:30 | MHC.CM.PN ---
PT is recommending STR; CM will follow.
[2024-10-23 10:49] LABS: Glucose, Whole Blood 152 mg/dL (60-115)
--- NOTE | 2024-10-23 12:22 | MHC.CM.PN ---
CM met with Patient at bedside to discuss dc planning. Patient has chosen [facility] for STR. MDS has been faxed to [facility] and CM will continue to follow.
--- NOTE | 2024-10-23 12:52 | PM.DS ---
DS: Providers Provider Date of Service: 10/23/24 Date of admission: 10/21/24 11:04 Date of discharge: 10/23/24 Primary care physician: Ashley Holder MD Consults: 10/21/24 10:45 Consult to Hospitalist Routine Comment: Consulting Provider: [facility] Reason For Exam: medical mgte of diabetes; s/p left angio 10/22/24 05:51 Consult to Infectious Diseases Routine Consulting Provider: [facility] Reason for consultation: Fever DS: Diagnosis Discharge Diagnosis (1) Left popliteal artery occlusion: Status: Acute DS: Summary Hospital Course Hospital Course: Harjinder is s/p left leg angio with artherectomy and stenting of the popliteal and peroneal arteries on 10/21/24. He was admitted for pain control and assessment by PT/OT due to difficulty with ambulating, unable to bear weight on the left leg. His pain was difficult to control the first night but has been very well controlled since. PT and OT recommend STR and we are in agreement. I had a lengthy discussion with the pt about it and he is in agreement as well. We have discontinued the IV abx; blood cultures came back negative for any growth >24h. The pt has not had any fevers/leukocytosis except for the one time fever of 101. He does continue with tachycardia and hypertension with no complaints of CP, diff breathing, or shortness of breath. He will likely need to follow up outpatient with his PCP for further control of his BP. We will send him with a couple days worth of Percocet for pain control. CM is working on getting him to [facility], possibly today. We will have the pt follow up with us outpatient in appx 2w. He remains stable from a vascular standpoint and is ready for discharge to a STR. Time Attestation Discharge Coordination Time (in mins): >45 min Quality: Safe Use of Opioids Does Pt have an Active Cancer Diagnosis on the Problem List?: No Quality: Stroke Does the patient have a stroke diagnosis?: No Physical Exam Vital Signs: Vital Signs: Last Vital Signs Temp 98.9 F 10/23/24 11:35 Pulse 121 H 10/23/24 11:35 Resp 16 10/23/24 11:35 BP 165/76 H 10/23/24 11:35 Pulse Ox 97 10/23/24 11:35 O2 Del Method Room Air 10/23/24 11:35 O2 Flow Rate 2 10/21/24 10:30 BMI result Body Mass Index 23.4 Const: General: comfortable and no acute distress Orientation/consciousness: patient oriented x3 HEENT: Ears: hearing grossly normal bilaterally Resp: Effort & Inspection: normal respiratory effort and able to speak in complete sentences Auscultation: clear to auscultation bilaterally Cardio: Rate: regular rate Rhythm: regular rhythm Heart sounds: S1 normal heart sound present and S2 normal heart sound present Bruits: no abdominal aortic bruits, no carotid bruits, no femoral bruits and no renal bruits GI: Palpation (GI): No Abdominal aortic bruit present : Other: Right Groin incision: C/D/I. No bleeding or drainage noted. Neuro: General: patient oriented x3 Cranial nerves: Yes CN's II-XII intact bilaterally Extrem: Other: Left lower extremity: painful to palpation only on the medial posterior aspect of the mid-calf to ankle. Palpable DP pulse. Foot/leg warm to the touch. DS: Data Data Completed and Pending Labs on day of discharge: Laboratory Results - last 24 hr 10/21/24 10/21/24 10/22/24 09:51 10:01 15:41 WBC RBC Hgb Hct MCV MCH MCHC RDW Plt Count MPV Absolute Nucleated RBC Nucleated RBC % (auto) aPTT Heparin Protocol Activated Clotting Time 195 H 211 H Sodium Potassium Chloride Carbon Dioxide Anion Gap BUN Creatinine Estim Creat Clear Calc Estimated GFR POC Glucose 162 H Random Glucose Calcium 10/22/24 10/23/24 10/23/24 19:57 05:55 07:31 WBC 8.4 RBC 3.58 L Hgb 10.3 L Hct 30.9 L MCV 86.3 MCH 28.8 MCHC 33.3 RDW 10.8 L Plt Count 166 MPV 10.8 Absolute Nucleated RBC 0.000 Nucleated RBC % (auto) 0.0 aPTT Heparin Protocol 31.4 L D Activated Clotting Time Sodium 138 Potassium 3.7 Chloride 105 Carbon Dioxide 26 Anion Gap 11 L BUN 8 L Creatinine 0.79 Estim Creat Clear Calc 86.3 Estimated GFR > 60 POC Glucose 218 H 169 H Random Glucose 199 H Calcium 8.0 L 10/23/24 10:44 WBC RBC Hgb Hct MCV MCH MCHC RDW Plt Count MPV Absolute Nucleated RBC Nucleated RBC % (auto) aPTT Heparin Protocol Activated Clotting Time Sodium Potassium Chloride Carbon Dioxide Anion Gap BUN Creatinine Estim Creat Clear Calc Estimated GFR POC Glucose 152 H Random Glucose Calcium Preliminary micro results at discharge 10/22/24 04:45 Blood Culture - Preliminary Blood - Venous No growth after 24 hours. 10/22/24 04:45 Blood Culture - Preliminary Blood - Venous No growth after 24 hours. Discharge Plan Discharge Anticipated Discharge Date/Time: 10/23/24 12:19 Patient Disposition: er Inpatient Rehab Fac Discharge Diagnosis: s/p left angiogram with left popliteal and peroneal artery balloon Referrals: Ashley Nugent MD [Primary Care Provider] - 1 Week Discharge Medications: New oxycodone-acetaminophen 5-325 mg tablet 1 tab PO TID PRN (Reason: pain) Qty: 20 0RF Rx Instructions: Partial Fill upon patient request. Continued insulin lispro [Humalog KwikPen Insulin] 100 unit/mL insulin pen See Rx Instructions subcut TID Qty: 15 4RF Rx Instructions: 2 u breakfast, 4 u lunch & dinner subcut 3 times a day; clopidogrel [Plavix] 75 mg tablet 75 mg PO DAILY Qty: 30 1RF aspirin 81 mg tablet,delayed release (DR/EC) 81 mg PO DAILY Qty: 30 1RF morphine 15 mg tablet 15 mg PO Q4H PRN (Reason: pain) Qty: 18 0RF Rx Instructions: partial fill okay; Partial Fill upon patient request. quetiapine 300 mg tablet 600 mg PO BEDTIME sertraline 100 mg tablet 100 mg PO DAILY quetiapine 100 mg tablet 100 mg PO BID Cerovite Senior 0.4 mg-300 mcg- 250 mcg tablet 1 tab PO BID insulin glargine [Lantus Solostar U-100 Insulin] 100 unit/mL (3 mL) insulin pen 17 unit SUBCUT DAILY vitamin E (dl, acetate) 180 mg (400 unit) capsule 180 mg PO DAILY insulin glargine [Lantus Solostar U-100 Insulin] 100 unit/mL (3 mL) insulin pen 15 unit SUBCUT BEDTIME atorvastatin 40 mg tablet 40 mg PO DAILY gabapentin 300 mg capsule 300 mg PO BEDTIME (DME) FreeStyle Lite Strips Strip See Rx Instructions .Route Rx Instructions: As directed 3 times daily (DME) blood-glucose meter [FreeStyle Lite Meter] Kit See Rx Instructions .Route Rx Instructions: As directed 3 times a day (DME) lancets [TRUEplus Lancets] 33 gauge misc See Rx Instructions .Route Rx Instructions: As directed 3 times daily glucose [Dex4 Glucose] 4 gram tablet,chewable 12 g PO Q15M PRN (Reason: hypoglycemia) Qty: 60 2RF Rx Instructions: until symptoms of low blood sugar are controlled Discharge Orders: Discharge Order (Routine); Ordered 10/23/24 Ordered By: Renata Redding Diet: Advance to usual diet Activity on Discharge: As tolerated Stand Alone Forms: Patient Portal Discharge page Print Language: Comoran Activity Restrictions/Additional Instructions: Bear weight as tolerated. Care Plan Goals: Begin to bear weight on the left lower extremity. Pain control, with Tylenol and only use narcotics if pain >7. Health Concerns: HTN, left lower extremity pain s/p angio Plan of Treatment: Will be sent for STR due to increased pain of the left lower extremity s/p left leg angio with artherectomy and stenting of the popliteal and peroneal arteries Assessment: s/p left leg angio on 10/21/24
--- NOTE | 2024-10-23 13:09 | MHC.CM.PN ---
Patient has completed a HCP, naming his Brother/Marin as his Agent.
[2024-10-23] MEDS: HYDROmorphone HCl 0.5 MG/0.5 ML SYRINGE IVPUSH (13:57)
[2024-10-23 14:38] LABS: Magnesium 1.8 mg/dL (1.6-2.6)
--- NOTE | 2024-10-23 14:48 | MHC.CM.PN ---
Patient has been medically cleared for dc to SNF/STR today. Patient will dc to [facility] today at 4PM, via [facility].
[2024-10-23 14:53] LABS: Thyroid Stimulating Hormone 5.06 uIU/mL (0.32-4.0)
[2024-10-23] MEDS: Acetaminophen 325 MG TABLET 650 MG PO (15:33)
[2024-10-23 15:43] LABS: Glucose, Whole Blood 110 mg/dL (60-115)
== END 2024-10-23 16:30 | disposition skilled nursing facility (03) | DRG 182 ==
LOC: HO.SSS 11:05 → HO.SSSA 11:10 → HO.IMC 13:04
PROVIDERS: Hospitalist; Internal Medicine; Physician Assistant; Student in an Organized Health Care Education/Training Program; Admitting Provider Physician Assistant Surgical; PCP Student in an Organized Health Care Education/Training Program; Visit Provider Surgery Vascular Surgery
PROC: 04CN3ZZ Extirpation of Matter from Left Popliteal Artery, Percutaneous Approach (ICD-10-PCS; principal; 2024-10-21 09:00)
DX: E11.51 Type 2 diabetes mellitus with diabetic peripheral angiopathy without gangrene (principal); G92.8 Other toxic encephalopathy; R65.10 Systemic inflammatory response syndrome (SIRS) of non-infectious origin without acute organ dysfunction; E11.42 Type 2 diabetes mellitus with diabetic polyneuropathy; I70.222 Atherosclerosis of native arteries of extremities with rest pain, left leg; E86.0 Dehydration; F39 Unspecified mood [affective] disorder; T43.595A Adverse effect of other antipsychotics and neuroleptics, initial encounter; I10 Essential (primary) hypertension; Z20.822 Contact with and (suspected) exposure to COVID-19; Z79.4 Long term (current) use of insulin; Z79.02 Long term (current) use of antithrombotics/antiplatelets; Z79.899 Other long term (current) drug therapy
CPT/HCPCS: 36415; 37225; 37228; 71045; 73600; 73620; 76937; 80048; 81001; 82550; 82947; 83605; 83735; 84145; 84443; 85027; 85347; 85610; 85652; 85730; 86140; 87040; 87633; 93005; 97162; 97166; 99152; 99153; C1714; C1725; C1760; C1769; C1887; C1894; C2623; J0692; J1171; J1644; J1920; J2003; J2250; J2270; J3010; J3370; J7120; Q9967

== ENCOUNTER 2024-10-21 11:04 | Outpatient (BNV) | payer MEDICAID, SELFPAY | END 2024-10-22 07:15 | PROVIDERS: Admitting Provider Physician Assistant Surgical; PCP Student in an Organized Health Care Education/Training Program; Visit Provider Radiology Diagnostic Radiology | DX: R50.9 Fever, unspecified (principal) | CPT/HCPCS: 71045 ==

== ENCOUNTER → 2024-10-21 11:04 | Outpatient (BNV) | payer MEDICAID, SELFPAY | PROVIDERS: Admitting Provider Physician Assistant Surgical; PCP Student in an Organized Health Care Education/Training Program; Visit Provider Surgery Vascular Surgery | DX: I70.202 Unspecified atherosclerosis of native arteries of extremities, left leg (principal) | CPT/HCPCS: 37225; 37228; 75630; 76937; 99152; 99232 ==

== ENCOUNTER → 2024-10-21 11:04 | Outpatient (BNV) | payer MEDICAID, SELFPAY | PROVIDERS: Admitting Provider Physician Assistant Surgical; PCP Student in an Organized Health Care Education/Training Program; Visit Provider Physician Assistant | DX: I70.202 Unspecified atherosclerosis of native arteries of extremities, left leg (principal) | CPT/HCPCS: 99232; 99233; 99499 ==

== ENCOUNTER 2024-12-17 09:56 | Outpatient (AMB) | payer MEDICAID, SELFPAY ==
--- NOTE | 2024-12-17 10:03 | A.OFFVIS_ITS ---
Intake Visit Reasons: overdue post op follow up s/p L leg angio 10/21/24 Intake Note: follow up Left LE angio 10/21/24. Pt states he has LE pain still at rest. Pt states his Left foot is painful and does have a small plantar ulcer. Weight Loss Centre Manager Required: No Accompanied by: Self / Same As Patient Allergies No Known Allergies [No Known Allergies*] Allergy (Verified 12/17/24 10:05) HPI HPI overdue post op follow up s/p L leg angio 10/21/24: Details: The patient is a 64-year-old male presenting for a follow-up after undergoing a vascular procedure on his left leg two months ago. Post-procedure, he reports overall improvement but continues to experience mild pain at the left ankle site, where he previously suffered a fracture during physical activity. There is also a prominent lump on the left lower extremity causing substantial pain and impaired ambulation. The patient notes he quit smoking, an essential factor in his vascular health management. He now presents for vascular follow-up. FORMERLY [facility], [facility] Medical History (Updated 12/17/24 @ 12:08 by Lemuel Logan MD) Peripheral arterial disease Seizure Diabetes mellitus with polyneuropathy Hypertension Diabetes History of pancreatitis Surgical History Hx of appendectomy Hx of cataract extraction Family History Mother Diabetes Father Medical history unknown Social History Household Members: Friend(s) Housing: Apartment Do you presently have visiting nurse or other home services: No Alcohol intake: former Patient Tobacco Use Status: Never used Tobacco Substance Use Type: Marijuana Advance Directives Date on File: 05/28/20 service: No Current occupational status: employed Review of Systems Const All systems reviewed & are unremarkable except as noted in HPI and below Reports no additional complaints ENT Reports Normal hearing present Card Denies chest pain, Denies chest pain at rest, Denies chest pain with activity and Denies pedal edema Resp Denies cough GI Denies abdominal pain Musc Denies abnormal gait, Denies muscle cramps and Denies radiating pain into limb Skin/Breast Denies skin ulcer and Denies wounds Neuro Reports Normal hearing present and Denies abnormal gait Psych Reports no additional complaints Physical Exam Const General: cooperative, healthy appearing and comfortable Orientation/consciousness: oriented to person, oriented to place and oriented to time HEENT Head: Yes normal to inspection Neck Neck: Yes normal visual inspection Carotids: no bruits Chest Chest palpation & inspection: normal inspection of the chest Resp Effort & Inspection: normal respiratory effort and able to speak in complete sentences Auscultation: clear to auscultation bilaterally, no crackles, no rales, no rhonchi and no wheezes Cardio Other: Bilateral DP signals Rate: regular rate Rhythm: regular rhythm Heart sounds: S1 normal heart sound present and S2 normal heart sound present Bruits: no carotid bruits GI Inspection: Yes normal to inspection Skin Wounds: no wounds Hair: normal Neuro General: oriented to person, oriented to place and oriented to time Cranial nerves: Yes CN's II-XII intact bilaterally and Yes Normal hearing present Cognition (Neuro): normal cognition Motor exam (neuro): 5/5 motor strength present throughout Extrem Other: venous exam: No significant superficial varicosities or spider telangiectasias, minimal edema General: No clubbing, No cyanosis and No edema Psych Appearance: grossly normal Mental Status: mental status grossly normal Speech and movement: Normal speech and movement present Assessment & Plan Assessment & Plan (1) Peripheral arterial disease: Comment: 10/21/2024 - left popliteal atherectomy and plasty, left peroneal plasty Code(s): I73.9 - Peripheral vascular disease, unspecified Category: Medical Plan: In short patient has stable claudication. I did review the pathophysiology of peripheral vascular disease with the patient. In addition we did discuss routine conservative measures including a healthy diet and the importance of exercise and ambulation. We did discuss risk factor modification. The patient will continue to to follow-up with surveillance follow-up in approximately 3 months. In addition he may benefit from a podiatry evaluation regarding his hammertoe and plantar callus. Thank you for allowing us to participate in this patient's care. If there are any questions or concerns please do not hesitate to contact us. Orders: Orders US arterial duplex LE BI 2 Weeks I73.9 - Peripheral vascular disease, unspecified Coding Level of Care Code Est Pt Level 4 (13802) Diagnoses Peripheral arterial disease I73.9
--- OUTSIDE RECORDS SUMMARY | 2024-12-17 11:24 | XMS_ITS | Clinical Summary ---
Author Organization [email or web address] Address [address] [facility] [address] [place] [address] Care Team Providers Care Unit Clerk Name Role Phone Ashley Nugent MD Primary Care Pro vider Harjinder Kc RN Unavailable [phone] Noemí Victor Unavailable Allergies No known active allergies Medications * [...] match with this sensor thanks 2 each 11 023 Active ondansetron ODT (Zofran-ODT) 4 MG disintegrating tablet DISSOLVE 1 TABLET ON TONGUE EVERY 6 HOURS NEEDED FOR NAUSEA AND VOMITING 023 Active acetaminophen (Tylenol) 500 MG tablet Take [...] mL 024 Active lidocaine (Lidoderm) 5 % patchIndications :Rib pain on left side APPLY 1 PATCH TOPICALLY TO SKIN, LEAVE ON FOR 12 HOURS AND OFF FOR 12 HOURS DIRECTED 30 patch Active Lantus SoloStar 100 UNIT/ML pen INJECT 17 UNITS SUBCUTANEOUSLY EVERY MORNING AND INJECT 15 UNITS SUBCUTANEOUSLY EVERY EVENING 15 mL 5 024 Active Multiple Vitamins-Mineral s (CertaVite Senior/Antioxida nt) tabletIndication s:Routine health maintenance TAKE 1 TABLET BY MOUTH TWICE DAILY IN THE MORNING AND IN THE EVENING 180 tablet 1 025 Active sertraline (Zoloft) 100 MG tabletIndication s:Posttraumatic stress disorder TAKE 1 TABLET BY MOUTH EVERY MORNING 90 tablet 025 Active atorvastatin (Lipitor) 40 MG tablet Take 1 tablet (40 mg) by mouth at bedtime. 90 tablet 1 025 Active Alcohol Swabs (Alcohol Prep) 70 % pads USE ONCE DAILY DIRECTED 100 each 2 025 Active TRUEplus Lancets 33G miscIndications: Type 2 diabetes mellitus treated with insulin ([facility]) TEST BLOOD SUGAR THREE TIMES DAILY 100 each 025 Active QUEtiapine (SEROquel) 100 MG tabletIndication s:Posttraumatic stress disorder TAKE 1 TABLET BY MOUTH TWICE DAILY IN THE MORNING AND AT BEDTIME 180 tablet 025 Active QUEtiapine (SEROquel) 300 MG tablet TAKE 2 TABLETS BY MOUTH EVERY DAY AT BEDTIME 180 tablet 025 Active vitamin E 180 MG (400 UNIT) capsule TAKE 1 CAPSULE BY MOUTH EVERY MORNING 90 capsule Active Diclofenac Sodium 1 % gelIndications:A chilles tendinitis of left lower extremity Apply 1 Application topically every 12 (twelve) hours if needed (apply on affected area). 150 g 1 Active gabapentin (Neurontin) 100 MG capsuleIndicatio ns:Left foot pain,Chronic pain of left ankle Take 1 capsule (100 mg) by mouth every 8 (eight) hours. 90 capsule 025 2025 Active glucose blood (FREESTYLE LITE) test strip TEST BLOOD SUGAR THREE TIMES DAILY 100 strip Active Pentips Generic Pen Fitzhugh 32G X 4 MM misc USE FOUR TIMES DAILY DIRECTED 100 each 025 Active clopidogrel (Plavix) 75 MG tablet Take 1 tablet (75 mg) by mouth Once per day. 90 tablet Active Aspirin EC Adult Low Dose 81 MG EC tablet Take 1 tablet (81 mg) by mouth Once per day. 90 tablet Active Pentips 32G X 4 MM misc USE FOUR TIMES DAILY DIRECTED 100 each 11 024 2024 Discontinued Aspirin EC Adult Low Dose 81 MG EC tablet Take 1 tablet by mouth Once per day. 025 2024 Discontinued(R eorder (will not trigger notification to Pharmacy)) clopidogrel (Plavix) 75 MG tablet Take 1 tablet by mouth Once per day. 2024 Discontinued(R eorder (will not trigger notification to Pharmacy)) Active Problems Problem Noted Date Diagnosed Date Popliteal artery occlusion, right 11/12/2024 Assessment & Plan (11/12/2024 11:19 AM EDT): Continue with atorvastatin 40, aspirin 81 and clopidogrel 75 mg daily Continue to follow with vascular and PCP Achilles tendinitis of left lower extremity 07/2024 Assessment & Plan (11/12/2024 11:19 AM EDT): I will prescribe for him diclofenac gel to apply locally maximum twice a day I will refer patient to orthopedics Pain of left lower extremity 11/12/2024 Callus 11/12/2024 Assessment & Plan (11/12/2024 11:20 AM EDT): I will refer patient to podiatry Left foot pain 11/12/2024 Assessment & Plan (11/12/2024 11:19 AM EDT): Patient referred to podiatry Chronic pain of left ankle 11/12/2024 Assessment & Plan (11/12/2024 11:21 AM EDT): For the pain patient prefers gabapentin 100 mg 3 times a day instead of gabapentin 300 mg at bedtime Pre-op evaluation 04/13/2024 Assessment & Plan (04/13/2024 [...] pancreatitis 12/14/2022 Hypertension 12/14/2022 Assessment & Plan (11/12/2024 11:22 AM EDT): Today blood pressure is controlled, and heart rate is normal, I decided not to do any changes for this Assessment & Plan (04/13/2024 7:54 PM EDT): At goal , no meds currently Type 2 diabetes mellitus wit h complication, with long-term current use of insulin 10/09/2019 Assessment & Plan (11/12/2024 11:20 AM EDT): Today glucose was HHH, urine done ketones negative, patient is clinically symptomatic no nausea, vomiting, abdominal pain, weakness Continue with his long-acting insulin as prescribed I advised to use his short acting insulin as soon as he gets home and follow-up with PCP Assessment & Plan (04/13/2024 7:55 PM EDT): [...] Encounters Date Type Department Care Team Description 12/16/2024 Patient Outreach [facility] [address] [facility] [place] [address] Ashley Nugent MD Care Coordination 12/16/2024 Patient Outreach [facility] [address] [facility] [place] [address] Ashley Nugent MD 12/16/2024 Patient Outreach [facility] [address] [place] [address] Ashley Nugent MD Care Coordination (C3- chart review) 12/16/2024 Patient Outreach [facility] [address] [facility], [place] [address] Ashley Nugent MD 12/11/2024 Orders Only [facility] [address] [facility] [place] [address] Ashley Nugent MD Popliteal artery occlusion, right (CMS/HCC) (Primary Dx) 12/11/2024 Orders Only [facility] [address] [facility] [place] [address] Ashley Nugent MD Popliteal artery stenosis ([facility]) (Primary Dx) 12/11/2024 Telephone [facility] [address] [facility] [place] [address] Ashley Nugent MD Med Refill 12/03/2024 Refill [facility] [address] [facility] [place], [place] [address] Ashley Nugent MD 11/16/2024 Telephone [facility] [address] [facility] [place] [address] Ashley Nugent MD Med Refill 11/12/2024 9:30 AM EDT Office Visit [facility] [address] [facility] [place] [address] Ashley Duvall MD Popliteal artery occlusion, right ([facility]) (Primary Dx); Type 2 diabetes mellitus with complication, with long-term current use of insulin ([facility]); Achilles tendinitis of left lower extremity; Pain of left lower extremity; Callus; Left foot pain; Chronic pain of left ankle; Hypertension, unspecified type 11/12/2024 Travel 11/10/2024 Telephone [facility] [address] [facility] [address] Ashley Nugent MD Chart prep 11/10/2024 Orders Only [facility] [address] [facility] [place] [address] Ashley Duvall MD 11/10/2024 Telephone [facility] [address] [facility] [place] [address] Ashley Nugent MD Appointment Request 11/09/2024 Telephone [facility] [address] [facility] [place] [address] Ashley Nugent MD 11/06/2024 Telephone [facility] [address] [place] [address] Neida Braun MD Chart prep 11/03/2024 Telephone [facility] [address] [facility] [place] [address] Chhaya Holder, PharmD 11/03/2024 Telephone [facility] [address] [place] [address] Chhaya Holder PharmD 10/30/2024 Patient Outreach [facility] [address] [place] [address] Ashley Nugent MD Transition Of Care (Tcm) (HDF-Scheduled) 10/26/2024 Telephone [facility] [address] [place] [address] Ashley Nugent MD Appointment 10/25/2024 Refill [facility] [address] [place] [address] Ashley Nugent MD 10/21/2024 Telephone [facility] [address] [place] [address] Felipa Bauer RN Hospital Follow-up 10/21/2024 Orders Only GENERIC EXTERNAL DATA DEPARTMENT Provider, Generic External Data 10/21/2024 Refill [facility] [address] [place] [address] Neida Braun MD Neuropathic pain 10/19/2024 Orders Only [facility] External Provider, [facility] 10/19/2024 Refill [facility] [address] [place] [address] Latosha Lott MD Posttraumatic stress disorder 09/25/2024 Population Health Risk Score [facility] () Department [address] [place] [phone] Provider, Population Health Generic 09/19/2024 Refill [facility] [address] [place] [address] Ashley Nugent MD Type 2 diabetes mellitus treated with insulin ([facility]) 09/17/2024 Refill [facility] [address] [place] [address] Ashley Nugent MD Routine health maintenance; Posttraumatic stress disorder from Last 3 Months Immunizations Immunization Administration Dates Next Due Hep B, adult [...] Answer Date Recorded Patient Health Questionnaire-9 Score 0 11/12/2024 Patient Health Questionnaire-9 Score 0 11/12/2024 Last PHQ-9: Questionnaire Data Not on file 0 11/12/2024 Housing Stability Answer Date Recorded What is your housing situation today? I have ravi hale 04/24/[address] you li ve. Do you have problems with any of the following? None of the above 04/24/2024 Food Insecurity Answer Date Recorded Within the past 12 months, y ou worried that your food would run out before you got money to buy more: Sometimes True 2024 Within the past 12 months,th e food you bought just didn't last and you didn't have enough money to get more: Sometimes True 12/16/2024 Transportation Answer Date Recorded In the past [...] Answer Date Recorded Patient Health Questionnaire-2 Score 0 11/12/2024 Internet Access Answer Date Recorded Internet Access [...] Sign Reading Time Taken Comments Blood Pressure 134/70 11/12/2024 9:34 AM EDT Pulse 94 11/12/2024 9:34 AM EDT Temperature 36.8 ??C (98.3 ??F) 11/12/2024 9:34 AM ED T Respiratory Rate 21 11/12/2024 9:34 AM EDT Oxygen Saturation 99% 11/12/2024 9:34 AM EDT Inhaled Oxygen Concentration - - Weight 59.1 kg (130 lb 4 oz) 11/12/2024 9:34 AM EDT Height 167.6 cm (5' 6 ) 11/12/2024 9:34 AM EDT Body Mass Index 21.02 11/12/2024 9:34 AM EDT Plan of Treatment Upcoming Encounters Date Type Department Care Team (Late st Contact Info) Description 12/28/2024 1:00 PM EDT Telemedicine [facility] [address] [place], [place] [phone] Ashley Nugent MD [address] [place], [place] [phone] Health Maintenance Due Date Last Done Comments CT Colonography 1960 Colonoscopy 1960 Dental Oral Exam 1960 Dental Prophylaxis 1961 Dental X-Ray: Bitewings 1961 FIT DNA/Cologuard 1961 Sigmoidoscopy 1961 Diabetes: Foot Exam 09/25/1971 Hepatitis A Vaccines (1 of 2 - Risk 2-dose series) 1980 Zoster Vaccines (1 of 2) 09/25/2011 RSV Patients and Patients Aged 60 years or older (1 - Risk 60-74 years 1-dose series) 2021 Hepatitis B Vaccines (2 of 3 - Risk 3-dose series) 05/06/2023 04/08/2023 Eye Exam 02/15/2024 02/14/2023, 08/0 09/2022, 02/14/2023, Additional history exists COVID-19 Vaccine ( season) 2024 Colorectal Cancer Screening 03/20/2024 Diabetes: Urine Protein Screening 03/20/2024 03/20/2023, 09/11/2021, 05/30/2020 FIT 03/20/2024 03/20/2023 FOBT 03/20/2024 03/20/2023 Lipid Panel 03/20/2024 03/20/2023, 08/16, 05/30/2020 Influenza Vaccine (Season Ended) 2025 Diabetes: Hemoglobin A1C 05/15/2025 025, 10/26/2024, 04/13/2024, Additional history exists Alcohol/Substance Use Screening 11/12/2025 11/12/2024 Depression Screening 11/12/2025 11/12/2024, 11/13/19 25 Disability Screening 11/12/2025 11/12/2024 Tobacco Screening 11/12/2025 11/12/2024 SDOH Screening 12/16/2025 12/16/2024 Dental X-Ray: Full Mouth 12/30/2026 12/30/2023 DTaP/Tdap/Td [...] patient's age to complete this topic Meningococcal B Vaccine Aged Out No l onger eligible based on patient's age to complete [...] Name Priority Date/Time Associated Diagnosis Comments POCT URINALYSIS DIPSTICK Routine 11/12/2024 10:19 AM EDT Type 2 diabetes mellitus with complication, with long-term current use of insulin ([facility]) POCT GLYCATED HEMOGLOBIN, TOTAL Routine 11/12/2024 9:38 AM EDT Type 2 diabetes mellitus with complication, with long-term current use of insulin ([facility]) POCT GLUCOSE Routine 11/12/2024 9:36 AM EDT Type 2 diabetes mellitus with complication, with long-term current use of insulin ([facility]) XR CHEST 1 VIEW Routine 10/22/2024 7:15 AM EDT XR FOOT 1-2 VIEWS LEFT Routine 3:45 PM EDT XR ANKLE 2 VIEWS LEFT Routine 10/21/2024 3:45 PM EDT GLUCOSE, WHOLE BLOOD Routine 10/21/2024 8:53 AM EDT CTA ABDOMEN AORTA RUNOFF Routine 10/19/2024 9:49 [...] 3+ VIEWS LEFT Routine 7:50 AM EDT PANORAMIC RADIOGRAPHIC IMAGE Routine 12/30/2023 10:00 AM [...] Recently Relevant to Health Maintenance Results * POCT Urinalysis (11/12/2024 10:19 AM EDT) Color, UA Yellow Clarity, UA Clear Glucose, UA Trace Comment:1000 Bilirubin, UA Negative Ketones, UA Negative Spec Grav, UA 1.020 Blood, UA Negative Negative, None Detected pH, UA 5.5 Protein, UA Negative Urobilinogen, UA 0.2 Leukocytes, UA Negative Negative, Rare, Trace Nitrite, UA Negative Negative, None Detected Appearance, UA yellow QC Media Lot # [id number] Lot# Expiration Date ,025 Urine 11/12/2024 10:1 9 AM EDT Ashley Blue MD POINT OF CARE TEST EN TER/EDIT ORDERABLES Final Result * (ABNORMAL) POCT HGB A1C (11/12/2024 9:38 AM EDT) Hemoglobin A1C 6.8(A) 4.0 - 6.0 % QC Media Lot # [id number] Lot# Expiration Date ,026 Blood 11/12/2024 9:38 AM EDT us Ashley Blue MD POINT OF CARE TEST EN TER/EDIT ORDERABLES Final Result * (ABNORMAL) POCT Glucose (11/12/2024 9:36 AM EDT) [facility] Signature Glucose Blood, POC 500(A) 60 - 200 mg/dL Comment:[facility] QC Media Lot # [id number] Lot# Expiration Date Blood Capillary blood specimen / Unknown 11/12/2024 9:36 AM EDT us Ashley Blue MD POINT OF CARE TEST EN TER/EDIT ORDERABLES Final Result * XR Chest 1 View (10/22/2024 7:15 AM EDT) Anatomical Region Laterality Modality Chest Radiographic Nayely ging 10/22/2024 7:15 AM EDT Narrative 10/22/2024 7:37 AM EDT ? [facility] ?[address] ?[place] [address] ?XRay Report ? Signed ? Patient: Harjinder Delcid ?MR#: M ?? [id number] ? : 1960 ?Acct:[id number] ? Age/Sex: 64 / M ?ADM Date: 10/21/24 ? Loc: [facility] ?446-1 ? Attending Dr: Lemuel Logan MD ? Ordering Physician: Alfie Damico MD ?? Date of Service: 10/22/24 ?? Procedure(s): XR chest 1V ?? Accession Number(s): [id number] ? cc: Alfie Damico MD; Ashley Nugent MD ? EXAMINATION: ??XR CHEST 1 VIEW ? HISTORY: fever ? COMPARISON: There are no prior studies for comparison. ? FINDINGS: ??A single AP portable view of the chest performed at 7:08 AM ?? is submitted. The lungs are expanded and clear. ??There is no pleural ?? effusion, pneumothorax, or pulmonary vascular congestion. ??The heart is ?? normal in size. ??There is an old healed fracture of the right clavicle. ? XR/XR chest 1V ?? IMPRESSION: ?? Clear lungs. ? Electronically signed by: ??Ernesto Dennison MD ??10/22/2024 07:34 AM EDT ?? RP ? Dictated By: ?Ernesto Dennison MD ? Signed By: ?<Electronically signed by Ernesto Dennison MD in OV> ?10/22/24733 ? DD/ 4 ? TD/TT: 10/22/24718 ? [employer]: ? Procedure Note Sharad Javier - 10/22/[address] [address] XRay Report Signed Patient: Harjinder Delcid FMR#: M [id number] : 1960cct:[id number] Age/Sex: 64 / MADM Date: 10/21/24 Loc: [facility] 446-[address]: Lemuel Logan MD Ordering Physician: Alfie Damico MD Date of Service: 10/22/24 Procedure(s): XR chest 1V Accession Number(s): [id number] cc: Alfie Damico MD; Ashley Nugent MD EXAMINATION: XR CHEST 1 VIEW HISTORY: fever COMPARISON: There are no prior studies for comparison. FINDINGS: A single AP portable view of the chest performed at 7:08 AM is submitted. The lungs are expanded and clear. There is no pleural effusion, pneumothorax, or pulmonary vascular congestion. The heart is normal in size. There is an old healed fracture of the right clavicle. XR/XR chest 1V IMPRESSION: Clear lungs. Electronically signed by: Ernesto Dennison MD 10/22/2024 07:34 AM EDT RP Dictated By: Ernesto Dennison MD Signed By: <Electronically signed by Ernesto Dennison MD in OV> 10/22/2434 DD/ 4 TD/TT: 10/22/24718 Malted Milk Masher: [facility] External Provider IMG XR PROCEDURES Final Result * XR Foot 1-2 Views Left (10/21/2024 3:45 PM EDT) Anatomical Region Laterality Modality Lower Extremities, Foot Left Radiogra phic Imaging 10/21/2024 3:4 5 PM EDT Narrative 10/21/2024 4:08 PM EDT ? [facility] ?[address] ?[place] [address] ?XRay Report ? Signed ? Patient: Harjinder Delcid F ?MR#: M ?? [id number] ? : 1960 ?Acct:[id number] ? Age/Sex: 64 / M ?ADM Date: 10/21/24 ? Loc: [facility] ?446-1 ? Attending Dr: Lemuel Logan MD ? Ordering Physician: Kary Prince ?? Date of Service: 10/21/24 ?? Procedure(s): XR foot LT 2V ?? Accession Number(s): [id number] ? cc: Kary Prince; Ashley Nugent MD ? EXAMINATION: ?? XR FOOT, LEFT ? CLINICAL INFORMATION: ?? pain, swelling ? COMPARISON: ?? None available. ? TECHNIQUE: ?? AP and lateral views of the left foot. ? FINDINGS: ?? Only 2 views obtained due to patient pain tolerance. ? There are possibly postoperative changes to the fourth digit, proximal ?? phalanx, with resorptive changes, chronic appearance. ?? Otherwise, no fracture, dislocation, or suspicious bone lesion. ?? Mild hallux valgus with mild degenerative changes of the first MTP ?? joint. ?? Normal plantar arch. ? Diffuse soft tissue vascular calcifications. ? XR/XR foot LT 2V ?? IMPRESSION: ?? 1. Chronic, possibly postoperative abnormality of the fourth digit ?? proximal phalanx. No acute bony abnormality identified. ?? 2. Mild hallux valgus with mild degenerative changes at the first MTP ?? joint. ?? 3. Extensive diffuse vascular calcifications. ? Electronically signed by: ??Maikol Tovar MD ??10/21/2024 04:05 PM EDT RP ? Dictated By: ?Maikol Tovar MD ? Signed By: ?<Electronically signed by Maikol Tovar MD in OV> ?10/21/24 1605 ? DD/ 1545 ? TD/TT: 10/21/24 1555 ? [employer]her: ? Procedure Note Donotuseinterpreter, Image - 10/21/[address] [address] XRay Report Signed Patient: Harjinder Delcid FMR#: M [id number] : 2Acct:[id number] Age/Sex: 64 / MADM Date: 10/21/24 Loc: [facility] 446-[address]: Lemuel Logan MD Ordering Physician: Kary Prince Date of Service: 10/21/24 Procedure(s): XR foot LT 2V Accession Number(s): [id number] cc: Kary Prince; Ashley Nugent MD EXAMINATION: XR FOOT, LEFT CLINICAL INFORMATION: pain, swelling COMPARISON: None available. TECHNIQUE: AP and lateral views of the left foot. FINDINGS: Only 2 views obtained due to patient pain tolerance. There are possibly postoperative changes to the fourth digit, proximal phalanx, with resorptive changes, chronic appearance. Otherwise, no fracture, dislocation, or suspicious bone lesion. Mild hallux valgus with mild degenerative changes of the first MTP joint. Normal plantar arch. Diffuse soft tissue vascular calcifications. XR/XR foot LT 2V IMPRESSION: 1. Chronic, possibly postoperative abnormality of the fourth digit proximal phalanx. No acute bony abnormality identified. 2. Mild hallux valgus with mild degenerative changes at the first MTP joint. 3. Extensive diffuse vascular calcifications. Electronically signed by: Maikol Tovar MD 10/21/2024 04:05 PM EDT Dictated By: Maikol Tovar MD Signed By: <Electronically signed by Maikol Tovar MD in OV> 10/21/24 1605 DD/ 1545 TD/TT: 10/21/24 1555 Malted Milk Masher: [facility] External Provider IMG XR PROCEDURES Final Result * XR Ankle 2 Views Left (10/21/2024 3:45 PM EDT) Anatomical Region Laterality Modality Lower Extremities, Ankle Left Radiogr aphic Imaging 10/21/2024 3:45 PM EDT Narrative 10/21/2024 4:05 PM EDT ? [facility] ?[address] ?[place], [place] [address] ?XRay Report ? Signed ? Patient: Harjinder Delcid ?MR#: M ?? [id number] ? : 1960 ?Acct:[id number] ? Age/Sex: 64 / M ?ADM Date: 10/21/24 ? Loc: [facility] ?446-1 ? Attending Dr: Lemuel Logan MD ? Ordering Physician: Kary Prince ?? Date of Service: 10/21/24 ?? Procedure(s): XR ankle LT 2V ?? Accession Number(s): [id number] ? cc: Kary Prince; Ashley Nugent MD ? EXAMINATION: ?? XR ANKLE, LEFT ? CLINICAL INFORMATION: ?? pain, swelling ? COMPARISON: ?? None available. ? TECHNIQUE: ?? Two views of the left ankle. ? FINDINGS: ?? AP view somewhat limited due to obliquity. ? No fracture, dislocation, or suspicious bone lesion. Grossly normal ?? alignment. Subtalar joints and calcaneus appear normal. ? Soft tissues demonstrate mild diffuse soft tissue swelling most ?? prominent laterally. No ankle joint effusion. There are diffuse ?? vascular calcifications. ? XR/XR ankle LT 2V ?? IMPRESSION: ?? No acute bony abnormalities. ? Electronically signed by: ??Maikol Tovar MD ??10/21/2024 04:02 PM EDT RP ? Dictated By: ?Maikol Tovar MD ? Signed By: ?<Electronically signed by Maikol Tovar MD in OV> ?10/21/24 1602 ? DD/ 1545 ? TD/TT: 10/21/24 1555 ? Malted Milk Masher: ? Procedure Note Sharad Javier - 10/21/2024 [facility] [address] [place] [address] XRay Report Signed Patient: Harjinder Delcid R#: M [id number] : 2Acct:[id number] Age/Sex: 64 / MADM Date: 10/21/24 Loc: [facility] 446-[address]: Lemuel Logan MD Ordering Physician: Kary Prince Date of Service: 10/21/24 Procedure(s): XR ankle LT 2V Accession Number(s): [id number] cc: Kary Prince; Ashley Nugent MD EXAMINATION: XR ANKLE, LEFT CLINICAL INFORMATION: pain, swelling COMPARISON: None available. TECHNIQUE: Two views of the left ankle. FINDINGS: AP view somewhat limited due to obliquity. No fracture, dislocation, or suspicious bone lesion. Grossly normal alignment. Subtalar joints and calcaneus appear normal. Soft tissues demonstrate mild diffuse soft tissue swelling most prominent laterally. No ankle joint effusion. There are diffuse vascular calcifications. XR/XR ankle LT 2V IMPRESSION: No acute bony abnormalities. Electronically signed by: Maikol Tovar MD 10/21/2024 04:02 PM EDT Dictated By: Maikol Tovar MD Signed By: <Electronically signed by Maikol Tovar MD in OV> 10/21/24 1602 DD/ 1545 TD/TT: 10/21/24 1555 Malted Milk Masher: us [facility] External Provider IMG XR PROCEDURES Final Result * (ABNORMAL) Glucose, Whole Blood (10/21/2024 8:53 AM EDT) Glucose, Whole Blood 339(H) 60 - 115 mg/dL [facility] Comment:METER #: [id number] 10/21/2024 8:53 AM EDT 10/21/2024 8:56 AM EDT Generic External Data Provider LAB BLOOD ORDERAB LES Final Result [facility] [address] [place] [phone] * CTA Abdomen aorta runoff (10/19/2024 9:49 AM EDT) Anatomical Region Laterality Modality Body, Pelvis, Abdomen Computed T omography 10/19/2024 9:49 AM EDT Narrative 10/19/2024 11:13 AM EDT ? [facility] ?[address] ?[place] [address] ? [address] Scan Report ? Signed ? Patient: Harjinder Delcid F ?MR#: M ?? [id number] ? : 1960 ?Acct:[id number] ? Age/Sex: 64 / M ?ADM Date: 10/19/24 ? Loc: HO.ED ? Attending Dr: ? Ordering Physician: Aditi Maher DO ?? Date of Service: 10/19/24 ?? Procedure(s): CT angio abd aorta runoff ?? Accession Number(s): [id number] ? cc: Aditi Maher DO; Ashley Nugent MD ? Report Number: ?? [id number]: Total DLP = ??294.00 mGy-cm ?? EXAMINATION: [...] DD/ 0949 ? TD/TT: 10/19/24 1007 ? Malted Milk Masher: ? Procedure Note Sharad Javier - 10/19/[address] [place] [address] [address] Scan Report Signed Patient: Harjinder Delcid FMR#: M [id number] : 1960cct:[id number] Age/Sex: 64 / MADM Date: 10/19/24 Loc: HO.ED Attending Dr: Ordering Physician: Aditi Maher DO Date of Service: 10/19/24 Procedure(s): CT angio abd aorta runoff Accession Number(s): [id number] cc: Aditi Maher DO; Ashley Nugent MD Report Number: [id number]: Total DLP = 294.00 mGy-cm EXAMINATION: CT [...] 10/19/24 1111 DD/ 0949 TD/TT: 10/19/24 1007 Malted Milk Masher: [facility] External Provider IMG CT PROCEDURES Final Result * VASC US Lower Extremity Arterial Duplex Bilateral (10/19/2024 9:01 AM EDT) 10/19/2024 9:01 AM EDT [facility] IMAGING - 10/19/2024 10:23 AM EDT ? [facility] ?[address] ?[place] [address] ? Ultrasound Report ? Signed ? Patient: Pavan Stuart,Larry ?MR#: M ?? [id number] ? : 1960 ?Acct:[id number] ? Age/Sex: 64 / M ?ADM Date: 04/07/25 ? Loc: HO.ED ? Attending Dr: ? Ordering Physician: Aditi Maher DO ?? Date of Service: 10/19/24 ?? Procedure(s): US arterial duplex LE BI ?? Accession Number(s): [id number] ? cc: Aditi Maher DO; Ashley Nugent [...] and is ?? monophasic. ?? The left RADIO REPAIRER is not well seen. ?? The left peroneal artery velocity measures 13.8 cm/s and is monophasic. ?? The left anterior tibial artery velocity measures 23 cm/s and is ?? monophasic. ?? The left dorsalis pedis artery is not well seen. ? US/US arterial duplex LE BI ?? IMPRESSION: ?? [...] DD/ 0901 ? TD/TT: 10/19/24 0929 ? Malted Milk Masher: ? Procedure Note Donambrosioter, Image - 10/19/2024 [place] [address] Ultrasound Report Signed Patient: Harjinder Delcid FMR#: M [id number] : 2Acct:[id number] Age/Sex: 64 / MADM Date: 10/19/24 Loc: HO.ED Attending Dr: Ordering Physician: Aditi Maher DO Date of Service: 10/19/24 Procedure(s): US arterial duplex LE BI Accession Number(s): [id number] cc: Aditi Maher DO; Ashley Nugent MD [...] 40 cm/s and is monophasic. The left RADIO REPAIRER is not well seen. The left peroneal [...] MD 10/19/2024 10:21 AM EDT Dictated By: Maiokl Tovar MD Signed By: <Electronically signed by Maikol Tovar MD in OV> 10/19/24 1021 DD/ 0901 TD/TT: 10/19/24 0929 Malted Milk Masher: [facility] External Provider CV VASC ULAR PROCEDURES Final Result Performing Organization Address [facility]/ZIP Co de Phone Number [facility] [address] [place] [phone] * HOLD LT BLUE - POSSIBLE COAG (10/19/2024 8:22 AM EDT) Hold Lt Blue - Possible Coag SEE NOTE [facility] Comment:Specimen will be hel d untested for 4 hours. Call Hematologyif testing is desired. 10/19/2024 8:22 AM EDT 10/19/2024 8:29 AM EDT Generic External Data Provider LAB BLOOD ORDERAB LES Final Result Performing Organization Address City/[facility]/ZIP Co de Phone Number [facility] [address] [place] [phone] * (ABNORMAL) CBC auto differential (10/19/2024 8:22 AM EDT) White Blood Count 10.4 4.8 - 10.8 X10*3/uL [facility] Red Blood Count 4.47(L) 4.60 - 5.80 X10*6/uL [facility] Hemoglobin 12.8(L) 14.0 - 18.0 g/dl [facility] Hematocrit 39.0(L) 42.0 - 52.0 % [facility] Mean Corpuscular Volume 87.2 80.0 - 98.0 fL [facility] Mean Corpuscular Hemoglobin 28.6 27.0 - 33.0 pg [facility] Mean Corpuscular HGB Conc 32.8 31.0 - 36.0 g/dl [facility] Red Cell Distribution Width 11.0 11.0 - 16.0 % [facility] Platelet Count 178 160 - 400 X10*3/uL [facility] Mean Platelet Volume 10.9 9.4 - 12.4 fL [facility] Neutrophils Percent Auto 77.0(H) 45 - 73 % [facility] Imm Gran Pct Auto 0.3 0.0 - 0.4 % [facility] Lymphocytes Percent Auto 14.9(L) 20 - 40 % [facility] Monocytes Percent Auto 6.9 2 - 11 % [facility] Eosinophils Percent Auto 0.6 0 - 4 % [facility] Basophils Percent Auto 0.3 0 - 2 % [facility] NRBC Pct Auto 0.0 0.0 - 0.2 /100WBC [facility] Neutrophils Absolute Auto 8.0 2.0 - 8.3 x10*3/uL [facility] Imm Gran Abs Auto 0.03 0.00 - 0.03 X10*3/uL [facility] Lymphocytes Absolute Auto 1.6 1.2 - 4.9 X10*3/uL [facility] Monocytes Absolute Auto 0.7 0.1 - 1.2 X10*3/uL [facility] Eosinophils Absolute Auto 0.1 0.0 - 0.4 X10*3/uL [facility] Basophils Absolute Auto 0.0 0.0 - 0.2 X10*3/uL [facility] NRBC Abs Auto 0.000 0.0 - 0.012 X10*3/uL [facility] 10/19/2024 8:22 AM EDT 10/19/2024 8:25 AM EDT Generic External Data Provider LAB BLOOD ORDERAB LES Final Result Performing Organization Address City/[facility]/ZIP Co de Phone Number [facility] [address] [place] [phone] * Partial Thromboplastin Time, Activated (APTT) (10/19/2024 8:22 AM EDT) Partial Thromboplastin Time 28.5 26.0 - 36.8 SEC [facility] Comment:For information rega rding the monitoring of direct thrombininhibitors, please refer to Pharmacy. 10/19/2024 8:22 AM EDT 10/19/2024 10:41 AM EDT us Generic External Data Provider LAB BLOOD ORDERAB LES Final Result Performing Organization Address [facility]/ZIP Co de Phone Number [facility] [address] [place] [phone] * Prothrombin Time-INR (10/19/2024 8:22 AM EDT) Prothrombin Time 11.3 10.9 - 12.4 SEC [facility] INTERNATIONAL NORM RATIO 1.0 0.9 - 1.1 [facility] Comment:INTERNATIONAL NORMAL IZED RATIO (INR) REFERENCE [...] ORDERAB LES Final Result Performing Organization Address [facility] de Phone Number [facility] [address] [place] [phone] * Magnesium (10/19/2024 8:22 AM EDT) Magnesium 2.0 1.6 - 2.6 mg/dL [facility] 10/19/2024 8:22 AM EDT 10/19/2024 8:25 AM EDT Generic External Data Provider LAB BLOOD ORDERAB LES Final Result Performing Organization Address [facility] de Phone Number [facility] [address] [place] [phone] * (ABNORMAL) Creatine Kinase, Total (10/19/2024 8:22 AM EDT) Creatine Kinase Total 615(H) 38 - 174 U/L [facility] 10/19/2024 8:22 AM EDT 10/19/2024 8:25 AM EDT Generic External Data Provider LAB BLOOD ORDERAB LES Final Result Performing Organization Address [facility] de Phone Number [facility] [address] [place] [phone] * (ABNORMAL) Hepatic Function Panel (10/19/2024 8:22 AM EDT) Bilirubin, Total 0.8 0.0 - 1.0 mg/dL [facility] Bilirubin, Direct 0.2 0.0 - 0.5 mg/dL [facility] Aspartate Amino Transferase 45(H) 5 - 37 U/L [facility] Alanine Aminotransferase 53(H) 0 - 40 U/L [facility] Total Protein 7.1 6.5 - 8.0 g/dL [facility] Albumin Level 4.3 3.5 - 5.0 g/dL [facility] Alkaline Phosphatase 94 39 - 117 U/L [facility] 10/19/2024 8:22 AM EDT 10/19/2024 8:25 AM EDT us Generic External Data Provider LAB BLOOD ORDERAB LES Final Result [facility] [address] [place] [phone] * (ABNORMAL) Basic Metabolic Panel (10/19/2024 8:22 AM EDT) Sodium 139 135 - 145 mmol/L [facility] Potassium 3.9 3.3 - 5.1 mmol/L [facility] Chloride 107 96 - 108 mmol/L [facility] Carbon Dioxide 24 22 - 29 mmol/L [facility] Anion Gap 12 12 - 20 [facility] Urea Nitrogen (BUN) 12 9 - 16 mg/dL [facility] Creatinine, Serum 1.05 0.5 - 1.4 mg/dL [facility] Creatinine Clr Calc Pharmacy 64.9 [facility] Comment:eGFR (calculated fro m the MDRD study equation) and eCrCl(calculated from the Cockcroft-Gault equation) are based ondifferent parameters and may not yield comparable results.If eCrCl result is absurd, please check patient'sheight/weight. Estimated Glomerular Filt Rate >60 [facility] Comment:Chronic Kidney Disea se: Estimated GFR < 60 mL/min/1.50f3Lwesuh Kidney Disease: Estimated GFR < 15 mL/min/1.73m2 Glucose 221(H) 60 - 115 mg/dL [facility] Calcium 9.0 8.4 - 10.2 mg/dL [facility] 10/19/2024 8:22 AM EDT 10/19/2024 8:25 AM EDT us Generic External Data Provider LAB BLOOD ORDERAB LES Final Result [facility] [address] [facility] [place] [phone] * XR Ankle 3+ Views Left (10/19/2024 7:50 AM EDT) Anatomical Region Laterality Modality Lower Extremities, Ankle Left Radiogr aphic Imaging 10/19/2024 7:50 AM EDT Narrative 10/19/2024 8:22 AM EDT ? [facility] ?[address] ?[place] [address] ?XRay Report ? Signed ? Patient: Browne Stuart,Larry ?MR#: M ?? [id number] ? : 1960 ?Acct:[id number] ? Age/Sex: 64 / M ?ADM Date: 10/19/24 ? Loc: HO.ED ? Attending Dr: ? Ordering Physician: Aditi Maher DO ?? Date of Service: 10/19/24 ?? Procedure(s): XR ankle LT min 3V ?? Accession Number(s): [id number] ? cc: Aditi Maher DO; Ashley Nugent [...] signed by Maikol Tovar MD in OV> ?10/19/24818 ? DD/ 0750 ? TD/TT: 10/19/24 0810 ? Malted Milk Masher: ? Procedure Note Donambrosioter, Image - 10/19/[address] [address] XRay Report Signed Patient: Harjinder Delcid FMR#: M [id number] : 1960cct:[id number] Age/Sex: 64 / MADM Date: 10/19/24 Loc: HO.ED Attending Dr: Ordering Physician: Aditi Maher DO Date of Service: 10/19/24 Procedure(s): XR ankle LT min 3V Accession Number(s): [id number] cc: Aditi Maher DO; Ashley Nugent MD [...] Maikol Tovar MD in OV> 10/19/24818 DD/ 9 TD/TT: 10/19/24 08 Malted Milk Masher: [facility] External Provider IMG XR PROCEDURES Final Result * XR Tibia Fibula 2 Views Left (10/19/2024 7:50 AM EDT) Anatomical Region Laterality Modality Lower Extremities, Lower Leg Left Rad iographic Imaging 10/19/2024 7:50 AM EDT Narrative 10/19/2024 8:23 AM EDT ? [facility] ?[address] ?[place], [place] [address] ?XRay Report ? Signed ? Patient: Harjinder Delcid ?MR#: M ?? [id number] ? : 1960 ?Acct:[id number] ? Age/Sex: 64 / M ?ADM Date: 10/19/24 ? Loc: HO.ED ? Attending Dr: ? Ordering Physician: Aditi Maher DO ?? Date of Service: 10/19/24 ?? Procedure(s): XR tibia fibula LT 2V ?? Accession Number(s): [id number] ? cc: Aditi Maher DO; Ashley Nugent [...] Tovar MD ??10/19/2024 08:20 AM EDT RP ?? Workstation: [id number] ? Dictated By: ?Maikol Tovar MD ? Signed By: ?<Electronically signed by Maikol Tovar MD in OV> ?10/19/24 0820 ? DD/ 0750 ? TD/TT: 10/19/24 0810 ? Malted Milk Masher: ? Procedure Note Sharad Javier - 10/19/[address] [address] XRay Report Signed Patient: Harjinder Delcid FMR#: M [id number] : 2Acct:[id number] Age/Sex: 64 / MADM Date: 10/19/24 Loc: .ED Attending Dr: Ordering Physician: Aditi Maher DO Date of Service: 10/19/24 Procedure(s): XR tibia fibula LT 2V Accession Number(s): [id number] cc: Aditi Maher DO; Ashley Nugent MD [...] Tovar MD 10/19/2024 08:20 AM EDT RP Workstation: [id number] Dictated By: Maikol Tovar MD Signed By: <Electronically signed by Maikol Tovar MD in OV> 10/19/24 0820 DD/ 0750 TD/TT: 10/19/24 0810 Malted Milk Masher: us [facility] External Provider IMG XR PROCEDURES Final Result * Albumin, Random Urine W/Creatinine (03/20/2023 9:05 AM EDT) Creatinine, Urine 83.54 mg/dL [facility] Microalbumin Urine 6.0 mg/L [facility] Microalbum Creatinine Ratio Ur 7.1 <30 ug/mg cr [facility] Comment:Albumin/Creatinine R atio Reference Ranges: Normal: < 30 ug/mg creatinine Microalbuminuria: 30 - 300 ug/mg creatinineClinical Albuminuria: > 300 ug/mg creatinine Urine 03/20/2023 9:05 AM EDT 03/20/2023 11:20 AM EDT us Ashley Holder MD LAB URINE ORDERAB LES Final Result [facility] [address] [place] [phone] * HIV Ab/Ag ([facility]) (03/20/2023 8:46 AM EDT) [facility] HIV AB/AG Nonreactive Nonreactive [facility] Comment:HIV-1 p24 Ag and/or HIV-1/HIV-2 Ab not detected.A test result that is nonreactive does not exclude thepossibility of exposure to or infection with HIV-1 and/orHIV-2. Nonreactive results in this assay for individualswith prior exposure to HIV-1 and/or HIV-2 may be due toantigen and antibody levels that are below the limit ofdetection of this assay.The [employer] HIV Ag/Ab Combo assay result andsupplemental assay results should be interpreted inconjunction with the patient's clinical presentation,history and other laboratory results. If the results areinconsistent with clinical evidence, additional testing issuggested to confirm the result. 03/20/2023 8:46 AM EDT 03/20/2023 11:16 AM EDT us Ashley Holder MD LAB BLOOD ORDERAB LES Final Result Performing Organization Address [facility]/ZIP Co de Phone Number [facility] [address] [place] [phone] * Hepatitis C Antibody with Reflex to HCV, RNA, Quantitative, Real-Time PCR (03/20/2023 8:46 AM EDT) [facility] Hepatitis C Antibody Nonreactive Nonreactive [facility] Comment:Antibodies to HCV no t detected; does not exclude early acuteHCV infection. Blood Venous blood specimen / Unknown 03/20/2023 8:46 AM EDT 03/20/2023 11:16 AM EDT us Ashley Holder MD LAB BLOOD ORDERAB LES Final Result Performing Organization Address [facility]/ZIP Co de Phone Number [facility] [address] [place] [phone] * Lipid Panel, Standard (03/20/2023 8:46 AM EDT) Triglycerides 141 <150 mg/dL [facility] Comment:Desirable Triglyceri de: less than 150 mg/dLBorderline High Triglyceride 150-199 mg/dLHigh Triglyceride: 200-499 mg/dLVery High Triglyceride: greater than or equal to 5OO mg/dL Cholesterol 136 <200 mg/dL [facility] Comment:Desirable Cholestero l: less than 200 mg/dLBorderline High Cholesterol: 200-239 mg/dLHigh Cholesterol: greater than 239 mg/dL LDL Cholesterol Calculated 67 <100 mg/dL [facility] Comment:Desirable LDL: less than 100 mg/dLNear Optimal/Above Optimal LDL: 110- 129 mg/dLBorderline High LDL: 130-159 mg/dLHigh LDL: 160-189 mg/dLVery High LDL: greater than or equal to 190 mg/dL HDL Cholesterol 41 >40 mg/dL [facility] Comment:Desirable HDL: great er than 40 mg/dL Note: This HDL assay may give artificially low results in patients with liver disease. Blood Venous blood specimen / Unknown 03/20/2023 8:46 AM EDT 03/20/2023 11:16 AM EDT us Ashley Holder MD LAB BLOOD ORDERAB LES Final Result [facility] [address] [place] [phone] * Fecal Globin by Immunochemistry (03/20/2023 12:00 AM EDT) Fecal Globin By Immunochemistry SEE NOTE [facility] Comment:FECAL GLOBIN BY IMMU NOCHEMISTRY Micro Number: [id number] Test Status: Final Specimen Source: Insure (tm) fobt test card Specimen Quality: Adequate Fecal Globin: Not DetectedTHIS TEST WAS PERFORMED AT:[facility] [place] [phone] GOVEA MD Stool Rectal contents / Unknown 03/20/2023 03/20/2023 Ashley Holder MD LAB BODY FLUIDS A ND STOOLS ORDERABLES Final Result [facility] [address] [place] [phone] from Last 3 Months or Most Recently Relevant to Health Maintenance Insurance [facility] C3 DENTAL-[facility] MEDICAID STAND ADULT Care Teams Unit Clerk Relationship Specialty Start Date End Date Ashley Nugent MD [address] [place] [phone] PCP - General Internal Medicine 12/31/22 Harjinder Kc, RN [address] [place] [phone] Registered Nurse Family Medicine 12/16/24 Noemí Victor 12/16/24
== END 2024-12-17 10:34 | disposition home or self-care (01) ==
LOC: HO.HVS 09:57
PROVIDERS: PCP Student in an Organized Health Care Education/Training Program; Visit Provider Surgery Vascular Surgery
DX: I73.9 Peripheral vascular disease, unspecified (principal)
CPT/HCPCS: 99214

== ENCOUNTER → 2024-12-17 09:56 | Outpatient (BNVA) | payer MEDICAID, SELFPAY | PROVIDERS: PCP Student in an Organized Health Care Education/Training Program; Visit Provider Surgery Vascular Surgery | DX: I73.9 Peripheral vascular disease, unspecified (principal) | CPT/HCPCS: 99212 ==

== ENCOUNTER 2025-05-31 14:13 | Outpatient (REF) | payer MEDICAID, SELFPAY ==
--- NOTE | ~2025-05-31 | US_ITS ---
EXAMINATION: Noninvasive assessment of the bilateral lower extremities with ARTERIAL DUPLEX, ANKLE BRACHIAL INDICES (ABIs), and PULSE VOLUME RECORDINGS (PVRs). CLINICAL INFORMATION: I 73.9 TECHNIQUE: Duplex Doppler techniques with waveform analysis and measurement of velocities in the bilateral common femoral, profunda femoris, superficial femoral, popliteal and tibial arteries were performed. Additionally, ankle pulse volume recordings, ankle pressure measurements and ankle brachial indices were obtained of the lower extremity arterial system bilaterally. The study was performed only at rest. COMPARISON: October 19, 2024 FINDINGS: DIRECT DUPLEX DOPPLER FINDINGS: RIGHT LEG: Common femoral artery: 75 cm/s, phasicity: Biphasic. Spectral broadening. Profunda femoris artery: 69 cm/s, phasicity: Biphasic. Spectral broadening. Superficial femoral artery (proximal): 60 cm/s, phasicity: Biphasic. Superficial femoral artery (mid): 85 cm/s, phasicity: Biphasic. Superficial femoral artery (distal): 120 cm/s, phasicity: Biphasic. Popliteal artery: 71 cm/s, phasicity: Biphasic. Spectral broadening. Posterior tibial artery: 8 cm/s, phasicity: Monophasic. Spectral broadening. Peroneal artery: 155 cm/s, phasicity: Monophasic. Spectral broadening. Anterior tibial artery: 40 cm/s, phasicity: Monophasic. Spectral broadening. Dorsalis pedis artery: 89 cm/s, phasicity:Monophasic. Spectral broadening. LEFT LEG: Common femoral artery: 114 cm/s, phasicity: Biphasic. Spectral broadening. Profunda femoris artery: 50 cm/s, phasicity: Biphasic. Spectral broadening. Superficial femoral artery (proximal): 97 cm/s, phasicity: Biphasic. Superficial femoral artery (mid): 100 cm/s, phasicity: Triphasic.. Superficial femoral artery (distal): 102 cm/s, phasicity: Triphasic. Popliteal artery: 94 cm/s, phasicity: Triphasic. Spectral broadening. Posterior tibial artery: 30 cm/s, phasicity: Monophasic. Spectral broadening. Peroneal artery: 72 cm/s, phasicity: Monophasic. Spectral broadening. Anterior tibial artery: 59 cm/s, phasicity: Monophasic. Spectral broadening. Dorsalis pedis artery: 24 cm/s, phasicity: Monophasic. Spectral broadening. 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 Probable high degree stenosis at the peroneal artery. Left leg: Severe inflow disease from the posterior tibialis artery to the dorsalis pedis artery. TREVOR Reference: - >1.4 = calcified vessels - 0.9 - 1.4 = normal - no significant arterial disease - 0.7 - 0.89 = mild peripheral arterial disease - 0.51 - 0.69 = moderate peripheral arterial disease - 0.50 = severe peripheral arterial disease - < .30 = critical arterial disease Electronically signed by: Hugh Hart MD 06/01/2025 07:12 AM AUREA
== END 2025-05-31 14:14 | disposition home or self-care (01) ==
LOC: HO.US 14:13
PROVIDERS: PCP Student in an Organized Health Care Education/Training Program; Visit Provider Surgery Vascular Surgery
DX: I73.9 Peripheral vascular disease, unspecified (principal)
CPT/HCPCS: 93922; 93925

== ENCOUNTER → 2025-05-31 14:14 | Outpatient (BNV) | payer MEDICAID, SELFPAY | PROVIDERS: PCP Student in an Organized Health Care Education/Training Program; Visit Provider Radiology Diagnostic Radiology | DX: I73.9 Peripheral vascular disease, unspecified (principal) | CPT/HCPCS: 93922; 93925 ==